=== PATIENT | female | born 1945 | race Hispanic/Latino ===

== ENCOUNTER 2017-04-10 10:32 | Inpatient (IN) | payer MEDICARE, MEDICAID ==
[2017-04-10 11:36] LABS: #Lymphocytes 0.6 thou/uL (1.20-3.40); #Monocytes 0.6 thou/uL (0.11-0.59); #Neutrophils 6.9 thou/uL (1.40-6.50); %Basophils 0.1 % (0.0-1.0); %Eosinophils 0.6 % (0.0-10.0); %Lymphocytes 7.8 % (21.0-51.0); %Neutrophils 84.5 % (42.0-75.0); Hemoglobin 10.6 g/dL (12.0-16.0); Mean Corpuscular HGB CONC 32.3 g/dL (32.0-36.0); Mean Corpuscular Hemoglobin 29.8 pg (27.0-31.0); Mean Corpuscular Volume 92.2 fl (81.0-99.0); Mean Platelet Volume 7.1 fL (7.4-10.4); Platelet Count 220 thou/uL (130-400); RBC Distribution Width 12.2 % (11.5-14.5); Red Blood Cell (RBC) Count 3.56 mill/uL (4.20-5.40); White Blood Cell (WBC) Count 8.1 thou/uL (4.8-10.8)
--- NOTE | 2017-04-10 11:39 | RAD ---
RADIOGRAPH OF CHEST: Date: 04/10/17 COMPARISON: 04/25/16. CLINICAL HISTORY: Chest pain. FINDINGS: There is persistence of multiple right rib deformities. There are patchy subpleural opacities bilater ally, similar appearing, in addition to enlarged cardiac silhouette and pulmonary vascular prominence . IMPRESSION: Grossly stable chest. Findings indicate CHF. Correlate clinically. POS: [facility]
[2017-04-10 11:58] LABS: ALT (SGPT) 7 U/L (8-55); AST (SGOT) 10 U/L (5-34); Albumin 3.9 g/dL (3.4-4.8); Alkaline Phosphatase 148 U/L (40-150); Anion Gap 11 mmol/L (10-20); BUN (Urea Nitrogen) 25 mg/dL (9.8-20.1); Bilirubin, Total 0.6 mg/dL (0.2-1.2); Calc. Creatinine Clearance 0 mL/min (70-130); Calcium 9.4 mg/dL (7.8-10.44); Carbon Dioxide 26 mmol/L (23-31); Chloride 105 mmol/L (98-107); Estimated GFR-MDRD 50; Globulin 3.1 g/dL (2.4-3.5); Glucose 183 mg/dL (80-115); Potassium 4.1 mmol/L (3.5-5.1); Sodium 138 mmol/L (136-145)
[2017-04-10 12:03] LABS: CKMB 0.7 ng/mL (0-6.6); Troponin I 0.018 ng/mL (< 0.028)
[2017-04-10] MEDS ORDERED: ISOVUE-370 76%-LOCM 1 ML ONE (12:22)
[2017-04-10] MEDS ORDERED: Oseltamivir 75 MG CAP PO SCH (13:00)
[2017-04-10 15:16] LABS: Troponin I 0.015 ng/mL (< 0.028)
[2017-04-10 16:15] VITALS: BMI 27.9
[2017-04-10] MEDS ORDERED: Ondansetron ODT 4 MG TAB PO PRN (18:02)
[2017-04-10] MEDS ORDERED: Senokot 8.6 MG TAB PO PRN (18:02)
[2017-04-10] MEDS ORDERED: Ondansetron HCl/PF 4 MG/2 ML Vial IVP PRN (18:02)
[2017-04-10] MEDS ORDERED: Calcium Carbonate 500 MG ChewTAB PO PRN (18:02)
[2017-04-10] MEDS ORDERED: Insulin Regular 300 UNITS/3 ML VIAL SC PRN (18:12)
[2017-04-10] MEDS ORDERED: Dextrose 5% in Water 1,000 ML IV PRN (18:12)
[2017-04-10] MEDS ORDERED: Dextrose 50% Abboject 50 ML SYRINGE SLOW IVP PRN (18:12)
[2017-04-10] MEDS ORDERED: Vancomycin HCl 1 GM in Premix Bag 1 BAG IVPB SCH (18:15)
[2017-04-10] MEDS ORDERED: Sodium Chloride 0.9% 1,000 ML IV SCH (18:15)
[2017-04-10] MEDS ORDERED: Prevnar 13-Val Conj/PF 0.5 ML SYRINGE IM ONE (18:15)
--- NOTE | 2017-04-10 18:19 | HP ---
PRIMARY CARE PHYSICIAN: Dr. Brooke. PRIMARY TOOL PUSHER: Dr. Summers at [facility]. CHIEF COMPLAINT: Fever with generalized weakness. HISTORY OF PRESENT ILLNESS: Patient is a 71-year-old female with diabetes mellitus type 2, hypertens ion, hyperlipidemia who presented to the emergency room with above complaints. Over the last 24 hours, patient has intermittent fever with chills. She feels generally weak with li ghtheaded and malaise. She also had some shortness of breath with headache. No focal neurologic def icit reported. No seizures, double vision or blurring of vision reported. She also had some chest t ightness while she was at home. No significant neck stiffness, dysuria, hematuria, urgency, cough, s hortness of breath, and wheezing reported. In the emergency room, her initial vital signs showed temperature 102.6, respirations 20, pulse rate of 107 with a blood pressure 154/75. O2 saturation was 93% on room air. Influenza testing was negat lily. Respiratory viral panel was negative. She received Tamiflu in the emergency room. PAST MEDICAL HISTORY: 1. Diabetes mellitus type 2. 2. Hypertension. 3. Anxiety and depression. 4. Lumbar spinal stenosis. 5. History of urinary tract infection. 6. History of deep venous thrombosis on anticoagulation. 7. Hypothyroidism. 8. Hyperlipidemia. 9. Diabetic neuropathy. 10. Chronic diastolic heart failure. PAST SURGICAL HISTORY: 1. Pericardial window in 11/2015. 2. PCI with stent placement at [facility]. 3. Tonsillectomy. 4. Ablation for atrial fibrillation. ALLERGIES: Patient is allergic to CODEINE, and TYLENOL. CURRENT HOME MEDICATIONS: Patient does not remember any of her home medications. Family is to get a n accurate list of medications. FAMILY HISTORY: Negative for premature coronary artery disease. SOCIAL HISTORY: She is a former smoker. She currently lives at home since 02/10/2017. She has [employer]. She ambulates with the help of a walker. REVIEW OF SYSTEMS: The following complete review of systems was negative, unless otherwise mentioned in the HPI or below: Constitutional: Weight loss or gain, ability to conduct usual activities. Sk in: Rash, itching. Eyes: Double vision, pain. ENT/Mouth: Nose bleeding, neck stiffness, pain, te nderness. Cardiovascular: Palpitations, dyspnea on exertion, orthopnea. Respiratory: Shortness of breath, wheezing, cough, hemoptysis, fever or night sweats. Gastrointestinal: Poor appetite, abdom inal pain, heartburn, nausea, vomiting, constipation, or diarrhea. Genitourinary: Urgency, frequenc y, dysuria, nocturia. Musculoskeletal: Pain, swelling. Neurologic/Psychiatric: Anxiety, depressio n. Allergy/Immunologic: Skin rash, bleeding tendency. PHYSICAL EXAMINATION: VITAL SIGNS: As discussed above. GENERAL: A 71-year-old female, ill-appearing. She denies significant pain. She has generalized ach es and pains all over. HEENT: Atraumatic, normocephalic. Sclerae are anicteric. Moist mucous membranes. No oral lesion. NECK: Supple, no JVD appreciated. No carotid bruit. LUNGS: Essentially clear to auscultation bilaterally. There were minimal scattered rales at bases w ith rhonchi. No wheezing. Lungs were symmetrical. HEART: S1, S2 present. Regular rate and rhythm, 2/6 systolic murmur over the mitral area. ABDOMEN: Soft, nontender, bowel sounds present, no rebound, guarding, no costovertebral angle tender ness. EXTREMITIES: No edema or calf tenderness. NEUROLOGIC: Grossly nonfocal, moves all four extremities. PSYCHIATRY: Alert, awake, oriented x3. SKIN: Warm and dry. LYMPH NODES: No palpable lymph nodes in the neck. PERIPHERAL VASCULAR: Radial pulses palpable bilaterally. MUSCULOSKELETAL: No joint swelling or tenderness. LABORATORY FINDINGS: Troponin so far negative. BNP 182, BUN 25, creatinine 1.09. Lactic acid 1.1. CBC showed WBC 8.1 with hemoglobin of 10.6, hematocrit 32.8, platelet 220. Influenza testing negati ve. Chest x-ray by my review showed mild pulmonary vascular congestion. IMPRESSION: 1. Systemic inflammatory response syndrome of unclear etiology. Influenza ruled out. 2. Chronic diastolic heart failure, appears to be compensated. 3. Diabetes mellitus type 2. 4. History of deep venous thrombosis on anticoagulation. 5. History of supraventricular tachycardia status post ablation. 6. Coronary artery disease, status post stent placement in the past. 7. Hypertension. 8. Hyperlipidemia. 9. Hypothyroidism. 10. Diabetic neuropathy. 11. History of pericardial effusion with tamponade requiring pericardial window. 12. Chest discomfort. PLAN: Patient will be monitored on the telemetry unit. We will get stat blood cultures, urinalysis and urine cultures. Serial cardiac enzymes will be done for chest discomfort. We will resume home m edications once confirmed. Empiric antibiotics will be initiated. Repeat labs in a.m. Insulin slid ing scale. Plan of care was discussed with the patient. She stated understanding.
[2017-04-10] MEDS ORDERED: cefTRIAXone\\ROCEPHIN 1 GM in Sodium Chloride 0.9% 100 ML IVPB SCH (18:45)
[2017-04-10 18:48] LABS: Troponin I 0.012 ng/mL (< 0.028)
[2017-04-10] MEDS ORDERED: Vancomycin HCl 500 MG in Sodium Chloride 0.9% 100 ML IVPB SCH (20:00)
[2017-04-10] MEDS ORDERED: MEROPENEM 1 GM/50 ML 1 GM in Premix Bag 1 BAG IVPB SCH (21:00)
--- NOTE | 2017-04-10 21:53 | CT ---
CT ANGIO OF CHEST PERFORMED WITH INTRAVENOUS CONTRAST ENHANCEMENT WITH 3D RECONSTRUCTIONS: History: Chest pain and shortness of breath. FINDINGS: The lungs show some chronic appearing change in the lung bases. Old rib fractures are noted bilateral ly. There is no focal infiltrative process. There is no significant mediastinal or hilar adenopathy. The is slight esophageal wall thickening distally which could be on the basis of reflux. The thoracic aorta is normal in caliber. There is fair pulmonary artery opacification without evidence for pulmonary embolus. Visualized liver parenchyma shows no focal findings. IMPRESSION: 1. No CT evidence for pulmonary embolus. POS: [facility]
[2017-04-10] MEDS: Famotidine 20 MG TAB PO SCH (22:37)
[2017-04-10] MEDS: Docusate 100 MG CAP PO SCH (22:37)
[2017-04-10] MEDS: cefTRIAXone\\ROCEPHIN 1 GM, Syringe 0.4 ML in Sterile Water 9.6 ML SLOW IVP SCH (22:42)
[2017-04-10] MEDS: Ibuprofen 200 MG TAB PO PRN (22:47)
--- NOTE | 2017-04-11 00:05 | CON ---
DATE OF CONSULTATION: 04/10/2017 REASON FOR CONSULTATION: Fever, chest pain. HISTORY OF PRESENT ILLNESS: A 71-year-old who has a history of type 2 diabetes and hypertension, lumbar spinal stenosis, and prior DVT, on currently Eliquis, who for the past 3 weeks has noticed what she describes as dizziness when she gets up in the morning, when she goes to bed at night. Over the past day or so , she has developed general malaise, myalgias and fever with chills. She has noticed increased urinary frequency, but no dysuria. A little bit of tenderness in the lower abdominal area, some dyspnea and chest pain which describes as pleuritic chest pain and a submammary region on the left side, had some severe headaches, but those have improved quite a bit lately. No visual symptoms, sore throat, odynophagia, dysphagia, no toothache. No neck pain or some shoulder pain mostly in the muscles. Pain in the abdomen is localized over the suprapubic area mostly the area below the umbilicus. She was brought to the emergency room and initial vital signs with temperature 102.6, respiratory rate 20, pulse 107, blood pressure 154/75, O2 sat 92%. She had a respiratory virus PCR panel which was negative. She was given Tamiflu anyways. Currently, she appears in no distress, a little bit better, still appears unwell. REVIEW OF SYSTEMS: A 10-point review of system as above. PHYSICAL EXAMINATION: Type 2 diabetes, hypertension, lumbar spinal stenosis, prior urinary tract infection, hypothyroidism, neuropathy. PAST SURGICAL HISTORY: Pericardial window in 02/2016, cytology of pericardial fluid with no inflammation and no malignancy. Pathology of pericardial tissue with granulation tissue, but no inflammatory infiltrates, no malignancy or granulomas. She also had ablation for atrial fibrillation and DVT on Eliquis, prior stent placement at [facility]. FAMILY HISTORY: Noncontributory. CURRENT MEDICATIONS: Tums, dextrose, Colace, Pepcid, glucagon, Motrin, insulin , meropenem, Zofran, vancomycin. SOCIAL HISTORY: Former smoker, lives in [place]. PHYSICAL EXAMINATION: VITAL SIGNS: T-max 99, blood pressure 99/53, pulse 88, respirations 18, O2 sat 94%. GENERAL: Appears in no distress, appears chronically ill. SKIN: With no areas of skin breakdown. Has a left-sided antecubital fossa IV access. No Florez catheter. No lymphadenopathy. HEENT: Ocular movements are conjugate. Oral cavity normal. NECK: Supple. LUNGS: With inspiratory crackles in the left base. HEART: S1, S2, regular rate. No S3 or S4. ABDOMEN: Soft, not distended. Question of bladder distention. EXTREMITIES: No joint inflammatory activity. Trace edema in lower extremities. Pulses are 1+ in dorsalis pedis. NEUROLOGIC: Plantar responses are flexor. She is awake, oriented, follows commands, pleasant. LABORATORY DATA: White cell count 8.1, hemoglobin 10.6, 84% neutrophils. Chemistry is not remarkable except for BUN 25, glucose 183. BNP was 182, albumin 3.9. Urinalysis last one is from a year ago, was not repeated. We do not have blood cultures submitted at this time and there is a chest x-ray with deformities, subpleural opacities, pulmonary vascular prominence. ASSESSMENT: Coronary artery disease, type 2 diabetes, and deep venous thrombosis on Lucy, who now presents with new onset of fever over the past 24 hours before admission associated with general malaise and pleuritic pain in the chest area. DISCUSSION: Differential diagnosis includes a respiratory tract infection, that might be still evolving not viral, but bacterial, or urinary tract inflammatory process. She may be or have been bacteremic. We will switch her to Rocephin, discontinue vancomycin and meropenem. Some blood cultures if not done yet, as well as urinalysis and urine culture and repeat chest x-ray in a.m. or repeat chest CT. [facility]
[2017-04-11 03:06] LABS: Bilirubin Negative (Negative); Blood, Urine Trace (Negative); Clarity CLOUDY (Clear); Glucose, Urine (Dipstick) Negative (Negative); Leukocyte Large (Negative); Nitrite Positive (Negative); Protein, Urine (Dipstick) 30 mg/dL (Neg-Trace); Specific Gravity, Urine 1.042 (1.002-1.036)
[2017-04-11 03:08] LABS: Bacteria/HPF 1+ HPF (None Seen); Hyaline Casts/LPF 0-3 HYALINE CAST LPF (0-3 Hyaline); Squamous Epithelial 0-3 HPF (0-3)
[2017-04-11 03:10] LABS: Yeast-AUWi Flag 27.7 (0-25.0)
[2017-04-11 03:18] LABS: Yeast-All Forms None Seen HPF (None Seen)
[2017-04-11 05:56] LABS: Lactic Acid 0.8 mmol/L (0.5-2.2)
[2017-04-11] MEDS: Ibuprofen 200 MG TAB PO PRN ×3 (05:56→21:06)
[2017-04-11 05:58] LABS: Band 7 % (5-11); Eosinophils 1 % (0-10); Hemoglobin 9.5 g/dL (12.0-16.0); Lymphocytes 18 % (21-51); MDiff Complete? YES; Mean Corpuscular HGB CONC 32.6 g/dL (32.0-36.0); Mean Corpuscular Hemoglobin 30.3 pg (27.0-31.0); Mean Corpuscular Volume 92.9 fl (81.0-99.0); Mean Platelet Volume 7.5 fL (7.4-10.4); Monocytes 4 % (0-10); Neutrophil 70 % (42-75); PLT Morphology Comment Appears Adequate; Platelet Count 207 thou/uL (130-400); RBC Distribution Width 12.3 % (11.5-14.5); Red Blood Cell (RBC) Count 3.13 mill/uL (4.20-5.40); White Blood Cell (WBC) Count 8.4 thou/uL (4.8-10.8)
[2017-04-11 06:07] LABS: ALT (SGPT) 7 U/L (8-55); AST (SGOT) 12 U/L (5-34); Albumin 3.4 g/dL (3.4-4.8); Alkaline Phosphatase 123 U/L (40-150); Anion Gap 9 mmol/L (10-20); BUN (Urea Nitrogen) 25 mg/dL (9.8-20.1); Bilirubin, Total 0.5 mg/dL (0.2-1.2); Calc. Creatinine Clearance 58 mL/min (70-130); Calcium 8.7 mg/dL (7.8-10.44); Carbon Dioxide 28 mmol/L (23-31); Chloride 106 mmol/L (98-107); Estimated GFR-MDRD 51; Globulin 2.9 g/dL (2.4-3.5); Glucose 141 mg/dL (80-115); Magnesium 1.2 mg/dL (1.6-2.6); Potassium 3.7 mmol/L (3.5-5.1); Protein, Total 6.3 g/dL (6.0-8.3); Sodium 139 mmol/L (136-145)
[2017-04-11] MEDS ORDERED: Acetaminophen 325 MG TAB PO PRN (08:32)
[2017-04-11] MEDS: Docusate 100 MG CAP PO SCH ×2 (09:27→21:04)
[2017-04-11] MEDS: Famotidine 20 MG TAB PO SCH ×2 (09:27→21:03)
--- NOTE | 2017-04-11 09:29 | ULT ---
RENAL ULTRASOUND: Date: 04-11-17 Comparison: None. History: Urinary tract infection. Technique: Multiplanar grayscale sonographic imaging of the kidneys and urinary bladder obtained. FINDINGS: Right kidney measures 9.5 x 4.0 x 4.5 cm and the left kidney measures 10.5 x 5.0 x 4.5 cm. There is n o renal mass or hydronephrosis seen on either side. Urinary bladder volume is 178 cc. IMPRESSION: Unremarkable renal ultrasound. POS: [facility]
[2017-04-11] MEDS ORDERED: Magnesium Sulfate 4 GM in Sodium Chloride 0.9% 250 ML 250 ML IVPB SCH (09:30)
--- NOTE | 2017-04-11 16:04 | PDOC.PN ---
- Subjective Encounter Start Date: 04/11/17 Encounter Start Time: 12:00 Patient seen and examined. Feels better. Mentation improving. No overnight events - Objective MAR Reviewed: Yes Vital Signs & Weight: Vital Signs (12 hours) Temp Pulse Pulse Pulse Resp BP BP 04/11/17 11:06 98.0 F 77 16 04/11/17 09:27 85 79 120/61 118/56 L 04/11/17 08:00 98.1 F 82 20 04/11/17 07:59 98.1 F 82 20 BP Pulse Ox 04/11/17 11:06 135/65 96 04/11/17 09:27 04/11/17 08:00 04/11/17 07:59 144/70 H 97 I&O: 04/10/17 04/11/17 04/12/17 06:59 06:59 06:59 Intake Total 595 480 Output Total 250 Balance 345 480 Result Diagrams: 04/11/17 05:23 04/11/17 05:23 Additional Labs: Accuchecks 04/11/17 04/10/17 11:12 21:56 POC Glucose 251 H 141 H Radiology Reviewed by me: No (Renal USG negative) EKG Reviewed by me: Yes (Tele SR) Phys Exam - Physical Examination Constitutional: NAD Respiratory: no wheezing, no rales, no rhonchi, clear to auscultation bilateral Cardiovascular: RRR, no rub no heaves/pulsations Gastrointestinal: soft, non-tender, no distention, positive bowel sounds Musculoskeletal: no edema Neurological: non-focal, normal sensation, moves all 4 limbs Psychiatric: A&O x 3 Dx/Plan - Plan DVT proph w/SCDs IMPRESSION: 1. Sepsis due to UTI 2. Chronic diastolic heart failure - compensated. 3. Diabetes mellitus type 2. 4. History of deep venous thrombosis on anticoagulation. 5. History of supraventricular tachycardia status post ablation. 6. Coronary artery disease, status post stent placement in the past. 7. Hypertension. 8. Hyperlipidemia. 9. Hypothyroidism. 10. Diabetic neuropathy. 11. History of pericardial effusion with tamponade requiring pericardial window. 12. Chest discomfort / Hypomagnessemia PLAN: * Replace Magnessium * Resume home meds * Transfer to Medical * Await urine culture * ID following * Cont to monitor * AM labs * Post void 110 ml Review of Systems - Review of Systems Respiratory: negative: Cough, Dry, Shortness of Breath, Hemoptysis, SOB with Excertion, Pleuritic Pain, Sputum, Wheezing Cardiovascular: negative: chest pain, palpitations, orthopnea, paroxysmal nocturnal dyspnea, edema, light headedness, other - Medications/Allergies Allergies/Adverse Reactions: Allergies Allergy/AdvReac Type Severity Reaction Status Date / Time codeine Allergy Verified 04/10/17 16:32 Medications: Current Medications Acetaminophen (Tylenol) 325 mg PO Q6H PRN PRN Reason: Headache/Fever or Pain Calcium Carbonate (Tums) 1,000 mg PO Q4H PRN PRN Reason: Heartburn or Indigestion Dextrose/Water (Dextrose 50%) 25 gm SLOW IVP PRN PRN PRN Reason: Hypoglycemia Docusate Sodium (Colace) 100 mg PO BID [facility] Last Admin: 04/11/17 09:27 Dose: 100 mg Famotidine (Pepcid) 20 mg PO BID [facility] Last Admin: 04/11/17 09:27 Dose: 20 mg Glucagon (Glucagon) 1 mg IM PRN PRN PRN Reason: Hypoglycemia Sodium Chloride (Normal Saline 0.9%) 1,000 mls @ 50 mls/hr IV .Q20H [facility] Last Admin: 04/10/17 22:36 Dose: 1,000 mls Dextrose/Water (D5w) 1,000 mls @ 0 mls/hr IV .Q0M PRN; As Directed PRN Reason: Hypoglycemia Ceftriaxone Sodium 1 gm/ (Syringe 0.4 ml/ Sterile Water) 10 mls @ 120 mls/hr SLOW IVP 2000 [facility] Last Admin: 04/10/17 22:42 Dose: 10 mls Ibuprofen (Motrin) 400 mg PO Q4H PRN PRN Reason: Fever > 101/pain Last Admin: 04/11/17 11:38 Dose: 400 mg Insulin Human Regular (Humulin R) 0 units SC .MILD SLIDING SCALE PRN PRN Reason: Mild Correctional Scale Insulin Human Regular (Humulin R) 0 units SC .BEDTIME SLIDING SC PRN PRN Reason: Bedtime Correctional Scale Ondansetron HCl (Zofran Odt) 4 mg PO Q6H PRN PRN Reason: Nausea/Vomiting Ondansetron HCl (Zofran) 4 mg IVP Q6H PRN PRN Reason: Nausea/Vomiting Senna (Senokot) 2 tab PO HSPRN PRN PRN Reason: Constipation
--- NOTE | 2017-04-11 16:30 | PDOC.EVN ---
Event Note - Event Note Event Note: RN called - Patient developed 6 beats of Vtach
[2017-04-11] MEDS: cefTRIAXone\\ROCEPHIN 1 GM, Syringe 0.4 ML in Sterile Water 9.6 ML SLOW IVP SCH (21:01)
[2017-04-11] MEDS: Pregabalin 75 MG CAP PO SCH (21:03)
[2017-04-11] MEDS: Flecainide 50 MG TAB PO SCH (21:03)
[2017-04-11] MEDS ORDERED: Melatonin 3 MG TAB PO PRN (23:15)
[2017-04-12] MEDS: Levothyroxine Sodium 125 MCG TAB PO SCH (05:50)
[2017-04-12 06:01] LABS: Anion Gap 11 mmol/L (10-20); BUN (Urea Nitrogen) 17 mg/dL (9.8-20.1); Calc. Creatinine Clearance 62 mL/min (70-130); Calcium 8.9 mg/dL (7.8-10.44); Carbon Dioxide 26 mmol/L (23-31); Chloride 108 mmol/L (98-107); Estimated GFR-MDRD 56; Glucose 149 mg/dL (80-115); Magnesium 2.2 mg/dL (1.6-2.6); Potassium 3.8 mmol/L (3.5-5.1); Sodium 141 mmol/L (136-145)
[2017-04-12] MEDS ORDERED: Furosemide 40 MG TAB PO SCH (09:00)
[2017-04-12] MEDS: Pregabalin 75 MG CAP PO SCH ×2 (09:09→20:23)
[2017-04-12] MEDS: Apixaban 5 MG TAB PO SCH (09:10)
[2017-04-12] MEDS: Potassium Chloride 10 MEQ TAB PO SCH (09:10)
[2017-04-12] MEDS: Ibuprofen 200 MG TAB PO PRN ×2 (09:10→20:24)
[2017-04-12] MEDS: Famotidine 20 MG TAB PO SCH ×2 (09:10→20:24)
[2017-04-12] MEDS: Docusate 100 MG CAP PO SCH ×2 (09:10→20:23)
[2017-04-12] MEDS: Flecainide 50 MG TAB PO SCH ×2 (09:11→20:23)
[2017-04-12] MEDS ORDERED: traMADol HCl 50 MG TAB PO PRN (10:04)
[2017-04-12] MEDS: Insulin Regular 300 UNITS/3 ML VIAL SC PRN (11:54)
--- NOTE | 2017-04-12 13:32 | PDOC.PN ---
- Subjective Encounter Start Date: 04/12/17 Encounter Start Time: 12:00 Patient seen and examined. No new complaints. No overnight events - Objective MAR Reviewed: Yes Vital Signs & Weight: Vital Signs (12 hours) Temp Pulse Pulse Pulse Resp BP BP 04/12/17 11:35 98.6 F 74 16 04/12/17 09:37 81 89 137/64 138/62 04/12/17 09:10 98.7 F 74 16 04/12/17 08:15 98.7 F 74 16 04/12/17 05:54 98.1 F 76 16 BP Pulse Ox 04/12/17 11:35 118/56 L 94 L 04/12/17 09:37 04/12/17 09:10 95 04/12/17 08:15 138/67 95 04/12/17 05:54 141/65 H 92 L Weight Weight 160 lb 3.2 oz I&O: 04/11/17 04/12/17 04/13/17 06:59 06:59 06:59 Intake Total 595 1080 Output Total 250 400 Balance 345 680 Result Diagrams: 04/11/17 05:23 04/12/17 05:14 Additional Labs: Accuchecks 04/12/17 04/11/17 04/11/17 11:39 22:19 17:21 POC Glucose 315 H 223 H 189 H Phys Exam - Physical Examination Constitutional: NAD Respiratory: no wheezing, no rhonchi Cardiovascular: RRR, no rub Gastrointestinal: soft, non-tender, no distention Musculoskeletal: no edema Neurological: moves all 4 limbs Psychiatric: A&O x 3 Dx/Plan - Plan IMPRESSION: 1. Sepsis due to UTI 2. Chronic diastolic heart failure - compensated. 3. Diabetes mellitus type 2. 4. History of deep venous thrombosis on anticoagulation. 5. History of supraventricular tachycardia status post ablation. on Flecainide per Cardiology 6. Coronary artery disease, status post stent placement in the past. 7. Hypertension. 8. Hyperlipidemia. 9. Hypothyroidism. 10. Diabetic neuropathy. 11. History of pericardial effusion with tamponade requiring pericardial window. 12. Chest discomfort / Hypomagnessemia - replaced PLAN: * Await urine culture * Cont IV Ceftriaxone * Cont to monitor * DC in AM based on culture report Laboratory Tests 04/11/17 04/12/17 05:23 05:14 Magnesium 1.2 L 2.2 Review of Systems - Review of Systems Respiratory: negative: Cough, Dry, Shortness of Breath, Hemoptysis, SOB with Excertion, Pleuritic Pain, Sputum, Wheezing Cardiovascular: negative: chest pain, palpitations, orthopnea, paroxysmal nocturnal dyspnea, edema, light headedness Gastrointestinal: negative: Nausea, Vomiting, Abdominal Pain, Diarrhea, Constipation, Melena, Hematochezia Musculoskeletal: Shoulder Pain (left - reproducible - worst on movement) - Medications/Allergies Allergies/Adverse Reactions: Allergies Allergy/AdvReac Type Severity Reaction Status Date / Time codeine Allergy Verified 04/10/17 16:32 Medications: Current Medications Acetaminophen (Tylenol) 325 mg PO Q6H PRN PRN Reason: Headache/Fever or Pain Apixaban (Eliquis) 2.5 mg PO DAILY [facility] Last Admin: 04/12/17 09:10 Dose: 2.5 mg Atorvastatin Calcium (Lipitor) 20 mg PO [facility] Calcium Carbonate (Tums) 1,000 mg PO Q4H PRN PRN Reason: Heartburn or Indigestion Dextrose/Water (Dextrose 50%) 25 gm SLOW IVP PRN PRN PRN Reason: Hypoglycemia Docusate Sodium (Colace) 100 mg PO BID [facility] Last Admin: 04/12/17 09:10 Dose: 100 mg Famotidine (Pepcid) 20 mg PO BID [facility] Last Admin: 04/12/17 09:10 Dose: 20 mg Flecainide Acetate (Tambocor) 50 mg PO BID [facility] Last Admin: 04/12/17 09:11 Dose: 50 mg Glucagon (Glucagon) 1 mg IM PRN PRN PRN Reason: Hypoglycemia Dextrose/Water (D5w) 1,000 mls @ 0 mls/hr IV .Q0M PRN; As Directed PRN Reason: Hypoglycemia Ceftriaxone Sodium 1 gm/ (Syringe 0.4 ml/ Sterile Water) 10 mls @ 120 mls/hr SLOW IVP 1999 [facility] Last Admin: 04/11/17 21:01 Dose: 10 mls Ibuprofen (Motrin) 400 mg PO Q4H PRN PRN Reason: Fever > 101/pain Last Admin: 04/12/17 09:10 Dose: 400 mg Insulin Human Regular (Humulin R) 0 units SC .MILD SLIDING SCALE PRN PRN Reason: Mild Correctional Scale Last Admin: 04/12/17 11:54 Dose: 5 unit Insulin Human Regular (Humulin R) 0 units SC .BEDTIME SLIDING SC PRN PRN Reason: Bedtime Correctional Scale Levothyroxine Sodium (Synthroid) 125 mcg PO 0600 [facility] Last Admin: 04/12/17 05:50 Dose: 125 mcg Melatonin (Melatonin) 3 mg PO HS PRN PRN Reason: Insomnia Last Admin: 04/12/17 00:05 Dose: 3 mg Potassium Chloride (Klor-Con 10) 10 meq PO QAM-WM [facility] Last Admin: 04/12/17 09:10 Dose: 10 meq Pregabalin (Lyrica) 75 mg PO BID [facility] Last Admin: 04/12/17 09:09 Dose: 75 mg Senna (Senokot) 2 tab PO HSPRN PRN PRN Reason: Constipation Sodium Chloride (Flush - Normal Saline) 10 ml IVF Q12HR RADHA Sodium Chloride (Flush - Normal Saline) 10 ml IVF PRN PRN PRN Reason: Saline Flush Tramadol HCl (Ultram) 50 mg PO Q6H PRN PRN Reason: Pain
[2017-04-12] MEDS: cefTRIAXone\\ROCEPHIN 1 GM, Syringe 0.4 ML in Sterile Water 9.6 ML SLOW IVP SCH (20:25)
[2017-04-12] MEDS ORDERED: Atorvastatin Calcium 20 MG TAB PO SCH (21:00)
[2017-04-13] MEDS: Levothyroxine Sodium 125 MCG TAB PO SCH (04:14)
[2017-04-13] MEDS: Famotidine 20 MG TAB PO SCH (08:57)
[2017-04-13] MEDS: Apixaban 5 MG TAB PO SCH (08:57)
[2017-04-13] MEDS: Docusate 100 MG CAP PO SCH (08:57)
[2017-04-13] MEDS: Flecainide 50 MG TAB PO SCH (08:57)
[2017-04-13] MEDS: Pregabalin 75 MG CAP PO SCH (08:58)
[2017-04-13] MEDS ORDERED: Sulfameth/Trimethoprim DS 800-160mg TAB PO SCH (09:00)
[2017-04-13] MEDS: Potassium Chloride 10 MEQ TAB PO SCH (09:06)
[2017-04-13 12:23] VITALS: BP 115/62; TEMP 98.4
[2017-04-13] MEDS: Insulin Regular 300 UNITS/3 ML VIAL SC PRN (14:09)
--- NOTE | 2017-04-14 09:17 | DIS ---
DATE OF DISCHARGE: 04/13/2017 DISCHARGE DISPOSITION: Home. FOLLOWUP: Follow up with primary care physician, Dr. Brooke at [facility] in 1 week. ALLERGIES: The patient is allergic to CODEINE. The patient was seen and examined on the day of discharge. Denies any new complaints. No chest pain , shortness of breath, palpitations. DISCHARGE MEDICATIONS: Bactrim double strength 1 tablet b.i.d. #14. Other home medications were resumed including Eliquis 2.5 mg daily, Lipitor 20 mg daily, vitamin D2 o f 50,000 units every 7 days, flecainide 50 mg b.i.d., Lasix 40 mg daily, Humalog sliding scale, levot hyroxine 125 mcg daily, metformin 1000 mg twice a day, potassium chloride 10 mEq daily, Lyrica 75 mg b.i.d. SIGNIFICANT LABORATORIES: Urine culture showing E. coli sensitive to Bactrim. Blood cultures were n egative. Influenza testing negative. PCR respiratory viral panel was negative. CT angiogram of the chest was negative for pulmonary embolism. Renal ultrasound was negative for obstructive pathology. BRIEF HOSPITAL COURSE: The patient is a 71-year-old female with hypertension, diabetes mellitus type 2, and urinary tract infections in the past, presented to the hospital with fever with generalized w eakness. Please refer to the history and physical dated 10/04/2017 for further details. The patient was admitted to the hospital with the diagnosis of fever with chest discomfort. Serial t roponins were negative. Influenza testing and respiratory viral panel were negative. Blood cultures were negative. Urinalysis was consistent with UTI. Urine culture showed E. coli sensitive to Bactr im. She was placed on IV antibiotics that has been changed to Bactrim. She has tolerated Bactrim we ll this morning. She appears stable for discharge. She will probably need an outpatient urological workup due to recurrent UTIs. Postvoid residual was 110 mL. FINAL DIAGNOSES: 1. Sepsis secondary to Escherichia coli urinary tract infection. 2. Chronic diastolic heart failure. 3. Diabetes mellitus type 2. 4. History of deep venous thrombosis on anticoagulation, (low dose Eliquis 2.5 mg daily per PCP). 5. History of supraventricular tachycardia, status post ablation on flecainide. 6. Coronary artery disease, status post stent placement. 7. Hypertension. 8. Hyperlipidemia. 9. Hypothyroidism. 10. Diabetic neuropathy. 11. History of pericardial effusion with tamponade requiring pericardial window. 12. Chest discomfort. 13. Hypomagnesemia, corrected. Plan of care was discussed with the patient in detail. She stated understanding.
--- NOTE | 2017-04-15 14:24 | EKG ---
Test Reason : CP Blood Pressure : / mmHG Vent. Rate : 106 BPM Atrial Rate : 106 BPM P-R Int : 144 ms QRS Dur : 112 ms QT Int : 340 ms P-R-T Axes : 013 -04 203 degrees QTc Int : 451 ms Sinus tachycardia Inferior infarct , age undetermined T wave abnormality, consider lateral ischemia Abnormal ECG Confirmed by LIS LEAL, EDY ([id number]), mapping editor MINOO CALI ([id number]) on 04/15/2017 2:24:05 PM Referred By: DR HAYS Confirmed By:EDY HAYS MD
== END 2017-04-13 14:44 | disposition home or self-care (01) | DRG 872 ==
LOC: ERS 10:32 → 2SW 13:19 → OBSVTOIN 18:07
PROVIDERS: ADMIT Internal Medicine; ATTEND Internal Medicine
DX: A41.51 Sepsis due to Escherichia coli [E. coli] (principal); N39.0 Urinary tract infection, site not specified; I50.32 Chronic diastolic (congestive) heart failure; E11.42 Type 2 diabetes mellitus with diabetic polyneuropathy; I11.0 Hypertensive heart disease with heart failure; E78.5 Hyperlipidemia, unspecified; E03.9 Hypothyroidism, unspecified; E83.42 Hypomagnesemia; I25.10 Atherosclerotic heart disease of native coronary artery without angina pectoris; Z86.718 Personal history of other venous thrombosis and embolism; Z95.5 Presence of coronary angioplasty implant and graft; Z87.891 Personal history of nicotine dependence; Z88.6 Allergy status to analgesic agent; Z88.5 Allergy status to narcotic agent; Z79.01 Long term (current) use of anticoagulants; Z79.4 Long term (current) use of insulin; Z79.899 Other long term (current) drug therapy
CPT/HCPCS: 36415; 36416; 71045; 71275; 76770; 80048; 80053; 81001; 82553; 83605; 83735; 83880; 84484; 85007; 85025; 85027; 87040; 87077; 87086; 87186; 87633; 87798; 90471; 90670; 93005; A4216; G0009; G8978-GP-CL; G8979-GP-CJ; G8987-GO-CK; G8988-GO-CI; J0696; J1815; J3370; J3475; J7050

== ENCOUNTER 2017-08-06 08:34 | Emergency (ER) | payer MEDICARE, MEDICAID ==
[2017-08-06 09:42] LABS: #Eosinphils 0.1 thou/uL (0.0-0.7); #Lymphocytes 1.8 thou/uL (1.20-3.40); #Monocytes 0.6 thou/uL (0.11-0.59); #Neutrophils 5.7 thou/uL (1.40-6.50); %Basophils 0.2 % (0.0-1.0); %Eosinophils 0.9 % (0.0-10.0); %Lymphocytes 21.8 % (21.0-51.0); %Monocytes 6.9 % (0.0-10.0); %Neutrophils 70.2 % (42.0-75.0); Hemoglobin 12.4 g/dL (12.0-16.0); Mean Corpuscular HGB CONC 32.3 g/dL (32.0-36.0); Mean Corpuscular Volume 89.9 fl (81.0-99.0); Mean Platelet Volume 7.2 fL (7.4-10.4); Platelet Count 257 thou/uL (130-400); RBC Distribution Width 14.1 % (11.5-14.5); Red Blood Cell (RBC) Count 4.26 mill/uL (4.20-5.40); White Blood Cell (WBC) Count 8.1 thou/uL (4.8-10.8)
[2017-08-06 10:10] LABS: ALT (SGPT) 8 U/L (8-55); AST (SGOT) 13 U/L (5-34); Albumin 4.3 g/dL (3.4-4.8); Alkaline Phosphatase 208 U/L (40-150); Anion Gap 14 mmol/L (10-20); BUN (Urea Nitrogen) 19 mg/dL (9.8-20.1); Bilirubin, Total 0.7 mg/dL (0.2-1.2); CK (CPK) 53 U/L (29-168); Calc. Creatinine Clearance 0 mL/min (70-130); Calcium 9.6 mg/dL (7.8-10.44); Carbon Dioxide 22 mmol/L (23-31); Chloride 107 mmol/L (98-107); Estimated GFR-MDRD 69; Globulin 3.3 g/dL (2.4-3.5); Glucose 125 mg/dL (83-110); Potassium 4.2 mmol/L (3.5-5.1); Protein, Total 7.6 g/dL (6.0-8.3); Sodium 139 mmol/L (136-145)
[2017-08-06 10:14] LABS: Troponin I Less than 0.010 ng/mL (< 0.028)
[2017-08-06 10:16] LABS: Bilirubin Negative (Negative); Blood, Urine Trace (Negative); Clarity CLEAR (Clear); Glucose, Urine (Dipstick) Negative (Negative); Leukocyte Negative (Negative); Nitrite Negative (Negative); Protein, Urine (Dipstick) 100 mg/dL (Neg-Trace); Specific Gravity, Urine 1.008 (1.002-1.036); Urobilinogen 0.2 mg/dL (0.2-1.0); pH, Urine 7.5 (5.0-9.0)
[2017-08-06 10:19] LABS: Bacteria/HPF None Seen HPF (None Seen); Hyaline Casts/LPF 0-3 HYALINE CAST LPF (0-3 Hyaline); Pathc Cast-AUWi Flag 0.14 (0-2.49); RBC/HPF 0-3 HPF (0-3); Squamous Epithelial None Seen HPF (0-3); WBC/HPF None Seen HPF (0-3)
[2017-08-06] MEDS ORDERED: Ondansetron ODT 4 MG TAB ONE ×2 (10:30→10:33)
--- NOTE | 2017-08-06 10:52 | RAD ---
PORTABLE UPRIGHT FRONTAL CHEST RADIOGRAPH: DATE: 08/06/17. COMPARISON: 04/10/17. HISTORY: Left-sided back pain, side pain, urinary frequency, and increased weakness. FINDINGS: There are increased linear interstitial densities noted bilaterally, not significantly changed. Ther e is no pneumothorax or pleural fluid and no focal consolidation or alveolar edema. Heart and medias tinal contours are grossly unremarkable. IMPRESSION: Interstitial prominence with no focal consolidation or alveolar edema. POS: [facility]
--- NOTE | 2017-08-09 14:27 | EKG ---
Test Reason : TORSO PAIN Blood Pressure : / mmHG Vent. Rate : 072 BPM Atrial Rate : 072 BPM P-R Int : 134 ms QRS Dur : 098 ms QT Int : 390 ms P-R-T Axes : 028 000 -27 degrees QTc Int : 427 ms Normal sinus rhythm Possible Lateral infarct , age undetermined No STEMI Abnormal ECG Confirmed by ROMÁN LEAL, VENKAT ([id number]), news editor SULMA ACUÑA ([id number]) on 08/09/2017 2:27:26 PM Referred By: Confirmed By:VENKAT FRANCE MD
== END 2017-08-06 12:10 | disposition home or self-care (01) ==
LOC: ERS 08:34
DX: S39.011A Strain of muscle, fascia and tendon of abdomen, initial encounter (principal); I48.91 Unspecified atrial fibrillation; I25.10 Atherosclerotic heart disease of native coronary artery without angina pectoris; E11.9 Type 2 diabetes mellitus without complications; I10 Essential (primary) hypertension; Z86.718 Personal history of other venous thrombosis and embolism; F32.9 Major depressive disorder, single episode, unspecified; Z87.891 Personal history of nicotine dependence; Z79.899 Other long term (current) drug therapy; Z79.84 Long term (current) use of oral hypoglycemic drugs; X58.XXXA Exposure to other specified factors, initial encounter
CPT/HCPCS: 36415; 71045; 80053; 81003; 81015; 82550; 82553; 83880; 84484; 85025; 87086; 93005; A4353; Q0162

== ENCOUNTER 2017-10-25 08:24 | Outpatient (CLI) | payer MEDICARE, MEDICAID ==
[2017-10-25] MEDS ORDERED: Gadobenate Dimeglumine 529 MG/1 ML (20ML VIAL) ONE (13:38)
--- NOTE | 2017-10-25 13:50 | NM ---
BONE SCAN: TECHNIQUE: The patient was given 33 mCi of Technetium labeled MDP IV. Whole body bone scan obtained. INDICATION: Back pain. Hip pain. Correlation is made to chest CT of 04/10/17 and to recent chest x-rays. FINDINGS: Bone scan shows numerous foci of activity seen throughout the rib cage bilaterally. Correlation with prior CT and chest x-rays showed areas of numerous rib fractures which correspond to these areas of activity. The spine appears unremarkable. Lumbar spine shows no abnormal activity. Hips and pelvis appear unr emarkable with no abnormal activity. Degenerative activity is seen in the right knee. IMPRESSION: Numerous abnormal foci of activity in the rib cage is consistent with old rib fractures which are con firmed on prior chest CT. Lumbar spine and hips appear unremarkable on bone scan. POS: [facility]
== END 2017-10-25 08:25 | disposition home or self-care (01) ==
LOC: NM 08:24
PROVIDERS: ATTEND Neurological Surgery
DX: M47.22 Other spondylosis with radiculopathy, cervical region (principal); M51.16 Intervertebral disc disorders with radiculopathy, lumbar region; M51.17 Intervertebral disc disorders with radiculopathy, lumbosacral region; M89.9 Disorder of bone, unspecified; M48.02 Spinal stenosis, cervical region; M99.81 Other biomechanical lesions of cervical region; M99.83 Other biomechanical lesions of lumbar region; R94.8 Abnormal results of function studies of other organs and systems; Z98.890 Other specified postprocedural states
CPT/HCPCS: 72141; 72158; 78306; 82565; A9503; A9579

== ENCOUNTER 2017-12-03 06:45 | Emergency (ER) | payer MEDICARE, MEDICAID ==
[2017-12-03 07:27] LABS: #Eosinphils 0.2 thou/uL (0.0-0.7); #Lymphocytes 1.6 thou/uL (1.20-3.40); #Monocytes 0.6 thou/uL (0.11-0.59); #Neutrophils 5.7 thou/uL (1.40-6.50); %Basophils 0.2 % (0.0-1.0); %Lymphocytes 19.3 % (21.0-51.0); %Monocytes 6.9 % (0.0-10.0); %Neutrophils 70.7 % (42.0-75.0); Hemoglobin 10.9 g/dL (12.0-16.0); Mean Corpuscular HGB CONC 33.4 g/dL (32.0-36.0); Mean Corpuscular Hemoglobin 31.2 pg (27.0-31.0); Mean Corpuscular Volume 93.5 fL (78.0-98.0); Mean Platelet Volume 7.1 fL (7.4-10.4); Platelet Count 226 thou/uL (130-400); RBC Distribution Width 13.9 % (11.5-14.5); Red Blood Cell (RBC) Count 3.48 mill/uL (4.20-5.40); White Blood Cell (WBC) Count 8.1 thou/uL (4.8-10.8)
--- NOTE | 2017-12-03 07:46 | RAD ---
PORTABLE AP CHEST XRAY: DATE: 12/03/17. HISTORY: Chest pain. COMPARISON: 08/06/17. FINDINGS: Cardiac silhouette is magnified by projection but does appear enlarged. The pulmonary vasculature is also mildly increased. There are remote bilateral rib fractures bilaterally with deformity in multi ple right-sided ribs present. There is mild elevation of the right hemidiaphragm. There is mild inc reased density in the right mid lung zone, some of which could be related to overlying soft tissue de nsity, but there is mild increasing pulmonary vasculature. No other interval change. IMPRESSION: 1. Cardiomegaly with mild pulmonary vascular congestion. Correlation for mild congestive heart fail ure is recommended. 2. Increased density right mid lung zone probably related to soft tissue density and secondary to ri b deformities. 3. Remote bilateral rib fractures. POS: SYED
[2017-12-03 07:50] LABS: ALT (SGPT) 10 U/L (8-55); AST (SGOT) 14 U/L (5-34); Albumin 3.8 g/dL (3.4-4.8); Alkaline Phosphatase 178 U/L (40-150); Anion Gap 9 mmol/L (10-20); BUN (Urea Nitrogen) 16 mg/dL (9.8-20.1); Bilirubin, Total 0.5 mg/dL (0.2-1.2); Calc. Creatinine Clearance 0 mL/min (70-130); Calcium 8.8 mg/dL (7.8-10.44); Carbon Dioxide 26 mmol/L (23-31); Chloride 110 mmol/L (98-107); Estimated GFR-MDRD 80; Globulin 2.6 g/dL (2.4-3.5); Glucose 79 mg/dL (83-110); Potassium 4.3 mmol/L (3.5-5.1); Protein, Total 6.4 g/dL (6.0-8.3); Sodium 141 mmol/L (136-145)
[2017-12-03 07:54] LABS: CKMB 0.7 ng/mL (0-6.6); Troponin I Less than 0.010 ng/mL (< 0.028)
[2017-12-03 07:57] LABS: INR-International Normal Ratio 1.1; PTT 31.1 SEC (22.9-36.1); Prothrombin Time 13.9 SEC (12.0-14.7)
== END 2017-12-03 14:33 | disposition home or self-care (01) ==
LOC: ERS 06:45
DX: R07.89 Other chest pain (principal); I48.91 Unspecified atrial fibrillation; I25.10 Atherosclerotic heart disease of native coronary artery without angina pectoris; E11.9 Type 2 diabetes mellitus without complications; I10 Essential (primary) hypertension; Z86.718 Personal history of other venous thrombosis and embolism; F32.9 Major depressive disorder, single episode, unspecified; Z87.891 Personal history of nicotine dependence; Z79.899 Other long term (current) drug therapy; Z79.84 Long term (current) use of oral hypoglycemic drugs
CPT/HCPCS: 36415; 71045; 80053; 82553; 83880; 84484; 85025; 85610; 85730; 93005

== ENCOUNTER 2017-12-16 17:15 | Emergency (ER) | payer MEDICARE, MEDICAID ==
[2017-12-16 17:47] LABS: #Eosinphils 0.2 thou/uL (0.0-0.7); #Lymphocytes 1.9 thou/uL (1.20-3.40); #Monocytes 0.5 thou/uL (0.11-0.59); #Neutrophils 5.5 thou/uL (1.40-6.50); %Basophils 0.1 % (0.0-1.0); %Eosinophils 2.7 % (0.0-10.0); %Lymphocytes 23.7 % (21.0-51.0); %Monocytes 6.1 % (0.0-10.0); %Neutrophils 67.5 % (42.0-75.0); Hemoglobin 10.6 g/dL (12.0-16.0); Mean Corpuscular HGB CONC 32.5 g/dL (32.0-36.0); Mean Corpuscular Hemoglobin 29.9 pg (27.0-31.0); Mean Platelet Volume 6.7 fL (7.4-10.4); Platelet Count 376 thou/uL (130-400); RBC Distribution Width 13.3 % (11.5-14.5); Red Blood Cell (RBC) Count 3.54 mill/uL (4.20-5.40); White Blood Cell (WBC) Count 8.2 thou/uL (4.8-10.8)
[2017-12-16 18:09] LABS: ALT (SGPT) 10 U/L (8-55); AST (SGOT) 11 U/L (5-34); Alkaline Phosphatase 150 U/L (40-150); Anion Gap 14 mmol/L (10-20); BUN (Urea Nitrogen) 12 mg/dL (9.8-20.1); Bilirubin, Total 0.4 mg/dL (0.2-1.2); Calc. Creatinine Clearance 0 mL/min (70-130); Calcium 8.8 mg/dL (7.8-10.44); Carbon Dioxide 24 mmol/L (23-31); Chloride 104 mmol/L (98-107); Estimated GFR-MDRD 73; Globulin 3.2 g/dL (2.4-3.5); Glucose 92 mg/dL (83-110); Protein, Total 7.2 g/dL (6.0-8.3); Sodium 138 mmol/L (136-145)
[2017-12-16 19:44] LABS: CKMB 0.6 ng/mL (0-6.6); Troponin I Less than 0.010 ng/mL (< 0.028)
[2017-12-16] MEDS ORDERED: Acetaminophen 500 MG TAB ONE (19:54)
== END 2017-12-16 22:10 | disposition home or self-care (01) ==
LOC: ERS 17:15
DX: D64.9 Anemia, unspecified (principal); I48.91 Unspecified atrial fibrillation; I25.10 Atherosclerotic heart disease of native coronary artery without angina pectoris; I10 Essential (primary) hypertension; E11.40 Type 2 diabetes mellitus with diabetic neuropathy, unspecified; F32.9 Major depressive disorder, single episode, unspecified; Z79.84 Long term (current) use of oral hypoglycemic drugs; Z79.899 Other long term (current) drug therapy
CPT/HCPCS: 36415; 80053; 82274; 82553; 84484; 85025; 93005

== ENCOUNTER 2018-01-31 20:33 | Inpatient (IN) | payer MEDICARE, MEDICAID ==
[2018-01-31 20:56] LABS: Lactate 3.05 mmol/L (0.50-2.20)
[2018-01-31 20:58] LABS: #Eosinphils 0.4 thou/uL (0.0-0.7); #Lymphocytes 2.6 thou/uL (1.20-3.40); #Monocytes 0.8 thou/uL (0.11-0.59); #Neutrophils 7.1 thou/uL (1.40-6.50); %Basophils 0.2 % (0.0-1.0); %Eosinophils 3.5 % (0.0-10.0); %Lymphocytes 23.7 % (21.0-51.0); %Neutrophils 65.5 % (42.0-75.0); Hemoglobin 11.7 g/dL (12.0-16.0); Mean Corpuscular Hemoglobin 30.7 pg (27.0-31.0); Mean Corpuscular Volume 93.1 fL (78.0-98.0); Mean Platelet Volume 7.4 fL (7.4-10.4); Platelet Count 252 thou/uL (130-400); RBC Distribution Width 13.4 % (11.5-14.5); White Blood Cell (WBC) Count 10.8 thou/uL (4.8-10.8)
[2018-01-31 21:18] LABS: ALT (SGPT) 26 U/L (8-55); AST (SGOT) 30 U/L (5-34); Albumin 4.1 g/dL (3.4-4.8); Alkaline Phosphatase 178 U/L (40-150); Anion Gap 14 mmol/L (10-20); BUN (Urea Nitrogen) 25 mg/dL (9.8-20.1); Bilirubin, Total 0.4 mg/dL (0.2-1.2); Calc. Creatinine Clearance 0 mL/min (70-130); Calcium 8.6 mg/dL (7.8-10.44); Carbon Dioxide 25 mmol/L (23-31); Chloride 102 mmol/L (98-107); Estimated GFR-MDRD 32; Globulin 3.1 g/dL (2.4-3.5); Glucose 133 mg/dL (83-110); Potassium 3.8 mmol/L (3.5-5.1); Protein, Total 7.2 g/dL (6.0-8.3); Sodium 137 mmol/L (136-145)
--- NOTE | 2018-01-31 21:18 | RAD ---
PORTABLE CHEST: 01/31/18 HISTORY: Dyspnea. COMPARISON: 12/03/17. FINDINGS/IMPRESSION: Mild cardiomegaly. Mild vascular engorgement. Right chest wall deformity from old trauma. No evidence of acute interval change. POS: ODALIS
[2018-01-31 21:30] LABS: Bilirubin Negative (Negative); Blood, Urine Negative (Negative); Clarity CLOUDY (Clear); Glucose, Urine (Dipstick) Negative (Negative); Leukocyte Moderate (Negative); Nitrite Negative (Negative); Protein, Urine (Dipstick) Negative (Neg-Trace); Specific Gravity, Urine 1.016 (1.002-1.036); pH, Urine 5.5 (5.0-9.0)
[2018-01-31 21:31] LABS: Bacteria/HPF 4+ HPF (None Seen); Hyaline Casts/LPF 0-3 HYALINE CAST LPF (0-3 Hyaline); Pathc Cast-AUWi Flag 0.43 (0-2.49); RBC/HPF None Seen HPF (0-3)
[2018-01-31] MEDS ORDERED: cefTRIAXone\\ROCEPHIN 2 GM VIAL ONE (21:51)
[2018-01-31] MEDS ORDERED: Bisacodyl 5 MG TAB PO PRN (23:17)
[2018-01-31] MEDS ORDERED: Senokot S 8.6-50 MG TAB PO PRN (23:17)
[2018-01-31] MEDS ORDERED: Sodium Chloride 0.9% 1,000 ML IV SCH (23:30)
[2018-01-31] MEDS ORDERED: HumaLOG 300 UNITS/3 ML VIAL SC PRN (23:32)
[2018-01-31] MEDS ORDERED: Dextrose 50% Abboject 50 ML SYRINGE SLOW IVP PRN (23:32)
[2018-01-31] MEDS ORDERED: Dextrose 5% in Water 1,000 ML IV PRN (23:32)
[2018-02-01 00:08] LABS: Lactic Acid 2.7 mmol/L (0.5-2.2)
--- NOTE | 2018-02-01 00:22 | HP ---
CHIEF COMPLAINT: Shortness of breath. HISTORY OF PRESENT ILLNESS: Patient is a 72-year-old female who resides in a [place] [facility], who prese nts to the hospital with complaints of shortness of breath. Patient states that she has been coughin g for the past day; however, her family that is at the bedside stated that she has been coughing for the past week and a half. Patient's family stated that today she appeared to be very lethargic, so [facility] [place] [facility] decided to bring her to the hospital for further evaluation. Patient denies any chil ls; however, she states that she has been having a cough with sputum production. Patient states due to the cough, she has been complaining of some chest pain. Patient also was known to be hypoxic at [facility] [place] [facility] per family. Patient normally does not use any oxygen at home. The influenza test is still pending. Patient initially was called to me for possible urinary tract infection; however, sh gonzalez currently does not have any signs of UTI. PAST MEDICAL HISTORY: History of diabetes, type 2; hypertension; anxiety and depression; lumbar spin al stenosis; history of hypothyroidism; history of hyperlipidemia; and diabetic neuropathy. PAST SURGICAL HISTORY: She has had a pericardial window in 2016, she had a PCI with stent placement in [facility], tonsillectomy, ablation for atrial fibrillation. ALLERGIES: She is allergic to CODEINE AND TYLENOL. MEDICATIONS: Patient currently does not remember her home meds or her [place] [facility] meds and I cannot find the records in the ER in terms of her medications. FAMILY HISTORY: No history of heart disease or cancer. SOCIAL HISTORY: She is a former smoker. She currently lives in a [place] [facility] [place]. She does not ambula te very much. I did ask her about code status. Patient states that she currently wants to be a FULL CODE. REVIEW OF SYSTEMS: All negative except for the ones mentioned above in the HPI. PHYSICAL EXAMINATION: VITAL SIGNS: As of the following temperature of 98.1, she is 95% on room air, pulse is 97, blood pre ssure is 122/66. GENERAL: She is awake, alert, oriented x3, does not appear in any distress. CARDIOVASCULAR: S1, S2 present. No murmurs, rubs, or gallops. LUNGS: She has got significant rhonchi and wheezing all over her lungs. ABDOMEN: Soft, nontender. Bowel sounds are present x2. EXTREMITIES: No edema. Pedal pulses are present x2. SKIN: Intact. No cuts, lesions, or bruises noted. NEUROLOGIC: No focal deficits noted. LABORATORY DATA: As of the following: WBCs of 10.8, hemoglobin of 11.7, hematocrit of 35.4, platele ts of 252. Chemistry: Sodium of 137, potassium of 3.8, BUN of 25, creatinine of 1.61, glucose of 13 3. Her lactic acid was 3.0. Her alkaline phosphatase is mildly elevated. Her BNP was mildly elevat ed at 112.8. Her urine did indicate that she has moderate leukocytes and 11-20 wbcs, and 4-6 squamou s epithelial cells. She did have a chest x-ray that was done in the ER; however, per my interpretati on, she does note that she has got some right wall deformity from old trauma, but no evidence of acut e changes. She does have some mild vascular congestion. ASSESSMENT AND PLAN: Patient is a very pleasant 72-year-old female who presents to the hospital with complaints of coughing for about a week. 1. Possible sepsis. This could be most likely a pneumonia versus urinary tract infection; however, patient has been coughing and she seemed to be hypoxic per the family member at the [place] [facility]. Bert roth does also have an abnormal lung exam. We will start patient on some DuoNebs. We will give her Lev aquin and vancomycin since she is a [place] [facility] resident. I will also get a speech therapist to cherri roth sure she is not aspirating. I will put her on some mild steroids maybe 20 mg IV daily. This could may be due to history of smoking, she could have maybe a little bit of chronic obstructive pulmonary disease exacerbation. The influenza swab is still pending. If it is negative, I would also recomme nd checking a respiratory viral panel on this lady. 2. Mild elevated lactic acid. I will continue to monitor. We will hydrate the patient and most lik talib secondary to underlying infection. We will also check a sputum culture on this lady. 3. History of diabetes. We will continue her home medications. 4. Mild acute kidney injury. We will continue to monitor labs in the morning. If her creatinine do es not improve, may consider getting Nephrology to come and see the patient, we will also bladder sca nned this patient to make sure she is not retaining. 5. Deep venous thrombosis prophylaxis. We will put patient on sequential compression devices. If s he is not on anything for her atrial fibrillation, we will start the patient on some sequential compr ession devices.
[2018-02-01] MEDS ORDERED: Ondansetron ODT 4 MG TAB SL PRN (02:02)
[2018-02-01] MEDS ORDERED: Ondansetron PF 4 MG/2 ML Vial IVP PRN (02:02)
[2018-02-01 05:25] LABS: #Eosinphils 0.2 thou/uL (0.0-0.7); #Lymphocytes 0.7 thou/uL (1.20-3.40); #Monocytes 0.4 thou/uL (0.11-0.59); #Neutrophils 6.8 thou/uL (1.40-6.50); %Basophils 0.2 % (0.0-1.0); %Eosinophils 2.5 % (0.0-10.0); %Lymphocytes 8.5 % (21.0-51.0); %Monocytes 4.7 % (0.0-10.0); %Neutrophils 84.1 % (42.0-75.0); Hemoglobin 9.6 g/dL (12.0-16.0); Mean Corpuscular HGB CONC 31.9 g/dL (32.0-36.0); Mean Corpuscular Hemoglobin 29.8 pg (27.0-31.0); Mean Corpuscular Volume 93.4 fL (78.0-98.0); Mean Platelet Volume 7.7 fL (7.4-10.4); Platelet Count 207 thou/uL (130-400); RBC Distribution Width 13.5 % (11.5-14.5); Red Blood Cell (RBC) Count 3.21 mill/uL (4.20-5.40); White Blood Cell (WBC) Count 8.1 thou/uL (4.8-10.8)
[2018-02-01 05:43] LABS: Anion Gap 13 mmol/L (10-20); BUN (Urea Nitrogen) 22 mg/dL (9.8-20.1); Calc. Creatinine Clearance 45 mL/min (70-130); Calcium 7.5 mg/dL (7.8-10.44); Carbon Dioxide 21 mmol/L (23-31); Chloride 107 mmol/L (98-107); Estimated GFR-MDRD 45; Glucose 103 mg/dL (83-110); Potassium 3.5 mmol/L (3.5-5.1); Sodium 137 mmol/L (136-145)
[2018-02-01] MEDS: Levothyroxine Sodium 125 MCG TAB PO SCH (06:07)
[2018-02-01] MEDS: Acetaminophen 325 MG TAB PO PRN ×2 (06:07→08:15)
[2018-02-01] MEDS ORDERED: Polyethylene Glycol 3350 17 GM Packet PO PRN (07:24)
[2018-02-01] MEDS ORDERED: Milk Of Magnesia 30 ML UDCUP PO PRN (07:24)
[2018-02-01] MEDS ORDERED: Loperamide HCl 2 MG CAP PO PRN (07:48)
[2018-02-01] MEDS ORDERED: metFORMIN 500 MG TAB PO SCH (08:00)
[2018-02-01] MEDS: Atorvastatin Calcium 20 MG TAB PO SCH (08:13)
[2018-02-01] MEDS: metFORMIN 500 MG TAB PO SCH ×2 (08:13→17:35)
[2018-02-01] MEDS: FLUoxetine HCl 20 MG CAP PO SCH (08:14)
[2018-02-01] MEDS: Furosemide 40 MG TAB PO SCH (08:14)
[2018-02-01] MEDS: Senokot 8.6 MG TAB PO SCH (08:14)
[2018-02-01] MEDS: Flecainide 50 MG TAB PO SCH ×2 (08:15→21:17)
[2018-02-01] MEDS: traMADol HCl 50 MG TAB PO SCH ×3 (08:15→21:19)
[2018-02-01] MEDS: Multivitamin W/ Minerals 1 TAB PO SCH (08:15)
[2018-02-01] MEDS: Saccharomyces boulardii 250 MG CAP PO SCH (08:15)
[2018-02-01] MEDS: Pregabalin 75 MG CAP PO SCH ×2 (08:16→21:18)
[2018-02-01] MEDS: Apixaban 2.5 MG TAB PO SCH (08:24)
[2018-02-01] MEDS ORDERED: Heparin 5,000 UNITS/ML VIAL SC SCH (09:00)
--- NOTE | 2018-02-01 09:45 | PDOC.PN ---
- Subjective Encounter Start Date: 02/01/18 Encounter Start Time: 08:30 Patient seen and examined. No new complaints. No overnight events - Objective Resuscitation Status: Resuscitation Status FULL:Full Resuscitation MAR Reviewed: Yes Vital Signs & Weight: Vital Signs (12 hours) Temp Pulse Resp BP Pulse Ox 02/01/18 08:15 98.3 F 93 18 134/61 98 02/01/18 06:32 80 16 98 02/01/18 04:00 98.2 F 86 12 121/63 98 02/01/18 02:35 88 24 H 99 02/01/18 02:02 99 F 92 24 H 158/78 H 97 Weight Weight 143 lb 9.6 oz Result Diagrams: 02/01/18 05:03 02/01/18 05:03 Additional Labs: Accuchecks 02/01/18 05:35 POC Glucose 104 Radiology Reviewed by me: Yes EKG Reviewed by me: Yes (nsr) Phys Exam - Physical Examination Constitutional: NAD HEENT: PERRLA, moist MMs, sclera anicteric Neck: no JVD, supple Respiratory: no wheezing, no rales, no rhonchi Cardiovascular: RRR, no significant murmur, no rub Gastrointestinal: soft, non-tender, no distention, positive bowel sounds Musculoskeletal: no edema, pulses present Neurological: non-focal, normal sensation Lymphatic: no nodes Psychiatric: normal affect Skin: no rash, normal turgor Dx/Plan (1) Acute kidney failure Status: Acute (2) Lactic acidosis Code(s): E87.2 - ACIDOSIS Status: Acute (3) Sepsis Code(s): A41.9 - SEPSIS, UNSPECIFIED ORGANISM Status: Acute (4) UTI (urinary tract infection) Status: Acute (5) Anemia, normocytic normochromic Code(s): D64.9 - ANEMIA, UNSPECIFIED Status: Chronic (6) Anxiety and depression Code(s): F41.9 - ANXIETY DISORDER, UNSPECIFIED; F32.9 - MAJOR DEPRESSIVE DISORDER, SINGLE EPISODE, UNSPECIFIED Status: Chronic (7) CAD (coronary artery disease) Code(s): I25.10 - ATHSCL HEART DISEASE OF [place] CORONARY ARTERY W/O ANG PCTRS Status: Chronic (8) Chronic low back pain Code(s): M54.5 - LOW BACK PAIN; G89.29 - OTHER CHRONIC PAIN Status: Chronic (9) Chronic stage c diastolic heart failure Code(s): I50.32 - CHRONIC DIASTOLIC (CONGESTIVE) HEART FAILURE Status: Chronic (10) DJD (degenerative joint disease), cervical Code(s): M47.812 - SPONDYLOSIS W/O MYELOPATHY OR RADICULOPATHY, CERVICAL REGION Status: Chronic (11) Diabetes type 2, controlled Code(s): E11.9 - TYPE 2 DIABETES MELLITUS WITHOUT COMPLICATIONS Status: Chronic (12) Dyslipidemia Code(s): E78.5 - HYPERLIPIDEMIA, UNSPECIFIED Status: Chronic (13) GERD (gastroesophageal reflux disease) Code(s): K21.9 - GASTRO-ESOPHAGEAL REFLUX DISEASE WITHOUT ESOPHAGITIS Status: Chronic (14) H/O supraventricular tachycardia Code(s): Z86.79 - PERSONAL HISTORY OF OTHER DISEASES OF THE CIRCULATORY SYSTEM Status: Chronic (15) Hypertension Code(s): I10 - ESSENTIAL (PRIMARY) HYPERTENSION Status: Chronic (16) Hypothyroidism Code(s): E03.9 - HYPOTHYROIDISM, UNSPECIFIED Status: Chronic (17) Physical deconditioning Code(s): R53.81 - OTHER MALAISE Status: Chronic - Plan cont current plan of care, continue antibiotics * medication reviewed as below * symptomatic treatment * DC IVF * continue IV antibiotics * follow culture * home medication reconciled. Review of Systems - Review of Systems Eyes: negative: Pain, Vision Change, Conjunctivae Inflammation, Eyelid Inflammation, Redness, Other ENT: negative: Ear Pain, Ear Discharge, Nose Pain, Nose Discharge, Nose Congestion, Mouth Pain, Mouth Swelling, Throat Pain, Throat Swelling, Other Respiratory: negative: Cough, Dry, Shortness of Breath, Hemoptysis, SOB with Excertion, Pleuritic Pain, Sputum, Wheezing Cardiovascular: negative: chest pain, palpitations, orthopnea, paroxysmal nocturnal dyspnea, edema, light headedness, other Gastrointestinal: negative: Nausea, Vomiting, Abdominal Pain, Diarrhea, Constipation, Melena, Hematochezia, Other Genitourinary: negative: Dysuria, Frequency, Incontinence, Hematuria, Retention , Other Musculoskeletal: negative: Neck Pain, Shoulder Pain, Arm Pain, Back Pain, Hand Pain, Leg Pain, Foot Pain, Other Skin: negative: Rash, Lesions, Villa, Bruising, Other - Medications/Allergies Allergies/Adverse Reactions: Allergies Allergy/AdvReac Type Severity Reaction Status Date / Time codeine Allergy Verified 11/22/18 04:03 Medications: Current Medications Acetaminophen (Tylenol) 650 mg PO Q4H PRN PRN Reason: Headache/Fever/Mild Pain (1-3) Last Admin: 02/01/18 08:15 Dose: 650 mg Albuterol/Ipratropium (Duoneb) 3 ml NEB [id number] [facility] Last Admin: 02/01/18 06:32 Dose: 3 ml Apixaban (Eliquis) 2.5 mg PO DAILY [facility] Last Admin: 02/01/18 08:24 Dose: 2.5 mg Atorvastatin Calcium (Lipitor) 20 mg PO DAILY [facility] Last Admin: 02/01/18 08:13 Dose: 20 mg Bisacodyl (Dulcolax) 10 mg PO DAILYPRN PRN PRN Reason: Constipation Cholecalciferol (Vitamin D3) 5,000 units PO DAILY [facility] Last Admin: 02/01/18 08:14 Dose: 5,000 units Dextrose/Water (Dextrose 50%) 25 gm SLOW IVP PRN PRN PRN Reason: Hypoglycemia Flecainide Acetate (Tambocor) 50 mg PO BID [facility] Last Admin: 02/01/18 08:15 Dose: 50 mg Fluoxetine HCl (Prozac) 80 mg PO DAILY [facility] Last Admin: 02/01/18 08:14 Dose: 80 mg Furosemide (Lasix) 40 mg PO DAILY [facility] Last Admin: 02/01/18 08:14 Dose: 40 mg Glucagon (Glucagon) 1 mg IM PRN PRN PRN Reason: Hypoglycemia Levofloxacin 500 mg/ Device 100 mls @ 100 mls/hr IVPB Q24HR [facility] Last Admin: 02/01/18 03:00 Dose: 100 mls Vancomycin HCl 1 gm/ Device 200 mls @ 200 mls/hr IVPB 2100 [facility] Dextrose/Water (D5w) 1,000 mls @ 0 mls/hr IV .Q0M PRN PRN Reason: Hypoglycemia Insulin Human Lispro (Humalog) 0 units SC .MILD SLIDING SCALE PRN PRN Reason: Mild Correctional Scale Iron/Minerals/Multivitamins (Theragran M) 1 tab PO DAILY [facility] Last Admin: 02/01/18 08:15 Dose: 1 tab Lactulose (Lactulose) 20 gm PO TID PRN PRN Reason: CONSTIPATION Levothyroxine Sodium (Synthroid) 125 mcg PO 0600 [facility] Last Admin: 02/01/18 06:07 Dose: 125 mcg Loperamide HCl (Imodium) 2 mg PO DAILY PRN PRN Reason: Diarrhea/Loose Stools Magnesium Hydroxide (Milk Of Magnesium) 5 ml PO DAILY PRN PRN Reason: Constipation Metformin HCl (Glucophage) 500 mg PO BID-[facility] Last Admin: 02/01/18 08:13 Dose: 500 mg Methylprednisolone Sodium Succinate (Solu-Medrol) 20 mg IVP DAILY [facility] Last Admin: 02/01/18 08:17 Dose: 20 mg Miscellaneous Medication (Pharmacy To Dose) 1 each IVPB PRN PRN PRN Reason: Pharmacy to dose Ondansetron HCl (Zofran) 4 mg IVP Q6H PRN PRN Reason: Nausea/Vomiting Stop: 02/01/18 12:10 Ondansetron HCl (Zofran Odt) 4 mg SL Q6H PRN PRN Reason: Nausea/Vomiting Stop: 02/01/18 12:10 Pantoprazole Sodium (Protonix) 40 mg PO DAILY [facility] Last Admin: 02/01/18 08:15 Dose: 40 mg Polyethylene Glycol (Miralax) 17 gm PO DAILY PRN PRN Reason: Constipation Pregabalin (Lyrica) 75 mg PO BID [facility] Last Admin: 02/01/18 08:16 Dose: 75 mg Saccharomyces Boulardii (Florastor) 250 mg PO DAILY [facility] Last Admin: 02/01/18 08:15 Dose: 250 mg Senna (Senokot) 1 tab PO DAILY [facility] Last Admin: 02/01/18 08:14 Dose: 1 tab Senna/Docusate Sodium (Senokot S) 2 tab PO BIDPRN PRN PRN Reason: Constipation Tizanidine HCl (Zanaflex) 2 mg PO Q6H PRN PRN Reason: MUSCLE WEAKNESS Tramadol HCl (Ultram) 50 mg PO TID [facility] Last Admin: 02/01/18 08:15 Dose: 50 mg
[2018-02-01] MEDS: Guaifenesin DM 100-10/5 ML UDCUP PO PRN ×2 (13:51→23:11)
[2018-02-01] MEDS: Sodium Chloride 0.9% 10 ML ONE (21:25)
[2018-02-01] MEDS ORDERED: Sodium Chloride 0.9% 10 ML ONE (22:55)
[2018-02-01] MEDS: Vancomycin HCl 1 GM in Premix Bag 1 BAG IVPB SCH (22:59)
[2018-02-02] MEDS ORDERED: Sodium Chloride 0.9% 10 ML ONE (00:28)
[2018-02-02] MEDS: tiZANidine HCl 4 MG TAB PO PRN ×2 (01:29→23:09)
[2018-02-02 05:30] LABS: #Eosinphils 0.1 thou/uL (0.0-0.7); #Lymphocytes 1.1 thou/uL (1.20-3.40); #Monocytes 0.5 thou/uL (0.11-0.59); %Basophils 0.1 % (0.0-1.0); %Eosinophils 1.3 % (0.0-10.0); %Lymphocytes 16.3 % (21.0-51.0); %Neutrophils 74.3 % (42.0-75.0); Hemoglobin 8.8 g/dL (12.0-16.0); Mean Corpuscular HGB CONC 32.1 g/dL (32.0-36.0); Mean Corpuscular Hemoglobin 29.8 pg (27.0-31.0); Mean Corpuscular Volume 92.8 fL (78.0-98.0); Mean Platelet Volume 7.6 fL (7.4-10.4); Platelet Count 205 thou/uL (130-400); RBC Distribution Width 13.2 % (11.5-14.5); Red Blood Cell (RBC) Count 2.94 mill/uL (4.20-5.40); White Blood Cell (WBC) Count 6.7 thou/uL (4.8-10.8)
[2018-02-02 05:47] LABS: Lactic Acid 1.2 mmol/L (0.5-2.2)
[2018-02-02 05:50] LABS: Anion Gap 11 mmol/L (10-20); BUN (Urea Nitrogen) 19 mg/dL (9.8-20.1); Calc. Creatinine Clearance 60 mL/min (70-130); Calcium 7.6 mg/dL (7.8-10.44); Carbon Dioxide 23 mmol/L (23-31); Chloride 104 mmol/L (98-107); Estimated GFR-MDRD 63; Glucose 106 mg/dL (83-110); Potassium 3.4 mmol/L (3.5-5.1); Sodium 135 mmol/L (136-145)
[2018-02-02] MEDS: Levothyroxine Sodium 125 MCG TAB PO SCH (06:33)
[2018-02-02] MEDS ORDERED: Potassium Chloride 20 MEQ TAB PO SCH (07:30)
[2018-02-02] MEDS: Apixaban 2.5 MG TAB PO SCH (08:39)
[2018-02-02] MEDS: Saccharomyces boulardii 250 MG CAP PO SCH (08:40)
[2018-02-02] MEDS: metFORMIN 500 MG TAB PO SCH ×2 (08:40→17:19)
[2018-02-02] MEDS: Pregabalin 75 MG CAP PO SCH ×2 (08:40→20:51)
[2018-02-02] MEDS: traMADol HCl 50 MG TAB PO SCH ×3 (08:42→20:50)
[2018-02-02] MEDS: FLUoxetine HCl 20 MG CAP PO SCH (08:44)
[2018-02-02] MEDS: Atorvastatin Calcium 20 MG TAB PO SCH (08:44)
[2018-02-02] MEDS: Flecainide 50 MG TAB PO SCH ×2 (08:45→20:50)
[2018-02-02] MEDS: Furosemide 40 MG TAB PO SCH (08:45)
[2018-02-02] MEDS: Multivitamin W/ Minerals 1 TAB PO SCH (08:45)
[2018-02-02] MEDS: Senokot 8.6 MG TAB PO SCH (08:45)
[2018-02-02] MEDS: Sodium Chloride 0.9% 10 ML ONE (08:46)
--- NOTE | 2018-02-02 08:56 | PDOC.PN ---
- Subjective Encounter Start Date: 02/02/18 Encounter Start Time: 07:30 she still has significant cough so unable to sleep well, she is feeling weak, per pt she is wheelchair bound Patient seen and examined. No overnight events - Objective Resuscitation Status: Resuscitation Status FULL:Full Resuscitation MAR Reviewed: Yes Vital Signs & Weight: Vital Signs (12 hours) Temp Pulse Resp BP Pulse Ox 02/02/18 08:00 97.6 F 93 20 147/70 H 96 02/02/18 06:20 80 16 94 L 02/02/18 04:00 98.2 F 73 20 100/57 L 94 L 02/01/18 23:45 98.5 F 88 18 127/58 L 96 02/01/18 22:07 81 16 02/01/18 21:17 98 02/01/18 21:13 98.3 F 82 18 126/61 98 Weight Weight 143 lb 14.4 oz I&O: 02/01/18 02/02/18 02/03/18 06:59 06:59 06:59 Intake Total 2375 Output Total 700 Balance 1675 Result Diagrams: 02/02/18 04:50 02/02/18 04:50 Additional Labs: Accuchecks 02/01/18 02/01/18 02/01/18 20:36 16:55 10:50 POC Glucose 73 139 H 204 H EKG Reviewed by me: Yes (nsr) Phys Exam - Physical Examination Constitutional: NAD HEENT: PERRLA, moist MMs, sclera anicteric Neck: no JVD, supple Respiratory: no wheezing, no rales, no rhonchi coarse sound+ Cardiovascular: RRR, no significant murmur, no rub Gastrointestinal: soft, non-tender, no distention, positive bowel sounds Musculoskeletal: no edema, pulses present Neurological: non-focal, normal sensation Lymphatic: no nodes Psychiatric: normal affect, A&O x 3 Skin: no rash, normal turgor Dx/Plan (1) Acute kidney failure Status: Resolved (2) Lactic acidosis Code(s): E87.2 - ACIDOSIS Status: Resolved (3) Sepsis Code(s): A41.9 - SEPSIS, UNSPECIFIED ORGANISM Status: Acute Comment: due to UTI and acute bronchitis (4) Acute bronchitis Code(s): J20.9 - ACUTE BRONCHITIS, UNSPECIFIED Status: Acute (5) UTI (urinary tract infection) Status: Acute (6) Anemia, normocytic normochromic Code(s): D64.9 - ANEMIA, UNSPECIFIED Status: Chronic (7) Anxiety and depression Code(s): F41.9 - ANXIETY DISORDER, UNSPECIFIED; F32.9 - MAJOR DEPRESSIVE DISORDER, SINGLE EPISODE, UNSPECIFIED Status: Chronic (8) CAD (coronary artery disease) Code(s): I25.10 - ATHSCL HEART DISEASE OF [place] CORONARY ARTERY W/O ANG PCTRS Status: Chronic (9) Chronic low back pain Code(s): M54.5 - LOW BACK PAIN; G89.29 - OTHER CHRONIC PAIN Status: Chronic (10) Chronic stage c diastolic heart failure Code(s): I50.32 - CHRONIC DIASTOLIC (CONGESTIVE) HEART FAILURE Status: Chronic (11) DJD (degenerative joint disease), cervical Code(s): M47.812 - SPONDYLOSIS W/O MYELOPATHY OR RADICULOPATHY, CERVICAL REGION Status: Chronic (12) Diabetes type 2, controlled Code(s): E11.9 - TYPE 2 DIABETES MELLITUS WITHOUT COMPLICATIONS Status: Chronic (13) Dyslipidemia Code(s): E78.5 - HYPERLIPIDEMIA, UNSPECIFIED Status: Chronic (14) GERD (gastroesophageal reflux disease) Code(s): K21.9 - GASTRO-ESOPHAGEAL REFLUX DISEASE WITHOUT ESOPHAGITIS Status: Chronic (15) H/O supraventricular tachycardia Code(s): Z86.79 - PERSONAL HISTORY OF OTHER DISEASES OF THE CIRCULATORY SYSTEM Status: Chronic (16) Hypertension Code(s): I10 - ESSENTIAL (PRIMARY) HYPERTENSION Status: Chronic (17) Hypothyroidism Code(s): E03.9 - HYPOTHYROIDISM, UNSPECIFIED Status: Chronic (18) Physical deconditioning Code(s): R53.81 - OTHER MALAISE Status: Chronic (19) Hypokalemia Code(s): E87.6 - HYPOKALEMIA Status: Acute - Plan cont current plan of care, continue antibiotics, respiratory therapy * medication reviewed as below * symptomatic treatment * continue levaquin, vancomycin and today will add rocephin * continue respiratory therapy * so far culture negative * I have updated plan and current condition to her * continue to monitor * DC tele * transfer to medical. * replace potassium Review of Systems - Review of Systems Constitutional: weakness. negative: fever, chills, sweats, malaise, other Respiratory: Cough, Shortness of Breath. negative: Dry, Hemoptysis, SOB with Excertion, Pleuritic Pain, Sputum, Wheezing Cardiovascular: negative: chest pain, palpitations, orthopnea, paroxysmal nocturnal dyspnea, edema, light headedness, other Gastrointestinal: negative: Nausea, Vomiting, Abdominal Pain, Diarrhea, Constipation, Melena, Hematochezia, Other Genitourinary: negative: Dysuria, Frequency, Incontinence, Hematuria, Retention , Other Musculoskeletal: negative: Neck Pain, Shoulder Pain, Arm Pain, Back Pain, Hand Pain, Leg Pain, Foot Pain, Other Skin: negative: Rash, Lesions, Villa, Bruising, Other - Medications/Allergies Allergies/Adverse Reactions: Allergies Allergy/AdvReac Type Severity Reaction Status Date / Time codeine Allergy Verified 02/01/18 04:03 Medications: Current Medications Acetaminophen (Tylenol) 650 mg PO Q4H PRN PRN Reason: Headache/Fever/Mild Pain (1-3) Last Admin: 02/01/18 08:15 Dose: 650 mg Albuterol/Ipratropium (Duoneb) 3 ml NEB [id number] Last Admin: 02/02/18 06:20 Dose: 3 ml Apixaban (Eliquis) 2.5 mg PO DAILY [facility] Last Admin: 02/02/18 08:39 Dose: 2.5 mg Atorvastatin Calcium (Lipitor) 20 mg PO DAILY [facility] Last Admin: 02/02/18 08:44 Dose: 20 mg Bisacodyl (Dulcolax) 10 mg PO DAILYPRN PRN PRN Reason: Constipation Cholecalciferol (Vitamin D3) 5,000 units PO DAILY [facility] Last Admin: 02/02/18 08:39 Dose: 5,000 units Dextrose/Water (Dextrose 50%) 25 gm SLOW IVP PRN PRN PRN Reason: Hypoglycemia Flecainide Acetate (Tambocor) 50 mg PO BID [facility] Last Admin: 02/02/18 08:45 Dose: 50 mg Fluoxetine HCl (Prozac) 80 mg PO DAILY [facility] Last Admin: 02/02/18 08:44 Dose: 80 mg Furosemide (Lasix) 40 mg PO DAILY [facility] Last Admin: 02/02/18 08:45 Dose: 40 mg Glucagon (Glucagon) 1 mg IM PRN PRN PRN Reason: Hypoglycemia Guaifenesin/Dextromethorphan (Robitussin Dm) 15 ml PO Q4H PRN PRN Reason: Cough Last Admin: 02/01/18 23:11 Dose: 15 ml Levofloxacin 500 mg/ Device 100 mls @ 100 mls/hr IVPB Q24HR [facility] Last Admin: 02/02/18 00:40 Dose: 100 mls Vancomycin HCl 1 gm/ Device 200 mls @ 200 mls/hr IVPB 2100 [facility] Last Admin: 02/01/18 22:59 Dose: 200 mls Dextrose/Water (D5w) 1,000 mls @ 0 mls/hr IV .Q0M PRN PRN Reason: Hypoglycemia Insulin Human Lispro (Humalog) 0 units SC .MILD SLIDING SCALE PRN PRN Reason: Mild Correctional Scale Iron/Minerals/Multivitamins (Theragran M) 1 tab PO DAILY [facility] Last Admin: 02/02/18 08:45 Dose: 1 tab Lactulose (Lactulose) 20 gm PO TID PRN PRN Reason: CONSTIPATION Levothyroxine Sodium (Synthroid) 125 mcg PO 0600 [facility] Last Admin: 02/02/18 06:33 Dose: 125 mcg Loperamide HCl (Imodium) 2 mg PO DAILY PRN PRN Reason: Diarrhea/Loose Stools Magnesium Hydroxide (Milk Of Magnesium) 5 ml PO DAILY PRN PRN Reason: Constipation Metformin HCl (Glucophage) 500 mg PO BID-[facility] Last Admin: 02/02/18 08:40 Dose: 500 mg Methylprednisolone Sodium Succinate (Solu-Medrol) 20 mg IVP DAILY [facility] Last Admin: 02/02/18 08:46 Dose: 20 mg Miscellaneous Medication (Pharmacy To Dose) 1 each IVPB PRN PRN PRN Reason: Pharmacy to dose Pantoprazole Sodium (Protonix) 40 mg PO DAILY [facility] Last Admin: 02/02/18 08:44 Dose: 40 mg Polyethylene Glycol (Miralax) 17 gm PO DAILY PRN PRN Reason: Constipation Potassium Chloride (K-Dur) 40 meq PO NOW [facility] Stop: 02/02/18 09:30 Last Admin: 02/02/18 08:39 Dose: 40 meq Pregabalin (Lyrica) 75 mg PO BID [facility] Last Admin: 02/02/18 08:40 Dose: 75 mg Saccharomyces Boulardii (Florastor) 250 mg PO DAILY [facility] Last Admin: 02/02/18 08:40 Dose: 250 mg Senna (Senokot) 1 tab PO DAILY [facility] Last Admin: 02/02/18 08:45 Dose: 1 tab Senna/Docusate Sodium (Senokot S) 2 tab PO BIDPRN PRN PRN Reason: Constipation Tizanidine HCl (Zanaflex) 2 mg PO Q6H PRN PRN Reason: MUSCLE WEAKNESS Last Admin: 02/02/18 01:29 Dose: 2 mg Tramadol HCl (Ultram) 50 mg PO TID [facility] Last Admin: 02/02/18 08:42 Dose: 50 mg
[2018-02-02] MEDS: cefTRIAXone\\ROCEPHIN 1 GM in Sodium Chloride 0.9% 100 ML IVPB SCH (10:37)
[2018-02-02 11:26] VITALS: BMI 24.7
[2018-02-02 22:24] LABS: Vancomycin, Trough 10.1 ug/mL
[2018-02-02] MEDS: Vancomycin HCl 1 GM in Premix Bag 1 BAG IVPB SCH (22:59)
[2018-02-02] MEDS ORDERED: Vancomycin HCl 1.25 GM in Sodium Chloride 0.9% 250 ML 250 ML IVPB SCH (23:00)
[2018-02-02] MEDS: Acetaminophen 325 MG TAB PO PRN (23:09)
[2018-02-02] MEDS: Guaifenesin DM 100-10/5 ML UDCUP PO PRN (23:10)
[2018-02-03] MEDS: Levothyroxine Sodium 125 MCG TAB PO SCH (05:02)
[2018-02-03] MEDS: metFORMIN 500 MG TAB PO SCH ×2 (09:37→17:36)
[2018-02-03] MEDS: Apixaban 2.5 MG TAB PO SCH (09:38)
[2018-02-03] MEDS: cefTRIAXone\\ROCEPHIN 1 GM in Sodium Chloride 0.9% 100 ML IVPB SCH (09:38)
[2018-02-03] MEDS: Atorvastatin Calcium 20 MG TAB PO SCH (09:38)
[2018-02-03] MEDS: FLUoxetine HCl 20 MG CAP PO SCH (09:39)
[2018-02-03] MEDS: Flecainide 50 MG TAB PO SCH ×2 (09:39→20:15)
[2018-02-03] MEDS: Furosemide 40 MG TAB PO SCH (09:40)
[2018-02-03] MEDS: Multivitamin W/ Minerals 1 TAB PO SCH (09:41)
[2018-02-03] MEDS: Pregabalin 75 MG CAP PO SCH ×2 (09:41→20:16)
[2018-02-03] MEDS: traMADol HCl 50 MG TAB PO SCH ×3 (09:43→20:15)
[2018-02-03] MEDS: Senokot 8.6 MG TAB PO SCH (09:43)
[2018-02-03] MEDS: Saccharomyces boulardii 250 MG CAP PO SCH (09:43)
--- NOTE | 2018-02-03 10:51 | PDOC.PN ---
- Subjective Encounter Start Date: 02/03/18 Encounter Start Time: 09:30 Patient seen and examined. No new complaints. No overnight events - Objective Resuscitation Status: Resuscitation Status FULL:Full Resuscitation MAR Reviewed: Yes Vital Signs & Weight: Vital Signs (12 hours) Temp Pulse Resp BP Pulse Ox 02/03/18 10:13 92 18 95 02/03/18 08:00 98.5 F 92 18 150/82 H 92 L 02/03/18 07:18 80 16 96 02/03/18 04:46 98.3 F 79 16 123/71 97 02/03/18 01:45 89 18 94 L 02/03/18 00:00 98.3 F 87 16 113/70 94 L Weight Admit Weight 143 lb 9.6 oz Weight 143 lb 14.4 oz I&O: 02/02/18 02/03/18 02/04/18 06:59 06:59 06:59 Intake Total 2375 600 Output Total 700 350 Balance 1675 250 Result Diagrams: 02/02/18 04:50 02/02/18 04:50 Additional Labs: Accuchecks 02/03/18 02/02/18 02/02/18 04:49 19:11 16:13 POC Glucose 106 112 H 170 H 02/02/18 11:31 POC Glucose 140 H Phys Exam - Physical Examination Constitutional: NAD HEENT: PERRLA, moist MMs, sclera anicteric Neck: no JVD, supple Respiratory: no wheezing, no rales, no rhonchi coarse sound Cardiovascular: RRR, no significant murmur, no rub Gastrointestinal: soft, non-tender, no distention, positive bowel sounds Musculoskeletal: no edema, pulses present Neurological: non-focal, normal sensation Lymphatic: no nodes Psychiatric: normal affect, A&O x 3 Skin: no rash, normal turgor Dx/Plan (1) Acute kidney failure Status: Resolved (2) Lactic acidosis Code(s): E87.2 - ACIDOSIS Status: Resolved (3) Sepsis Code(s): A41.9 - SEPSIS, UNSPECIFIED ORGANISM Status: Acute Comment: due to UTI and acute bronchitis (4) Acute bronchitis Code(s): J20.9 - ACUTE BRONCHITIS, UNSPECIFIED Status: Acute (5) UTI (urinary tract infection) Status: Acute Comment: due to klebsiella and ecoli (6) Anemia, normocytic normochromic Code(s): D64.9 - ANEMIA, UNSPECIFIED Status: Chronic (7) Anxiety and depression Code(s): F41.9 - ANXIETY DISORDER, UNSPECIFIED; F32.9 - MAJOR DEPRESSIVE DISORDER, SINGLE EPISODE, UNSPECIFIED Status: Chronic (8) CAD (coronary artery disease) Code(s): I25.10 - ATHSCL HEART DISEASE OF [place] CORONARY ARTERY W/O ANG PCTRS Status: Chronic (9) Chronic low back pain Code(s): M54.5 - LOW BACK PAIN; G89.29 - OTHER CHRONIC PAIN Status: Chronic (10) Chronic stage c diastolic heart failure Code(s): I50.32 - CHRONIC DIASTOLIC (CONGESTIVE) HEART FAILURE Status: Chronic (11) DJD (degenerative joint disease), cervical Code(s): M47.812 - SPONDYLOSIS W/O MYELOPATHY OR RADICULOPATHY, CERVICAL REGION Status: Chronic (12) Diabetes type 2, controlled Code(s): E11.9 - TYPE 2 DIABETES MELLITUS WITHOUT COMPLICATIONS Status: Chronic (13) Dyslipidemia Code(s): E78.5 - HYPERLIPIDEMIA, UNSPECIFIED Status: Chronic (14) GERD (gastroesophageal reflux disease) Code(s): K21.9 - GASTRO-ESOPHAGEAL REFLUX DISEASE WITHOUT ESOPHAGITIS Status: Chronic (15) H/O supraventricular tachycardia Code(s): Z86.79 - PERSONAL HISTORY OF OTHER DISEASES OF THE CIRCULATORY SYSTEM Status: Chronic (16) Hypertension Code(s): I10 - ESSENTIAL (PRIMARY) HYPERTENSION Status: Chronic (17) Hypothyroidism Code(s): E03.9 - HYPOTHYROIDISM, UNSPECIFIED Status: Chronic (18) Physical deconditioning Code(s): R53.81 - OTHER MALAISE Status: Chronic (19) Hypokalemia Code(s): E87.6 - HYPOKALEMIA Status: Acute - Plan cont current plan of care, continue antibiotics * medication reviewed as below * symptomatic treatment * DC Vancomycin * continue rocephin and levaquin * expecting discharge tomorrow. Review of Systems - Review of Systems ENT: negative: Ear Pain, Ear Discharge, Nose Pain, Nose Discharge, Nose Congestion, Mouth Pain, Mouth Swelling, Throat Pain, Throat Swelling, Other Respiratory: Cough. negative: Dry, Shortness of Breath, Hemoptysis, SOB with Excertion, Pleuritic Pain, Sputum, Wheezing Cardiovascular: negative: chest pain, palpitations, orthopnea, paroxysmal nocturnal dyspnea, edema, light headedness, other Gastrointestinal: negative: Nausea, Vomiting, Abdominal Pain, Diarrhea, Constipation, Melena, Hematochezia, Other Genitourinary: negative: Dysuria, Frequency, Incontinence, Hematuria, Retention , Other Musculoskeletal: negative: Neck Pain, Shoulder Pain, Arm Pain, Back Pain, Hand Pain, Leg Pain, Foot Pain, Other Skin: negative: Rash, Lesions, Villa, Bruising, Other - Medications/Allergies Allergies/Adverse Reactions: Allergies Allergy/AdvReac Type Severity Reaction Status Date / Time codeine Allergy Verified 02/01/18 04:03 Medications: Current Medications Acetaminophen (Tylenol) 650 mg PO Q4H PRN PRN Reason: Headache/Fever/Mild Pain (1-3) Last Admin: 02/02/18 23:09 Dose: 650 mg Albuterol/Ipratropium (Duoneb) 3 ml NEB [id number] [facility] Last Admin: 02/03/18 10:13 Dose: 3 ml Apixaban (Eliquis) 2.5 mg PO DAILY [facility] Last Admin: 02/03/18 09:38 Dose: 2.5 mg Atorvastatin Calcium (Lipitor) 20 mg PO DAILY [facility] Last Admin: 02/03/18 09:38 Dose: 20 mg Bisacodyl (Dulcolax) 10 mg PO DAILYPRN PRN PRN Reason: Constipation Cholecalciferol (Vitamin D3) 5,000 units PO DAILY [facility] Last Admin: 02/03/18 09:38 Dose: 5,000 units Dextrose/Water (Dextrose 50%) 25 gm SLOW IVP PRN PRN PRN Reason: Hypoglycemia Flecainide Acetate (Tambocor) 50 mg PO BID [facility] Last Admin: 02/03/18 09:39 Dose: 50 mg Fluoxetine HCl (Prozac) 80 mg PO DAILY [facility] Last Admin: 02/03/18 09:39 Dose: 80 mg Furosemide (Lasix) 40 mg PO DAILY [facility] Last Admin: 02/03/18 09:40 Dose: 40 mg Glucagon (Glucagon) 1 mg IM PRN PRN PRN Reason: Hypoglycemia Guaifenesin/Dextromethorphan (Robitussin Dm) 15 ml PO Q4H PRN PRN Reason: Cough Last Admin: 02/02/18 23:10 Dose: 15 ml Levofloxacin 500 mg/ Device 100 mls @ 100 mls/hr IVPB Q24HR [facility] Last Admin: 02/03/18 00:57 Dose: 100 mls Dextrose/Water (D5w) 1,000 mls @ 0 mls/hr IV .Q0M PRN PRN Reason: Hypoglycemia Ceftriaxone Sodium 1 gm/ (Sodium Chloride) 100 mls @ 200 mls/hr IVPB Q24HR [facility] Last Admin: 02/03/18 09:38 Dose: 100 mls Vancomycin HCl 1.25 gm/ Sodium (Chloride) 250 mls @ 166.667 mls/hr IVPB 2300 [facility] Last Admin: 02/02/18 23:05 Dose: 250 mls Insulin Human Lispro (Humalog) 0 units SC .MILD SLIDING SCALE PRN PRN Reason: Mild Correctional Scale Iron/Minerals/Multivitamins (Theragran M) 1 tab PO DAILY [facility] Last Admin: 02/03/18 09:41 Dose: 1 tab Lactulose (Lactulose) 20 gm PO TID PRN PRN Reason: CONSTIPATION Levothyroxine Sodium (Synthroid) 125 mcg PO 0600 [facility] Last Admin: 02/03/18 05:02 Dose: 125 mcg Loperamide HCl (Imodium) 2 mg PO DAILY PRN PRN Reason: Diarrhea/Loose Stools Magnesium Hydroxide (Milk Of Magnesium) 5 ml PO DAILY PRN PRN Reason: Constipation Metformin HCl (Glucophage) 500 mg PO BID[facility] Last Admin: 02/03/18 09:37 Dose: 500 mg Methylprednisolone Sodium Succinate (Solu-Medrol) 20 mg IVP DAILY [facility] Last Admin: 02/03/18 09:40 Dose: 20 mg Miscellaneous Medication (Pharmacy To Dose) 1 each IVPB PRN PRN PRN Reason: Pharmacy to dose Pantoprazole Sodium (Protonix) 40 mg PO DAILY [facility] Last Admin: 02/03/18 09:41 Dose: 40 mg Polyethylene Glycol (Miralax) 17 gm PO DAILY PRN PRN Reason: Constipation Pregabalin (Lyrica) 75 mg PO BID [facility] Last Admin: 02/03/18 09:41 Dose: 75 mg Saccharomyces Boulardii (Florastor) 250 mg PO DAILY [facility] Last Admin: 02/03/18 09:43 Dose: 250 mg Senna (Senokot) 1 tab PO DAILY [facility] Last Admin: 02/03/18 09:43 Dose: 1 tab Senna/Docusate Sodium (Senokot S) 2 tab PO BIDPRN PRN PRN Reason: Constipation Tizanidine HCl (Zanaflex) 2 mg PO Q6H PRN PRN Reason: MUSCLE WEAKNESS Last Admin: 02/02/18 23:09 Dose: 2 mg Tramadol HCl (Ultram) 50 mg PO TID [facility] Last Admin: 02/03/18 09:43 Dose: 50 mg
[2018-02-03] MEDS ORDERED: Promethazine 25 MG TAB PO SCH (14:30)
[2018-02-03] MEDS: Guaifenesin DM 100-10/5 ML UDCUP PO PRN (14:56)
[2018-02-04] MEDS: Levothyroxine Sodium 125 MCG TAB PO SCH (05:54)
[2018-02-04] MEDS: Acetaminophen 325 MG TAB PO PRN (05:57)
[2018-02-04] MEDS: Apixaban 2.5 MG TAB PO SCH (09:20)
[2018-02-04] MEDS: metFORMIN 500 MG TAB PO SCH (09:20)
[2018-02-04] MEDS: FLUoxetine HCl 20 MG CAP PO SCH (09:21)
[2018-02-04] MEDS: cefTRIAXone\\ROCEPHIN 1 GM in Sodium Chloride 0.9% 100 ML IVPB SCH (09:21)
[2018-02-04] MEDS: Flecainide 50 MG TAB PO SCH (09:21)
[2018-02-04] MEDS: Atorvastatin Calcium 20 MG TAB PO SCH (09:21)
[2018-02-04] MEDS: Pregabalin 75 MG CAP PO SCH (09:22)
[2018-02-04] MEDS: Multivitamin W/ Minerals 1 TAB PO SCH (09:22)
[2018-02-04] MEDS: Furosemide 40 MG TAB PO SCH (09:22)
[2018-02-04] MEDS: traMADol HCl 50 MG TAB PO SCH (09:23)
[2018-02-04] MEDS: Saccharomyces boulardii 250 MG CAP PO SCH (09:23)
[2018-02-04] MEDS: Senokot 8.6 MG TAB PO SCH (09:23)
--- NOTE | 2018-02-04 10:54 | PDOC.PN ---
- Subjective Encounter Start Date: 02/04/18 Encounter Start Time: 10:00 Patient seen and examined. No new complaints. No overnight events - Objective Resuscitation Status: Resuscitation Status FULL:Full Resuscitation MAR Reviewed: Yes Vital Signs & Weight: Vital Signs (12 hours) Temp Pulse Resp BP Pulse Ox 02/04/18 09:32 97 16 94 L 02/04/18 07:55 99.0 F 97 20 154/80 H 95 02/04/18 07:41 94 L 02/04/18 06:15 84 14 95 02/04/18 04:35 98.5 F 84 16 144/75 H 94 L 02/04/18 02:41 89 12 94 L 02/04/18 00:08 98.6 F 84 16 121/73 94 L Weight Admit Weight 143 lb 9.6 oz Weight 153 lb 3.2 oz I&O: 02/03/18 02/04/18 02/05/18 06:59 06:59 06:59 Intake Total 600 1790 Output Total 350 1900 Balance 250 -110 Result Diagrams: 02/02/18 04:50 02/02/18 04:50 Additional Labs: Accuchecks 02/04/18 02/03/18 02/03/18 04:32 19:59 15:56 POC Glucose 84 84 190 H 02/03/18 11:18 POC Glucose 135 H Phys Exam - Physical Examination Constitutional: NAD HEENT: PERRLA, moist MMs, sclera anicteric Neck: no JVD, supple Respiratory: no wheezing, no rales, no rhonchi Cardiovascular: RRR, no significant murmur, no rub Gastrointestinal: soft, non-tender, no distention, positive bowel sounds Musculoskeletal: no edema, pulses present Neurological: non-focal, normal sensation Lymphatic: no nodes Psychiatric: normal affect, A&O x 3 Skin: no rash, normal turgor Dx/Plan (1) Acute kidney failure Status: Resolved (2) Lactic acidosis Code(s): E87.2 - ACIDOSIS Status: Resolved (3) Sepsis Code(s): A41.9 - SEPSIS, UNSPECIFIED ORGANISM Status: Acute Comment: due to UTI and acute bronchitis (4) Acute bronchitis Code(s): J20.9 - ACUTE BRONCHITIS, UNSPECIFIED Status: Acute (5) UTI (urinary tract infection) Status: Acute Comment: due to klebsiella and ecoli (6) Anemia, normocytic normochromic Code(s): D64.9 - ANEMIA, UNSPECIFIED Status: Chronic (7) Anxiety and depression Code(s): F41.9 - ANXIETY DISORDER, UNSPECIFIED; F32.9 - MAJOR DEPRESSIVE DISORDER, SINGLE EPISODE, UNSPECIFIED Status: Chronic (8) CAD (coronary artery disease) Code(s): I25.10 - ATHSCL HEART DISEASE OF [place] CORONARY ARTERY W/O ANG PCTRS Status: Chronic (9) Chronic low back pain Code(s): M54.5 - LOW BACK PAIN; G89.29 - OTHER CHRONIC PAIN Status: Chronic (10) Chronic stage c diastolic heart failure Code(s): I50.32 - CHRONIC DIASTOLIC (CONGESTIVE) HEART FAILURE Status: Chronic (11) DJD (degenerative joint disease), cervical Code(s): M47.812 - SPONDYLOSIS W/O MYELOPATHY OR RADICULOPATHY, CERVICAL REGION Status: Chronic (12) Diabetes type 2, controlled Code(s): E11.9 - TYPE 2 DIABETES MELLITUS WITHOUT COMPLICATIONS Status: Chronic (13) Dyslipidemia Code(s): E78.5 - HYPERLIPIDEMIA, UNSPECIFIED Status: Chronic (14) GERD (gastroesophageal reflux disease) Code(s): K21.9 - GASTRO-ESOPHAGEAL REFLUX DISEASE WITHOUT ESOPHAGITIS Status: Chronic (15) H/O supraventricular tachycardia Code(s): Z86.79 - PERSONAL HISTORY OF OTHER DISEASES OF THE CIRCULATORY SYSTEM Status: Chronic (16) Hypertension Code(s): I10 - ESSENTIAL (PRIMARY) HYPERTENSION Status: Chronic (17) Hypothyroidism Code(s): E03.9 - HYPOTHYROIDISM, UNSPECIFIED Status: Chronic (18) Physical deconditioning Code(s): R53.81 - OTHER MALAISE Status: Chronic (19) Hypokalemia Code(s): E87.6 - HYPOKALEMIA Status: Acute - Plan cont current plan of care, continue antibiotics * medication reviewed as below * symptomatic treatment * change to po levaquin * discharge to [facility]. Review of Systems - Review of Systems ENT: negative: Ear Pain, Ear Discharge, Nose Pain, Nose Discharge, Nose Congestion, Mouth Pain, Mouth Swelling, Throat Pain, Throat Swelling, Other Respiratory: negative: Cough, Dry, Shortness of Breath, Hemoptysis, SOB with Excertion, Pleuritic Pain, Sputum, Wheezing Cardiovascular: negative: chest pain, palpitations, orthopnea, paroxysmal nocturnal dyspnea, edema, light headedness, other Gastrointestinal: negative: Nausea, Vomiting, Abdominal Pain, Diarrhea, Constipation, Melena, Hematochezia, Other Genitourinary: negative: Dysuria, Frequency, Incontinence, Hematuria, Retention , Other Musculoskeletal: negative: Neck Pain, Shoulder Pain, Arm Pain, Back Pain, Hand Pain, Leg Pain, Foot Pain, Other Skin: negative: Rash, Lesions, Villa, Bruising, Other - Medications/Allergies Allergies/Adverse Reactions: Allergies Allergy/AdvReac Type Severity Reaction Status Date / Time codeine Allergy Verified 02/01/18 04:03 Medications: Current Medications Acetaminophen (Tylenol) 650 mg PO Q4H PRN PRN Reason: Headache/Fever/Mild Pain (1-3) Last Admin: 02/04/18 05:57 Dose: 650 mg Albuterol/Ipratropium (Duoneb) 3 ml NEB [id number] [facility] Last Admin: 02/04/18 09:32 Dose: 3 ml Apixaban (Eliquis) 2.5 mg PO DAILY [facility] Last Admin: 02/04/18 09:20 Dose: 2.5 mg Atorvastatin Calcium (Lipitor) 20 mg PO DAILY [facility] Last Admin: 02/04/18 09:21 Dose: 20 mg Bisacodyl (Dulcolax) 10 mg PO DAILYPRN PRN PRN Reason: Constipation Cholecalciferol (Vitamin D3) 5,000 units PO DAILY [facility] Last Admin: 02/04/18 09:21 Dose: 5,000 units Dextrose/Water (Dextrose 50%) 25 gm SLOW IVP PRN PRN PRN Reason: Hypoglycemia Flecainide Acetate (Tambocor) 50 mg PO BID [facility] Last Admin: 02/04/18 09:21 Dose: 50 mg Fluoxetine HCl (Prozac) 80 mg PO DAILY [facility] Last Admin: 02/04/18 09:21 Dose: 80 mg Furosemide (Lasix) 40 mg PO DAILY [facility] Last Admin: 02/04/18 09:22 Dose: 40 mg Glucagon (Glucagon) 1 mg IM PRN PRN PRN Reason: Hypoglycemia Guaifenesin/Dextromethorphan (Robitussin Dm) 15 ml PO Q4H PRN PRN Reason: Cough Last Admin: 02/03/18 14:56 Dose: 15 ml Levofloxacin 500 mg/ Device 100 mls @ 100 mls/hr IVPB Q24HR [facility] Last Admin: 02/03/18 23:37 Dose: 100 mls Dextrose/Water (D5w) 1,000 mls @ 0 mls/hr IV .Q0M PRN PRN Reason: Hypoglycemia Ceftriaxone Sodium 1 gm/ (Sodium Chloride) 100 mls @ 200 mls/hr IVPB Q24HR [facility] Last Admin: 02/04/18 09:21 Dose: 100 mls Insulin Human Lispro (Humalog) 0 units SC .MILD SLIDING SCALE PRN PRN Reason: Mild Correctional Scale Iron/Minerals/Multivitamins (Theragran M) 1 tab PO DAILY [facility] Last Admin: 02/04/18 09:22 Dose: 1 tab Lactulose (Lactulose) 20 gm PO TID PRN PRN Reason: CONSTIPATION Levothyroxine Sodium (Synthroid) 125 mcg PO 0600 [facility] Last Admin: 02/04/18 05:54 Dose: 125 mcg Loperamide HCl (Imodium) 2 mg PO DAILY PRN PRN Reason: Diarrhea/Loose Stools Magnesium Hydroxide (Milk Of Magnesium) 5 ml PO DAILY PRN PRN Reason: Constipation Metformin HCl (Glucophage) 500 mg PO BID[facility] Last Admin: 02/04/18 09:20 Dose: 500 mg Methylprednisolone Sodium Succinate (Solu-Medrol) 20 mg IVP DAILY [facility] Last Admin: 02/04/18 09:25 Dose: 20 mg Pantoprazole Sodium (Protonix) 40 mg PO DAILY [facility] Last Admin: 02/04/18 09:22 Dose: 40 mg Polyethylene Glycol (Miralax) 17 gm PO DAILY PRN PRN Reason: Constipation Pregabalin (Lyrica) 75 mg PO BID [facility] Last Admin: 02/04/18 09:22 Dose: 75 mg Saccharomyces Boulardii (Florastor) 250 mg PO DAILY [facility] Last Admin: 02/04/18 09:23 Dose: 250 mg Senna (Senokot) 1 tab PO DAILY [facility] Last Admin: 02/04/18 09:23 Dose: 1 tab Senna/Docusate Sodium (Senokot S) 2 tab PO BIDPRN PRN PRN Reason: Constipation Tizanidine HCl (Zanaflex) 2 mg PO Q6H PRN PRN Reason: MUSCLE WEAKNESS Last Admin: 02/02/18 23:09 Dose: 2 mg Tramadol HCl (Ultram) 50 mg PO TID [facility] Last Admin: 02/04/18 09:23 Dose: 50 mg
--- NOTE | 2018-02-04 13:49 | DIS ---
DATE OF ADMISSION: 02/01/2018 DATE OF DISCHARGE: 02/04/2018 PRIMARY CARE PHYSICIAN: Bert La M.D. DISCHARGE DISPOSITION: [facility]. PRIMARY DISCHARGE DIAGNOSES: Sepsis, urinary tract infection, acute bronchitis, hypokalemia; lactic acidosis, resolved; acute kidney failure, improved. SECONDARY DISCHARGE DIAGNOSES: Physical deconditioning, hypothyroidism, hypertension, history of sup raventricular tachycardia, gastroesophageal reflux disease, dyslipidemia, degenerative joint disease of cervical spine, diabetes type 2, chronic diastolic heart failure, chronic low back pain, coronary artery disease, anxiety and depression, normocytic normochromic anemia. PRIMARY PROCEDURE/OPERATION: None. RADIOLOGICAL INVESTIGATION: Chest x-ray showed no acute process. SIGNIFICANT LABORATORY DATA: WBC 6.7, hemoglobin 8.8, platelets 205. Sodium 135, potassium 3.4, BUN 19, creatinine 0.89, calcium 7.6. Lactic acid 1.2. LFT normal. BNP 112.8. Urinalysis suggestive of UTI. Urine culture grew E. coli and Klebsiella. Blood culture negative, influenza negative. DISCHARGE MEDICATIONS: Levaquin 750 mg p.o. daily for 5 more days, Mucinex 600 mg twice daily for 5 days, Fosamax 70 mg every week, Eliquis 2.5 mg daily, Lipitor 20 mg p.o. daily, vitamin D3 of 5000 un its p.o. daily, Tambocor 50 mg p.o. b.i.d., Prozac 80 mg p.o. daily, Lasix 40 mg p.o. daily, DuoNeb q .6 hourly, Synthroid 125 mcg p.o. daily, Mobic 15 mg p.o. daily p.r.n., metformin 500 mg p.o. b.i.d., Protonix 40 mg p.o. daily, MiraLax 17 grams p.o. daily p.r.n., Lyrica 75 mg p.o. b.i.d., Senokot 8.6 mg p.o. daily, Zanaflex 2 mg q.6 hourly p.r.n., tramadol 50 mg p.o. t.i.d. p.r.n. CONTRAINDICATIONS: None. CODE STATUS: FULL CODE. INPATIENT CONSULTANTS: None. ALLERGIES: CODEINE. DISCHARGE PLAN: Post hospital, patient will follow up with Dr. Bert La in 1 week. HOSPITAL COURSE: A 72-year-old female with above-mentioned medical problem who was admitted by Dr. Renan lopez. Please see her H&P for further details. Patient was having increasing amount of cough. Jihan ent was feeling shortness of breath and she was having fever at [facility] and that is why she was sent to emergency room for evaluation. In the emergency room, patient's chest x-ray was normal. She was having wheezing and based on clinical presentation, her clinical presentation was consistent wit h acute bronchitis. Patient was treated with broad spectrum antibiotic therapy with Rocephin and Lev aquin. Upon discharge, we changed to Levaquin therapy. While in hospital, patient was receiving IV antibiotic therapy. We also broadened her spectrum while in hospital, but her culture remained negat lily. She was also experiencing UTI and her urine culture grew Klebsiella and E. coli. Based on cult ure result, we changed to Levaquin therapy. Initially, patient was admitted in the telemetry floor, but subsequently, she was transferred to [facility] floor. Patient is doing very well. She is up to her baseline level. Patient is medically stabl e for discharge. Patient is seen and examined at bedside today. Please see my progress note from today for further de tail. Paper work for discharge done. Discharge medication reconciliation done. Total time spent on discharge day 31 minutes.
[2018-02-04 15:04] VITALS: BP 138/54; TEMP 98.9
[2018-02-06] MEDS ORDERED: Sodium Chloride 0.9% 1,000 ML IV SCH (13:15)
[2018-02-06] MEDS ORDERED: Acetaminophen 325 MG TAB PO PRN (13:16)
--- NOTE | 2018-02-06 16:15 | CT ---
CT ABDOMEN NONCONTRAST CT PELVIS NONCONTRAST: (urolithiasis protocol) DATE: 02-06-18 TIME: 1:42 p.m. HISTORY: 72-year-old female with generalized abdominal pain, sepsis, UTI. COMPARISON: 08-27-15 TECHNIQUE: IV injection of iodinated contrast media: none Oral contrast media: none FINDINGS: Other than for urolithiasis, the lack of IV and oral contrast limits the evaluation. Diffuse, severe, osteopenia. Multiple old right rib fracture deformities again demonstrated. Plate-li ke densities in the bilateral lower lobes are consistent with pulmonary scars and/or subsegmental ate lectasis. This was the case previously, although distribution is slightly different. Currently there are no pleural effusions. No ascites or pneumoperitoneum. Distended urinary bladder with normal, thin jiang. Large amount of stool distending the rectum, similar to previous CT. No evidence of colonic d iverticulitis. No evidence of renal, ureteral, or bladder calculus. No hydronephrosis. No small bowel dilation. Atrophic pancreas. Within the limitations of a noncontrast scan, no major pathology identi fied involving the bilateral kidneys, abdominal aorta, liver, adrenals, or spleen. Old healed fractur es of inferior rami of the pelvis bilaterally and of left superior ramus. IMPRESSION: 1. No urolithiasis or obstructive uropathy. 2. Severe osteopenia. 3. Multiple old fractures involving right ribs and bilateral inferior pelvic rami and left superior r amus. 4. Constipation. BRYN R POS: [facility]
== END 2018-02-04 14:10 | DRG 872 ==
LOC: ERS 20:33 → 2NO 02-01 → T4-B 02-02 12:40
PROVIDERS: ADMIT Internal Medicine; ATTEND Internal Medicine
DX: A41.9 Sepsis, unspecified organism (principal); N39.0 Urinary tract infection, site not specified; N17.9 Acute kidney failure, unspecified; E87.2 Acidosis; I50.32 Chronic diastolic (congestive) heart failure; J20.9 Acute bronchitis, unspecified; E11.9 Type 2 diabetes mellitus without complications; I11.0 Hypertensive heart disease with heart failure; F41.9 Anxiety disorder, unspecified; F32.9 Major depressive disorder, single episode, unspecified; M48.061 Spinal stenosis, lumbar region without neurogenic claudication; E03.9 Hypothyroidism, unspecified; E78.5 Hyperlipidemia, unspecified; E11.40 Type 2 diabetes mellitus with diabetic neuropathy, unspecified; Z88.5 Allergy status to narcotic agent; Z88.8 Allergy status to other drugs, medicaments and biological substances; Z79.899 Other long term (current) drug therapy; Z87.891 Personal history of nicotine dependence; E87.6 Hypokalemia; K21.9 Gastro-esophageal reflux disease without esophagitis; I25.10 Atherosclerotic heart disease of native coronary artery without angina pectoris; G89.29 Other chronic pain; M54.9 Dorsalgia, unspecified; D64.9 Anemia, unspecified; B96.1 Klebsiella pneumoniae [K. pneumoniae] as the cause of diseases classified elsewhere; B96.20 Unspecified Escherichia coli [E. coli] as the cause of diseases classified elsewhere; M47.812 Spondylosis without myelopathy or radiculopathy, cervical region; R53.81 Other malaise
CPT/HCPCS: 36415; 36416; 51701; 71045; 80048; 80053; 80202; 81003; 81015; 83605; 83880; 85025; 87040; 87070; 87077; 87086; 87186; 87205; 87804; 93005; 94640; 96361; 96365; 96368; G8978-GP-CM; G8979-GP-CK; J0696; J1956; J2920; J3370; J7050; J7620

== ENCOUNTER 2018-02-06 09:35 | Inpatient (IN) | payer MEDICARE, MEDICAID ==
[2018-02-06 10:41] LABS: #Monocytes 0.6 thou/uL (0.11-0.59); #Neutrophils 11.2 thou/uL (1.40-6.50); %Basophils 0.1 % (0.0-1.0); %Eosinophils 0.2 % (0.0-10.0); %Lymphocytes 14.1 % (21.0-51.0); %Monocytes 4.2 % (0.0-10.0); %Neutrophils 81.4 % (42.0-75.0); Hemoglobin 11.4 g/dL (12.0-16.0); Mean Corpuscular HGB CONC 33.1 g/dL (32.0-36.0); Mean Corpuscular Hemoglobin 30.4 pg (27.0-31.0); Mean Corpuscular Volume 91.9 fL (78.0-98.0); Mean Platelet Volume 7.5 fL (7.4-10.4); Platelet Count 310 thou/uL (130-400); RBC Distribution Width 13.3 % (11.5-14.5); Red Blood Cell (RBC) Count 3.74 mill/uL (4.20-5.40); White Blood Cell (WBC) Count 13.8 thou/uL (4.8-10.8)
[2018-02-06 10:59] LABS: ALT (SGPT) 21 U/L (8-55); AST (SGOT) 20 U/L (5-34); Albumin 3.8 g/dL (3.4-4.8); Alkaline Phosphatase 156 U/L (40-150); Anion Gap 20 mmol/L (10-20); BUN (Urea Nitrogen) 31 mg/dL (9.8-20.1); Bilirubin, Total 0.5 mg/dL (0.2-1.2); Calc. Creatinine Clearance 0 mL/min (70-130); Carbon Dioxide 21 mmol/L (23-31); Chloride 101 mmol/L (98-107); Estimated GFR-MDRD 25; Globulin 2.8 g/dL (2.4-3.5); Glucose 75 mg/dL (83-110); Potassium 3.7 mmol/L (3.5-5.1); Protein, Total 6.6 g/dL (6.0-8.3); Sodium 138 mmol/L (136-145)
[2018-02-06 11:04] LABS: CKMB 0.8 ng/mL (0-6.6)
[2018-02-06 11:16] LABS: Troponin I 0.011 ng/mL (< 0.028)
[2018-02-06] MEDS ORDERED: cefTRIAXone\\ROCEPHIN 2 GM VIAL ONE (11:19)
[2018-02-06 11:34] LABS: Bilirubin Negative (Negative); Blood, Urine Negative (Negative); Clarity CLEAR (Clear); Glucose, Urine (Dipstick) Negative (Negative); Leukocyte Negative (Negative); Nitrite Negative (Negative); Protein, Urine (Dipstick) Negative (Neg-Trace); Specific Gravity, Urine 1.014 (1.002-1.036); Urobilinogen 0.2 mg/dL (0.2-1.0)
--- NOTE | 2018-02-06 12:03 | RAD ---
PORTABLE CHEST 1 VIEW: Date: 02/06/18 Time: 1138 hours HISTORY: Weakness. FINDINGS/IMPRESSION: Comparison made with exam of 01/31/18. The heart is enlarged. There is mild pulmonary vascular congestion. No lobar consolidation, pneumotho races, or large effusions are seen. There is mild elevation of right hemidiaphragm. POS: OFF
[2018-02-06] MEDS ORDERED: Acetaminophen 325 MG TAB PO PRN ×2 (13:19→17:27)
[2018-02-06] MEDS ORDERED: Dextrose 50% Abboject 50 ML SYRINGE SLOW IVP PRN (13:28)
[2018-02-06] MEDS ORDERED: Dextrose 5% in Water 1,000 ML IV PRN (13:28)
[2018-02-06 14:02] LABS: Troponin I Less than 0.010 ng/mL (< 0.028)
[2018-02-06] MEDS ORDERED: VANCOMYCIN IVPB PRN (14:47)
--- NOTE | 2018-02-06 15:04 | CT ---
CT BRAIN WITHOUT CONTRAST: Date: 02/06/18 HISTORY: Altered mental status, generalized weakness, confusion. FINDINGS: Comparison made with exam of 12/23/13. Changes of chronic small vessel ischemic disease are again noted in the periventricular white matter. The ventricular size is appropriate and the basilar cisterns are patent. There is a small focal area of low density in the medial aspect of the right temporal lobe. No hemorr jakub, midline shift, or abnormal extra-axial fluid collections are seen. The bony calvarium is intact . The visualized paranasal sinuses and mastoid air cells are well aerated. IMPRESSION: Findings suggestive of an age-indeterminate infarction in the medial aspect of the right temporal lob e. Evaluation with MRI would be helpful. POS: OFF
[2018-02-06 16:48] VITALS: BMI 23.3
[2018-02-06 17:05] LABS: Troponin I Less than 0.010 ng/mL (< 0.028)
[2018-02-06] MEDS: Sodium Chloride 0.9% 1,000 ML IV SCH (17:27)
[2018-02-06] MEDS: traMADol HCl 50 MG TAB PO PRN (17:56)
[2018-02-06] MEDS: Piperacillin/Tazobactam 3.375 GM in Sodium Chloride 0.9% 100 ML IVPB SCH (17:58)
[2018-02-06] MEDS ORDERED: Vancomycin HCl 1 GM in Premix Bag 1 BAG IVPB SCH (21:00)
[2018-02-07] MEDS: Piperacillin/Tazobactam 3.375 GM in Sodium Chloride 0.9% 100 ML IVPB SCH ×4 (00:27→16:57)
[2018-02-07] MEDS: traMADol HCl 50 MG TAB PO PRN ×2 (00:28→15:20)
[2018-02-07 05:54] LABS: #Eosinphils 0.2 thou/uL (0.0-0.7); #Lymphocytes 1.8 thou/uL (1.20-3.40); #Monocytes 0.8 thou/uL (0.11-0.59); #Neutrophils 8.4 thou/uL (1.40-6.50); %Lymphocytes 15.7 % (21.0-51.0); %Monocytes 7.2 % (0.0-10.0); Hemoglobin 9.5 g/dL (12.0-16.0); Mean Corpuscular HGB CONC 33.3 g/dL (32.0-36.0); Mean Corpuscular Hemoglobin 30.6 pg (27.0-31.0); Mean Corpuscular Volume 91.8 fL (78.0-98.0); Mean Platelet Volume 7.3 fL (7.4-10.4); Platelet Count 268 thou/uL (130-400); RBC Distribution Width 13.4 % (11.5-14.5); Red Blood Cell (RBC) Count 3.09 mill/uL (4.20-5.40); White Blood Cell (WBC) Count 11.2 thou/uL (4.8-10.8)
[2018-02-07] MEDS: Sodium Chloride 0.9% 1,000 ML IV SCH ×2 (05:55→09:44)
[2018-02-07] MEDS: Levothyroxine Sodium 125 MCG TAB PO SCH (05:58)
[2018-02-07 06:06] LABS: Anion Gap 15 mmol/L (10-20); BUN (Urea Nitrogen) 26 mg/dL (9.8-20.1); Calc. Creatinine Clearance 36 mL/min (70-130); Calcium 7.1 mg/dL (7.8-10.44); Carbon Dioxide 23 mmol/L (23-31); Chloride 106 mmol/L (98-107); Estimated GFR-MDRD 37; Glucose 80 mg/dL (83-110); Potassium 3.2 mmol/L (3.5-5.1); Sodium 141 mmol/L (136-145)
--- NOTE | 2018-02-07 08:35 | HP ---
CHIEF COMPLAINT: Fevers, altered mental status. HISTORY OF PRESENT ILLNESS: The patient is a 72-year-old female who was just recently discharged fro m the hospital on Monday for bronchitis and UTI, who presented to the hospital with complaints of gen eralized weakness, body aches and also the nursing staff thought the patient was a little bit altered . The patient's family is at the bedside stated that normally she is oriented x3; however, has been forgetting where she is and what year we are in. The patient's family also stated that she did have some nausea and vomiting x1 yesterday. No fevers were noted. PAST MEDICAL HISTORY: History of diabetes type 2, hypertension, anxiety, depression, lumbar stenosis , history of hypothyroidism, history of hyperlipidemia and diabetic neuropathy. PAST SURGICAL HISTORY: She has had a history of pericardial window in 2016, she had a PCI with sten t placement at [facility], tonsillectomy and ablation of atrial fibrillation. ALLERGIES: CODEINE and TYLENOL. MEDICATIONS: This is per the list last discharge medication is as of the following: She is on cloni dine 0.1 q.6 hours p.r.n., Flecainide 50 mg b.i.d., Prozac 80 mg daily. She was on Levaquin 750 mg daily, metformin 500 mg b.i.d., pantoprazole 40 mg daily, tizanidine 2 mg q.6 hours p.r.n., Pregabal in 75 mg b.i.d. REVIEW OF SYSTEMS: Unable to obtain. PHYSICAL EXAMINATION: VITAL SIGNS: Temperature of 98.8, heart rate of 100, blood pressure of 130/60. GENERAL: She is awake, alert, oriented to self and place. CARDIOVASCULAR: S1, S2 present. No murmurs, rubs or gallops. LUNGS: Clear to auscultation, no rhonchi or wheezes noted. ABDOMEN: Soft, nontender. Bowel sounds are present x2. No pain upon palpation to her lower abdomen area. EXTREMITIES: No edema. Pedal pulses are present x2. HEENT: The patient clinically appears very dehydrated, very dry mucous membranes. LABORATORY DATA: As of the following: She has a white count of 13.8, hemoglobin of 11.4, hematocrit of 34.3, platelets of 310. Chemistry: Sodium of 130, potassium of 3.7, BUN of 31, creatinine 1.95, glucose of 75, alkaline phosphatase of 156. Troponins x2 were negative. She had a chest x-ray which indicated some mild pulmonary congestion. Her urine appeared to be prett y normal, just trace leukocytes. Chest x-ray, as I mentioned, a CT head and CT abdomen and pelvis ar e pending. ASSESSMENT AND PLAN: The patient is a very pleasant 72-year-old female who presents to the hospital with altered mental status. 1. Acute metabolic encephalopathy. This could be secondary to either an infectious process versus m ay be medication related. The patient has been on multiple medications including Levaquin on Prozac and also given the fact that she has a mildly elevated creatinine could be causing her encephalopathy . We will await CT brain results and also CT abdomen and pelvis to rule out any obstructive cause fo r her elevated creatinine. 2. Acute kidney injury. We will continue hydration and continue to monitor. 3. History of atrial fibrillation. The patient is currently on flecainide. She is sinus and also s he takes Eliquis at home. We will continue the dose currently. 4. Deep venous thrombosis prophylaxis. The patient is already on Eliquis.
[2018-02-07] MEDS: Senokot 8.6 MG TAB PO SCH (09:39)
[2018-02-07 12:26] LABS: Vancomycin, Trough 11.1 ug/mL
[2018-02-07] MEDS ORDERED: Vancomycin HCl 1 GM in Premix Bag 1 BAG IVPB SCH (14:00)
--- NOTE | 2018-02-07 15:24 | PDOC.PN ---
- Subjective Encounter Start Date: 02/07/18 Encounter Start Time: 10:30 Subjective: pt up in bed feels much better - Objective Vital Signs & Weight: Vital Signs (12 hours) Temp Pulse Pulse Pulse Resp BP BP 02/07/18 11:39 98 F 83 16 02/07/18 10:38 88 87 128/62 129/54 L 02/07/18 08:05 02/07/18 08:04 98.9 F 82 18 02/07/18 04:00 98.5 F 97 18 BP Pulse Ox 02/07/18 11:39 120/56 L 95 02/07/18 10:38 02/07/18 08:05 95 02/07/18 08:04 136/63 95 02/07/18 04:00 136/69 92 L Weight Admit Weight 136 lb Weight 136 lb 1.6 oz I&O: 02/06/18 02/07/18 02/08/18 06:59 06:59 06:59 Intake Total 1360 Output Total 50 Balance 1310 Result Diagrams: 02/07/18 04:59 02/07/18 04:59 Additional Labs: Accuchecks 02/07/18 02/07/18 02/06/18 10:54 06:04 20:13 POC Glucose 114 H 83 74 02/06/18 17:07 POC Glucose 63 L Phys Exam - Physical Examination Neck: no nodes, no JVD, supple, full ROM Respiratory: no wheezing, no rales, no rhonchi, wheezing present, clear to auscultation bilateral Cardiovascular: RRR, no significant murmur, no rub, gallop, irregular Gastrointestinal: soft, non-tender, no distention, positive bowel sounds Dx/Plan (1) Acute metabolic encephalopathy Code(s): G93.41 - METABOLIC ENCEPHALOPATHY Status: Acute (2) SUSAN (acute kidney injury) Code(s): N17.9 - ACUTE KIDNEY FAILURE, UNSPECIFIED Status: Acute (3) Diabetes type 2, controlled Code(s): E11.9 - TYPE 2 DIABETES MELLITUS WITHOUT COMPLICATIONS Status: Chronic (4) Hypertension Code(s): I10 - ESSENTIAL (PRIMARY) HYPERTENSION Status: Chronic - Plan will discontinue vanco, i do not think she has any infectious process going -: on. will continue gentle hydration, her jerky movements are improving -: ct head indicated right temporal infarct will get MRI * . Review of Systems - Review of Systems Respiratory: negative: Cough, Dry, Shortness of Breath, Hemoptysis, SOB with Excertion, Pleuritic Pain, Sputum, Wheezing Cardiovascular: negative: chest pain, palpitations, orthopnea, paroxysmal nocturnal dyspnea, edema, light headedness, other Gastrointestinal: negative: Nausea, Vomiting, Abdominal Pain, Diarrhea, Constipation, Melena, Hematochezia, Other Genitourinary: negative: Dysuria, Frequency, Incontinence, Hematuria, Retention , Other - Medications/Allergies Allergies/Adverse Reactions: Allergies Allergy/AdvReac Type Severity Reaction Status Date / Time acetaminophen [From Tylenol] Allergy Verified 02/06/18 17:01 codeine Allergy Verified 02/01/18 04:03 guaifenesin Allergy Verified 02/06/18 17:01 Medications: Current Medications Acetaminophen (Tylenol) 650 mg PO Q4H PRN PRN Reason: Headache/Fever/Mild Pain (1-3) Cholecalciferol (Vitamin D3) 5,000 units PO DAILY [facility] Last Admin: 02/07/18 09:41 Dose: 5,000 units Dextrose/Water (Dextrose 50%) 25 gm SLOW IVP PRN PRN PRN Reason: Hypoglycemia Glucagon (Glucagon) 1 mg IM PRN PRN PRN Reason: Hypoglycemia Sodium Chloride (Normal Saline 0.9%) 1,000 mls @ 50 mls/hr IV .Q20H [facility] Last Admin: 02/07/18 09:44 Dose: Not Given Dextrose/Water (D5w) 1,000 mls @ 0 mls/hr IV .Q0M PRN PRN Reason: Hypoglycemia Piperacillin Sod/Tazobactam (Sod 3.375 gm/ Sodium Chloride) 100 mls @ 200 mls/ hr IVPB Q6HR [facility] Last Admin: 02/07/18 11:36 Dose: 100 mls Insulin Human Lispro (Humalog) 0 units SC .MILD SLIDING SCALE PRN PRN Reason: Mild Correctional Scale Levothyroxine Sodium (Synthroid) 125 mcg PO 0600 [facility] Last Admin: 02/07/18 05:58 Dose: 125 mcg Miscellaneous Medication (Pharmacy To Dose) 1 each IVPB PRN PRN PRN Reason: Pharmacy to dose Senna (Senokot) 1 tab PO DAILY [facility] Last Admin: 02/07/18 09:39 Dose: Not Given Tramadol HCl (Ultram) 50 mg PO TIDPRN PRN PRN Reason: Pain Last Admin: 02/07/18 15:20 Dose: 50 mg
[2018-02-07] MEDS ORDERED: Potassium Chloride 20 MEQ TAB PO SCH (15:30)
--- NOTE | 2018-02-07 16:54 | MRI ---
MRI OF BRAIN PERFORMED WITHOUT CONTRAST ENHANCEMENT: 02/07/18 HISTORY: Area of decreased attenuation seen in the medial aspect of the right temporal lobe on recent CT. Eval uation for possible infarct. COMPARISON: CT examination done yesterday. Motion artifact degrades detail. There is generalized ventricular and sulcal prominence. Increased T 2 and FLAIR signal change within the white matter is consistent with some chronic ischemic white catracho er change. On the diffusion weighted sequence there is no evidence of any areas of restricted diffusion. Specifi zara, no abnormality in the medial aspect of the right temporal lobe to suggest any type of acute in farct. There is mucosal change within the mastoid air cells on the right incidentally noted. The pituitary i s unremarkable. IMPRESSION: Atrophy with chronic white matter change. POS: [facility]
[2018-02-07 17:37] LABS: Anion Gap 13 mmol/L (10-20); BUN (Urea Nitrogen) 19 mg/dL (9.8-20.1); Calc. Creatinine Clearance 43 mL/min (70-130); Calcium 7.3 mg/dL (7.8-10.44); Carbon Dioxide 22 mmol/L (23-31); Chloride 107 mmol/L (98-107); Estimated GFR-MDRD 46; Glucose 121 mg/dL (83-110); Potassium 3.1 mmol/L (3.5-5.1); Sodium 139 mmol/L (136-145)
[2018-02-07] MEDS ORDERED: Nystatin Powder 15 GM BOT TOP PRN (19:09)
[2018-02-07] MEDS: Flecainide 50 MG TAB PO SCH (20:23)
[2018-02-07] MEDS: Pregabalin 75 MG CAP PO SCH (20:23)
[2018-02-07] MEDS: guaiFENesin ER 600 MG TAB PO SCH (20:25)
[2018-02-08] MEDS: Piperacillin/Tazobactam 3.375 GM in Sodium Chloride 0.9% 100 ML IVPB SCH ×2 (00:19→05:16)
[2018-02-08] MEDS: Levothyroxine Sodium 125 MCG TAB PO SCH (05:16)
[2018-02-08] MEDS: Sodium Chloride 0.9% 1,000 ML IV SCH (05:17)
[2018-02-08] MEDS: Pregabalin 75 MG CAP PO SCH ×2 (08:21→20:45)
[2018-02-08] MEDS: Senokot 8.6 MG TAB PO SCH (08:21)
[2018-02-08] MEDS: FLUoxetine HCl 20 MG CAP PO SCH (08:21)
[2018-02-08] MEDS: guaiFENesin ER 600 MG TAB PO SCH ×2 (08:21→20:46)
[2018-02-08] MEDS: Flecainide 50 MG TAB PO SCH ×2 (08:22→20:46)
[2018-02-08] MEDS ORDERED: Apixaban 2.5 MG TAB PO SCH (09:00)
[2018-02-08 09:46] LABS: Anion Gap 11 mmol/L (10-20); BUN (Urea Nitrogen) 12 mg/dL (9.8-20.1); Calc. Creatinine Clearance 60 mL/min (70-130); Calcium 6.9 mg/dL (7.8-10.44); Carbon Dioxide 24 mmol/L (23-31); Chloride 106 mmol/L (98-107); Estimated GFR-MDRD 67; Glucose 195 mg/dL (83-110); Sodium 138 mmol/L (136-145)
[2018-02-08 10:01] LABS: Potassium 2.8 mmol/L (3.5-5.1)
[2018-02-08] MEDS: Vancomycin HCl 25 MG/ML Oral PO SCH ×4 (10:14→20:46)
[2018-02-08] MEDS ORDERED: Potassium Chloride 20 MEQ TAB PO SCH (10:45)
[2018-02-08] MEDS: HumaLOG 300 UNITS/3 ML VIAL SC PRN (11:57)
[2018-02-08] MEDS: NS 0.9% w/ 20 MEQ KCL 1,000 ML/1,000 ML BAG IV SCH (11:58)
[2018-02-08] MEDS: traMADol HCl 50 MG TAB PO PRN (13:26)
--- NOTE | 2018-02-08 14:16 | PDOC.PN ---
- Subjective Encounter Start Date: 02/08/18 Encounter Start Time: 11:55 Subjective: pt up in bed feels much better today - Objective Vital Signs & Weight: Vital Signs (12 hours) Temp Pulse Resp BP BP Pulse Ox 02/08/18 08:00 99 02/08/18 07:45 98.1 F 80 18 141/78 H 99 02/08/18 07:28 84 18 97 02/08/18 04:00 98.3 F 84 20 146/74 H 97 Weight Admit Weight 136 lb Weight 136 lb I&O: 02/07/18 02/08/18 02/09/18 06:59 06:59 06:59 Intake Total 1360 1040 Output Total 50 Balance 1310 1040 Result Diagrams: 02/07/18 04:59 02/08/18 09:09 Additional Labs: Accuchecks 02/08/18 02/08/18 02/07/18 11:30 04:05 19:18 POC Glucose 173 H 148 H 97 Phys Exam - Physical Examination Neck: no nodes, no JVD, supple, full ROM Respiratory: no wheezing, no rales, no rhonchi, wheezing present, clear to auscultation bilateral Cardiovascular: RRR, no significant murmur, no rub, gallop, irregular Gastrointestinal: soft, non-tender, no distention, positive bowel sounds Dx/Plan (1) Acute metabolic encephalopathy Code(s): G93.41 - METABOLIC ENCEPHALOPATHY Status: Acute (2) SUSAN (acute kidney injury) Code(s): N17.9 - ACUTE KIDNEY FAILURE, UNSPECIFIED Status: Acute (3) Diabetes type 2, controlled Code(s): E11.9 - TYPE 2 DIABETES MELLITUS WITHOUT COMPLICATIONS Status: Chronic (4) Hypertension Code(s): I10 - ESSENTIAL (PRIMARY) HYPERTENSION Status: Chronic (5) C. difficile diarrhea Code(s): A04.72 - ENTEROCOLITIS D/T CLOSTRIDIUM DIFFICILE, NOT SPCF RECUR Status: Acute - Plan pt had diarrhea on admission, stool indicated cdiff but negative for -: toxin. will start pt on vanco oral. pt feels a lot better -: will discontinue all other abx no sign of infection * . Review of Systems - Review of Systems Respiratory: negative: Cough, Dry, Shortness of Breath, Hemoptysis, SOB with Excertion, Pleuritic Pain, Sputum, Wheezing Cardiovascular: negative: chest pain, palpitations, orthopnea, paroxysmal nocturnal dyspnea, edema, light headedness, other Gastrointestinal: negative: Nausea, Vomiting, Abdominal Pain, Diarrhea, Constipation, Melena, Hematochezia, Other - Medications/Allergies Allergies/Adverse Reactions: Allergies Allergy/AdvReac Type Severity Reaction Status Date / Time codeine Allergy Verified 02/01/18 04:03 Medications: Current Medications Acetaminophen (Tylenol) 650 mg PO Q4H PRN PRN Reason: Headache/Fever/Mild Pain (1-3) Albuterol/Ipratropium (Duoneb) 3 ml NEB [id number] [facility] Last Admin: 02/08/18 13:22 Dose: Not Given Apixaban (Eliquis) 2.5 mg PO BID [facility] Cholecalciferol (Vitamin D3) 5,000 units PO DAILY [facility] Last Admin: 02/08/18 08:23 Dose: 5,000 units Dextrose/Water (Dextrose 50%) 25 gm SLOW IVP PRN PRN PRN Reason: Hypoglycemia Flecainide Acetate (Tambocor) 50 mg PO BID [facility] Last Admin: 02/08/18 08:22 Dose: 50 mg Fluoxetine HCl (Prozac) 60 mg PO DAILY [facility] Last Admin: 02/08/18 08:21 Dose: 60 mg Glucagon (Glucagon) 1 mg IM PRN PRN PRN Reason: Hypoglycemia Guaifenesin (Mucinex) 600 mg PO Q12HR [facility] Last Admin: 02/08/18 08:21 Dose: 600 mg Dextrose/Water (D5w) 1,000 mls @ 0 mls/hr IV .Q0M PRN PRN Reason: Hypoglycemia Potassium Chloride/Sodium Chloride (Ns 0.9% W/ 20 Meq Kcl) 1,000 ml in 1,000 mls @ 50 mls/hr IV .Q20H [facility] Last Admin: 02/08/18 11:58 Dose: 1,000 mls Insulin Human Lispro (Humalog) 0 units SC .MILD SLIDING SCALE PRN PRN Reason: Mild Correctional Scale Last Admin: 02/08/18 11:57 Dose: 2 unit Levothyroxine Sodium (Synthroid) 125 mcg PO 0600 [facility] Last Admin: 02/08/18 05:16 Dose: 125 mcg Nystatin (Mycostatin Powder) 0 gm TOP TID PRN PRN Reason: Rash/Topical Irritation Last Admin: 02/07/18 20:27 Dose: 1 applic Pregabalin (Lyrica) 75 mg PO BID [facility] Last Admin: 02/08/18 08:21 Dose: 75 mg Senna (Senokot) 1 tab PO DAILY [facility] Last Admin: 02/08/18 08:21 Dose: 1 tab Sodium Chloride (Flush - Normal Saline) 10 ml IVF PRN PRN PRN Reason: Saline Flush Tramadol HCl (Ultram) 50 mg PO TIDPRN PRN PRN Reason: Pain Last Admin: 02/08/18 13:26 Dose: 50 mg Vancomycin HCl (First Vancomycin) 125 mg PO QID [facility] Last Admin: 02/08/18 13:26 Dose: 125 mg
[2018-02-08] MEDS: Apixaban 2.5 MG TAB PO SCH (20:46)
[2018-02-09 05:20] LABS: Anion Gap 8 mmol/L (10-20); BUN (Urea Nitrogen) 10 mg/dL (9.8-20.1); Calc. Creatinine Clearance 67 mL/min (70-130); Calcium 6.7 mg/dL (7.8-10.44); Carbon Dioxide 24 mmol/L (23-31); Chloride 110 mmol/L (98-107); Estimated GFR-MDRD 76; Glucose 137 mg/dL (83-110); Potassium 3.5 mmol/L (3.5-5.1); Sodium 138 mmol/L (136-145)
[2018-02-09] MEDS: Levothyroxine Sodium 125 MCG TAB PO SCH (05:46)
[2018-02-09] MEDS: NS 0.9% w/ 20 MEQ KCL 1,000 ML/1,000 ML BAG IV SCH (05:46)
[2018-02-09] MEDS: guaiFENesin ER 600 MG TAB PO SCH (08:23)
[2018-02-09] MEDS: Flecainide 50 MG TAB PO SCH (08:23)
[2018-02-09] MEDS: FLUoxetine HCl 20 MG CAP PO SCH (08:23)
[2018-02-09] MEDS: Pregabalin 75 MG CAP PO SCH (08:24)
[2018-02-09] MEDS: Senokot 8.6 MG TAB PO SCH (08:24)
[2018-02-09] MEDS: Apixaban 2.5 MG TAB PO SCH (08:24)
[2018-02-09] MEDS: Vancomycin HCl 25 MG/ML Oral PO SCH ×3 (09:16→16:19)
[2018-02-09] MEDS: HumaLOG 300 UNITS/3 ML VIAL SC PRN (12:53)
[2018-02-09 16:18] VITALS: BP 139/81; TEMP 98.4
--- NOTE | 2018-02-10 06:00 | DIS ---
DATE OF ADMISSION: 02/06/2018 DATE OF DISCHARGE: 02/09/2018 DISCHARGE DIAGNOSES: 1. Acute metabolic encephalopathy. 2. Acute kidney injury. 3. Diabetes. 4. Clostridium difficile diarrhea. 5. Hypertension. 6. Dehydration. HOSPITAL COURSE: The patient is a 72-year-old female, who recently was discharged from the hospital, who came back for worsening mentation and also significant dehydration. The patient stated that she has been having diarrhea at the facility and has not been able to eat or drink very much. Per family, her mentation has worsened dramatically. The patient initially was put on broad-spectrum antibiotics; however, no infection was really noted. Her urine was completely normal. Chest x-ray, no acute abnormalities. The patient did have some diarrhea on and off, so I did check a C. diff. The toxin was negative; however, the C. diff antigen was positive. At this time, given her symptoms of significant diarrhea that had been going on at the [facility] and here, she was put on oral vancomycin. The patient stated that she has been eating and drinking well. She has had no more diarrhea. She is feeling well and is ready to go back to the hospital. She did have a CT head, which indicated some possible concerning for stroke. At this time, a brain MRI was ordered, which just indicated atrophic and chronic white matter changes and no abnormalities were noted in the right temporal lobe to suggest any type of acute infarct, which was noted on the CT brain. Again, the patient will be discharge back to her nursing facility. She will follow up with her primary care doctor. MEDICATIONS: Her home medications are as of the following; 1. Prozac 50 mg daily. 2. DuoNeb 3 mL q.6 hours p.r.n. 3. Vancomycin oral 125 q.i.d. 4. Fosamax 70 mg q.7 days. 5. She is going to be on Senokot 8.6 mg daily. 6. Also on clonidine 0.1 q.6 hours p.r.n. 7. Also on metformin 500 mg b.i.d. 8. Lasix 20 mg daily. 9. Lyrica 75 mg b.i.d. 10. Flecainide 50 mg b.i.d. 11. Levothyroxine 125 mcg daily. 12. Eliquis daily. This is per her home records. PHYSICAL EXAMINATION: VITAL SIGNS: Temperature of 98.4, pulse 92, respirations 20, O2 saturation 96% on room air, and blood pressure 138/81. GENERAL: She is awake, alert, and oriented x3. She does not appear to be in any distress. CV: S1 and S2 present. No murmurs, rubs, or gallops. ABDOMEN: Soft and nontender. Bowel sounds are present x2. EXTREMITIES: No edema. Again, she will be discharged back to her nursing care facility and she will follow up with her primary care doctor. Job ID: [id number]
--- NOTE | 2018-02-10 14:59 | EKG ---
Test Reason : Blood Pressure : / mmHG Vent. Rate : 088 BPM Atrial Rate : 088 BPM P-R Int : 154 ms QRS Dur : 136 ms QT Int : 410 ms P-R-T Axes : 025 019 204 degrees QTc Int : 496 ms Normal sinus rhythm Non-specific intra-ventricular conduction block T wave abnormality, consider inferior ischemia Abnormal ECG Confirmed by RA GALVIN ([id number]), editor index SULMA ACUÑA ([id number]) on 02/10/2018 2:58:42 PM Referred By: Confirmed By:RA GALVIN
== END 2018-02-09 17:35 | DRG 371 ==
LOC: ERS 09:35 → ERHOLD 12:16 → 2NO 16:22 → T4-A 02-07 16:39
PROVIDERS: ADMIT Internal Medicine; ATTEND Internal Medicine
DX: A04.72 Enterocolitis due to Clostridium difficile, not specified as recurrent (principal); G93.41 Metabolic encephalopathy; N17.9 Acute kidney failure, unspecified; I10 Essential (primary) hypertension; F41.9 Anxiety disorder, unspecified; F32.9 Major depressive disorder, single episode, unspecified; E78.5 Hyperlipidemia, unspecified; E03.9 Hypothyroidism, unspecified; M48.061 Spinal stenosis, lumbar region without neurogenic claudication; E11.40 Type 2 diabetes mellitus with diabetic neuropathy, unspecified; I48.91 Unspecified atrial fibrillation; E86.0 Dehydration; Z95.5 Presence of coronary angioplasty implant and graft
CPT/HCPCS: 36415; 36416; 51701; 70450; 70551; 71045; 74176; 80048; 80053; 80202; 81003; 82140; 82553; 83605; 83630; 83880; 84484; 85025; 87040; 87324; 87449; 87493; 93005; 93306; 94640; 96361; 96365; 96367; A4353; G8978-GP-CM; G8979-GP-CK; G8979-GP-CL; G8987-GO-CM; G8988-GO-CK; J0696; J2543; J3370; J3480; J7050; J7620

== ENCOUNTER 2018-04-06 02:18 | Inpatient (IN) | payer MEDICARE, MEDICAID ==
[2018-04-06 03:03] LABS: #Eosinphils 0.3 thou/uL (0.0-0.7); #Lymphocytes 2.2 thou/uL (1.20-3.40); #Monocytes 0.5 thou/uL (0.11-0.59); #Neutrophils 4.3 thou/uL (1.40-6.50); %Basophils 0.5 % (0.0-1.0); %Eosinophils 4.3 % (0.0-10.0); %Lymphocytes 29.6 % (21.0-51.0); %Monocytes 7.2 % (0.0-10.0); %Neutrophils 58.5 % (42.0-75.0); Hemoglobin 10.3 g/dL (12.0-16.0); Mean Corpuscular HGB CONC 32.7 g/dL (32.0-36.0); Mean Corpuscular Hemoglobin 29.8 pg (27.0-31.0); Mean Corpuscular Volume 91.1 fL (78.0-98.0); Mean Platelet Volume 7.6 fL (7.4-10.4); Platelet Count 250 thou/uL (130-400); RBC Distribution Width 13.2 % (11.5-14.5); Red Blood Cell (RBC) Count 3.44 mill/uL (4.20-5.40); White Blood Cell (WBC) Count 7.4 thou/uL (4.8-10.8)
[2018-04-06] MEDS ORDERED: Morphine 4 MG/ML VIAL ONE (03:09)
[2018-04-06 03:18] LABS: INR-International Normal Ratio 1.1; Prothrombin Time 14.5 SEC (12.0-14.7)
[2018-04-06 03:19] LABS: PTT 30.8 SEC (22.9-36.1)
[2018-04-06 03:31] LABS: ALT (SGPT) 10 U/L (8-55); AST (SGOT) 13 U/L (5-34); Albumin 3.7 g/dL (3.4-4.8); Alkaline Phosphatase 154 U/L (40-150); Anion Gap 13 mmol/L (10-20); BUN (Urea Nitrogen) 19 mg/dL (9.8-20.1); Bilirubin, Total 0.3 mg/dL (0.2-1.2); CK (CPK) 40 U/L (29-168); Calc. Creatinine Clearance 0 mL/min (70-130); Calcium 8.7 mg/dL (7.8-10.44); Carbon Dioxide 23 mmol/L (23-31); Chloride 105 mmol/L (98-107); Estimated GFR-MDRD 71; Globulin 2.7 g/dL (2.4-3.5); Glucose 88 mg/dL (83-110); Lipase 34 U/L (8-78); Potassium 3.5 mmol/L (3.5-5.1); Protein, Total 6.4 g/dL (6.0-8.3); Sodium 137 mmol/L (136-145)
[2018-04-06 04:34] LABS: Bilirubin Negative (Negative); Blood, Urine Negative (Negative); Clarity CLEAR (Clear); Glucose, Urine (Dipstick) Negative (Negative); Leukocyte Small (Negative); Nitrite Negative (Negative); Protein, Urine (Dipstick) Negative (Neg-Trace); Specific Gravity, Urine 1.012 (1.002-1.036); Urobilinogen 0.2 mg/dL (0.2-1.0); pH, Urine 6.5 (5.0-9.0)
[2018-04-06 04:40] LABS: Bacteria/HPF None Seen HPF (None Seen); Hyaline Casts/LPF 0-3 HYALINE CAST LPF (0-3 Hyaline); Pathc Cast-AUWi Flag 0.29 (0-2.49); RBC/HPF 0-3 HPF (0-3); Squamous Epithelial 0-3 HPF (0-3)
[2018-04-06 04:53] LABS: Renal Epithelial None Seen HPF (0-3); Transitional Epithelial NONE SEEN HPF (0-3)
--- NOTE | 2018-04-06 07:26 | HP ---
CONSULTING PHYSICIAN: Orthopedics, Dr. Sheth. CHIEF COMPLAINT: She states that her left hip is sore. HISTORY OF PRESENT ILLNESS: The patient is a 72-year-old woman, who resides in a senior living facility, who reportedly has had several falls over the last few days and history of multiple falls prior to her admission to her facility. The patient is unsure of when she may have fallen to cause this left hip injury, where she was brought to the emergency department tonight, underwent evaluation and examination and was noted to have a nondisplaced left femoral head fracture, at which time, we were asked to admit the patient and obtain orthopedic consultation. ALLERGIES: CODEINE. CURRENT MEDICATIONS: 1. Levothyroxine. 2. Flecainide. 3. Lyrica. 4. Eliquis. 5. Alendronate. 6. Fluoxetine. 7. Lasix. 8. Multivitamins. 9. Pantoprazole. 10. Vitamin D3. 11. Metformin. 12. Bisacodyl. 13. Clonidine. 14. Diphenhydramine. 15. Imodium A-D. 16. MiraLAX. 17. Tizanidine. 18. Zofran. 19. Delsym. 20. Guaifenesin. 21. Ibuprofen. 22. Milk of magnesia. 23. Tramadol. 24. Ipratropium and albuterol. 25. Senna. PAST MEDICAL HISTORY: Atrial fibrillation, coronary artery disease, diabetes, neuropathy, spinal stenosis, DVT, CHF, hypertension, and anxiety. PAST SURGICAL HISTORY: Appendectomy, hysterectomy, cholecystectomy, spinal decompression, tonsillectomy, and cardiac ablation. SOCIAL HISTORY: It is reported that the patient has been nonambulatory and wheelchair bound for 1 year. She is a former tobacco user, quit smoking more than 10 years ago. Denies drug or alcohol use. REVIEW OF SYSTEMS: A 10-point review of systems is negative as otherwise stated. PHYSICAL EXAMINATION: VITAL SIGNS: Blood pressure 143/74, heart rate 68, respirations 14, oxygen saturation 95% on room air, and temperature is 98.2. GENERAL: The patient is resting comfortably in the emergency room bed. She is awake, alert, and oriented x2. Erick Coma Scale is 15. HEENT: Head is normocephalic and atraumatic. Eyes; extraocular motion intact. PERRLA bilaterally. Ears are atraumatic without discharge. Nose is atraumatic without discharge. Oropharynx is clear. NECK: Nontender. Trachea is midline. No JVD. CHEST: Clear to auscultation with good inspiratory and expiratory effort. HEART: Regular rate and rhythm. ABDOMEN: Soft, flat, and nontender with active bowel sounds. PELVIS: Stable with tenderness to the right hip consistent with her fracture. EXTREMITIES: Neurovascularly intact x4. BACK: By report is atraumatic and nontender. LABORATORY FINDINGS: White blood cell count is 7.4, hemoglobin 10.3, hematocrit 31.3, and platelets 250. Sodium 137, potassium 3.5, chloride 105, CO2 of 23, BUN 19, creatinine 0.80, and glucose 88. PTT 31, PT 14, and INR 1.1. BNP 245. Troponin less than 0.010. RADIOGRAPHIC FINDINGS: AP chest, no acute findings. Views of the left hip show a possible nondisplaced femoral neck fracture. CT of the left hip shows a nondisplaced femoral neck fracture. ASSESSMENT: 1. Status post multiple falls. 2. Nondisplaced left femoral neck fracture. 3. History of coronary artery disease. 4. History of atrial fibrillation, on Eliquis. 5. History of diabetes. 6. History of deep vein thrombosis. 7. History of wheelchair-bound. 8. Spinal stenosis. PLAN: Plan will be to admit the patient to the surgical floor and await evaluation by Orthopedic Surgery. The patient will remain n.p.o. at this time. The evaluation, examination, laboratory, and radiographic findings will be discussed with Dr. Llanes immediately after this dictation. Job ID: [id number]
--- NOTE | 2018-04-06 08:10 | CON ---
DATE OF CONSULTATION: 04/06/2018 REQUESTING PHYSICIAN: Trauma Services. CONSULTING PHYSICIAN: Sixto Sheth MD REASON FOR CONSULTATION: Left hip fracture. HISTORY OF PRESENT ILLNESS: This is a 72-year-old female, who resides in a group home facility. She reportedly had several falls over the last few days, and a history of multiple falls prior to her admission to her facility. She is unsure which fall might have caused this left hip injury, where she was brought to the emergency department last night, underwent evaluation and examination, was noted to have a nondisplaced left femoral neck fracture. The patient has been admitted to the Trauma Services. Currently, at bedside, she reports left hip pain. No numbness or tingling. She states she has not walked in quite some time. She believes this is close to a year. She gets around with a wheelchair. Her reason for ambulatory assistance is basically due to deconditioning. She states she has been admitted several times before. The last she can remember she was admitted for a UTI and went to group home facility. They attempted physical therapy and rehab with her to be able to have her walk again, but she has been unable to do so. ALLERGIES: CODEINE. PAST MEDICAL HISTORY: Atrial fibrillation, coronary artery disease, diabetes, neuropathy, spinal stenosis, DVT, CHF, hypertension, and anxiety. PAST SURGICAL HISTORY: Appendectomy, hysterectomy, cholecystectomy, spinal decompression, tonsillectomy, and cardiac ablation with stent placement. SOCIAL HISTORY: It is reported that the patient has been nonambulatory and wheelchair-bound for approximately one year. She is a former tobacco user, quit smoking more than 10 years ago. Denies drug use. States she occasionally drinks a "light beer." She currently lives at [facility]. FAMILY HISTORY: Reviewed, noncontributory. REVIEW OF SYSTEMS: A 10-point review of systems conducted and otherwise negative except for stated above. PHYSICAL EXAMINATION: VITAL SIGNS: Blood pressure 143/74, heart rate 68, respirations 14, and oxygen saturation 95% on room air, and temperature 98.2. GENERAL: The patient is awake and alert. She is resting comfortably in the emergency room bed, awaiting room upstairs. She is a pleasant and cooperative with exam today. HEENT: Head is normocephalic, atraumatic. NECK: Supple. Trachea midline. RESPIRATORY: Breathing is nonlabored. EXTREMITIES: The left lower extremity is examined. Leg lengths are equal. There is no internal or external rotation noted. She is able to move her foot and ankle. She is able to move all toes. Sensation intact distally. Capillary refill 3 seconds. Foot is warm to touch. There are no skin lesions noted to the left lower extremity, specifically in the area of the thigh or the hip region. No ecchymosis. Remainder of her extremities evaluated, and no other injuries are noted. RADIOGRAPHIC FINDINGS: Including views of the hip, pelvis, and CT of the left hip demonstrate a nondisplaced base of the neck fracture. LABORATORY DATA: Shows a hemoglobin of 10.3, hematocrit of 31.3, platelet count of 250, and white blood cell count of 7.4. Coagulation shows INR of 1.1. ASSESSMENT AND PLAN: Left femoral neck fracture, nondisplaced in a patient who has not been ambulatory in over year. Plan at this time, I will further discuss the case with Dr. Royal, Dr. Sheth, to determine the best surgical versus conservative treatment for this patient given the fact that she has been nonambulatory and over a year. She is pretty much wheelchair-bound. However, patient voices a great deal of hip pain at this time. We would like to proceed with surgical fixation of her fracture site in order to relieve pain and stabilize her fracture for future transfers. We will plan for surgery later this morning. Plan of care discussed with the patient at this time. We will further be in contact with the patient regarding surgical intervention. She will remain n.p.o. until that time. She has been admitted to the Trauma Services. Job ID: [id number] [facility]
[2018-04-06] MEDS ORDERED: CEFAZOLIN 2 GM/50 ML BAG IVPB SCH (09:00)
--- NOTE | 2018-04-06 09:13 | RAD ---
AP VIEW OF THE PELVIS: INDICATION: History of fall with pelvic pain. FINDINGS: There is diffuse osteopenia. There is a basicervical left femoral neck fracture. No additional frac ture is grossly evident. There is scattered degenerative change. IMPRESSION: Basicervical left femoral neck fracture. POS: [facility]
--- NOTE | 2018-04-06 09:14 | CT ---
PRELIMINARY REPORT/[facility]/EMERGENTY AFTER-HOURS PROCEDURE CT Pelvis Without Contrast, Skeletal EXAM DATE/TIME: 04/06/2018 3:19 AM CLINICAL HISTORY: 72 years old, female; Injury or trauma; Fall; Initial encounter; Abrasion; Left; Hip; Patient HX: Er 13; Sent from jail for possible fracture l femoral head. Patient was falling, caught by staff , did not hit ground, no loc. TECHNIQUE: Axial computed tomography images of the pelvis without intravenous contrast. Exam focused on the skel etal structures. Coronal and sagittal reformatted images were created and reviewed. COMPARISON: No relevant prior studies available. FINDINGS: Bones/joints: There is acute LEFT femoral neck fracture without displacement. There is an old fractur e of the inferior LEFT pubic ramus with overlying callus suggestive of healing. There is nonspecific sclerotic appearance of the bones. Soft tissues: Unremarkable. IMPRESSION: There is acute LEFT femoral neck fracture without displacement. Thank you for allowing us to participate in the care of your patient. Dictated and Authenticated by: Iker Cole MD 04/06/2018 3:45 AM Central Time ([place] & [place]) FINAL REPORT NONCONTRAST CT OF THE PELVIS: INDICATION: History of fall with left leg pain. FINDINGS: There is a minimally displaced left basicervical femoral neck fracture. There is diffuse osteopenia. There is scattered degenerative change. There is postsurgical change involving the lower lumbar sp ine. There is moderate degenerative change involving the SI joints. There are healing inferior pubi c rami fractures bilaterally. IMPRESSION: 1. Basicervical left femoral neck fracture. 2. Diffuse osteopenia. 3. Suggested healing inferior pubic rami fractures bilaterally. 4. Scattered degenerative change. 5. Moderate amount of retained stool within the colon. I agree with the preliminary report provided. POS: [facility]
--- NOTE | 2018-04-06 09:34 | RAD ---
RADIOGRAPH CHEST 1 VIEW: Date: 04-06-18 Time: 2:51 a.m. HISTORY: 72-year-old female status post acute chest trauma from fall. COMPARISON: 02-06-18 FINDINGS: The patient is now very rotated to the left. Cardiomegaly. Pulmonary vascular engorgement. Old right rib fracture deformities with nonspecific overlying faint densities which could be pleural or pulmona ry, favor chronic pleural. Otherwise, no gross consolidation or rickey pulmonary edema. No pneumothora x. No major interval change. IMPRESSION: 1. Limited study because of positioning. 2. Multiple old right rib fracture deformities. 3. Cardiomegaly and pulmonary venous congestion. BRYN POS: [facility]
--- NOTE | 2018-04-06 09:34 | RAD ---
LEFT HIP TWO VIEWS: History: Fall with injury. FINDINGS: There is an intertrochanteric fracture of the left femur without significant displacement. IMPRESSION: Fracture proximal left femur. Code T POS: [facility]
[2018-04-06] MEDS ORDERED: Fentanyl 100 MCG/2 ML VIAL ONE ×4 (11:03→14:07)
[2018-04-06] MEDS ORDERED: Lidocaine 2% Jelly 5 ML TUBE ONE (11:03)
[2018-04-06] MEDS ORDERED: Rocuronium Bromide 10 MG/ML (10ML VIAL) ONE (12:23)
[2018-04-06] MEDS ORDERED: Ondansetron PF 4 MG/2 ML Vial ONE (12:23)
[2018-04-06] MEDS ORDERED: Glycopyrrolate 0.2 MG/ML 5 ML SYRINGE ONE (12:23)
[2018-04-06] MEDS ORDERED: PROPOFOL 200 MG/20 ML VIAL ONE (12:23)
[2018-04-06] MEDS ORDERED: Lidocaine 1% PF 5 ML VIAL ONE (12:23)
[2018-04-06] MEDS ORDERED: ePHEDrine/0.9% NaCl/PF SYRINGE 50 mg/10 ml ONE (12:23)
[2018-04-06] MEDS ORDERED: Dexamethasone 20 MG/5 ML VIAL ONE (12:23)
[2018-04-06] MEDS ORDERED: PHENYLEPHRINE-NS 100 MCG/ML 10 ML SYRINGE ONE (12:23)
[2018-04-06] MEDS ORDERED: Ondansetron HCl/PF 4 MG/2 ML Vial IVP PRN (13:09)
[2018-04-06] MEDS ORDERED: Promethazine HCl 25 MG/ML VIAL SLOW IVP PRN (13:09)
[2018-04-06] MEDS ORDERED: Promethazine HCl 25 MG/ML VIAL IM PRN (13:09)
--- NOTE | 2018-04-06 14:22 | RAD ---
LEFT HIP 2 VIEWS: Date: 04/06/18 HISTORY: Intraoperative films. FINDINGS: These are intraoperative films showing a Walton compression screw and side plate stabilizing an int ertrochanteric fracture in satisfactory position. IMPRESSION: Fixation of intertrochanteric fracture. POS: [facility]
--- NOTE | 2018-04-06 14:49 | PRG ---
DATE OF SERVICE: 04/06/2018 SUBJECTIVE: I saw Ms. Lackey this morning at 10 a.m. The patient is a 72-year-old woman, who apparently fell. Brought to the emergency department and found with left femoral neck fracture. She is wheelchair bound at baseline. This morning, she is complaining of severe hip pain. She did receive some pain medicine prior to my visit, yet still complaining of significant amount of pain. OBJECTIVE: VITAL SIGNS: Include blood pressure 158/79, pulse 72, respiratory rate is 18, temperature 98.4 degrees Fahrenheit, and oxygen saturation 97% on room air. HEART: Reveals regular rate and rhythm. LUNGS: Clear to auscultation bilaterally. Breathing, regular and nonlabored. ABDOMEN: Soft, nontender, nondistended. EXTREMITIES: 2+ radial and pedal pulses bilaterally. She has no ankle edema present. I did not attempt any range of motion about the left hip, which is restricted due to painful deformity. Range of motion about bilateral upper and right lower extremity is unremarkable. LABORATORY FINDINGS: Includes a CBC with 7400 white blood cells, hemoglobin and hematocrit 10.3 and 31.3 respectively. Platelet count 250,000. Metabolic profile; sodium 137, potassium 3.5, chloride is 105, bicarb 23, BUN 19, creatinine 0.80, and glucose is 103. AST and ALT normal at 13 and 10 respectively. Lipase is normal at 34. IMPRESSION: 1. Left femoral neck fracture. 2. Chronic debility. PLAN: 1. Optimize pain management. 2. Awaiting orthopedic surgical recommendation with regard to nonoperative management of the hip fracture. Given the patient's immobility versus palliative repair of the fracture. The patient will be admitted to the orthopedic surgical floor once bed becomes available. Job ID: [id number]
[2018-04-06] MEDS ORDERED: Dextrose 50% Abboject 50 ML SYRINGE SLOW IVP PRN (16:01)
[2018-04-06] MEDS ORDERED: Ondansetron ODT 4 MG TAB PO PRN (16:01)
[2018-04-06] MEDS ORDERED: CEFAZOLIN/Water 2 GM/20 ML SYRINGE SLOW IVP SCH (16:01)
[2018-04-06] MEDS ORDERED: Acetaminophen 1,000 MG in Premix Bag 1 BAG IVPB SCH (16:01)
[2018-04-06] MEDS ORDERED: Ondansetron PF 4 MG/2 ML Vial IVP PRN (16:01)
[2018-04-06] MEDS ORDERED: hydrALAZINE 20 MG/ML VIAL SLOW IVP PRN (16:01)
[2018-04-06] MEDS ORDERED: Morphine 2 MG/ML SYRINGE SLOW IVP PRN (16:01)
[2018-04-06] MEDS ORDERED: Dextrose 5% in Water 1,000 ML IV PRN (16:01)
[2018-04-06] MEDS ORDERED: Famotidine 20 MG TAB PO SCH (16:15)
[2018-04-06 16:19] VITALS: BMI 27.9
[2018-04-06] MEDS: Sodium Chloride 0.9% 1,000 ML IV SCH (17:18)
[2018-04-06] MEDS: D5 1/2 NS w/20 mEq KCL 1,000 ML IV SCH ×2 (17:28→17:29)
[2018-04-06] MEDS: Acetaminophen 500 MG TAB PO SCH ×2 (17:56→23:43)
[2018-04-06] MEDS: Ibuprofen 600 MG TAB PO SCH (17:56)
[2018-04-06] MEDS: CEFAZOLIN 2 GM/50 ML-DEXTROSE 2 GM in Premix Bag 1 BAG IVPB SCH (21:11)
[2018-04-06] MEDS: Famotidine 20 MG TAB PO SCH (21:11)
[2018-04-06] MEDS ORDERED: Clopidogrel Bisulfate 75 MG TAB ONE (23:31)
[2018-04-07] MEDS: Insulin Regular 300 UNITS/3 ML VIAL SC PRN (00:14)
[2018-04-07] MEDS: Ibuprofen 600 MG TAB PO SCH ×3 (00:15→17:24)
[2018-04-07] MEDS: Acetaminophen 500 MG TAB PO SCH ×4 (05:54→23:03)
[2018-04-07] MEDS: CEFAZOLIN 2 GM/50 ML-DEXTROSE 2 GM in Premix Bag 1 BAG IVPB SCH ×2 (05:54→14:58)
[2018-04-07] MEDS: Sodium Chloride 0.9% 1,000 ML IV SCH ×3 (08:33→22:29)
[2018-04-07] MEDS: traMADol HCl 50 MG TAB PO PRN (08:39)
[2018-04-07] MEDS: Famotidine 20 MG TAB PO SCH ×2 (08:39→20:46)
[2018-04-07 10:22] LABS: #Eosinphils 0.1 thou/uL (0.0-0.7); #Lymphocytes 1.2 thou/uL (1.20-3.40); #Monocytes 0.7 thou/uL (0.11-0.59); #Neutrophils 4.8 thou/uL (1.40-6.50); %Basophils 0.2 % (0.0-1.0); %Lymphocytes 17.7 % (21.0-51.0); %Monocytes 10.4 % (0.0-10.0); %Neutrophils 70.8 % (42.0-75.0); Hemoglobin 8.7 g/dL (12.0-16.0); Mean Corpuscular Hemoglobin 30.4 pg (27.0-31.0); Mean Corpuscular Volume 95.2 fL (78.0-98.0); Platelet Count 160 thou/uL (130-400); RBC Distribution Width 13.4 % (11.5-14.5); Red Blood Cell (RBC) Count 2.87 mill/uL (4.20-5.40); White Blood Cell (WBC) Count 6.7 thou/uL (4.8-10.8)
[2018-04-07 10:45] LABS: Anion Gap 14 mmol/L (10-20); BUN (Urea Nitrogen) 15 mg/dL (9.8-20.1); Calc. Creatinine Clearance 74 mL/min (70-130); Calcium 8.2 mg/dL (7.8-10.44); Carbon Dioxide 21 mmol/L (23-31); Chloride 105 mmol/L (98-107); Estimated GFR-MDRD 70; Glucose 83 mg/dL (83-110); Potassium 3.8 mmol/L (3.5-5.1); Sodium 136 mmol/L (136-145)
--- NOTE | 2018-04-07 15:56 | PRG ---
DATE OF SERVICE: 04/07/2018 SUBJECTIVE: This is a 72-year-old woman, who apparently fell at the [facility] where she lives. The patient is nonambulatory, nonweightbearing, and uses a wheelchair at the snf. The patient was brought into the emergency room and found to have a left femoral neck fracture. The patient is postop day #1. The patient had no overnight events. The patient reports she has not had a bowel movement today or yesterday, but she is passing gas. Also, reports that is normal for her. The patient does have mild drainage to her left hip dressing. OBJECTIVE: VITAL SIGNS: Temperature 98.3, pulse 83, respirations 18, SpO2 of 95% on room air, blood pressure 133/68. GENERAL: The patient is awake and alert, in no distress at this time. Pain is well controlled. HEART: Regular rate and rhythm. RESPIRATORY: Regular. Breathing nonlabored, no distress. ABDOMEN: Soft, nontender, nondistended. EXTREMITIES: Moves all extremities. +2 radial and pedal pulses bilateral. No pedal edema noted. NEUROLOGIC: No focal deficits. GCS 15. LABORATORY DATA: WBC 6700, RBC 2.87, hemoglobin 8.7, hematocrit 27.3, platelets 160. Sodium 136, potassium 3.8, chloride 105, BUN 15, creatinine 0.81, estimated GFR 70, glucose 83, calcium 8.2. DIAGNOSTICS: There are no diagnostics to review today. IMPRESSION: 1. Left femoral neck fracture postoperative day #2, status post fall. 2. Chronic debility. PLAN: Continue pain management. We will have Physical Therapy work with the patient today. We will discontinue the patient's Florez. We will encourage the patient to get up and sit in the chair. We will place the patient on a bowel regimen. We will see if the patient is ready to be discharged per Ortho back to [facility] tomorrow. The plan has been discussed with Dr. Hernandez and agrees with the plan. Job ID: [id number]
[2018-04-08] MEDS: Ibuprofen 600 MG TAB PO SCH ×3 (00:05→17:56)
[2018-04-08] MEDS ORDERED: Calcium Carbonate 500 MG ChewTAB PO PRN (03:51)
[2018-04-08] MEDS: Acetaminophen 500 MG TAB PO SCH ×4 (04:20→23:19)
[2018-04-08] MEDS: traMADol HCl 50 MG TAB PO PRN ×2 (06:16→13:36)
[2018-04-08 07:50] LABS: Anion Gap 16 mmol/L (10-20); BUN (Urea Nitrogen) 10 mg/dL (9.8-20.1); Calc. Creatinine Clearance 81 mL/min (70-130); Calcium 9.1 mg/dL (7.8-10.44); Carbon Dioxide 21 mmol/L (23-31); Chloride 103 mmol/L (98-107); Estimated GFR-MDRD 77; Glucose 158 mg/dL (83-110); Magnesium 1.1 mg/dL (1.6-2.6); Potassium 3.3 mmol/L (3.5-5.1); Sodium 137 mmol/L (136-145)
[2018-04-08 07:55] LABS: #Eosinphils 0.2 thou/uL (0.0-0.7); #Lymphocytes 1.3 thou/uL (1.20-3.40); #Monocytes 0.5 thou/uL (0.11-0.59); #Neutrophils 7.7 thou/uL (1.40-6.50); %Basophils 0.2 % (0.0-1.0); %Eosinophils 2.5 % (0.0-10.0); %Lymphocytes 13.4 % (21.0-51.0); %Monocytes 5.5 % (0.0-10.0); %Neutrophils 78.4 % (42.0-75.0); Hemoglobin 10.5 g/dL (12.0-16.0); Mean Corpuscular HGB CONC 31.3 g/dL (32.0-36.0); Mean Corpuscular Hemoglobin 28.8 pg (27.0-31.0); Mean Platelet Volume 7.8 fL (7.4-10.4); Platelet Count 242 thou/uL (130-400); RBC Distribution Width 13.2 % (11.5-14.5); Red Blood Cell (RBC) Count 3.65 mill/uL (4.20-5.40); White Blood Cell (WBC) Count 9.8 thou/uL (4.8-10.8)
[2018-04-08 08:10] LABS: Phosphorus Less than 1.0 mg/dL (2.3-4.7)
--- NOTE | 2018-04-08 08:39 | RAD ---
RADIOGRAPH CHEST 1 VIEW: Date: 04/08/2018. Time: 7:11 a.m. HISTORY: A 72-year-old female with chest pain and dyspnea. COMPARISON: 04/06/2018. FINDINGS: Multiple old right rib fracture deformities. Hazy areas of increased density throughout the right radames ng. At least some of this probably represents pleural or chest wall chronic changes associated with the old rib fractures. This makes it difficult to evaluate for acute infiltrates in the right lung. Visualized portions of the left lung are grossly clear. Cardiomegaly without pulmonary edema. No p neumothorax. No definite interval change detected. IMPRESSION: 1. Multiple old right rib fracture deformities. 2. Difficult to evaluate the right lung. 3. Left lung is clear. BRYN [] POS: [facility]
[2018-04-08] MEDS: Famotidine 20 MG TAB PO SCH ×2 (09:09→21:44)
[2018-04-08] MEDS: Polyethylene Glycol 3350 17 GM Packet PO SCH (09:10)
[2018-04-08] MEDS: Sodium Chloride 0.9% 1,000 ML IV SCH ×2 (09:19→21:45)
[2018-04-08] MEDS ORDERED: Potassium Phosphate 30 MMOL in Sodium Chloride 0.9% 500 ML IVPB SCH ×2 (09:30→23:00)
--- NOTE | 2018-04-08 12:55 | ULT ---
ULTRASOUND WITH DOPPLER DUPLEX VENOUS LOWER EXTREMITY BILATERAL: HISTORY: A 72-year-old female with left lower extremity pain. TECHNIQUE: Color flow Doppler, spectral waveform analysis of pulsed Doppler, and allen-scale imaging with etta jennifer and augmentation, were used to evaluate the bilateral common femoral, femoral, popliteal, executive team leader ior tibial, and superficial femoral, veins; and the proximal portions of the profunda femoral and gre ater saphenous, veins. FINDINGS: There is normal compressibility, demonstration of blood flow by color Doppler and pulsed Doppler, and response to augmentation, in all interrogated veins. IMPRESSION: Negative. No deep vein thrombosis in the bilateral lower extremities. jn[] POS: [facility]
[2018-04-08] MEDS ORDERED: diphenhydrAMINE 25 MG CAP PO PRN (16:56)
[2018-04-08] MEDS ORDERED: Milk Of Magnesia 30 ML UDCUP PO PRN (16:56)
[2018-04-08] MEDS ORDERED: guaiFENesin ER 600 MG TAB PO PRN (16:56)
[2018-04-08] MEDS ORDERED: Alendronate Sodium 70 mg Tablet PO SCH (17:00)
[2018-04-08 18:14] LABS: Anion Gap 13 mmol/L (10-20); BUN (Urea Nitrogen) 11 mg/dL (9.8-20.1); Calc. Creatinine Clearance 83 mL/min (70-130); Calcium 8.7 mg/dL (7.8-10.44); Carbon Dioxide 24 mmol/L (23-31); Chloride 105 mmol/L (98-107); Estimated GFR-MDRD 79; Glucose 113 mg/dL (83-110); Phosphorus 2.8 mg/dL (2.3-4.7); Potassium 3.8 mmol/L (3.5-5.1); Sodium 138 mmol/L (136-145)
[2018-04-08] MEDS: Flecainide 50 MG TAB PO SCH (21:43)
[2018-04-08] MEDS: Pregabalin 75 MG CAP PO SCH (21:43)
[2018-04-08] MEDS: Enoxaparin Sodium 30 MG/0.3 ML SYRINGE SC SCH (21:44)
[2018-04-08] MEDS ORDERED: Magnesium 2 GM/50 ML 2 GM in Premix Bag 1 BAG IVPB SCH (23:00)
--- NOTE | 2018-04-08 23:25 | PRG ---
DATE OF SERVICE: 04/08/2018 SUBJECTIVE: This is a 72-year-old female, who [facility]. She is non ambulatory, nonweightbearing, and [facility]. The patient was brought into the emergency room and found to have a left femoral neck fracture. The patient is postop day #2. Early this morning , the nurses were concerned that the patient was altered and was not herself. She also complained of being short of breath. The patient's SpO2 remained stable. When examined, the patient was alert and oriented, complained that she had an upset stomach later in the night in which the Tums helped her. The patient states that she did have a little bit of shortness of breath earlier. Denies any cough and denies any hemoptysis. The patient did have a decreased appetite this morning. Continues to pass gas and have bowel movements with good output. Voiding per diaper after her Florez was discontinued yesterday. OBJECTIVE: VITAL SIGNS: Temperature 99.1, pulse 94, respirations 16, SpO2 100 % on 2 L, and blood pressure 179/94. GENERAL: The patient is awake, alert, in no distress. HEENT: Normocephalic, atraumatic. Pupils equal and reactive. Trachea is midline. There is no JVD. CARDIOVASCULAR: The patient with regular rate and rhythm. No murmurs, gallops , or rubs noted. PULMONARY: Respirations equal, unlabored, no distress, clear breath sounds bilateral. No rales, rhonchi, or wheezes noted. ABDOMEN: Soft, nontender, nondistended. EXTREMITIES: Moves all extremities. +2 pedal and radial pulses bilateral. No pedal edema. The patient with left calf pain, but states that she has had this before. NEUROLOGIC: The patient with GCS of 15. No focal deficits. LABORATORY DATA: WBC 9.8, RBC 3.65, hemoglobin 10.5, hematocrit 33.3, platelets 242. D-dimer 1.61. Sodium 137, potassium 3.3, chloride 103, carbon dioxide 21, anion gap 16, BUN 10, creatinine 0.74, estimated GFR 77, glucose 158, calcium 9.1, phosphorus less than 1.0, magnesium 1.1. These were 4 a.m. labs. Repeat labs on 04/08 at 1959, sodium 138, potassium 3.8, chloride 105, CO2 of 24 , anion gap 13, BUN 11, creatinine 0.73, estimated GFR 79, blood glucose 113, calcium 8.7, phosphorus 2.8, and magnesium 2.3. DIAGNOSTICS: 1. Chest x-ray, multiple old rib fractures, deformities. Difficult to evaluate right lung. Left lung is clear. 2. Venogram, ultrasound with Doppler duplex venous lower extremities bilateral, negative. No deep vein thrombosis in the bilateral lower extremities. IMPRESSION: 1. Left femoral neck fracture, postop day #3, status post fall. 2. Chronic debility. 3. Atelectasis. 4. Electrolyte imbalance. PLAN: Rule out DVT as the patient had left calf pain. Continue pain regimen. Continue physical therapy. Continue to encourage the patient to get up and sit in a chair. Continue the patient's bowel regimen. Pending placement back to [facility]. Replace the patient's electrolytes and repeat labs after completion. We will continue to monitor patient's electrolytes. The patient's home medications restarted. The patient also started on DVT prophylaxis. The plan was discussed with Dr. Hernandez, who agrees with the plan. Job ID: [id number] [facility]
[2018-04-09] MEDS: Ibuprofen 600 MG TAB PO SCH ×2 (00:31→08:30)
[2018-04-09] MEDS: Acetaminophen 500 MG TAB PO SCH ×2 (05:15→11:37)
[2018-04-09] MEDS: Sodium Chloride 0.9% 1,000 ML IV SCH (05:22)
[2018-04-09] MEDS ORDERED: Levothyroxine Sodium 125 MCG TAB PO SCH (06:00)
[2018-04-09] MEDS: Polyethylene Glycol 3350 17 GM Packet PO SCH (08:28)
[2018-04-09] MEDS: Enoxaparin Sodium 30 MG/0.3 ML SYRINGE SC SCH (08:29)
[2018-04-09] MEDS: Pregabalin 75 MG CAP PO SCH (08:29)
[2018-04-09] MEDS: Flecainide 50 MG TAB PO SCH (08:29)
[2018-04-09] MEDS: Famotidine 20 MG TAB PO SCH (08:30)
[2018-04-09] MEDS ORDERED: Furosemide 20 MG TAB PO SCH (09:00)
[2018-04-09] MEDS ORDERED: Senokot 8.6 MG TAB PO SCH (09:00)
[2018-04-09] MEDS ORDERED: FLUoxetine HCl 20 MG CAP PO SCH (09:00)
[2018-04-09 10:44] LABS: ALT (SGPT) Less than 7 U/L (8-55); AST (SGOT) 16 U/L (5-34); Albumin 3.3 g/dL (3.4-4.8); Alkaline Phosphatase 155 U/L (40-150); Anion Gap 14 mmol/L (10-20); BUN (Urea Nitrogen) 16 mg/dL (9.8-20.1); Bilirubin, Total 0.5 mg/dL (0.2-1.2); Calc. Creatinine Clearance 71 mL/min (70-130); Carbon Dioxide 22 mmol/L (23-31); Chloride 104 mmol/L (98-107); Estimated GFR-MDRD 66; Globulin 2.7 g/dL (2.4-3.5); Glucose 185 mg/dL (83-110); Magnesium 2.6 mg/dL (1.6-2.6); Phosphorus 2.9 mg/dL (2.3-4.7); Potassium 4.2 mmol/L (3.5-5.1); Sodium 136 mmol/L (136-145)
[2018-04-09] MEDS: Insulin Regular 300 UNITS/3 ML VIAL SC PRN (11:37)
[2018-04-09 12:05] VITALS: BP 147/79; TEMP 98.2
--- NOTE | 2018-04-10 06:37 | DIS ---
DATE OF ADMISSION: 04/06/2018 DATE OF DISCHARGE: 04/09/2018 ADMISSION DIAGNOSIS: Status post mechanical fall from standing and left femoral neck fracture. DISCHARGE DIAGNOSIS: Status post mechanical fall from standing and left femoral neck fracture. CONSULTING PHYSICIAN: Dr. Sixto Sheth. PROCEDURE: Status post fixation of left femoral neck. HOSPITAL COURSE: Patient presented to the emergency department status post multiple falls recently at her half-way facility. She is wheelchair bound and on Eliquis. She was found to have a left femoral neck fracture. She was seen by the Orthopedic Surgery team and it was decided to fix her left femoral neck fracture for pain control. During her hospital stay, she did complain of calf pain. A DVT study was completed and was negative. Postoperatively, she continued to tolerate her diet and pain was well controlled. Her home medications were restarted without any issues. She continued to receive physical and occupational therapy and was later discharged to a half-way facility. She was discharged with instructions for weightbearing as tolerated and to follow up with Dr. Sheth. DISCHARGE DISPOSITION: residential facility. DISCHARGE CONDITION: Satisfactory. PHYSICAL EXAMINATION: VITAL SIGNS: Temperature 98.2, pulse 74, respirations 16, oxygen saturation 96% on room air, and blood pressure 147/79. GENERAL: Patient is awake and alert with no signs of distress. NEUROLOGIC: Alert and oriented to situation. Pupils equal, round, and reactive to light. CARDIOVASCULAR: Regular rate and rhythm. No murmurs, gallops, or rubs. PULMONARY: Equal chest rise and fall. Breath sounds clear bilaterally. No signs of acute respiratory distress. GI: Abdomen is soft, nontender, and nondistended. Positive bowel sounds. EXTREMITIES: Moves all extremities without issues. 2+ pulses in all extremities. No swelling noted. DISCHARGE INSTRUCTIONS: Patient was discharged to a half-way facility with activity as tolerated and weightbearing as tolerated to left lower extremity. She was on a diabetic diet. She is to see Occupational and Physical Therapy and use her incentive spirometer. DISCHARGE MEDICATIONS: Include; 1. Tylenol. 2. Tums. 3. Benadryl. 4. Lasix. 5. Mucinex. 6. Motrin. 7. MiraLAX. 8. Ultram. 9. Lyrica. 10. Tambocor. 11. Levothyroxine. 12. Eliquis. 13. Tizanidine. 14. Multivitamin with minerals. 15. Fosamax. 16. Sennosides. 17. Vitamin D. 18. Lactulose. 19. Magnesium hydroxide. 20. Clonidine. 21. Delsym. 22. DuoNebs. 23. Metformin. 24. Nizoral 2% cream. 25. Artificial tears. 26. Dulcolax. 27. Prozac. 28. Nystatin. FOLLOWUP: Patient is to follow up with trauma clinic as needed and will see Dr. Sixto Sheth in 7 to 10 days. This is merely a summary of the patient's hospitalization. For full details, please see her medical record in its entirety. Job ID: [id number]
--- NOTE | 2018-04-10 14:22 | OP ---
DATE OF PROCEDURE: 04/06/2018 PREOPERATIVE DIAGNOSIS: Left basal neck proximal femur fracture. POSTOPERATIVE DIAGNOSIS: Left basal neck proximal femur fracture. PROCEDURE PERFORMED: Dynamic hip screw, left femur. ANESTHESIA: General. FRONT OFFICE AGENT: None. IMPLANTS: Synthes DHS 135-degree three hole plate with 80 mm hip screw. ESTIMATED BLOOD LOSS: 100 mL. DRAINS: None. SPECIMEN: None. COMPLICATIONS: None. OUTCOME: Satisfactory. INDICATIONS: The patient is a 72-year-old lady status post ground level fall sustaining a fracture at the base of the femoral neck starting under the intertrochanteric region. After discussion with the patient including risks and benefits, we decided to proceed with stabilization with a DHS device. Informed consent has been obtained. I believe all questions answered. DESCRIPTION OF PROCEDURE: The patient was brought to the operating room and a time-out performed followed by induction of general anesthesia. Next, the patient was positioned on the fracture table with the injured extremity brought into longitudinal traction and slight internal rotation. The well leg was scissored in extension to allow for AP lateral imaging of the left hip. Next, a sterile prep and drape was performed of the left lateral thigh. A small incision was made vertically beginning just distal to the greater trochanter and extending distally for approximately 3.5 inches. After skin was sharply incised, dissection was carried down bluntly to the underlying fascia jose angel. This was incised in line with skin incision, revealing the underlying fascia of the vastus lateralis. This was then incised in line with skin incision and then the muscle belly swept off the posterior leaflet of fascia and then reflected anteriorly, gaining access to the lateral cortex of the femur. Next, the fracture was found still to have some posterior sag of the shaft. This was corrected manually and then a threaded guidewire was passed from the lateral cortex of the femur up the femoral neck into the femoral head approach in the center-center position. Once appropriately positioned, measurement was taken off this guidewire for the correct length hip screw. Next, the step reamer was passed over the guidewire to further prepare the track for the hip screw. The 135-degree sideplate with an 80 mm hip screw was then introduced into the wound with hip screw driven fully up into the head. The plate was then positioned along the lateral cortex of the femur and then three 4.5 mm screws were used to secure the plate. Once completed, there was found to be acceptable positioning of the fracture. The wound was then thoroughly irrigated with normal saline and then closed in layers with some 0 Vicryl for fascial closure, 2-0 Vicryl and then libby for the skin. Xeroform gauze and tape dressing were applied to the thigh and the patient was transferred to recovery room in stable condition. There were no complications. She tolerated the procedure well. Job ID: [id number]
== END 2018-04-09 14:10 | DRG 481 ==
LOC: ERS 02:18 → ERHOLD 04:18 → SURG A 13:16 → SURG B 14:47
PROVIDERS: ADMIT Surgery; ATTEND Surgery
PROC: 0QS734Z Reposition Left Upper Femur with Internal Fixation Device, Percutaneous Approach (ICD-10-PCS; principal; 2018-04-06)
DX: S72.042A Displaced fracture of base of neck of left femur, initial encounter for closed fracture (principal); J98.11 Atelectasis; I48.91 Unspecified atrial fibrillation; I25.10 Atherosclerotic heart disease of native coronary artery without angina pectoris; E11.40 Type 2 diabetes mellitus with diabetic neuropathy, unspecified; I10 Essential (primary) hypertension; F41.9 Anxiety disorder, unspecified; R53.81 Other malaise; E87.8 Other disorders of electrolyte and fluid balance, not elsewhere classified; M48.00 Spinal stenosis, site unspecified; Z86.718 Personal history of other venous thrombosis and embolism; Z87.891 Personal history of nicotine dependence; Z88.5 Allergy status to narcotic agent; Z91.81 History of falling; Z90.49 Acquired absence of other specified parts of digestive tract; Z90.710 Acquired absence of both cervix and uterus; Z90.89 Acquired absence of other organs; Z99.3 Dependence on wheelchair; W06.XXXA Fall from bed, initial encounter
CPT/HCPCS: 36415; 36416; 51702; 71045; 72170; 72192; 76000; 80048; 80053; 81003; 81015; 82550; 83690; 83735; 83880; 84100; 84484; 85025; 85379; 85610; 85730; 93005; 93970; 96361; 96374; C1713; G0390; J0131; J0360; J1100; J1650; J1815; J2001; J2270; J2405; J2704; J3010; J3475; J7050

== ENCOUNTER 2018-07-04 22:00 | Emergency (ER) | payer MEDICARE, OTHER ==
[2018-07-04 22:44] LABS: #Basophils 0.1 thou/uL (0.0-0.2); #Eosinphils 0.1 thou/uL (0.0-0.7); #Lymphocytes 2.1 thou/uL (1.20-3.40); #Monocytes 0.4 thou/uL (0.11-0.59); #Neutrophils 3.6 thou/uL (1.40-6.50); %Basophils 0.9 % (0.0-1.0); %Eosinophils 2.4 % (0.0-10.0); %Lymphocytes 32.6 % (21.0-51.0); %Monocytes 7.1 % (0.0-10.0); %Neutrophils 57.1 % (42.0-75.0); Hemoglobin 10.4 g/dL (12.0-16.0); Mean Corpuscular Hemoglobin 28.8 pg (27.0-31.0); Mean Corpuscular Volume 89.9 fL (78.0-98.0); Mean Platelet Volume 7.1 fL (7.4-10.4); Platelet Count 293 thou/uL (130-400); RBC Distribution Width 14.4 % (11.5-14.5); Red Blood Cell (RBC) Count 3.61 mill/uL (4.20-5.40); White Blood Cell (WBC) Count 6.3 thou/uL (4.8-10.8)
[2018-07-04] MEDS ORDERED: Acetaminophen 500 MG TAB ONE (22:49)
--- NOTE | 2018-07-04 22:55 | RAD ---
Portable frontal chest radiograph: 07/04/2018 COMPARISON: 04/08/2018 HISTORY: Pain, nausea FINDINGS: Stable prominence of the cardiac silhouette and pulmonary vasculature. Coronary arterial st ent material and/or calcification noted on the left. No pneumothorax, pleural fluid, focal consolidation, or alveolar edema. Mild linear density in the left costophrenic angle suggests scarrin g and/or volume loss. The patient is rotated to the left. IMPRESSION: Chronic findings as above. No lobar consolidation or alveolar edema. If symptoms persist, follow-up PA and lateral imaging of the chest advised.
[2018-07-04 23:08] LABS: ALT (SGPT) 8 U/L (8-55); AST (SGOT) 15 U/L (5-34); Albumin 3.8 g/dL (3.4-4.8); Alkaline Phosphatase 135 U/L (40-150); Anion Gap 12 mmol/L (10-20); BUN (Urea Nitrogen) 21 mg/dL (9.8-20.1); Bilirubin, Total 0.3 mg/dL (0.2-1.2); Calc. Creatinine Clearance 0 mL/min (70-130); Calcium 8.9 mg/dL (7.8-10.44); Carbon Dioxide 23 mmol/L (23-31); Chloride 108 mmol/L (98-107); Estimated GFR-MDRD 71; Globulin 2.9 g/dL (2.4-3.5); Glucose 85 mg/dL (83-110); Lipase 23 U/L (8-78); Potassium 4.3 mmol/L (3.5-5.1); Protein, Total 6.7 g/dL (6.0-8.3); Sodium 139 mmol/L (136-145)
[2018-07-04 23:57] LABS: Bilirubin Negative (Negative); Blood, Urine Moderate (Negative); Clarity CLOUDY (Clear); Glucose, Urine (Dipstick) Negative (Negative); Leukocyte Large (Negative); Nitrite Positive (Negative); Protein, Urine (Dipstick) Trace mg/dL (Neg-Trace); Specific Gravity, Urine 1.011 (1.002-1.036); Urobilinogen 0.2 mg/dL (0.2-1.0)
[2018-07-05] LABS: Bacteria/HPF 4+ HPF (None Seen); Hyaline Casts/LPF 4-6 HYALINE CAST LPF (0-3 Hyaline); Pathc Cast-AUWi Flag 1.36 (0-2.49); Squamous Epithelial None Seen HPF (0-3)
[2018-07-05] MEDS ORDERED: cefTRIAXone\\ROCEPHIN 1 GM VIAL ONE (00:08)
== END 2018-07-05 00:56 ==
LOC: ERS 22:00
DX: N39.0 Urinary tract infection, site not specified (principal); E11.40 Type 2 diabetes mellitus with diabetic neuropathy, unspecified; I11.0 Hypertensive heart disease with heart failure; I50.9 Heart failure, unspecified; I48.91 Unspecified atrial fibrillation; I25.10 Atherosclerotic heart disease of native coronary artery without angina pectoris; I10 Essential (primary) hypertension; F41.9 Anxiety disorder, unspecified; Z87.891 Personal history of nicotine dependence; Z79.84 Long term (current) use of oral hypoglycemic drugs; Z79.899 Other long term (current) drug therapy
CPT/HCPCS: 36415; 71045; 80053; 81003; 81015; 83690; 83880; 84484; 85025; 87077; 87086; 87186; 93005; 96361; 96365; A4353; J0696

== ENCOUNTER 2018-08-16 15:41 | Inpatient (IN) | payer MEDICARE, MEDICAID ==
[2018-08-16 16:02] LABS: #Eosinphils 0.2 thou/uL (0.0-0.7); #Lymphocytes 2.3 thou/uL (1.20-3.40); #Monocytes 0.6 thou/uL (0.11-0.59); #Neutrophils 4.3 thou/uL (1.40-6.50); %Basophils 0.2 % (0.0-1.0); %Eosinophils 2.5 % (0.0-10.0); %Lymphocytes 31.5 % (21.0-51.0); %Monocytes 7.8 % (0.0-10.0); %Neutrophils 58.1 % (42.0-75.0); Hemoglobin 10.1 g/dL (12.0-16.0); Mean Corpuscular HGB CONC 33.2 g/dL (32.0-36.0); Mean Corpuscular Hemoglobin 31.4 pg (27.0-31.0); Mean Corpuscular Volume 94.4 fL (78.0-98.0); Mean Platelet Volume 7.3 fL (7.4-10.4); Platelet Count 202 thou/uL (130-400); RBC Distribution Width 16.5 % (11.5-14.5); Red Blood Cell (RBC) Count 3.23 mill/uL (4.20-5.40); White Blood Cell (WBC) Count 7.4 thou/uL (4.8-10.8)
[2018-08-16 16:23] LABS: ALT (SGPT) 9 U/L (8-55); AST (SGOT) 11 U/L (5-34); Albumin 3.5 g/dL (3.4-4.8); Alkaline Phosphatase 139 U/L (40-150); Anion Gap 14 mmol/L (10-20); BUN (Urea Nitrogen) 42 mg/dL (9.8-20.1); Bilirubin, Total 0.3 mg/dL (0.2-1.2); Calc. Creatinine Clearance 0 mL/min (70-130); Calcium 8.7 mg/dL (7.8-10.44); Carbon Dioxide 22 mmol/L (23-31); Chloride 107 mmol/L (98-107); Estimated GFR-MDRD 26; Globulin 2.7 g/dL (2.4-3.5); Glucose 142 mg/dL (83-110); Potassium 4.6 mmol/L (3.5-5.1); Protein, Total 6.2 g/dL (6.0-8.3); Sodium 138 mmol/L (136-145)
--- NOTE | 2018-08-16 16:44 | RAD ---
Chest one view HISTORY: Cough. Lethargy. COMPARISON: 07/04/2018. FINDINGS: Cardiac silhouette is magnified by projection. Shallow inspiration accentuates pulmonary ma rkings. Mediastinum is allowing for slight rightward rotation patient. No lobar consolidation or evidence of pneumothorax. Old rib fractures again demonstrated. business developer leads overlie the [address]. IMPRESSION: Chronic-type findings are stable. No active cardiopulmonary abnormalities are demonstrate d
--- NOTE | 2018-08-16 19:17 | CT ---
CT Head without IV contrast COMPARISON: 02/06/2018 HISTORY: Slurred speech, lethargy, right-sided headache. TECHNIQUE: Axial CT imaging at 5 mm intervals from vertex through skull base without contrast FINDINGS: There is no evidence of an acute infarction, hemorrhage, mass effect, or midline shift. There is decr eased attenuation seen in the periventricular white matter which is nonspecific but likely attributable to chronic small vessel ischemic changes. There is mild cerebral volume loss. The ventri cular system is normal in size, shape, and position for the degree of sulcal atrophy. Visualized paranasal sinuses are clear. Osseous structures appear intact. There has been no interval change from prior study. IMPRESSION: 1. No acute intracranial abnormality demonstrated. 2. Chronic small vessel ischemic changes and cerebral volume loss not significantly progressed from p rior study.
[2018-08-16 19:26] LABS: Bilirubin Negative (Negative); Blood, Urine Small (Negative); Clarity CLOUDY (Clear); Glucose, Urine (Dipstick) Negative (Negative); Leukocyte Large (Negative); Nitrite Positive (Negative); Protein, Urine (Dipstick) Negative (Neg-Trace); Urobilinogen 0.2 mg/dL (0.2-1.0); pH, Urine 5.5 (5.0-9.0)
[2018-08-16 19:29] LABS: Bacteria/HPF 4+ HPF (None Seen); Hyaline Casts/LPF 0-3 HYALINE CAST LPF (0-3 Hyaline); RBC/HPF 0-3 HPF (0-3); Squamous Epithelial None Seen HPF (0-3); Yeast-AUWi Flag 15.9 (0-25.0)
[2018-08-16] MEDS ORDERED: Ondansetron PF 4 MG/2 ML Vial IVP PRN (20:36)
[2018-08-16] MEDS ORDERED: Ondansetron ODT 4 MG TAB SL PRN (20:36)
[2018-08-16] MEDS ORDERED: Acetaminophen 325 MG TAB PO PRN (20:36)
[2018-08-16] MEDS ORDERED: Senokot S 8.6-50 MG TAB PO PRN (20:40)
[2018-08-16] MEDS ORDERED: Lactated Ringer's 1,000 ML IV SCH (20:45)
[2018-08-16] MEDS: Famotidine 20 MG TAB PO SCH (21:52)
[2018-08-16] MEDS: cefTRIAXone\\ROCEPHIN 1 GM in Sodium Chloride 0.9% 100 ML IVPB SCH (21:52)
[2018-08-16] MEDS: Sodium Chloride 0.9% 1,000 ML IV SCH (21:53)
[2018-08-16 22:18] VITALS: BMI 25.7
[2018-08-16] MEDS ORDERED: Dextrose 50% Abboject 50 ML SYRINGE SLOW IVP PRN (22:47)
[2018-08-16] MEDS ORDERED: HumaLOG 300 UNITS/3 ML VIAL SC PRN (22:47)
[2018-08-16] MEDS ORDERED: Dextrose 5% in Water 1,000 ML IV PRN (22:47)
--- NOTE | 2018-08-17 04:32 | HP ---
PRIMARY CARE PHYSICIAN: Dr. Bert La. CHIEF COMPLAINT: AMS, lethargy, initial hypotension, slurred speech. HISTORY OF PRESENT ILLNESS: Ms. Lackey is a 73-year-old female who presented to the emergency room today via EMS from [facility] after she was found to have systolic blood pressure in the 90s, which was concerning to the nursing staff. Evidently, she was seen by the nurse practitioner at [facility] on Monday and ordered labs at that time, but we are uncertain. Family and the patient were unsure what the specific concerns were at that time. The patient reports having 1 episode of nausea and diarrhea today. She denies confusion, but she does fall asleep while talking, which is atypical for her. Does have a history of recurrent UTIs, had nitrite positive UTI in June of this year. She also reports having osteoporosis and has very fragile bones. Family reports that she suffers fractures very easily, was here in March of this year to repair a left femoral neck fracture after a fall. The patient reports that she had some slurred speech. Family reports that she has not been acting herself. Does have some residual lower limb weakness from some stenosis and has not fully recovered from the fall in March and subsequent surgery. Reports that she was having physical therapy at [facility], but reports that has stopped. Primarily gets around by wheelchair and is nonambulatory, which is chronic. CT of the brain in the emergency room shows no acute intracranial abnormality, chronic small-vessel ischemic changes, and some cerebral volume loss, which is not significantly progressed from the prior study. Urine did show positive for blood, nitrites, leukocyte esterase, white blood cell count greater than 50, TNTC, and 4+ bacteria. She also has signs of some acute kidney injury with creatinine at 1.92. The last time it was checked on 07/04/2018, it was 0.8; on 06/22/2018, it was 1.41. White blood cell count is 7.4, hemoglobin appear stable at 10.1, hematocrit is 30.5, and platelet count is 202. The patient was able to answer questions, remote memory is somewhat difficult, family having to her correct some recent events. She is alert and oriented x3. She on exam did have some right-sided weakness. She is unable to tell me if that was new. Bilateral lower extremities were weak, 2/5 bilaterally. No pain or tenderness on exam. Pedal pulses were equal bilaterally. The patient subsequently admitted to the stroke unit for further management. REVIEW OF SYSTEMS: CONSTITUTIONAL: Reports some lethargy, generalized weakness, increased fatigue. EYES: Reports vision changes. ENT: Denies sore throat or ear pain. CARDIOVASCULAR: Denies any chest pain or palpitations. RESPIRATORY: Does report cough. Denies any shortness of breath. GI: Does report some diarrhea and vomiting today. Also reports some dysuria. She does report a right-sided headache and increased lethargy. All other systems are reviewed and are negative unless mentioned in the HPI. PAST MEDICAL HISTORY: Pertinent for cardiac history with atrial fibrillation. She is on Eliquis. She has coronary artery disease. She has 4 stents, history of diabetes, hypertension, neuropathy, spinal stenosis, anemia, has had a history of a deep vein thrombosis, congestive heart failure, frequent UTIs, and osteoporosis. PAST SURGICAL HISTORY: Appendectomy, hysterectomy, cholecystectomy, back surgery, has had a left femoral neck fixation, tonsillectomy, had an ablation. PSYCHIATRIC HISTORY: Anxiety. SOCIAL HISTORY: Lives in a long-term care facility. Denies any alcohol use or drug use. She is a former tobacco smoker, smokes cigarettes, but quit more than 10 years ago. ALLERGIES: CODEINE. CURRENT MEDICATIONS: Per the ER system which will have to be verified. 1. Alendronate 70 mg p.o. once daily. 2. Eliquis 2.5 mg p.o. once a day. 3. Flecainide 50 mg p.o. once a day. 4. Prozac 60 mg 1 tablet once a day. 5. Levothyroxine 125 mcg once a day. 6. Lyrica 75 mg once a day. 7. Metformin 500 mg two times a day. 8. MiraLAX 17 g daily as needed. 9. . 10. Singulair 10 mg once a day. 11. Protonix 40 mg once a day. PHYSICAL EXAMINATION: VITAL SIGNS: Blood pressure 141/79, pulse is 81, respirations 18, temperature is 98.0, pulse ox is 98% on room air. CONSTITUTIONAL: The patient appears in no distress. She is alert and oriented to person, place, and time. HEENT: Head is atraumatic and normocephalic. Eyes; eyelids are normal to inspection. Pupils are equal, round, and reactive to light. ENT; mouth exam is normal. Mucous membranes are moist. NECK: Trachea is midline. There is no tenderness. RESPIRATORY/CHEST: She has mild bibasilar crackles. No signs of respiratory distress. CARDIOVASCULAR: Heart rate, regular rate and rhythm. ABDOMEN: No tenderness. Bowel sounds are heard. BACK: Normal inspection. No tenderness. EXTREMITIES: Upper extremities; normal inspection. Strength 5/5. Radial pulses are equal. Lower extremities; normal inspection. Strength 2/5 bilaterally. There is no drift. SKIN: Warm, dry, normal in color. NEUROLOGIC: The patient is oriented to person, place, and time. Somewhat confused with recent events and also remote history. PLAN AND ASSESSMENT: 1. Slurred speech, increased lethargy, right-sided weakness, which is minor and also has a right-sided headache. CT of the brain was negative for acute process. We will order an MRI in the morning, carotid Dopplers. The patient had an echocardiogram in January 2018 which showed ejection fraction of 60% to 65%, impaired relaxation compatible with some diastolic dysfunction. Some of the lethargy and altered mental status may be related to the urinary tract infection, which she also has where there is nitrite positive and 4+ bacteria. We will ask Stroke Team to evaluate. 2. Urinary tract infection. Rocephin has been started. We will send for culture. 3. Acute renal injury. The patient was given 1-1/2 L of normal saline in the emergency room. We have ordered gentle hydration. We will recheck in the morning. We will hold any nephrotoxic drugs. 4. Diabetes. We will hold the metformin for now. Check Accu-Cheks a.c. and at bedtime. Add a sliding scale for coverage. 5. Hypertension. We will restart home medications. We will trend. 6. History of atrial fibrillation. We will continue Eliquis. 7. Hypothyroidism. We will restart home medications. Check thyroid levels. 8. Hospital course will be dependent on clinical findings. Job ID: [id number]
[2018-08-17 05:44] LABS: #Eosinphils 0.3 thou/uL (0.0-0.7); #Lymphocytes 1.6 thou/uL (1.20-3.40); #Monocytes 0.6 thou/uL (0.11-0.59); %Basophils 0.3 % (0.0-1.0); %Eosinophils 3.8 % (0.0-10.0); %Neutrophils 61.9 % (42.0-75.0); Hemoglobin 10.9 g/dL (12.0-16.0); Mean Corpuscular HGB CONC 33.8 g/dL (32.0-36.0); Mean Corpuscular Hemoglobin 31.7 pg (27.0-31.0); Mean Corpuscular Volume 93.7 fL (78.0-98.0); Mean Platelet Volume 7.6 fL (7.4-10.4); Platelet Count 200 thou/uL (130-400); RBC Distribution Width 16.3 % (11.5-14.5); Red Blood Cell (RBC) Count 3.45 mill/uL (4.20-5.40); White Blood Cell (WBC) Count 6.5 thou/uL (4.8-10.8)
[2018-08-17 06:04] LABS: ALT (SGPT) 11 U/L (8-55); AST (SGOT) 18 U/L (5-34); Albumin 3.7 g/dL (3.4-4.8); Alkaline Phosphatase 140 U/L (40-150); Anion Gap 13 mmol/L (10-20); BUN (Urea Nitrogen) 30 mg/dL (9.8-20.1); Bilirubin, Total 0.3 mg/dL (0.2-1.2); Calc. Creatinine Clearance 50 mL/min (70-130); Calcium 8.9 mg/dL (7.8-10.44); Carbon Dioxide 20 mmol/L (23-31); Cardiac Risk 3.6 (Less than 4.5); Chloride 112 mmol/L (98-107); Cholesterol 186 mg/dl (< 200 Desired); Estimated GFR-MDRD 49; Glucose 95 mg/dL (83-110); HDL Cholesterol 52 mg/dL (>60 Neg Risk); LDL Cholesterol, Calculated 115 mg/dL; Potassium 4.3 mmol/L (3.5-5.1); Protein, Total 6.7 g/dL (6.0-8.3); Sodium 141 mmol/L (136-145); Triglycerides 96 mg/dL (Less than 150)
[2018-08-17 06:21] LABS: Free T4 (Free Thyroxine) 1.21 ng/dL (0.70-1.48)
[2018-08-17] MEDS ORDERED: Aspirin 325 MG TAB PO SCH (08:00)
[2018-08-17] MEDS ORDERED: cloNIDine 0.1 MG TAB PO PRN (09:38)
[2018-08-17] MEDS ORDERED: Amlodipine 5 MG TAB PO SCH ×2 (09:45→18:15)
--- NOTE | 2018-08-17 09:55 | ULT ---
US Carotid Doppler STANDARD History: [Transient ischemic attack. Slurred speech.] Comparison: Carotid Doppler ultrasound 2006 Findings: Real-time grayscale, color, and spectral analysis of the extracranial carotid and vertebral arteries was performed. Moderate plaque involving the proximal right internal carotid artery. Antegrade flow right vertebral artery. No hemodynamically significant stenosis within the internal carotid artery. Moderate calcific plaque left carotid bulb. Antegrade flow left vertebral artery. No hemodynamically significant stenosis left internal carotid artery. Impression: No hemodynamically significant stenosis.
[2018-08-17] MEDS: Acetaminophen 325 MG TAB PO PRN (10:46)
--- NOTE | 2018-08-17 11:31 | MRI ---
MRI Brain WO Con: 08/17/2018 8:49 PM CLINICAL HISTORY: Slurred speech. COMPARISON: 02/07/2018 FINDINGS: Extra axial spaces: Normal in size and morphology for the patient's age. Acute infarction: None. Ventricular system: Mild prominence due to parenchymal volume loss. Basal cisterns: Normal. Cerebral parenchyma: Numerous peripherally oriented susceptibility foci are present localizing to cor tical and subcortical brain parenchyma bilaterally. Moderate microvascular ischemic disease is present. Midline shift: None. Cerebellum: Normal. Brainstem: Normal. Paranasal sinuses:Clear IMPRESSION:Interval development of multifocal susceptibility foci throughout the bilateral cerebral h emispheres, subcortical and cortical in distribution. This favors entity such as hypertensive encephalopathy, vasculitis, versus other vasculopathies. Recommend clinical correlation as well as co ntinued imaging follow-up.
[2018-08-17] MEDS: Sodium Chloride 0.9% 1,000 ML IV SCH (15:20)
[2018-08-17] MEDS: metFORMIN 500 MG TAB PO SCH (17:44)
--- NOTE | 2018-08-17 20:32 | PRG ---
DATE OF SERVICE: 08/17/2018 SUBJECTIVE: Ms. Lackey is a very pleasant 73-year-old female with past medical history significant for paroxysmal atrial fibrillation, hypertension, nonambulatory state secondary to generalized debility and weakness, currently a jail resident at [facility], who presented to the hospital with complaints of intermittent slurred speech prior to the day of her arrival. The patient has reported no further slurred speech since her admission. She denies any nausea or vomiting. Her appetite is good. She denies any chest pain or shortness of breath. She has remained in sinus rhythm per telemetry monitoring. No abdominal pain. No complaints at this time. OBJECTIVE: VITAL SIGNS: Blood pressure 165/72, pulse is 87, O2 saturation is 95% on room air, respirations are 18. The patient is afebrile at 97.9. GENERAL: The patient is an elderly female, resting comfortably in bed, in no acute distress. HEENT: Head is atraumatic, normocephalic. Mucous membranes are moist. Extraocular movements intact. NECK: Supple. No lymphadenopathy. Trachea is midline. CV: S1 and S2. Regular rate and rhythm. No appreciable murmurs, rubs, or gallops. LUNGS: Regular respiratory rate and pattern, overall clear to auscultation bilaterally. ABDOMEN: Positive bowel sounds. Soft, nontender. EXTREMITIES: No edema. Extremities are warm and well perfused. NEUROLOGIC: The patient's speech is intact. She is alert and oriented x3. The patient appears nonfocal at this time. LABORATORY DATA: Hemoglobin 10.9, hematocrit 32.3, white blood cell count 6.5, platelets are 200. Sodium 141, potassium 4.3, chloride 112, anion gap 13, BUN 30, creatinine 1.09. AST, ALT, alkaline phosphatase all within normal limits. LDL 115, total cholesterol 186, HDL 52, free T4 normal at 1.21. TSH is 2.01. Urine culture is positive for gram-negative rods with characterization and sensitivities pending. ASSESSMENT: 1. Dysarthria concerning for transient ischemic attack versus cerebrovascular accident. 2. MRI positive for interval development of multifocal susceptibility foci throughout the bilateral hemispheres consistent with hypertensive encephalopathy, vasculitis versus other vasculopathies. 3. Hypertension, poorly controlled. 4. Urinary tract infection, culture positive for gram-negative rods. 5. Chronic debility and deconditioning, nonambulatory. 6. Paroxysmal atrial fibrillation, currently in sinus rhythm, CHADS-VASc equals 4. 7. Osteoporosis with fractures in the past. 8. [id number] renal insufficiency, resolved. PLAN: We will increase the patient's Eliquis dosing to 2.5 mg b.i.d. as opposed to daily dosing. I have added antihypertensive therapy for improved blood pressure control as I can find no daily hypertensive medicines on the patient's med rec from her jail. We will consult Neurology for further recommendations based on findings of MRI. Her echo is still pending. We will continue empiric antibiotic coverage with Rocephin until culture and sensitivities return. Further recommendations based on hospital course. Job ID: [id number]
[2018-08-17] MEDS ORDERED: Flecainide 50 MG TAB PO SCH (21:00)
[2018-08-17] MEDS ORDERED: Non-Formulary Item 1 EACH (Ferrous Sulfate [Ferrous Sulfate] 325 MG) PO SCH (21:00)
[2018-08-17] MEDS: cefTRIAXone\\ROCEPHIN 1 GM in Sodium Chloride 0.9% 100 ML IVPB SCH (22:29)
[2018-08-17] MEDS: Apixaban 2.5 MG TAB PO SCH (22:29)
[2018-08-17] MEDS: Atorvastatin Calcium 10 MG TAB PO SCH (22:29)
[2018-08-17] MEDS: Ferrous Sulfate 325 MG TAB PO SCH (22:31)
[2018-08-17] MEDS: Flecainide 50 MG TAB PO SCH (22:32)
[2018-08-17] MEDS: Famotidine 20 MG TAB PO SCH (22:33)
[2018-08-17] MEDS: cloNIDine 0.1 MG TAB PO PRN (22:49)
[2018-08-18] MEDS: Sodium Chloride 0.9% 1,000 ML IV SCH (07:12)
[2018-08-18] MEDS: Levothyroxine Sodium 125 MCG TAB PO SCH (08:58)
[2018-08-18] MEDS: metFORMIN 500 MG TAB PO SCH ×2 (08:58→18:17)
[2018-08-18] MEDS: Amlodipine 5 MG TAB PO SCH (08:59)
[2018-08-18] MEDS ORDERED: Apixaban 2.5 MG TAB PO SCH (09:00)
[2018-08-18] MEDS: FLUoxetine HCl 20 MG CAP PO SCH (09:00)
[2018-08-18] MEDS ORDERED: Non-Formulary Item 1 EACH (Cholecalciferol (Vitamin D3) [Vitamin D3] 5,000 UNIT) PO SCH (09:00)
[2018-08-18] MEDS ORDERED: Amlodipine 5 MG TAB PO SCH (09:00)
[2018-08-18] MEDS: Flecainide 50 MG TAB PO SCH ×2 (09:01→20:49)
[2018-08-18] MEDS: Aspirin 81 mg Enteric Coated Tablet PO SCH (09:01)
[2018-08-18] MEDS: Ferrous Sulfate 325 MG TAB PO SCH ×2 (09:01→20:49)
[2018-08-18] MEDS: Apixaban 2.5 MG TAB PO SCH (09:01)
[2018-08-18] MEDS: Acetaminophen 325 MG TAB PO PRN (09:02)
[2018-08-18 11:47] LABS: Complement-C4 27.8 mg/dL (15-57)
[2018-08-18 12:33] LABS: Syphilis Antibody Index 5.87 S/CO (<1.00 Non-Reactive)
[2018-08-18] MEDS: HumaLOG 300 UNITS/3 ML VIAL SC PRN (12:46)
[2018-08-18 14:48] LABS: Syphilis Antibody INDETERMINATE (Nonreactive)
--- NOTE | 2018-08-18 15:59 | CT ---
CTA Angio Head W WO Con CT angiogram neck with contrast CT brain without contrast History: [Vasculitis] Comparison: MR brain prior day Findings: CT brain performed without contrast. Subsequently CT angiogram of the head and neck was per formed after the intravenous administration of contrast. 3-D rendering provided. On the noncontrast portion of the examination there is no acute hemorrhage or infarction. Punctate fo ci of increased density along the left falx as well as the bifrontal white matter and allen matter. Advanced chronic microvascular ischemic changes. Transverse aorta is unremarkable. Mild exaggerated cervical lordosis. Lung apices appear clear. Thyroid is unremarkable. Origin of the right vertebral artery is patent. No stenosis. Portion of the left vertebral artery is patent. No stenosis. Left vertebral artery is dominant. Right common carotid artery origin is patent. Is ectasia of the common carotid artery. Left common carotid artery is patent. Mild ectasia. No stenosis. [place] is patent. No stenosis, thrombosis, nor aneurysm formation. No luminal irregularity. Impression: 1. No acute intracranial abnormality. 2. Punctate foci of increased density on the noncontrast examination likely sequelae small microhemor rhages, chronic, as seen on the prior MRI examination. 3. No evidence for vasculitis. 4. Extensive vascular tortuosity congestion chronic hypertension. 5. Per NASCET criteria no hemodynamically significant stenosis. 6. No [place] stenosis, thrombosis, nor aneurysm formation. No luminal irregularity.
--- NOTE | 2018-08-18 19:56 | PRG ---
DATE OF SERVICE: 08/18/2018 SUBJECTIVE: Ms. Lackey is a very pleasant 73-year-old female with past medical history significant for paroxysmal atrial fibrillation, hypertension, nonambulatory state secondary to generalized debility and weakness, currently a long-term resident at [facility], who presented to the hospital with complaints of intermittent slurred speech prior to the day of her arrival. The patient has had no further slurred speech since her admission. She had some confusion and brief hallucinations overnight, which have completely resolved. Her appetite remains good. She denies any chest pain, shortness of breath, or dysuria. She remains in sinus rhythm. She has been evaluated by Dr. Humphreys of Neurology, who has ordered a CTA of the head and neck. OBJECTIVE: VITAL SIGNS: Blood pressure 132/70, pulse 75, O2 saturation is 93% on room air, and respirations are 16. GENERAL: The patient is an elderly female, resting comfortably in bed, in no acute distress. HEENT: Head is atraumatic and normocephalic. Mucous membranes are moist. Extraocular movements intact. NECK: Supple. No lymphadenopathy. Trachea is midline. CV: S1 and S2. Regular rate and rhythm. No appreciable murmurs, rubs, or gallops. LUNGS: Regular respiratory rate and pattern, somewhat diminished breath sounds at the bases. ABDOMEN: Positive bowel sounds. Soft and nontender. EXTREMITIES: No edema. Extremities are warm and well perfused. NEUROLOGIC: The patient's speech is intact. She is alert and oriented x3. The patient appears nonfocal at this time. LABORATORY DATA: Pending at this time, although, microbiology culture revealed Enterobacter cloacae complex, which was resistant to Rocephin, but susceptible to ciprofloxacin and meropenem. ASSESSMENT: 1. Dysarthria concerning for transient ischemic attack versus cerebrovascular accident at admission, currently resolved. 2. MRI positive for interval development of multifocal susceptibility foci throughout the bilateral hemispheres consistent with hypertensive encephalopathy , vasculitis versus other vasculopathies. 3. Hypertension, now well controlled. 4. Urinary tract infection, culture positive for Enterobacter cloacae, susceptible to Cipro. 5. Chronic debility and deconditioning, nonambulatory. 6. Paroxysmal atrial fibrillation, currently in sinus rhythm, CHADS-VASc equals 4. 7. Osteoporosis with fractures in the past. 8. Chronic kidney disease, stable. PLAN: At this time, the patient's renal function has improved, and we will increase Eliquis to therapeutic dosing at 5 mg b.i.d. Given the findings of possible vasculitis on her MRI, we will obtain complement C3 and complement C4 along with syphilis IgG and IgM antibodies. The patient is being seen in consultation with Dr. Humphreys of Neurology, who has ordered a CTA of the head and neck, pending. Dr. Humphreys has also added an THAO as well as rheumatoid arthritis screen. Overall, the patient's clinical picture remains somewhat complicated, and the patient does meet inpatient criteria at this time. We will discontinue Rocephin in favor of ciprofloxacin for her UTI. The care of this patient has been discussed with Dr. Young, who agrees with inpatient status as outlined above. Further recommendations based on hospital course. We will repeat BMP and CBC in the morning. Job ID: [id number] MTDD
[2018-08-18] MEDS: Famotidine 20 MG TAB PO SCH (20:48)
[2018-08-18] MEDS: Atorvastatin Calcium 10 MG TAB PO SCH (20:49)
[2018-08-18] MEDS: Apixaban 5 MG TAB PO SCH (20:49)
--- NOTE | 2018-08-18 20:54 | CON ---
DATE OF TELEMEDICINE CONSULTATION: 08-18-18, DARLENE Nassar CHIEF COMPLAINT: Possible stroke. HISTORY OF PRESENT ILLNESS: The patient usually is in a wheelchair at her retirement. She had several family members in the room. The patient never had a stroke. She developed speech problems and daughter thought she was not talking well and she was brought in with the urinary infection and the patient herself is not sure about any weakness. PREVIOUS MEDICAL HISTORY: The patient has diabetes since age 33. She has spine problems and cardiac history with atrial fibrillation and is on Eliquis. She also has coronary artery disease with 4 stents. She has hypertension, neuropathy, spinal canal stenosis, any history of deep vein thrombosis, congestive heart failure, frequent urinary infections and osteoporosis. PAST SURGICAL HISTORY: The patient had appendectomy, hysterectomy, cholecystectomy, back surgery, left femoral neck fixation, tonsillectomy, and cardiac ablation. PSYCHIATRIC HISTORY: Positive for anxiety. SOCIAL HISTORY: The patient lives at a retirement and she is using a wheelchair and is receiving physical therapy. She does not use alcohol. She used to smoke , but quit about 10 years ago. ALLERGIES: SHE IS ALLERGIC TO CODEINE. CURRENT MEDICATIONS: Per chart. She is on Eliquis for atrial fibrillation. REVIEW OF SYSTEMS: PULMONARY: Negative for shortness of breath, cough. CARDIAC: Negative for chest pain or palpitations. GI: Negative for diarrhea, vomiting, or nausea. GENITOURINARY: Negative for dysuria, but has a UTI. PSYCHIATRIC: Positive for anxiety. NEUROLOGICAL: Positive for speech difficulty and generalized weakness. DERMATOLOGIC: Negative for rash. LABORATORY DATA: White count 6.5, hemoglobin 10.9, hematocrit 32.3, platelet count 200. Chemistry; sodium 141, potassium 4.3, chloride 112, bicarb 20, BUN 30, creatinine 1.09, glucose 95. Cholesterol and lipid profile within normal limits. Free T4 is 1.21, T3 is 1.42, TSH 2.01. Urinalysis; positive for nitrite and leukocyte esterase and her workup so far, MRI of the brain was completed and it does show interval development of multifocal susceptibility foci susceptibility foci throughout bilateral cerebral hemispheres, favors hypertensive encephalopathy, vasculitis, although vasculopathy and carotid Doppler was negative for hemodynamically significant stenosis. Echocardiogram is negative for any abnormalities. PHYSICAL EXAMINATION: VITAL SIGNS: Temperature 97.4, pulse 73, blood pressure 139/73, respiratory rate 16, O2 sats 97% on room air. GENERAL APPEARANCE: Well-built, well-nourished lady, who seems to be somewhat confused about her long medical history at the moment. CHEST: Clear vesicular breathing. CARDIOVASCULAR: S1, S2 heard. No murmurs. NECK: Carotids are clear. NEUROLOGIC: Higher intellectual functions, normal orientation to time, place, and person. Appropriate answers to many questions, but there is some element of confusion during the conversation. Cranial nerves, pupils 2 mm bilaterally. No facial asymmetry. Normal sensation of face. Normal hearing bilaterally. Tongue midline. No atrophy. Motor examination, bulk normal. Tone normal. Strength 5 /5 on the left side, 3/5 on the right side in iliopsoas, hamstrings, quadriceps, ankle dorsiflexion, plantar flexion, deltoid, biceps, triceps, wrist extension and flexion, finger extension and flexion bilaterally and gait not tested. Deep tendon reflexes are 2+ throughout. Sensory normal to touch bilaterally. Cerebellar normal bilaterally. IMPRESSION: The patient is a 73-year-old lady with multiple medical issues, comes in with urinary infection and speech problem whether this is associated with urinary tract infection or due to presence of multiple ischemic lesions in both cortical and subcortical areas, this is a question. At this time, she mild weakness in both sides of her body, more so on the right compared to the left. This could be due to any of the infarct. At this time, she is exhibiting a multivascular state, which could be similar to what we see in vasculitis. She has some of the labs pending for vasculitis. RECOMMENDATIONS: I will request THAO, double-stranded DNA, and rheumatoid factor as well and we will request a CT angiography, which sometimes can help us in understanding, if someone has vasculitis and she may need further workup later on. I suspect some of the confusion may be due to presence of urinary infection at this time. I will follow up again tomorrow. Job ID: [id number] [facility]
[2018-08-19] MEDS: Acetaminophen 325 MG TAB PO PRN (00:57)
[2018-08-19] MEDS: cloNIDine 0.1 MG TAB PO PRN (04:45)
[2018-08-19] MEDS: metFORMIN 500 MG TAB PO SCH ×2 (08:05→16:15)
[2018-08-19] MEDS: Apixaban 5 MG TAB PO SCH ×2 (09:05→21:12)
[2018-08-19] MEDS: Amlodipine 5 MG TAB PO SCH (09:06)
[2018-08-19] MEDS: Ferrous Sulfate 325 MG TAB PO SCH ×2 (09:06→21:12)
[2018-08-19] MEDS: Flecainide 50 MG TAB PO SCH ×2 (09:06→21:12)
[2018-08-19] MEDS: Aspirin 81 mg Enteric Coated Tablet PO SCH (09:06)
[2018-08-19] MEDS: Levothyroxine Sodium 125 MCG TAB PO SCH (09:06)
[2018-08-19] MEDS: FLUoxetine HCl 20 MG CAP PO SCH (09:06)
[2018-08-19] MEDS: HumaLOG 300 UNITS/3 ML VIAL SC PRN ×2 (11:15→16:24)
--- NOTE | 2018-08-19 12:27 | PRG ---
DATE OF TELEMEDICINE SERVICE: 08/19/2018 DARLENE Nassar CHIEF COMPLAINT: The patient with possible vasculitis. INTERIM HISTORY: She is stable and doing better, and she seems less confused today. The patient reports she has significant anxiety disorder and has had high blood pressures lately. CURRENT REPORT: CT angiogram showed no acute intracranial abnormality, punctate foci of increased density on the noncontrast examination, likely sequelae; small microhemorrhages, chronic as seen on prior MRI. No evidence of vasculitis and extensive vascular tortuosity, congestion with chronic hypertension, no hemodynamically significant stenosis. LABORATORY REPORTS: Complement C3 of 116, complement C4 of 27. Syphilis IgG/ IgM indeterminate. RPR 1:1. Treponema pallidum particle aggregates pending. No chemistries available today. PHYSICAL EXAMINATION: VITAL SIGNS: Blood pressure 145/70, temperature 97.6, pulse 70, and respiratory rate 16. GENERAL APPEARANCE: Well-built, well-nourished lady, who is comfortable in her bed, who is oriented to time, place, and person. NEUROLOGIC: Cranial nerves, no facial droop noted and normal extraocular movements. Pupils are 2 mm, reactive. Motor examination; 4/5 strength throughout in both upper and lower extremities. IMPRESSION: The patient is a 73-year-old lady with multiple risk factors for stroke including hypertension, diabetes, and cardiac issues. She is on Eliquis for atrial fibrillation. Currently, she has had improvement in her mental status and is treating the urinary infection, and the question about multiple ischemic lesions and whether they were vasculitis is the reason for doing a CT angiogram. CT angiogram shows microhemorrhages rather than evidence for vasculitis. At this time, I do think the patient is neurologically stable. RECOMMENDATIONS: Please have her follow up with her provider enrollment specialist and also give her an appointment with Dr. Rodriguez as outpatient for further monitoring. Job ID: [id number] [facility]
[2018-08-19] MEDS: Calcium Carbonate 500 MG ChewTAB PO PRN ×2 (16:27→22:45)
--- NOTE | 2018-08-19 16:56 | PDOC.PN ---
- Subjective Encounter Start Date: 08/19/18 Encounter Start Time: 16:40 Subjective: f/u for TIA and HTN encephalopathy. Overall feeling better and back -: to baseline. Tx for UTI with Cipro. - Objective MAR Reviewed: Yes Vital Signs & Weight: Vital Signs (12 hours) Temp Pulse Resp BP BP Pulse Ox 08/19/18 15:37 97.5 F L 72 18 141/71 H 98 08/19/18 11:46 97.5 F L 70 16 119/62 97 08/19/18 09:06 70 145/70 H 08/19/18 08:57 97 08/19/18 07:43 97.6 F 70 16 145/70 H 97 08/19/18 06:25 143/70 H Weight Weight 150 lb 1.6 oz I&O: 08/18/18 08/19/18 08/20/18 06:59 06:59 06:59 Intake Total 2646 951 320 Output Total 2475 700 700 Balance 171 251 -380 Result Diagrams: 08/17/18 05:03 08/17/18 05:03 Additional Labs: Accuchecks 08/19/18 08/19/18 08/19/18 16:39 10:39 05:24 POC Glucose 81 189 H 91 08/18/18 08/18/18 20:55 17:05 POC Glucose 169 H 78 Microbiology 08/16/18 18:55 Urine voided Urine Culture - Final Enterobacter cloacae complex Laboratory Tests 08/16/18 08/18/18 15:56 10:52 Creatinine 1.92 H Complement C3 116.00 Complement C4 27.80 Radiology Reviewed by me: Yes (CTA brain - chronic microhemorrhages due to HTN) EKG Reviewed by me: Yes (Tele - SR) Phys Exam - Physical Examination Constitutional: NAD HEENT: PERRLA, sclera anicteric, oral pharynx no lesions Neck: no nodes, no JVD, supple, full ROM Respiratory: no wheezing, no rales, no rhonchi, clear to auscultation bilateral S1, S2 Cardiovascular: RRR, no significant murmur, no rub, gallop Gastrointestinal: soft, non-tender, no distention, positive bowel sounds Musculoskeletal: no edema, pulses present Neurological: normal sensation, moves all 4 limbs Psychiatric: A&O x 3 Skin: normal turgor, cap refill <2 seconds Dx/Plan (1) TIA (transient ischemic attack) Code(s): G45.9 - TRANSIENT CEREBRAL ISCHEMIC ATTACK, UNSPECIFIED Status: Acute Comment: Suspected due to #2, continue supportive mgmt (2) Hypertensive encephalopathy Code(s): I67.4 - HYPERTENSIVE ENCEPHALOPATHY Status: Acute Comment: Improved , continue ASA, Lipitor, resume BP regimen (3) Acute on chronic renal failure Code(s): N17.9 - ACUTE KIDNEY FAILURE, UNSPECIFIED; N18.9 - CHRONIC KIDNEY DISEASE, UNSPECIFIED Status: Acute Comment: Improved, avoid nephrotoxic agents and limit contrast exposure (4) UTI (urinary tract infection) Status: Acute Comment: Secondary to enterobacter cloacae, continue Ciprofloxacin (5) Diabetes type 2, controlled Code(s): E11.9 - TYPE 2 DIABETES MELLITUS WITHOUT COMPLICATIONS Status: Chronic Comment: ISS, resume Metformin in am, serial accuchecks (6) Hypertension Code(s): I10 - ESSENTIAL (PRIMARY) HYPERTENSION Status: Chronic Qualifiers: Hypertension type: essential hypertension Qualified Code(s): I10 - Essential (primary) hypertension Comment: Resume home BP regimen and titrate to optimal response - Plan plan discussed w/ family, continue antibiotics, PT/OT, secondary social studies teacher, DVT proph w/SCDs Stable currently -: Continue ASA, Lipitor -: Continue Eliquis -: Continue Levothyroxine -: AM lab: BMP * Likely d/c to [facility] in 24h
[2018-08-19 17:03] LABS: Hemoglobin 10.7 g/dL (12.0-16.0); Platelet Count 216 thou/uL (130-400)
[2018-08-19] MEDS: Atorvastatin Calcium 10 MG TAB PO SCH (21:12)
[2018-08-19] MEDS: Famotidine 20 MG TAB PO SCH (21:13)
[2018-08-20 05:46] LABS: Anion Gap 10 mmol/L (10-20); BUN (Urea Nitrogen) 18 mg/dL (9.8-20.1); Calc. Creatinine Clearance 69 mL/min (70-130); Calcium 8.7 mg/dL (7.8-10.44); Carbon Dioxide 22 mmol/L (23-31); Chloride 108 mmol/L (98-107); Estimated GFR-MDRD 72; Glucose 89 mg/dL (83-110); Potassium 4.1 mmol/L (3.5-5.1); Sodium 136 mmol/L (136-145)
[2018-08-20] MEDS: Apixaban 5 MG TAB PO SCH (09:39)
[2018-08-20] MEDS: Aspirin 81 mg Enteric Coated Tablet PO SCH (09:39)
[2018-08-20] MEDS: Ferrous Sulfate 325 MG TAB PO SCH (09:40)
[2018-08-20] MEDS: FLUoxetine HCl 20 MG CAP PO SCH (09:40)
[2018-08-20] MEDS: Flecainide 50 MG TAB PO SCH (09:40)
[2018-08-20] MEDS: Amlodipine 5 MG TAB PO SCH (09:41)
[2018-08-20] MEDS: Levothyroxine Sodium 125 MCG TAB PO SCH (09:43)
[2018-08-20] MEDS: metFORMIN 500 MG TAB PO SCH ×2 (09:44→17:14)
[2018-08-20] MEDS: Acetaminophen 325 MG TAB PO PRN (10:00)
[2018-08-20] MEDS: Calcium Carbonate 500 MG ChewTAB PO PRN (12:20)
[2018-08-20] MEDS: HumaLOG 300 UNITS/3 ML VIAL SC PRN (12:20)
[2018-08-20 15:48] VITALS: BP 162/78; TEMP 98
--- NOTE | 2018-08-20 22:15 | DIS ---
DATE OF ADMISSION: 08/16/2018 DATE OF DISCHARGE: 08/20/2018 CHIEF COMPLAINT: Lethargy, slurred speech. HISTORY OF PRESENT ILLNESS: This patient is a 73-year-old female, who lives at [facility] was noted to have blood pressure in the 90s. Apparently, she had some associated slurred speech and was brought to the hospital for that evaluation. Her workup there was concerning for possible urinary tract infection. CT of the brain was negative and her labs indicated acute renal injury with a creatinine of 1.92, which was above the patient's previous value in late June, which was of 0.8. The patient had a CT scan of the head, no acute intracranial abnormalities were seen, only small-vessel ischemia and some cerebral volume loss, which had not progressed from the previous study. HOSPITAL COURSE: The patient was admitted to the hospital. She was given IV antibiotics for possible urinary tract infection. Ultimately, this grew an Enterobacter cloaca that was sensitive to quinolones. She was treated with ciprofloxacin. The patient also had MRI of the brain, which revealed an interval development of multifocal susceptibility foci throughout bilateral cerebral hemispheres, subcortical and cortical in distribution favoring hypertensive encephalopathy, vasculitis or other vasculopathies. She had carotid Dopplers, which were negative. She was then seen in consultation by Neurology who ordered some labs to assess for the possibility of vasculitis. A CT angiogram was performed, which appeared to show some fine microhemorrhages, more consistent with hypertensive encephalopathy. The patient had Norvasc added as an antihypertensive and the patient had not been on an antihypertensive regimen previously. The patient's symptoms have largely resolved. She felt well and felt stable to discharge. PHYSICAL EXAMINATION: VITAL SIGNS: On the day of discharge temperature was 98, pulse 68, respirations 18, O2 saturation 97% on room air, and blood pressure 162/78. GENERAL APPEARANCE: Age-appropriate female, in no distress. She is awake and alert. HEART: Regular rate and rhythm. LUNGS: Clear bilaterally. ABDOMEN: Benign. EXTREMITIES: No cyanosis, clubbing, or edema. DISPOSITION: The patient is discharged back to [facility] in stable condition. 1. She will be on Cipro 250 mg p.o. b.i.d. 2. She will be on amlodipine 5 mg daily. 3. Apixaban 5 mg b.i.d. 4. Aspirin 81 mg daily. 5. Atorvastatin 10 mg at bedtime. 6. She will continue Lyrica 75 b.i.d. 7. Levothyroxine 125 daily. 8. She will stop the low-dose Eliquis. 9. Continue tizanidine. 10. Multivitamin. 11. Vitamin D3. 12. Lactulose. 13. Magnesium. 14. Clonidine. 15. Dextromethorphan. 16. DuoNebs. 17. Metformin. 18. Ketoconazole. 19. Fluoxetine. 20. Calcium. 21. Polyethylene glycol. 22. Protonix. 23. Ferrous sulfate. 24. Montelukast. 25. Ibuprofen. 26. Flecainide. 27. Senna. ACTIVITY: As tolerated. DIET: She will be on a diabetic heart healthy diet. FOLLOWUP: She can follow up with Bert La through [facility]. Job ID: [id number]
[2018-08-21 14:13] LABS: Cytoplasmic (C-ANCA) <1:20 titer (Neg:<1:20); Myeloperoxidase AutoAbs <9.0 U/mL (0.0-9.0); Perinuclear (P-ANCA) <1:20 titer (Neg:<1:20); Proteinase-3 AutoAbs Less than 3.5 U/mL (0.0-3.5)
== END 2018-08-20 17:20 | disposition home or self-care (01) | DRG 683 ==
LOC: ERS 15:41 → OBSVTOIN 18:48 → 2SE 18:48
PROVIDERS: ADMIT Internal Medicine; ATTEND Internal Medicine
DX: N17.9 Acute kidney failure, unspecified (principal); I67.4 Hypertensive encephalopathy; N39.0 Urinary tract infection, site not specified; I13.0 Hypertensive heart and chronic kidney disease with heart failure and stage 1 through stage 4 chronic kidney disease, or unspecified chronic kidney disease; G45.9 Transient cerebral ischemic attack, unspecified; R44.3 Hallucinations, unspecified; I49.9 Cardiac arrhythmia, unspecified; E11.40 Type 2 diabetes mellitus with diabetic neuropathy, unspecified; I50.9 Heart failure, unspecified; F41.9 Anxiety disorder, unspecified; R47.81 Slurred speech; I48.0 Paroxysmal atrial fibrillation; M81.0 Age-related osteoporosis without current pathological fracture; D64.9 Anemia, unspecified; B96.89 Other specified bacterial agents as the cause of diseases classified elsewhere; I95.9 Hypotension, unspecified; M48.061 Spinal stenosis, lumbar region without neurogenic claudication; E11.22 Type 2 diabetes mellitus with diabetic chronic kidney disease; N18.9 Chronic kidney disease, unspecified; R47.1 Dysarthria and anarthria; R53.81 Other malaise; E03.9 Hypothyroidism, unspecified; Z79.01 Long term (current) use of anticoagulants; Z86.718 Personal history of other venous thrombosis and embolism; Z90.710 Acquired absence of both cervix and uterus; Z90.49 Acquired absence of other specified parts of digestive tract; Z99.3 Dependence on wheelchair; Z95.5 Presence of coronary angioplasty implant and graft; Z98.890 Other specified postprocedural states; Z87.440 Personal history of urinary (tract) infections; Z91.81 History of falling; Z87.81 Personal history of (healed) traumatic fracture; Z87.891 Personal history of nicotine dependence; Z88.5 Allergy status to narcotic agent
CPT/HCPCS: 36415; 36416; 70450; 70496; 70498; 70551; 71045; 80048; 80053; 80061; 81003; 81015; 83520; 83605; 83880; 84145; 84439; 84443; 84481; 84484; 85014; 85018; 85025; 85049; 85652; 86038; 86140; 86160; 86200; 86225; 86256; 86593; 86780; 87077; 87086; 87186; 93005; 93306; 93880; 94760; 96360; 96361; J0696; J0744; J3490

== ENCOUNTER 2019-01-22 14:09 | Outpatient (CLI) | payer MEDICARE, MEDICAID ==
--- NOTE | 2019-01-22 14:45 | RAD ---
EXAM: Chest 2 views: HISTORY: Dyspnea COMPARISON: 12/25/2002 FINDINGS: There is a normal-sized cardiomediastinal silhouette. There is no evidence of consolidation, mass, or pleural effusion. Degenerative changes are seen in the spine. There may be bilateral remote bilateral rib fractures. IMPRESSION: No evidence of acute cardiopulmonary disease
== END 2019-01-22 14:10 | disposition home or self-care (01) ==
LOC: RAD 14:09
PROVIDERS: ATTEND Internal Medicine Critical Care Medicine
DX: R06.00 Dyspnea, unspecified (principal)
CPT/HCPCS: 71046

== ENCOUNTER 2019-04-28 20:45 | Observation (INO) | payer MEDICARE, MEDICAID ==
[~2019-04-28 20:45] MED LIST: Iopamidol-370 76% 500 ML 1 ML ONE
[2019-04-28 21:26] LABS: #Eosinphils 0.2 thou/uL (0.0-0.7); #Monocytes 0.6 thou/uL (0.11-0.59); #Neutrophils 5.2 thou/uL (1.40-6.50); %Basophils 0.4 % (0.0-1.0); %Lymphocytes 24.6 % (21.0-51.0); %Monocytes 7.2 % (0.0-10.0); %Neutrophils 64.7 % (42.0-75.0); Hemoglobin 11.3 g/dL (12.0-16.0); Mean Corpuscular HGB CONC 33.5 g/dL (32.0-36.0); Mean Corpuscular Hemoglobin 33.4 pg (27.0-31.0); Mean Corpuscular Volume 99.7 fL (78.0-98.0); Platelet Count 246 thou/uL (130-400); RBC Distribution Width 12.3 % (11.5-14.5); Red Blood Cell (RBC) Count 3.39 mill/uL (4.20-5.40)
--- NOTE | 2019-04-28 21:48 | RAD ---
CHEST ONE VIEW: HISTORY:Chest pain Comparison: 07/04/2018, 01/22/2019 FINDINGS: Cardiac silhouette:Cardiomegaly. Aorta: Atherosclerosis Pulmonary vessels: Normal Costophrenic angles: Clear LUNGS: Evaluation limited due to leftward rotation. There appear to be chronic changes in the lung pa renchyma. Left lower lobe infiltrate cannot be excluded. Pneumothorax: None Osseous abnormalities: Irregularity of the right scapula is noted IMPRESSION: 1. Limited evaluation due to left rotation. Parenchymal changes left lung base are suspected. 2. Irregularity involving the right scapula. Dedicated scapular radiograph series is recommended. Transcribed Date/Time: 04/28/2019 10:22 PM
[2019-04-28 21:51] LABS: ALT (SGPT) 10 U/L (8-55); AST (SGOT) 13 U/L (5-34); Alkaline Phosphatase 164 U/L (40-110); Anion Gap 14 mmol/L (10-20); BUN (Urea Nitrogen) 20 mg/dL (9.8-20.1); Bilirubin, Total 0.4 mg/dL (0.2-1.2); Calc. Creatinine Clearance 0 mL/min (70-130); Calcium 8.5 mg/dL (7.8-10.44); Carbon Dioxide 23 mmol/L (23-31); Chloride 106 mmol/L (98-107); Estimated GFR-MDRD 62; Globulin 2.6 g/dL (2.4-3.5); Glucose 145 mg/dL (83-110); Potassium 4.1 mmol/L (3.5-5.1); Protein, Total 6.6 g/dL (6.0-8.3); Sodium 139 mmol/L (136-145)
--- NOTE | 2019-04-28 23:08 | CT ---
Exam: CT angiogram of the chest HISTORY: Dyspnea on exertion COMPARISON: 04/10/2017 TECHNIQUE: CT angiogram of the chest is performed in the axial plane. Three-dimensional reformatted i mages are submitted for interpretation FINDINGS: Mediastinum: No mass, lymphadenopathy or hematoma. HEART: Mild enlarged heart size. No significant pericardial fluid. There are coronary artery calcific ations. There appears to be a stent in the left anterior descending artery Aorta: No aneurysm or dissection Upper solid abdominal viscera: No abnormality enhancement. Trachea and central bronchi: Patent Pleural spaces: No effusion Lung parenchyma: Patchy groundglass and linear opacities may represent a combination of edema superim posed upon scar/atelectasis. There are no suspicious masses or consolidation. Pneumothorax: None Osseous structures: Kyphosis. Multilevel degenerative changes of the thoracic spine. Multiple old dannie ateral rib fractures. Pulmonary arteries: Adequate contrast opacification pulmonary arterial system to the level of segment al arteries. No filling defect to suggest pulmonary embolism IMPRESSION: 1. No evidence of pulmonary artery embolism to the level of the segmental arteries. 2. Multiple old bilateral rib fractures 3. Groundglass opacities likely representing edema superimposed upon areas of scar and atelectasis. C orrelate for congestive heart failure.
[2019-04-28] MEDS ORDERED: Furosemide 20 MG/2 ML VIAL ONE (23:43)
[2019-04-28] MEDS ORDERED: Aspirin 325 MG TAB ONE (23:54)
[2019-04-29 01:20] LABS: Troponin I Less than 0.010 ng/mL (< 0.028)
[2019-04-29 02:37] VITALS: BMI 27.1
[2019-04-29] MEDS ORDERED: Non-Formulary Item 1 EACH (Melatonin [Melatonin] 1 TAB) PO PRN (07:12)
[2019-04-29] MEDS ORDERED: Dextrose 5% in Water 1,000 ML IV PRN (07:15)
[2019-04-29] MEDS ORDERED: Dextrose 50% Abboject 50 ML SYRINGE SLOW IVP PRN (07:15)
[2019-04-29] MEDS ORDERED: HumaLOG 300 UNITS/3 ML VIAL SC PRN (07:15)
[2019-04-29] MEDS ORDERED: Melatonin 3 MG TAB PO PRN (07:34)
[2019-04-29] MEDS: Ibuprofen 600 MG TAB PO SCH ×2 (07:50→12:10)
[2019-04-29] MEDS ORDERED: Ibuprofen 600 MG TAB PO SCH (08:00)
--- NOTE | 2019-04-29 08:11 | HP ---
PRIMARY CARE PROVIDER: Scott Sidhu MD. CHIEF COMPLAINT: Referred to the Hospitalist Service by [facility] with chest pain. HISTORY OF PRESENT ILLNESS: The patient has had coming and going chest pain for 2 weeks. The only associated symptom she gives is that she has sweats at night. It is described as a hurting and she is unable to be more specific. She has had no nausea with it. No shortness of breath. No radiation. PAST MEDICAL HISTORY: Extensive. She has history of atrial fibrillation; coronary artery disease, post four stents; diabetes mellitus type 2, hypertension, peripheral neuropathy, congestive heart failure, frequent UTIs, osteoporosis; pericardial effusion, post pericardial window. PAST SURGICAL HISTORY: She has had an appendectomy, hysterectomy, cholecystectomy, back surgery, tonsillectomy, and ablation for atrial fibrillation. PSYCHIATRIC HISTORY: Pertinent for anxiety. CURRENT MEDICATIONS: 1. Tizanidine 2 mg p.o. q.6 hours p.r.n. 2. Metformin 500 mg twice a day. 3. Clonidine 0.1 mg p.o. q.6 hours p.r.n. 4. MiraLAX 17 g p.o. daily. 5. Protonix 40 mg a day. 6. Singulair 10 mg a day. 7. Levothyroxine 125 mcg a day. 8. Flecainide 50 mg p.o. b.i.d. 9. Prozac 60 mg a day. 10. Aspirin 81 mg a day. 12. Trazodone 25 mg p.o. at bedtime. 13. Melatonin 10 mg at bedtime p.r.n. 14. Gabapentin 400 mg twice a day. 15. Ferrous sulfate 325 mg a day. 16. Lipitor 10 mg a day. 17. Eliquis 2.5 mg p.o. b.i.d. 18. Note, there is a controversy there needs to be cleaned up, amlodipine 10 mg a day. ALLERGIES: CODEINE CAUSES RASH. SOCIAL HISTORY: , lives at [facility]. Full code status. Daughter, Nayeli Black, surrogate decision maker. No alcohol. No tobacco. FAMILY HISTORY: Pertinent for diabetes, hypertension, coronary artery disease. REVIEW OF SYSTEMS: HEAD: No headaches, dizziness, or fainting. EYES: No double vision, blurred vision, or flashing light. EARS, NOSE, AND THROAT: No ear pain or drainage. No nasal bleeding. No trouble swallowing. CARDIAC: See present illness. No orthopnea or paroxysmal nocturnal dyspnea. RESPIRATIONS: No cough, wheezing, or asthma. GASTROINTESTINAL: No nausea, vomiting, diarrhea, abdominal pain, or melena. GENITOURINARY: No hematuria or dysuria. MUSCULOSKELETAL: No acute pains in her muscles, joint swelling. NEUROLOGICAL: No strokes, seizures, or focal weakness. PSYCHIATRIC: She has anxiety, depression, on medication. SKIN: No bruising, bleeding, or rash. HEME/LYMPH: No tender or swollen lymph nodes in axilla, inguinal, or cervical area. PHYSICAL EXAMINATION: GENERAL: Alert, oriented, appropriate, in no distress at the present time. VITAL SIGNS: Blood pressure 141/67, pulse 75, respirations 14. HEAD, EYES, EARS, NOSE, AND THROAT: Revealed pupils are equal, round, and reactive. Extraocular movements are intact. Sclerae are white. Tympanic membranes are clear. Nose is clear. Oral mucous membranes reveal no lesions. NECK: Supple without jugular venous distention, adenopathy, or thyromegaly. CHEST: Clear to auscultation and percussion. HEART: Regular rate and rhythm. First and second second heart sounds are clear. No murmurs or gallops. ABDOMEN: Soft. Bowel sounds are normal. No hepatosplenomegaly. No mass. No rebound. EXTREMITIES: Reveal no cyanosis, clubbing, or edema. Pulses, carotid, radial, femoral and dorsalis pedis pulses, symmetric, palpable. SKIN: Warm and dry without bruises or rash. HEME/LYMPH: Reveals no tender or swollen lymph nodes in axilla, inguinal, or cervical area. NEUROLOGICAL: Reveals cranial nerves 2 through 12 are intact. Moves all extremities. Decreased sensation below the knee. DIAGNOSTIC DATA: EKG, regular sinus rhythm. No acute ST-T abnormality reviewed by me. Chest x-ray, rotated film, borderline cardiomegaly, some chronic changes in the lung parenchyma, reviewed by me. CT of the chest and thorax was done, without a screening D-dimer, shows no pulmonary emboli. Comprehensive metabolic profile shows a blood sugar of 145, alkaline phosphatase of 164, otherwise unremarkable. Cardiac enzymes normal x3. White cell count 8.0, hemoglobin 11.3, platelet count 246,000. ADMITTING DIAGNOSES: 1. Chest pain. 2. History of atrial fibrillation post ablation. 3. Chronic anticoagulation. 4. Coronary artery disease, post percutaneous coronary intervention. 5. Diabetes mellitus type 2. 6. Hypertension. PLAN: The patient is unable to walk treadmill, unrevealing. EKG, cardiac enzymes, a pharmacological stress test will be done. Job ID: [id number] MTDD
[2019-04-29] MEDS ORDERED: Regadenoson 0.4 MG/5 ML SYRINGE ONE (08:57)
[2019-04-29] MEDS ORDERED: Aspirin 81 mg Enteric Coated Tablet PO SCH (09:00)
[2019-04-29] MEDS ORDERED: Aspirin 325 mg Enteric Coated Tablet PO SCH (09:00)
[2019-04-29] MEDS ORDERED: Levothyroxine Sodium 125 MCG TAB PO SCH (09:00)
[2019-04-29] MEDS ORDERED: Flecainide 50 MG TAB PO SCH ×2 (09:00)
[2019-04-29] MEDS ORDERED: Non-Formulary Item 1 EACH (Ferrous Sulfate [Ferrous Sulfate] 325 MG) PO SCH (09:00)
[2019-04-29] MEDS ORDERED: Ferrous Sulfate 325 MG TAB PO SCH (09:00)
[2019-04-29] MEDS ORDERED: Atorvastatin Calcium 10 MG TAB PO SCH (09:00)
[2019-04-29] MEDS ORDERED: Amlodipine 10 MG TAB PO SCH (09:00)
[2019-04-29] MEDS ORDERED: Apixaban 2.5 MG TAB PO SCH ×2 (09:00)
[2019-04-29] MEDS ORDERED: FLUoxetine HCl 20 MG CAP PO SCH (09:00)
[2019-04-29] MEDS ORDERED: Gabapentin 400 MG CAP PO SCH ×2 (09:00)
[2019-04-29] MEDS: traMADol HCl 50 MG TAB PO SCH ×2 (12:04→13:40)
--- NOTE | 2019-04-29 13:05 | NM ---
MYOCARDIAL PERFUSION SCAN WITH SPECT IMAGING: HISTORY: Chest pain. TECHNIQUE/FINDINGS: Examination is performed using 28 mCi 99m-technetium sestamibi on the stress and 10 on the resting im ages. This shows a normal distribution of radiopharmaceutical. No signs of ischemia or scar. WALL MOTION: There is symmetric contractility to the ventricle. LEFT VENTRICULAR EJECTION FRACTION: The calculated left ventricular ejection fraction is 74%. IMPRESSION: Unremarkable myocardial perfusion scan. POS: SYED
--- NOTE | 2019-04-29 15:13 | DIS ---
DATE OF ADMISSION: 04/29/2019 DATE OF DISCHARGE: 04/29/2019 PRIMARY CARE PROVIDER: Dr. Sidhu. DISPOSITION: Discharged back to [facility]. FINAL DIAGNOSES: Noncardiac chest pain, coronary artery disease, paroxysmal atrial fibrillation, anticoagulation, diabetes mellitus type 2, hypertension. DISCHARGE MEDICATIONS: Same as her admitting medications. 1. Tizanidine 2 mg p.o. q.6 hours p.r.n. 2. Metformin 500 mg p.o. b.i.d. 3. Polyethylene glycol 17 g in water daily. 4. Protonix 40 mg a day. 5. Singulair 10 mg a day. 6. Levothyroxine 125 mcg a day. 7. DuoNeb 3 mL q.i.d. p.r.n. 8. Flecainide 50 mg p.o. b.i.d. 9. Prozac 60 mg a day. 10. Aspirin 81 mg a day. 11. Eliquis 5 mg twice a day. 12. Trazodone 25 mg a day. 13. Melatonin 10 mg p.o. at bedtime p.r.n. 14. Gabapentin 400 mg p.o. b.i.d. 15. Duloxetine 60 mg p.o. at bedtime. 16. Lipitor 10 mg a day. 17. Norvasc 10 mg a day. 18. Alendronate. ALLERGIES: CODEINE CAUSES HIVES. UNFORTUNATELY, THERE IS A CONFUSION IN THE ELIQUIS DOSE WHETHER IT IS 2.5 MG TWICE A DAY OR 5 MG A DAY. THIS WILL NEED TO BE SORTED OUT AT THE [facility]USTOD[facility]. CODE STATUS: Full resuscitation. DIET: Heart healthy. PENDING AT TIME OF DISCHARGE: Nothing. HOSPITAL COURSE: The patient admitted with chest pain. Initial EKG unremarkable. Laboratory studies, cardiac enzymes normal x3. Comp metabolic profile unremarkable except for blood sugar 145. CBC; white count 8.0, platelet count 246,000, hemoglobin 11.3. Nuclear medicine stress test negative for ischemia. The patient is comfortable at the time of discharge. Vital signs; blood pressure 149/72, pulse 87, respirations 90. The patient is asymptomatic, feels well, [facility] She needs to be followed up in [address] Sidhu. Job ID: [id number]
[2019-04-29 16:07] VITALS: BP 145/65; TEMP 98.8
[2019-04-29] MEDS ORDERED: DULoxetine 60 MG CAP PO SCH (21:00)
[2019-04-29] MEDS ORDERED: traZODone HCl 50 MG TAB PO SCH ×2 (21:00)
== END 2019-04-29 17:23 | disposition home or self-care (01) ==
LOC: ERS 20:45 → 2NO 04-29 00:11
PROVIDERS: ADMIT Internal Medicine; ATTEND Internal Medicine
DX: R07.89 Other chest pain (principal); I25.10 Atherosclerotic heart disease of native coronary artery without angina pectoris; I48.0 Paroxysmal atrial fibrillation; E11.42 Type 2 diabetes mellitus with diabetic polyneuropathy; I11.0 Hypertensive heart disease with heart failure; I50.9 Heart failure, unspecified; M81.0 Age-related osteoporosis without current pathological fracture; F41.9 Anxiety disorder, unspecified; Z87.891 Personal history of nicotine dependence; Z79.01 Long term (current) use of anticoagulants; Z79.82 Long term (current) use of aspirin; Z79.84 Long term (current) use of oral hypoglycemic drugs; Z79.899 Other long term (current) drug therapy; Z95.5 Presence of coronary angioplasty implant and graft; Z99.3 Dependence on wheelchair
CPT/HCPCS: 71045; 71275; 78452; 80053; 82962; 83880; 84484 ×3; 85025; 93005; 93017; 94760; 96374; 99285; A9500; 36415; 36416; G0378; J1940; J2785; Q9967

== ENCOUNTER 2019-05-14 13:33 | Outpatient (CLI) | payer MEDICARE, MEDICAID ==
[2019-05-14] MEDS ORDERED: Iopamidol 370 76% 100 ML VIAL ONE (14:01)
--- NOTE | 2019-05-14 14:08 | CT ---
CT OF THE CHEST WITH IV CONTRAST INDICATION: History of sarcoidosis and mediastinal lymphadenopathy COMPARISON: CTA of the chest dated April 28, 2019 FINDINGS: CHEST: Lungs: There are areas of scattered subsegmental volume loss. Pleural space: Small pleural calcification seen overlying the posterior left hemidiaphragm on image 35 of series 3. This may related to prior trauma or infection. No rickey pleural effusion or pneumothorax is evident. Mediastinum: There are prominent coronary artery and thoracic aortic calcifications. There is mild en largement of the pulmonary arterial tree likely related to underlying secondary pulmonary artery hypertension. No enlarged lymph nodes are evident. Upper abdomen:Adrenal glands are normal appearing. Gallbladder is surgically absent. Visualized aspec ts of the liver and spleen are unremarkable appearing. Osseous structures: Old bilateral rib fractures are again seen. There is diffuse osteopenia. There i s scattered degenerative and osteoarthritic changes. Soft tissues:Normal. IMPRESSION: 1. No mediastinal or hilar lymphadenopathy or chronic lung changes to suggest presence of underlying sarcoidosis. 2. Areas of scattered nonspecific subsegmental volume loss within both lungs. 3. Stable bilateral remote rib fractures and chest wall deformities.
== END 2019-05-14 13:34 | disposition home or self-care (01) ==
LOC: CT 13:33
PROVIDERS: ATTEND Internal Medicine Critical Care Medicine
DX: R59.0 Localized enlarged lymph nodes (principal); J98.4 Other disorders of lung; M95.4 Acquired deformity of chest and rib
CPT/HCPCS: 71260; Q9967

== ENCOUNTER 2020-01-27 16:19 | Inpatient (IN) | payer MEDICARE, MEDICAID ==
[~2020-01-27 16:19] MED LIST changes: +Iopamidol 370 76% 50 ML VIAL FS ONE; -Iopamidol-370 76% 500 ML 1 ML ONE
[2020-01-27 17:04] LABS: #Eosinphils 0.5 thou/uL (0.0-0.7); #Lymphocytes 1.8 thou/uL (1.20-3.40); #Neutrophils 9.5 thou/uL (1.40-6.50); %Basophils 0.2 % (0.0-1.0); %Eosinophils 4.2 % (0.0-10.0); %Lymphocytes 13.8 % (21.0-51.0); %Monocytes 7.8 % (0.0-10.0); Hemoglobin 11.2 g/dL (12.0-16.0); Mean Corpuscular HGB CONC 33.2 g/dL (32.0-36.0); Mean Corpuscular Volume 93.3 fL (78.0-98.0); Mean Platelet Volume 6.9 fL (7.4-10.4); Platelet Count 487 thou/uL (130-400); RBC Distribution Width 12.2 % (11.5-14.5); Red Blood Cell (RBC) Count 3.63 mill/uL (4.20-5.40); White Blood Cell (WBC) Count 12.8 thou/uL (4.8-10.8)
[2020-01-27 17:41] LABS: ALT (SGPT) 15 U/L (8-55); AST (SGOT) 35 U/L (5-34); Albumin 3.2 g/dL (3.4-4.8); Alkaline Phosphatase 127 U/L (40-110); Anion Gap 18 mmol/L (10-20); BUN (Urea Nitrogen) 38 mg/dL (9.8-20.1); Bilirubin, Total 0.6 mg/dL (0.2-1.2); CK (CPK) 62 U/L (29-168); Calc. Creatinine Clearance 0 mL/min (70-130); Calcium 8.5 mg/dL (7.8-10.44); Carbon Dioxide 20 mmol/L (23-31); Chloride 105 mmol/L (98-107); Estimated GFR-MDRD 36; Globulin 4.8 g/dL (2.4-3.5); Glucose 235 mg/dL (83-110); Lipase 12 U/L (8-78); Potassium 4.9 mmol/L (3.5-5.1); Sodium 138 mmol/L (136-145)
--- NOTE | 2020-01-27 17:44 | RAD ---
PORTABLE CHEST: History: Positive Covid Comparison: 04-28-19 FINDINGS: Cardiomegaly with vascular congestion. Film is suboptimal due to positioning. There is hazy infiltrat e in the left peripheral lung simpson which could represent Covid pneumonia. Right lung is poorly eval uated due to overlying soft tissue attenuation from the right arm. Degenerative spine change. IMPRESSION: Suboptimal exam due to poor positioning. There is cardiomegaly and vascular congestion. Hazy infiltra te in the left upper lung is noted. POS: AGW
--- NOTE | 2020-01-27 18:49 | CT ---
CT ABDOMEN WITH CONTRAST CT PELVIS WITH CONTRAST: DATE: 01/27/2020 HISTORY: 74-year-old female with right-sided abdominal pain COMPARISON: 02/06/2018 TECHNIQUE: IV injection of iodinated contrast media: administered. Oral contrast media:Not administered FINDINGS: New finding of extensive patchy multifocal groundglass infiltrates at the inferior portions of bilate ral lower lobes, right middle lobe, and lingula, very suspicious for COVID-19 pneumonia. Severe diffuse osteopenia. Multiple old rib fracture deformities again noted. No pneumoperitoneum, ascites, or small bowel dilation. Somewhat large volume of stool throughout the colon. Appendix not identified with certainty. Decompressed urinary bladder. No major pathology identified involving kidneys, abdominal aorta, pancreas, liver, or spleen. Questionable tiny left adrenal nodule, unchanged. No right adrenal nodule.. IMPRESSION: 1) infiltrates highly suggestive of COVID-19 pneumonia. 2) severe osteoporosis. 3) no acute findings 4) possible constipation
[2020-01-27] MEDS ORDERED: Acetaminophen 325 MG TAB PO PRN (19:31)
[2020-01-27] MEDS ORDERED: Dexamethasone 4 mg/ml Vial ONE (19:33)
[2020-01-27] MEDS ORDERED: D5 1/2 NS w/20 mEq KCL 0 ML ONE (19:33)
[2020-01-27] MEDS ORDERED: cefTRIAXone\\ROCEPHIN 1 GM VIAL ONE ×2 (19:33→19:35)
[2020-01-27] MEDS ORDERED: Dexamethasone 10 MG/ML VIAL ONE (19:35)
[2020-01-27] MEDS ORDERED: Dextrose 5% in Water 1,000 ML IV PRN (19:37)
[2020-01-27] MEDS ORDERED: Dextrose 50% Abboject 50 ML SYRINGE SLOW IVP PRN (19:37)
[2020-01-27] MEDS ORDERED: cefTRIAXone\\ROCEPHIN 1 GM in Sodium Chloride 0.9% 100 ML IVPB SCH (20:00)
--- NOTE | 2020-01-27 20:03 | PDOC.BPN ---
- Brief Progress Note [id number] HP
[2020-01-27] MEDS ORDERED: Sodium Chloride 0.9% 1,000 ML IV SCH (21:30)
[2020-01-27] MEDS ORDERED: Ondansetron PF 4 MG/2 ML Vial IVP PRN (21:30)
[2020-01-27] MEDS ORDERED: Ondansetron ODT 4 MG TAB SL PRN (21:30)
[2020-01-27 21:46] VITALS: BMI 25.9
--- NOTE | 2020-01-28 00:07 | HP ---
CHIEF COMPLAINT: Abdominal pain. HISTORY OF PRESENT ILLNESS: Ms. Lackey is a 74-year-old female with a past medical history of atrial fibrillation, on Eliquis; coronary artery disease; cardiac stents; diabetes; hypertension; neuropathy; spinal stenosis; deep venous thrombosis; congestive heart failure; among others, was brought to the emergency room from long term for evaluation of abdominal pain and shortness of breath. The patient was tested positive for a COVID-19 one week ago. On workup in the emergency room, the patient was hypoxic with oxygen saturation in the 80s, placed on 2 L/minute nasal cannula, and saturation currently in the 90s. The lab work: The patient had a BUN of 38, creatinine 1.4. WBC count is 12.8, hemoglobin 11.2, platelets 487. Glucose is 235. A CT of the chest and abdomen showed infiltrates, highly suggestive of COVID-19 pneumonia, possible constipation, but no acute abdominal finding. The patient is being admitted to hospital for further management. PAST MEDICAL HISTORY: As mentioned above in the History of Present Illness. PAST SURGICAL HISTORY: 1. Appendectomy. 2. Hysterectomy. 3. Cholecystectomy. 4. Back surgery. 5. Tonsillectomy. 6. Ablation. SOCIAL HISTORY: No history of alcohol use. She is a former tobacco user. Quit smoking more than 10 years ago. Lives in a long term. FAMILY HISTORY: Noncontributory. HOME MEDICATIONS: Please see home medication reconciliation form for updated medication. ALLERGIES: ALLERGIC TO CODEINE. REVIEW OF SYSTEMS: The patient is a poor historian, but review of 14 systems is negative except what is mentioned in History of Present Illness. PHYSICAL EXAMINATION: GENERAL: The patient is awake, in moderate distress. VITAL SIGNS: Blood pressure , pulse is 118, respiratory rate is 28, oxygen saturation is 96% on 4 L/minute nasal cannula. Temperature is 98.7. HEAD AND NECK: Normocephalic, atraumatic. NECK: Supple. No JVD. CHEST: Fair bilateral air entry with a few scattered crackles. HEART: Irregular. ABDOMEN: Soft, mildly tender. Bowel sounds present. NEURO: The patient is awake, moving extremities. PSYCH: Unable to assess. EXTREMITIES: No clubbing. No cyanosis. GENITOURINARY: No suprapubic tenderness. No flank tenderness. LABORATORY DATA: As mentioned above in History of Present Illness. IMAGING STUDIES: As mentioned above in History of Present Illness. ASSESSMENT: 1. Pneumonia secondary to COVID-19 virus infection. 2. COVID-19 virus infection. 3. Abdominal pain. Imaging studies unremarkable. 4. History of atrial fibrillation. 5. Anticoagulated, on Eliquis. 6. Diabetes mellitus type 2 with hyperglycemia. 7. Hypertension. 8. Neuropathy. 9. Spinal stenosis. 10. Coronary artery disease. PLAN: 1. Admit. 2. Oxygen to keep saturation more than 92%. 3. IV dexamethasone. 4. Empiric antibiotics for now, reassess in a.m. 5. Reconcile home medications. 6. DVT prophylaxis, continue home anticoagulation. 7. Expected length of stay, 2 midnights or more. Job ID: [id number]
[2020-01-28] MEDS: Lidocaine 5% Patch TD SCH (05:30)
[2020-01-28] MEDS: HumaLOG 300 UNITS/3 ML VIAL SC PRN ×3 (05:30→18:33)
[2020-01-28 06:32] LABS: #Lymphocytes 0.6 thou/uL (1.20-3.40); #Neutrophils 7.3 thou/uL (1.40-6.50); %Basophils 0.2 % (0.0-1.0); %Eosinophils 0.1 % (0.0-10.0); %Lymphocytes 7.9 % (21.0-51.0); %Monocytes 0.3 % (0.0-10.0); %Neutrophils 91.5 % (42.0-75.0); Hemoglobin 10.1 g/dL (12.0-16.0); Mean Corpuscular HGB CONC 30.9 g/dL (32.0-36.0); Mean Corpuscular Hemoglobin 28.9 pg (27.0-31.0); Mean Corpuscular Volume 93.6 fL (78.0-98.0); Mean Platelet Volume 6.9 fL (7.4-10.4); Platelet Count 491 thou/uL (130-400); RBC Distribution Width 12.4 % (11.5-14.5)
[2020-01-28 06:52] LABS: ALT (SGPT) 15 U/L (8-55); AST (SGOT) 19 U/L (5-34); Albumin 3.2 g/dL (3.4-4.8); Alkaline Phosphatase 117 U/L (40-110); Anion Gap 15 mmol/L (10-20); BUN (Urea Nitrogen) 31 mg/dL (9.8-20.1); Bilirubin, Total 0.5 mg/dL (0.2-1.2); Calc. Creatinine Clearance 58 mL/min (70-130); Calcium 8.4 mg/dL (7.8-10.44); Carbon Dioxide 20 mmol/L (23-31); Chloride 108 mmol/L (98-107); Estimated GFR-MDRD 58; Globulin 3.9 g/dL (2.4-3.5); Glucose 239 mg/dL (83-110); Potassium 4.3 mmol/L (3.5-5.1); Protein, Total 7.1 g/dL (6.0-8.3); Sodium 139 mmol/L (136-145)
[2020-01-28] MEDS ORDERED: Mag-Al Plus 1200 MG/1200 MG/120 MG/30 ML UDCUP PO PRN (06:54)
[2020-01-28] MEDS: Levothyroxine Sodium 125 MCG TAB PO SCH (08:53)
[2020-01-28] MEDS: Aspirin 81 mg Enteric Coated Tablet PO SCH (08:53)
[2020-01-28] MEDS: metFORMIN 500 MG TAB PO SCH ×2 (08:53→18:33)
[2020-01-28] MEDS: Polyethylene Glycol 3350 17 GM Packet PO SCH (08:53)
[2020-01-28] MEDS: Ascorbic Acid 500 mg Chewable Tablet PO SCH (08:53)
[2020-01-28] MEDS: Famotidine/PF 20 mg/2ml Vial SLOW IVP SCH (08:53)
[2020-01-28] MEDS: Ferrous Sulfate 325 MG TAB PO SCH (08:53)
[2020-01-28] MEDS: Multivit, Therapeutic 1 TAB PO SCH (08:54)
[2020-01-28] MEDS: Gabapentin 400 MG CAP PO SCH ×2 (08:54→20:41)
[2020-01-28] MEDS: Flecainide 50 MG TAB PO SCH ×2 (08:55→20:41)
[2020-01-28] MEDS: Apixaban 2.5 MG TAB PO SCH ×2 (08:55→20:40)
[2020-01-28] MEDS: Montelukast Sodium 10 mg Tablet PO SCH (08:55)
[2020-01-28] MEDS: Atorvastatin Calcium 10 MG TAB PO SCH (08:55)
[2020-01-28] MEDS: Amlodipine 10 MG TAB PO SCH (08:55)
[2020-01-28] MEDS: Cholecalciferol 1,000 UNITS (25 MCG) TAB PO SCH (08:56)
[2020-01-28] MEDS: Dexamethasone 6 MG in Sodium Chloride 0.9% 50 ML IVPB SCH (08:57)
[2020-01-28] MEDS ORDERED: Flecainide 50 MG TAB PO SCH (09:00)
[2020-01-28] MEDS ORDERED: MULTIVITAMIN WITH MINERALS PO SCH (09:00)
[2020-01-28] MEDS ORDERED: Non-Formulary Item 1 EACH (Ascorbic Acid [Vitamin C] 1,000 MG Tablet) PO SCH (09:00)
[2020-01-28] MEDS ORDERED: Non-Formulary Item 1 EACH (Cholecalciferol (Vitamin D3) [Vitamin D3] 5,000 UNIT Capsule) PO SCH (09:00)
[2020-01-28] MEDS ORDERED: Apixaban 2.5 MG TAB PO SCH (09:00)
[2020-01-28] MEDS ORDERED: Gabapentin 400 MG CAP PO SCH (09:00)
[2020-01-28] MEDS ORDERED: [UNRECOGNIZED DRUG - OTHER] PO SCH (09:00)
[2020-01-28] MEDS ORDERED: Non-Formulary Item 1 EACH (Ferrous Sulfate [Ferrous Sulfate] 325 MG Tablet) PO SCH (09:00)
[2020-01-28] MEDS ORDERED: Bisacodyl 10 MG SUPP PR SCH (10:30)
--- NOTE | 2020-01-28 13:19 | PDOC.HOSPP ---
- Subjective Encounter Date: 01/28/20 Encounter Time: 10:45 Subjective: no sob, is on nasal canula O2 gets very emotional easily she wants a cell phone to talk to her children was living at [facility] prior to arrival (bed bound x 2 yrs now per daughter) - Objective Vital Signs & Weight: Vital Signs (12 hours) Temp Pulse Resp BP Pulse Ox 01/28/20 11:26 97.5 F L 110 H 24 H 144/77 H 94 L 01/28/20 09:00 97.8 F 108 H 20 144/78 H 95 01/28/20 08:57 95 01/28/20 04:00 98 F 107 H 20 147/85 H 95 Weight Admit Weight 151 lb 4 oz Weight 151 lb 4 oz I&O: 01/27/20 01/28/20 01/29/20 06:59 06:59 06:59 Intake Total 1250 Output Total 625 Balance 625 Result Diagrams: 01/28/20 06:11 01/28/20 06:11 Additional Labs: Accuchecks 01/28/20 01/28/20 01/27/20 11:08 04:23 22:24 POC Glucose 262 H 221 H 160 H Hospitalist ROS - Medication Medications: Active Medications Generic Name Dose Route Start Last Admin Trade Name Freq PRN Reason Stop Dose Admin Amlodipine Besylate 10 mg 01/28/20 09:00 01/28/20 08:55 Amlodipine 10 Mg Tab PO 10 mg DAILY RADHA Administration Apixaban 2.5 mg 01/28/20 09:00 01/28/20 08:55 Apixaban 2.5 Mg Tab PO 2.5 mg BID RADHA Administration Ascorbic Acid 2,000 mg 01/28/20 09:00 01/28/20 08:53 Ascorbic Acid 500 Mg Chewable Tablet PO 2,000 mg DAILY RADHA Administration Aspirin 81 mg 01/28/20 09:00 01/28/20 08:53 Aspirin 81 Mg Enteric Coated Tablet PO 81 mg DAILY RADHA Administration Atorvastatin Calcium 10 mg 01/28/20 09:00 01/28/20 08:55 Atorvastatin Calcium 10 Mg Tab PO 10 mg DAILY RADHA Administration Bisacodyl 10 mg 01/28/20 10:30 01/28/20 11:03 Bisacodyl 10 Mg Supp SC 01/28/20 14:00 10 mg NOW RADHA Administration Cholecalciferol 5,000 units 01/28/20 09:00 01/28/20 08:56 Cholecalciferol 1,000 Units (25 Mcg) Tab PO 5,000 units DAILY RADHA Administration Famotidine 20 mg 01/28/20 09:00 01/28/20 08:53 Famotidine/Pf 20 Mg/2ml Vial SLOW IVP 20 mg DAILY RADHA Administration Ferrous Sulfate 325 mg 01/28/20 09:00 01/28/20 08:53 Ferrous Sulfate 325 Mg Tab PO 325 mg DAILY RADHA Administration Flecainide Acetate 50 mg 01/28/20 09:00 01/28/20 08:55 Flecainide 50 Mg Tab PO 50 mg BID RADHA Administration Gabapentin 400 mg 01/28/20 09:00 01/28/20 08:54 Gabapentin 400 Mg Cap PO 400 mg BID RADHA Administration Ceftriaxone Sodium 1 gm/ 100 mls @ 200 mls/hr 01/27/20 20:00 01/27/20 21:40 Sodium Chloride IVPB Not Given 1999 [facility] Dexamethasone 6 mg/ Sodium 50.6 mls @ 100 mls/hr 01/28/20 09:00 01/28/20 08:57 Chloride IVPB 50.6 mls DAILY RADHA Administration Insulin Human Lispro 0 units 01/27/20 19:37 01/28/20 12:37 Humalog 300 Units/3 Ml Vial SC 4 unit .MILD SLIDING SCALE PRN Administration Mild Correctional Scale Levothyroxine Sodium 125 mcg 01/28/20 09:00 01/28/20 08:53 Levothyroxine Sodium 125 Mcg Tab PO 125 mcg DAILY RADHA Administration Lidocaine 1 patch 01/28/20 06:00 01/28/20 05:30 Lidocaine 5% Patch TD 1 patch 0600 RADHA Administration Metformin HCl 500 mg 01/28/20 08:00 01/28/20 08:53 Metformin 500 Mg Tab PO 500 mg BID-WM RADHA Administration Montelukast Sodium 10 mg 01/28/20 09:00 01/28/20 08:55 Montelukast Sodium 10 Mg Tablet PO 10 mg DAILY RADHA Administration Multivitamins 1 tab 01/28/20 09:00 01/28/20 08:54 Multivit, Therapeutic 1 Tab PO 1 tab DAILY RADHA Administration Polyethylene Glycol 17 gm 01/28/20 09:00 01/28/20 08:53 Polyethylene Glycol 3350 17 Gm Packet PO 17 gm DAILY RADHA Administration Sodium Chloride 10 ml 01/28/20 09:00 01/28/20 08:57 Flush - Normal Saline 10 Ml Syringe IVF 10 ml Q12HR RADHA Administration - Exam General Appearance: awake alert Eye: PERRL, anicteric sclera ENT: no oropharyngeal lesions, moist mucosa Neck: supple, no JVD Heart: RRR, no murmur Respiratory: no wheezes, no rales, rhonchi Gastrointestinal: soft, non-tender, non-distended, normal bowel sounds Extremities: no cyanosis, no edema Neurological: cranial nerve grossly intact, no focal deficits Psychiatric: A&O x 3 Hosp A/P (1) Pneumonia due to COVID-19 virus Code(s): U07.1 - COVID-19; J12.89 - OTHER VIRAL PNEUMONIA Status: Acute (2) Acute respiratory failure with hypoxia Code(s): J96.01 - ACUTE RESPIRATORY FAILURE WITH HYPOXIA Status: Acute (3) Anxiety and depression Code(s): F41.9 - ANXIETY DISORDER, UNSPECIFIED; F32.9 - MAJOR DEPRESSIVE DISORDER, SINGLE EPISODE, UNSPECIFIED Status: Chronic (4) CAD (coronary artery disease) Code(s): I25.10 - ATHSCL HEART DISEASE OF [place] CORONARY ARTERY W/O ANG PCTRS Status: Chronic Qualifiers: Coronary Disease-Associated Artery/Lesion type: [place] artery [place] vs. transplanted heart: [place] heart Associated angina: without angina Qualified Code(s): I25.10 - Atherosclerotic heart disease of [place] coronary artery without angina pectoris (5) Chronic low back pain Code(s): M54.5 - LOW BACK PAIN; G89.29 - OTHER CHRONIC PAIN Status: Chronic (6) Diabetes type 2, controlled Code(s): E11.9 - TYPE 2 DIABETES MELLITUS WITHOUT COMPLICATIONS Status: Chronic Qualifiers: Diabetes mellitus fci insulin use: without fci use (7) Dyslipidemia Code(s): E78.5 - HYPERLIPIDEMIA, UNSPECIFIED Status: Chronic (8) GERD (gastroesophageal reflux disease) Code(s): K21.9 - GASTRO-ESOPHAGEAL REFLUX DISEASE WITHOUT ESOPHAGITIS Status: Chronic Qualifiers: Esophagitis presence: esophagitis presence not specified Qualified Code(s): K21.9 - Gastro-esophageal reflux disease without esophagitis (9) Hypertension Code(s): I10 - ESSENTIAL (PRIMARY) HYPERTENSION Status: Chronic Qualifiers: Hypertension type: essential hypertension Qualified Code(s): I10 - Essential (primary) hypertension (10) Hypothyroidism Code(s): E03.9 - HYPOTHYROIDISM, UNSPECIFIED Status: Chronic Qualifiers: Hypothyroidism type: unspecified Qualified Code(s): E03.9 - Hypothyroidism, unspecified - Plan is on nasal O2, dexamethsone, ceftriaxone continue home dose asp, eliquis, flecainide, norvasc, singulair, lipitor, gabapentin, metformin, synthroid and trazadone encourage po intake, mobilize to chair, to lie on lateral sides while on bed is day 7 or 8 into her illness, might be a candidate for remdesivir, await ID opinion prognosis guarded, has extensive infiltrates on CT, d/w daughter and gave full updates, she is aware of her prognosis daughter initially did not want her to get intubated but later changed her mind and is full code now
[2020-01-28] MEDS ORDERED: REMDESIVIR (EUA) 200 MG in Sodium Chloride 0.9% 250 ML 210 ML IV SCH (18:00)
[2020-01-28] MEDS: Lidocaine Patch Removal 1 EACH TOP SCH (18:34)
[2020-01-28] MEDS: DULoxetine 60 MG CAP PO SCH (20:40)
[2020-01-28] MEDS: Melatonin 3 MG TAB PO SCH (20:41)
[2020-01-28] MEDS: traZODone HCl 50 MG TAB PO SCH (20:42)
[2020-01-28] MEDS ORDERED: Non-Formulary Item 1 EACH (Melatonin [Melatonin] 10 MG Capsule) PO SCH (21:00)
[2020-01-28] MEDS ORDERED: traZODone HCl 50 MG TAB PO SCH (21:00)
--- NOTE | 2020-01-28 22:54 | CON ---
DATE OF CONSULTATION: 01/28/2020 REASON: COVID infection. HISTORY OF PRESENT ILLNESS: A 74-year-old whom I had seen in the past with a history of type 2 diabetes, hypertension, lumbar spinal stenosis with weakness in lower extremities, mobility impairment, prior deep vein thrombosis, who is a resident of [facility] and has had worsening dyspnea and abdominal cramps for the past eight days. She is status COVID positive, a day after she became symptomatic and was admitted yesterday with hypoxemia. She is currently on nasal cannula O2 supplementation, and she is awake and oriented. Follows commands. No headaches. No visual symptoms. She forgot her upper dentures and cannot chew properly. Other than that, she has no sore throat and able to swallow properly. No chest pain, but she does have dyspnea intermittently. Some cough but not much. Some abdominal cramps. No diarrhea. She is voiding without difficulty. She cannot ambulate and cannot bear weight in extremities. She has contractures of lower extremities, probably secondary to the paraparesis from the spinal stenosis. PAST MEDICAL HISTORY: Includes atrial fibrillation, prior DVT, type 2 diabetes, hypertension, spinal stenosis with paraparesis, DVT, CHF. PAST SURGICAL HISTORY: Appendectomy, hysterectomy, cholecystectomy, laminectomy, tonsillectomy, cardiac ablation. SOCIAL HISTORY: shelter resident. Former smoker. FAMILY HISTORY: Noncontributory. ALLERGIES: CODEINE. CURRENT MEDICATIONS: 1. Eliquis. 2. Vitamin C. 3. Ecotrin. 4. Lipitor. 5. Ceftriaxone. 6. Vitamin D. 7. Cymbalta. 8. Pepcid. 9. Tambocor. 10. Insulin. 11. Decadron. PHYSICAL EXAMINATION: VITAL SIGNS: T-max 98.1, blood pressure 120/60, heart rate 106. She is satting at 94, 3-1/2 L on nasal cannula, and BP 120/69. SKIN: She has area of skin breakdown in the presacral region stage II, round-shaped, is wider on the right side of the presacral region. There are some areas of superficial necrosis. The center is not stageable, and she has a peripheral IV access and is voiding in the diaper. No lymphadenopathy. HEENT: Ocular movements conjugate. Oral cavity, she has quite a few teeth in the lower mandible, and those are with the expected enamel desiccation and decay. She has no teeth remaining in the upper in the maxilla. Gag reflex is preserved. LUNGS: With symmetric air entry. No obvious crackles. HEART: S1 and S2. Regular rate. No S3 or S4. ABDOMEN: Soft, not distended or tender. No ascites. No bladder distention. EXTREMITIES: No joint inflammatory activity. She has contractures of lower extremities. She is able to move the upper extremities well. NEUROLOGIC: She is oriented, follows commands. Recollection is pretty decent. LABORATORY DATA: Sodium 139, creatinine 0.94, glucose is 262. Transaminases normal. Alkaline phosphatase 117, albumin 3.2, globulin 3.9. White cell count is 12.8, now 8.0, hemoglobin 10, platelets 491. Urine culture with a gram-negative vivienne. Two sets of blood culture, no growth. I do not have urinalysis submitted. Quantitation of the gram-negative vivienne is 75-100 and possible mixed culture noted, which would indicate contamination. Reports, we have abdomen and pelvis CT, which showed bilateral pulmonary infiltrates suggestive of SARS-CoV-2 pneumonia, osteoporosis, constipation. ASSESSMENT: Atrial fibrillation, on Eliquis, prior DVT, mobility impairment, secondary to spinal stenosis with paraparesis, contractures in lower extremities, residential state, COVID-19 with moderate to severe pneumonia, is on nasal cannula O2. The duration of illness is eight days, and we will go ahead and stop Rocephin and continue Decadron and add remdesivir. Continue Eliquis. Monitor daily inflammatory markers. Job ID: [id number] [facility]
[2020-01-29] MEDS: Lidocaine 5% Patch TD SCH (05:55)
[2020-01-29] MEDS: HumaLOG 300 UNITS/3 ML VIAL SC PRN ×3 (06:01→17:38)
[2020-01-29 06:19] LABS: Anion Gap 13 mmol/L (10-20); BUN (Urea Nitrogen) 20 mg/dL (9.8-20.1); Calc. Creatinine Clearance 73 mL/min (70-130); Calcium 8.4 mg/dL (7.8-10.44); Carbon Dioxide 24 mmol/L (23-31); Chloride 109 mmol/L (98-107); Estimated GFR-MDRD 77; Glucose 165 mg/dL (83-110); Potassium 3.9 mmol/L (3.5-5.1); Sodium 142 mmol/L (136-145)
[2020-01-29 06:20] LABS: ALT (SGPT) 13 U/L (8-55); AST (SGOT) 16 U/L (5-34); Alkaline Phosphatase 108 U/L (40-110); Bilirubin, Direct 0.3 mg/dL (0.1-0.3); Bilirubin, Total 0.4 mg/dL (0.2-1.2); Protein, Total 6.6 g/dL (6.0-8.3)
[2020-01-29] MEDS: Dexamethasone 6 MG in Sodium Chloride 0.9% 50 ML IVPB SCH (08:52)
[2020-01-29] MEDS: Famotidine/PF 20 mg/2ml Vial SLOW IVP SCH (08:53)
[2020-01-29] MEDS: Polyethylene Glycol 3350 17 GM Packet PO SCH (08:53)
[2020-01-29] MEDS: Cholecalciferol 1,000 UNITS (25 MCG) TAB PO SCH (08:53)
[2020-01-29] MEDS: Montelukast Sodium 10 mg Tablet PO SCH (08:53)
[2020-01-29] MEDS: Levothyroxine Sodium 125 MCG TAB PO SCH (08:54)
[2020-01-29] MEDS: Atorvastatin Calcium 10 MG TAB PO SCH (08:54)
[2020-01-29] MEDS: Gabapentin 400 MG CAP PO SCH ×2 (08:55→20:29)
[2020-01-29] MEDS: Aspirin 81 mg Enteric Coated Tablet PO SCH (08:55)
[2020-01-29] MEDS: Ferrous Sulfate 325 MG TAB PO SCH (08:55)
[2020-01-29] MEDS: Ascorbic Acid 500 mg Chewable Tablet PO SCH (08:55)
[2020-01-29] MEDS: metFORMIN 500 MG TAB PO SCH ×2 (08:56→17:38)
[2020-01-29] MEDS: Multivit, Therapeutic 1 TAB PO SCH (08:56)
[2020-01-29] MEDS: Apixaban 2.5 MG TAB PO SCH ×2 (08:56→20:29)
[2020-01-29] MEDS: Flecainide 50 MG TAB PO SCH ×2 (08:56→20:29)
[2020-01-29] MEDS: Amlodipine 10 MG TAB PO SCH (08:56)
[2020-01-29] MEDS: cefTRIAXone\\ROCEPHIN 1 GM in Sodium Chloride 0.9% 100 ML IVPB SCH (11:13)
--- NOTE | 2020-01-29 12:34 | PDOC.HOSPP ---
- Subjective Encounter Date: 01/29/20 Encounter Time: 10:30 Subjective: awake, responds to verbal stimuli, not oriented this morning (thinks she is in a car) no sob, wants someone to feed her has a new cell phone and has been talking to her children yesterday evening - Objective Vital Signs & Weight: Vital Signs (12 hours) Temp Pulse Resp BP Pulse Ox 01/29/20 10:41 98.2 F 137 H 24 H 127/81 98 01/29/20 09:30 98.2 F 140 H 24 H 132/84 99 01/29/20 09:00 99 01/29/20 06:00 133 H 130/80 96 Weight Admit Weight 151 lb 4 oz Weight 151 lb 4 oz I&O: 01/28/20 01/29/20 01/30/20 06:59 06:59 06:59 Intake Total 1250 1030 Output Total 625 2000 Balance 596 -980 Result Diagrams: 01/28/20 06:11 01/29/20 05:42 Additional Labs: Accuchecks 01/29/20 01/29/20 01/28/20 11:17 05:58 15:36 POC Glucose 186 H 164 H 217 H Hospitalist ROS - Medication Medications: Active Medications Generic Name Dose Route Start Last Admin Trade Name Freq PRN Reason Stop Dose Admin Amlodipine Besylate 10 mg 01/28/20 09:00 01/29/20 08:56 Amlodipine 10 Mg Tab PO 10 mg DAILY RADHA Administration Apixaban 2.5 mg 01/28/20 09:00 01/29/20 08:56 Apixaban 2.5 Mg Tab PO 2.5 mg BID RADHA Administration Ascorbic Acid 2,000 mg 01/28/20 09:00 01/29/20 08:55 Ascorbic Acid 500 Mg Chewable Tablet PO 2,000 mg DAILY RADHA Administration Aspirin 81 mg 01/28/20 09:00 01/29/20 08:55 Aspirin 81 Mg Enteric Coated Tablet PO 81 mg DAILY RADHA Administration Atorvastatin Calcium 10 mg 01/28/20 09:00 01/29/20 08:54 Atorvastatin Calcium 10 Mg Tab PO 10 mg DAILY RADHA Administration Cholecalciferol 5,000 units 01/28/20 09:00 01/29/20 08:53 Cholecalciferol 1,000 Units (25 Mcg) Tab PO 5,000 units DAILY RADHA Administration Duloxetine HCl 60 mg 01/28/20 21:00 01/28/20 20:40 Duloxetine 60 Mg Cap PO 60 mg HS RADHA Administration Famotidine 20 mg 01/28/20 09:00 01/29/20 08:53 Famotidine/Pf 20 Mg/2ml Vial SLOW IVP 20 mg DAILY RADHA Administration Ferrous Sulfate 325 mg 01/28/20 09:00 01/29/20 08:55 Ferrous Sulfate 325 Mg Tab PO 325 mg DAILY RADHA Administration Flecainide Acetate 50 mg 01/28/20 09:00 01/29/20 08:56 Flecainide 50 Mg Tab PO 50 mg BID RADHA Administration Gabapentin 400 mg 01/28/20 09:00 01/29/20 08:55 Gabapentin 400 Mg Cap PO 400 mg BID RADHA Administration Dexamethasone 6 mg/ Sodium 50.6 mls @ 100 mls/hr 01/28/20 09:00 01/29/20 08:52 Chloride IVPB 50.6 mls DAILY RADHA Administration Ceftriaxone Sodium 1 gm/ 100 mls @ 200 mls/hr 01/29/20 10:00 01/29/20 11:13 Sodium Chloride IVPB 100 mls Q24HR RADHA Administration Insulin Human Lispro 0 units 01/27/20 19:37 01/29/20 11:58 Humalog 300 Units/3 Ml Vial SC 2 unit .MILD SLIDING SCALE PRN Administration Mild Correctional Scale Levothyroxine Sodium 125 mcg 01/28/20 09:00 01/29/20 08:54 Levothyroxine Sodium 125 Mcg Tab PO 125 mcg DAILY RADHA Administration Lidocaine 1 patch 01/28/20 06:00 01/29/20 05:55 Lidocaine 5% Patch TD 1 patch 0600 RADHA Administration Melatonin 9 mg 01/28/20 21:00 01/28/20 20:41 Melatonin 3 Mg Tab PO 9 mg HS RADHA Administration Metformin HCl 500 mg 01/28/20 08:00 01/29/20 08:56 Metformin 500 Mg Tab PO 500 mg BID-WM RADHA Administration Miscellaneous Medication 1 each 01/28/20 18:00 01/28/20 18:34 Lidocaine Patch Removal 1 Each TOP 1 each 1800 RADHA Administration Montelukast Sodium 10 mg 01/28/20 09:00 01/29/20 08:53 Montelukast Sodium 10 Mg Tablet PO 10 mg DAILY RADHA Administration Multivitamins 1 tab 01/28/20 09:00 01/29/20 08:56 Multivit, Therapeutic 1 Tab PO 1 tab DAILY RADHA Administration Polyethylene Glycol 17 gm 01/28/20 09:00 01/29/20 08:53 Polyethylene Glycol 3350 17 Gm Packet PO 17 gm DAILY RADHA Administration Sodium Chloride 10 ml 01/28/20 09:00 01/29/20 08:56 Flush - Normal Saline 10 Ml Syringe IVF 10 ml Q12HR RADHA Administration Trazodone HCl 25 mg 01/28/20 21:00 01/28/20 20:42 Trazodone Hcl 50 Mg Tab PO 25 mg HS RADHA Administration - Exam General Appearance: awake alert Eye: PERRL, anicteric sclera ENT: no oropharyngeal lesions, moist mucosa Neck: supple, no JVD Heart: RRR, no murmur Respiratory: no wheezes, no rales Gastrointestinal: soft, non-tender, non-distended, normal bowel sounds Extremities: no cyanosis, no edema Neurological: cranial nerve grossly intact, no focal deficits Hosp A/P (1) Pneumonia due to COVID-19 virus Code(s): U07.1 - COVID-19; J12.89 - OTHER VIRAL PNEUMONIA Status: Acute (2) Acute respiratory failure with hypoxia Code(s): J96.01 - ACUTE RESPIRATORY FAILURE WITH HYPOXIA Status: Acute (3) Anxiety and depression Code(s): F41.9 - ANXIETY DISORDER, UNSPECIFIED; F32.9 - MAJOR DEPRESSIVE DISORDER, SINGLE EPISODE, UNSPECIFIED Status: Chronic (4) CAD (coronary artery disease) Code(s): I25.10 - ATHSCL HEART DISEASE OF [place] CORONARY ARTERY W/O ANG PCTRS Status: Chronic Qualifiers: Coronary Disease-Associated Artery/Lesion type: [place] artery [place] vs. transplanted heart: [place] heart Associated angina: without angina Qualified Code(s): I25.10 - Atherosclerotic heart disease of [place] coronary artery without angina pectoris (5) Chronic low back pain Code(s): M54.5 - LOW BACK PAIN; G89.29 - OTHER CHRONIC PAIN Status: Chronic (6) Diabetes type 2, controlled Code(s): E11.9 - TYPE 2 DIABETES MELLITUS WITHOUT COMPLICATIONS Status: Chronic Qualifiers: Diabetes mellitus fci insulin use: without fci use (7) Dyslipidemia Code(s): E78.5 - HYPERLIPIDEMIA, UNSPECIFIED Status: Chronic (8) GERD (gastroesophageal reflux disease) Code(s): K21.9 - GASTRO-ESOPHAGEAL REFLUX DISEASE WITHOUT ESOPHAGITIS Status: Chronic Qualifiers: Esophagitis presence: esophagitis presence not specified Qualified Code(s): K21.9 - Gastro-esophageal reflux disease without esophagitis (9) Hypertension Code(s): I10 - ESSENTIAL (PRIMARY) HYPERTENSION Status: Chronic Qualifiers: Hypertension type: essential hypertension Qualified Code(s): I10 - Essential (primary) hypertension (10) Hypothyroidism Code(s): E03.9 - HYPOTHYROIDISM, UNSPECIFIED Status: Chronic Qualifiers: Hypothyroidism type: unspecified Qualified Code(s): E03.9 - Hypothyroidism, unspecified - Plan is on nasal O2, dexamethsone, remdesivir, ceftriaxone for uti (likely contaminant and is growing mixed organisms but family is worried her confusion is related to uti?) continue home dose asp, eliquis, flecainide, norvasc, singulair, lipitor, gabapentin, metformin, synthroid and trazadone encourage po intake, mobilize to chair, to lie on lateral sides while on bed is day 7 or 8 into her illness on admission. prognosis guarded, has extensive infiltrates on CT, d/w daughter and gave full updates, she is aware of her prognosis (01/27, 01/28) daughter initially did not want her to get intubated but later changed her mind after talking to her siblings and is full code now Palliative care consultation for code status, goals of care (has not ambulated for almost 2 yrs at [facility], was cognitively ok per family, has multiple med issues)
[2020-01-29] MEDS: Lidocaine Patch Removal 1 EACH TOP SCH (17:39)
[2020-01-29] MEDS: REMDESIVIR (EUA) 100 MG in Sodium Chloride 0.9% 250 ML 230 ML IV SCH (18:00)
[2020-01-29] MEDS: DULoxetine 60 MG CAP PO SCH (20:29)
[2020-01-29] MEDS: Melatonin 3 MG TAB PO SCH (20:30)
[2020-01-29] MEDS: traZODone HCl 50 MG TAB PO SCH (20:31)
[2020-01-30] MEDS: HumaLOG 300 UNITS/3 ML VIAL SC PRN (05:44)
[2020-01-30] MEDS: Lidocaine 5% Patch TD SCH (05:45)
[2020-01-30 07:00] LABS: Anion Gap 15 mmol/L (10-20); BUN (Urea Nitrogen) 19 mg/dL (9.8-20.1); Calc. Creatinine Clearance 75 mL/min (70-130); Calcium 8.9 mg/dL (7.8-10.44); Carbon Dioxide 23 mmol/L (23-31); Chloride 107 mmol/L (98-107); Estimated GFR-MDRD 79; Glucose 154 mg/dL (83-110); Potassium 3.9 mmol/L (3.5-5.1); Sodium 141 mmol/L (136-145)
[2020-01-30 07:02] LABS: ALT (SGPT) 12 U/L (8-55); AST (SGOT) 16 U/L (5-34); Albumin 3.4 g/dL (3.4-4.8); Alkaline Phosphatase 119 U/L (40-110); Bilirubin, Direct 0.4 mg/dL (0.1-0.3); Bilirubin, Total 0.6 mg/dL (0.2-1.2); CRP (Inflammatory) 1.95 mg/dL (= or < 0.5); Protein, Total 7.3 g/dL (6.0-8.3)
[2020-01-30] MEDS: metFORMIN 500 MG TAB PO SCH ×2 (08:57→17:17)
[2020-01-30] MEDS: Ascorbic Acid 500 mg Chewable Tablet PO SCH (08:58)
[2020-01-30] MEDS: Cholecalciferol 1,000 UNITS (25 MCG) TAB PO SCH (08:59)
[2020-01-30] MEDS: Ferrous Sulfate 325 MG TAB PO SCH (09:01)
[2020-01-30] MEDS: Atorvastatin Calcium 10 MG TAB PO SCH (09:01)
[2020-01-30] MEDS: Aspirin 81 mg Enteric Coated Tablet PO SCH (09:01)
[2020-01-30] MEDS: Apixaban 2.5 MG TAB PO SCH ×2 (09:01→20:13)
[2020-01-30] MEDS: Amlodipine 10 MG TAB PO SCH (09:02)
[2020-01-30] MEDS: Flecainide 50 MG TAB PO SCH ×2 (09:02→20:09)
[2020-01-30] MEDS: Multivit, Therapeutic 1 TAB PO SCH (09:03)
[2020-01-30] MEDS: Gabapentin 400 MG CAP PO SCH ×2 (09:03→20:09)
[2020-01-30] MEDS: Levothyroxine Sodium 125 MCG TAB PO SCH (09:03)
[2020-01-30] MEDS: Montelukast Sodium 10 mg Tablet PO SCH (09:04)
[2020-01-30] MEDS: Dexamethasone 6 MG in Sodium Chloride 0.9% 50 ML IVPB SCH (09:04)
[2020-01-30] MEDS: Famotidine/PF 20 mg/2ml Vial SLOW IVP SCH (09:04)
[2020-01-30] MEDS: Polyethylene Glycol 3350 17 GM Packet PO SCH (09:05)
[2020-01-30] MEDS: cefTRIAXone\\ROCEPHIN 1 GM in Sodium Chloride 0.9% 100 ML IVPB SCH (12:38)
--- NOTE | 2020-01-30 12:59 | PDOC.HOSPP ---
- Subjective Encounter Date: 01/30/20 Encounter Time: 08:30 Subjective: more alert and awake this morning says she is hungry and waiting for her breakfast tray she spoke to her children yesterday - Objective Vital Signs & Weight: Vital Signs (12 hours) Temp Pulse Resp BP Pulse Ox 01/30/20 09:02 100 01/30/20 08:00 98.2 F 101 H 17 148/76 H 97 01/30/20 04:15 98.3 F 100 20 148/84 H 99 Weight Admit Weight 151 lb 4 oz Weight 151 lb 4 oz I&O: 01/29/20 01/30/20 01/31/20 06:59 06:59 06:59 Intake Total 1030 1130 Output Total 2000 750 Balance -970 380 Result Diagrams: 01/28/20 06:11 01/30/20 06:15 Additional Labs: Accuchecks 01/30/20 01/30/20 01/29/20 12:47 04:15 20:43 POC Glucose 204 H 157 H 220 H 01/29/20 01/28/20 15:39 20:50 POC Glucose 219 H 183 H Hospitalist ROS - Medication Medications: Active Medications Generic Name Dose Route Start Last Admin Trade Name Freq PRN Reason Stop Dose Admin Amlodipine Besylate 10 mg 01/28/20 09:00 01/30/20 09:02 Amlodipine 10 Mg Tab PO 10 mg DAILY RADHA Administration Apixaban 2.5 mg 01/28/20 09:00 01/30/20 09:01 Apixaban 2.5 Mg Tab PO 2.5 mg BID RADHA Administration Ascorbic Acid 2,000 mg 01/28/20 09:00 01/30/20 08:58 Ascorbic Acid 500 Mg Chewable Tablet PO 2,000 mg DAILY RADHA Administration Aspirin 81 mg 01/28/20 09:00 01/30/20 09:01 Aspirin 81 Mg Enteric Coated Tablet PO 81 mg DAILY RADHA Administration Atorvastatin Calcium 10 mg 01/28/20 09:00 01/30/20 09:01 Atorvastatin Calcium 10 Mg Tab PO 10 mg DAILY RADHA Administration Cholecalciferol 5,000 units 01/28/20 09:00 01/30/20 08:59 Cholecalciferol 1,000 Units (25 Mcg) Tab PO 5,000 units DAILY RADHA Administration Duloxetine HCl 60 mg 01/28/20 21:00 01/29/20 20:29 Duloxetine 60 Mg Cap PO 60 mg HS RADHA Administration Famotidine 20 mg 01/28/20 09:00 01/30/20 09:04 Famotidine/Pf 20 Mg/2ml Vial SLOW IVP 20 mg DAILY RADHA Administration Ferrous Sulfate 325 mg 01/28/20 09:00 01/30/20 09:01 Ferrous Sulfate 325 Mg Tab PO 325 mg DAILY RADHA Administration Flecainide Acetate 50 mg 01/28/20 09:00 01/30/20 09:02 Flecainide 50 Mg Tab PO 50 mg BID RADHA Administration Gabapentin 400 mg 01/28/20 09:00 01/30/20 09:03 Gabapentin 400 Mg Cap PO 400 mg BID RADHA Administration Dexamethasone 6 mg/ Sodium 50.6 mls @ 100 mls/hr 01/28/20 09:00 01/30/20 09:04 Chloride IVPB 50.6 mls DAILY RADHA Administration Remdesivir 100 mg/ Sodium 250 mls @ 250 mls/hr 01/29/20 18:00 01/29/20 18:00 Chloride IV 02/01/20 18:59 250 mls 1800 RADHA Administration Ceftriaxone Sodium 1 gm/ 100 mls @ 200 mls/hr 01/29/20 10:00 01/30/20 12:38 Sodium Chloride IVPB 100 mls Q24HR RADHA Administration Insulin Human Lispro 0 units 01/27/20 19:37 01/30/20 05:44 Humalog 300 Units/3 Ml Vial SC 2 unit .MILD SLIDING SCALE PRN Administration Mild Correctional Scale Levothyroxine Sodium 125 mcg 01/28/20 09:00 01/30/20 09:03 Levothyroxine Sodium 125 Mcg Tab PO 125 mcg DAILY RADHA Administration Lidocaine 1 patch 01/28/20 06:00 01/30/20 05:45 Lidocaine 5% Patch TD 1 patch 0600 RADHA Administration Melatonin 9 mg 01/28/20 21:00 01/29/20 20:30 Melatonin 3 Mg Tab PO 9 mg HS RADHA Administration Metformin HCl 500 mg 01/28/20 08:00 01/30/20 08:57 Metformin 500 Mg Tab PO 500 mg BID-WM RADHA Administration Miscellaneous Medication 1 each 01/28/20 18:00 01/29/20 17:39 Lidocaine Patch Removal 1 Each TOP 1 each 1800 RADHA Administration Montelukast Sodium 10 mg 01/28/20 09:00 01/30/20 09:04 Montelukast Sodium 10 Mg Tablet PO 10 mg DAILY RADHA Administration Multivitamins 1 tab 01/28/20 09:00 01/30/20 09:03 Multivit, Therapeutic 1 Tab PO 1 tab DAILY RADHA Administration Polyethylene Glycol 17 gm 01/28/20 09:00 01/30/20 09:05 Polyethylene Glycol 3350 17 Gm Packet PO 17 gm DAILY RADHA Administration Sodium Chloride 10 ml 01/28/20 09:00 01/30/20 09:17 Flush - Normal Saline 10 Ml Syringe IVF 10 ml Q12HR RADHA Administration Trazodone HCl 25 mg 01/28/20 21:00 01/29/20 20:31 Trazodone Hcl 50 Mg Tab PO 25 mg HS RADHA Administration - Exam General Appearance: awake alert Eye: PERRL, anicteric sclera ENT: no oropharyngeal lesions, moist mucosa Neck: supple, no JVD Heart: no murmur, irregular Respiratory: no wheezes, no rales, rhonchi Gastrointestinal: soft, non-tender, non-distended, normal bowel sounds Extremities: no cyanosis, no edema Neurological: cranial nerve grossly intact, no focal deficits Hosp A/P (1) Pneumonia due to COVID-19 virus Code(s): U07.1 - COVID-19; J12.89 - OTHER VIRAL PNEUMONIA Status: Acute (2) Acute respiratory failure with hypoxia Code(s): J96.01 - ACUTE RESPIRATORY FAILURE WITH HYPOXIA Status: Acute (3) Anxiety and depression Code(s): F41.9 - ANXIETY DISORDER, UNSPECIFIED; F32.9 - MAJOR DEPRESSIVE DISORD ER, SINGLE EPISODE, UNSPECIFIED Status: Chronic (4) CAD (coronary artery disease) Code(s): I25.10 - ATHSCL HEART DISEASE OF [place] CORONARY ARTERY W/O ANG PCTRS Status: Chronic Qualifiers: Coronary Disease-Associated Artery/Lesion type: [place] artery [place] vs. transplanted heart: [place] heart Associated angina: without angina Qualified Code(s): I25.10 - Atherosclerotic heart disease of [place] coronary artery without angina pectoris (5) Chronic low back pain Code(s): M54.5 - LOW BACK PAIN; G89.29 - OTHER CHRONIC PAIN Status: Chronic (6) Diabetes type 2, controlled Code(s): E11.9 - TYPE 2 DIABETES MELLITUS WITHOUT COMPLICATIONS Status: Chronic Qualifiers: Diabetes mellitus chcf insulin use: without oil heaterman use (7) Dyslipidemia Code(s): E78.5 - HYPERLIPIDEMIA, UNSPECIFIED Status: Chronic (8) GERD (gastroesophageal reflux disease) Code(s): K21.9 - GASTRO-ESOPHAGEAL REFLUX DISEASE WITHOUT ESOPHAGITIS Status: Chronic Qualifiers: Esophagitis presence: esophagitis presence not specified Qualified Code(s): K21.9 - Gastro-esophageal reflux disease without esophagitis (9) Hypertension Code(s): I10 - ESSENTIAL (PRIMARY) HYPERTENSION Status: Chronic Qualifiers: Hypertension type: essential hypertension Qualified Code(s): I10 - Essential (primary) hypertension (10) Hypothyroidism Code(s): E03.9 - HYPOTHYROIDISM, UNSPECIFIED Status: Chronic Qualifiers: Hypothyroidism type: unspecified Qualified Code(s): E03.9 - Hypothyroidism, unspecified (11) Afib Code(s): I48.91 - UNSPECIFIED ATRIAL FIBRILLATION Status: Chronic Qualifiers: Atrial fibrillation type: paroxysmal Qualified Code(s): I48.0 - Paroxysmal atrial fibrillation - Plan is on nasal O2, dexamethsone, remdesivir, ceftriaxone for uti (likely contaminant and is growing mixed organisms but family is worried her confusion is related to uti?) continue home dose asp, eliquis, flecainide, singulair, lipitor, gabapentin, metformin, synthroid and trazadone add oral cardizem 30mg qid to see if her afib gets rate controlled, likely has underlying afib with rvr, ekg encourage po intake, mobilize to chair, to lie on lateral sides while on bed was on day 7 or 8 into her illness on admission. prognosis guarded, has extensive infiltrates on CT, d/w daughter and gave full updates, she is aware of her prognosis (01/27, 01/28, 01/29) daughter initially did not want her to get intubated but later changed her mind after talking to her siblings and is full code now Palliative care consultation for code status, goals of care (has not ambulated for almost 2 yrs at snf, was cognitively ok per family, has multiple med issues)
[2020-01-30] MEDS ORDERED: ALPRAZolam 0.5 MG TAB PO PRN (13:00)
[2020-01-30] MEDS ORDERED: Sodium Chloride 0.9% 1,000 ML IV SCH (13:00)
[2020-01-30] MEDS ORDERED: Sodium Chloride 0.9% 250 ML IV SCH (15:15)
[2020-01-30] MEDS ORDERED: Diltiazem 125 MG in Sodium Chloride 0.9% 100 ML IVPB SCH (19:49)
[2020-01-30] MEDS: DULoxetine 60 MG CAP PO SCH (20:08)
[2020-01-30] MEDS: Lidocaine Patch Removal 1 EACH TOP SCH (20:08)
[2020-01-30] MEDS: REMDESIVIR (EUA) 100 MG in Sodium Chloride 0.9% 250 ML 230 ML IV SCH (20:08)
[2020-01-30] MEDS: Melatonin 3 MG TAB PO SCH (20:09)
[2020-01-30] MEDS: traZODone HCl 50 MG TAB PO SCH (20:09)
[2020-01-30] MEDS ORDERED: HumaLOG 300 UNITS/3 ML VIAL SC PRN (23:11)
[2020-01-31 05:25] LABS: ALT (SGPT) 10 U/L (8-55); AST (SGOT) 12 U/L (5-34); Albumin 2.9 g/dL (3.4-4.8); Alkaline Phosphatase 103 U/L (40-110); Anion Gap 13 mmol/L (10-20); BUN (Urea Nitrogen) 16 mg/dL (9.8-20.1); Bilirubin, Direct 0.3 mg/dL (0.1-0.3); Bilirubin, Total 0.4 mg/dL (0.2-1.2); CRP (Inflammatory) 1.14 mg/dL (= or < 0.5); Calc. Creatinine Clearance 79 mL/min (70-130); Calcium 8.1 mg/dL (7.8-10.44); Carbon Dioxide 21 mmol/L (23-31); Chloride 108 mmol/L (98-107); Estimated GFR-MDRD 83; Glucose 179 mg/dL (83-110); Potassium 3.9 mmol/L (3.5-5.1); Protein, Total 6.2 g/dL (6.0-8.3); Sodium 138 mmol/L (136-145)
[2020-01-31] MEDS: HumaLOG 300 UNITS/3 ML VIAL SC PRN ×3 (05:38→17:33)
[2020-01-31] MEDS: Lidocaine 5% Patch TD SCH (05:38)
[2020-01-31] MEDS: Aspirin 81 mg Enteric Coated Tablet PO SCH (09:03)
[2020-01-31] MEDS: Montelukast Sodium 10 mg Tablet PO SCH (09:03)
[2020-01-31] MEDS: Cholecalciferol 1,000 UNITS (25 MCG) TAB PO SCH (09:03)
[2020-01-31] MEDS: Ascorbic Acid 500 mg Chewable Tablet PO SCH (09:04)
[2020-01-31] MEDS: Ferrous Sulfate 325 MG TAB PO SCH (09:05)
[2020-01-31] MEDS: Multivit, Therapeutic 1 TAB PO SCH (09:05)
[2020-01-31] MEDS: Gabapentin 400 MG CAP PO SCH ×2 (09:05→22:41)
[2020-01-31] MEDS: Atorvastatin Calcium 10 MG TAB PO SCH (09:05)
[2020-01-31] MEDS: metFORMIN 500 MG TAB PO SCH ×2 (09:05→17:34)
[2020-01-31] MEDS: Apixaban 2.5 MG TAB PO SCH ×2 (09:05→22:46)
[2020-01-31] MEDS: Flecainide 50 MG TAB PO SCH ×2 (09:05→22:43)
[2020-01-31] MEDS: Polyethylene Glycol 3350 17 GM Packet PO SCH (09:05)
[2020-01-31] MEDS: Levothyroxine Sodium 125 MCG TAB PO SCH (09:06)
[2020-01-31] MEDS: cefTRIAXone\\ROCEPHIN 1 GM in Sodium Chloride 0.9% 100 ML IVPB SCH (09:06)
[2020-01-31] MEDS: Dexamethasone 6 MG in Sodium Chloride 0.9% 50 ML IVPB SCH (09:06)
[2020-01-31] MEDS: Ibuprofen 200 MG TAB PO PRN (12:35)
--- NOTE | 2020-01-31 13:19 | PDOC.HOSPP ---
- Subjective Encounter Date: 01/31/20 Encounter Time: 11:45 Subjective: no sob or palp feels better responds well to verbal stimuli - Objective Vital Signs & Weight: Vital Signs (12 hours) Temp Pulse Resp BP Pulse Ox 01/31/20 08:41 99.3 F 98 18 137/70 96 01/31/20 08:15 96 01/31/20 03:11 98.5 F 94 18 113/63 97 Weight Admit Weight 151 lb 4 oz Weight 151 lb 4 oz I&O: 01/30/20 01/31/20 02/01/20 06:59 06:59 06:59 Intake Total 1130 480 Output Total 750 250 Balance 380 230 Result Diagrams: 01/28/20 06:11 01/31/20 04:42 Additional Labs: Accuchecks 01/31/20 01/30/20 01/30/20 10:17 20:38 17:19 POC Glucose 158 H 241 H 259 H Hospitalist ROS - Medication Medications: Active Medications Generic Name Dose Route Start Last Admin Trade Name Freq PRN Reason Stop Dose Admin Alprazolam 0.5 mg 01/30/20 13:00 01/30/20 15:57 Alprazolam 0.5 Mg Tab PO 0.5 mg QIDPRN PRN Administration Anxiety Apixaban 2.5 mg 01/28/20 09:00 01/31/20 09:05 Apixaban 2.5 Mg Tab PO 2.5 mg BID RADHA Administration Ascorbic Acid 2,000 mg 01/28/20 09:00 01/31/20 09:04 Ascorbic Acid 500 Mg Chewable Tablet PO 2,000 mg DAILY RADHA Administration Aspirin 81 mg 01/28/20 09:00 01/31/20 09:03 Aspirin 81 Mg Enteric Coated Tablet PO 81 mg DAILY RADHA Administration Atorvastatin Calcium 10 mg 01/28/20 09:00 01/31/20 09:05 Atorvastatin Calcium 10 Mg Tab PO 10 mg DAILY RADHA Administration Cholecalciferol 5,000 units 01/28/20 09:00 01/31/20 09:03 Cholecalciferol 1,000 Units (25 Mcg) Tab PO 5,000 units DAILY RADHA Administration Duloxetine HCl 60 mg 01/28/20 21:00 01/30/20 20:08 Duloxetine 60 Mg Cap PO 60 mg HS RADHA Administration Ferrous Sulfate 325 mg 01/28/20 09:00 01/31/20 09:05 Ferrous Sulfate 325 Mg Tab PO 325 mg DAILY RADHA Administration Flecainide Acetate 50 mg 01/28/20 09:00 01/31/20 09:05 Flecainide 50 Mg Tab PO 50 mg BID RADHA Administration Gabapentin 400 mg 01/28/20 09:00 01/31/20 09:05 Gabapentin 400 Mg Cap PO 400 mg BID RADHA Administration Dexamethasone 6 mg/ Sodium 50.6 mls @ 100 mls/hr 01/28/20 09:00 01/31/20 09:06 Chloride IVPB 50.6 mls DAILY RADHA Administration Remdesivir 100 mg/ Sodium 250 mls @ 250 mls/hr 01/29/20 18:00 01/30/20 20:08 Chloride IV 02/01/20 18:59 250 mls 1800 RADHA Administration Ibuprofen 400 mg 01/31/20 12:10 01/31/20 12:35 Ibuprofen 200 Mg Tab PO 400 mg Q8H PRN Administration Pain Insulin Human Lispro 0 units 01/27/20 19:37 01/31/20 12:33 Humalog 300 Units/3 Ml Vial SC 2 unit .MILD SLIDING SCALE PRN Administration Mild Correctional Scale Levothyroxine Sodium 125 mcg 01/28/20 09:00 01/31/20 09:06 Levothyroxine Sodium 125 Mcg Tab PO 125 mcg DAILY RADHA Administration Lidocaine 1 patch 01/28/20 06:00 01/31/20 05:38 Lidocaine 5% Patch TD 1 patch 0600 RADHA Administration Melatonin 9 mg 01/28/20 21:00 01/30/20 20:09 Melatonin 3 Mg Tab PO 9 mg HS RADHA Administration Metformin HCl 500 mg 01/28/20 08:00 01/31/20 09:05 Metformin 500 Mg Tab PO 500 mg BID-WM RADHA Administration Miscellaneous Medication 1 each 01/28/20 18:00 01/30/20 20:08 Lidocaine Patch Removal 1 Each TOP 1 each 1800 RADHA Administration Montelukast Sodium 10 mg 01/28/20 09:00 01/31/20 09:03 Montelukast Sodium 10 Mg Tablet PO 10 mg DAILY RADHA Administration Multivitamins 1 tab 01/28/20 09:00 01/31/20 09:05 Multivit, Therapeutic 1 Tab PO 1 tab DAILY RADHA Administration Pantoprazole Sodium 40 mg 01/31/20 09:00 01/31/20 09:03 Pantoprazole 40 Mg Tab PO 40 mg DAILY RADHA Administration Polyethylene Glycol 17 gm 01/28/20 09:00 01/31/20 09:05 Polyethylene Glycol 3350 17 Gm Packet PO 17 gm DAILY RADHA Administration Sodium Chloride 10 ml 01/28/20 09:00 01/31/20 09:06 Flush - Normal Saline 10 Ml Syringe IVF 10 ml Q12HR RADHA Administration Trazodone HCl 25 mg 01/28/20 21:00 01/30/20 20:09 Trazodone Hcl 50 Mg Tab PO 25 mg HS RADHA Administration - Exam General Appearance: awake alert Eye: PERRL, anicteric sclera ENT: no oropharyngeal lesions, dry oral mucosa Neck: supple, no JVD Heart: RRR, no murmur Respiratory: no wheezes, no rales, rhonchi Gastrointestinal: soft, non-tender, non-distended, normal bowel sounds Extremities: no cyanosis, no edema Neurological: cranial nerve grossly intact, no focal deficits Hosp A/P (1) Pneumonia due to COVID-19 virus Code(s): U07.1 - COVID-19; J12.89 - OTHER VIRAL PNEUMONIA Status: Acute (2) Acute respiratory failure with hypoxia Code(s): J96.01 - ACUTE RESPIRATORY FAILURE WITH HYPOXIA Status: Acute (3) Anxiety and depression Code(s): F41.9 - ANXIETY DISORDER, UNSPECIFIED; F32.9 - MAJOR DEPRESSIVE DISORDER, SINGLE EPISODE, UNSPECIFIED Status: Chronic (4) CAD (coronary artery disease) Code(s): I25.10 - ATHSCL HEART DISEASE OF [place] CORONARY ARTERY W/O ANG PCTRS Status: Chronic Qualifiers: Coronary Disease-Associated Artery/Lesion type: [place] artery [place] vs. transplanted heart: [place] heart Associated angina: without angina Qualified Code(s): I25.10 - Atherosclerotic heart disease of [place] coronary artery without angina pectoris (5) Chronic low back pain Code(s): M54.5 - LOW BACK PAIN; G89.29 - OTHER CHRONIC PAIN Status: Chronic (6) Diabetes type 2, controlled Code(s): E11.9 - TYPE 2 DIABETES MELLITUS WITHOUT COMPLICATIONS Status: Chronic Qualifiers: Diabetes mellitus longterm insulin use: without longterm use (7) Dyslipidemia Code(s): E78.5 - HYPERLIPIDEMIA, UNSPECIFIED Status: Chronic (8) GERD (gastroesophageal reflux disease) Code(s): K21.9 - GASTRO-ESOPHAGEAL REFLUX DISEASE WITHOUT ESOPHAGITIS Status: Chronic Qualifiers: Esophagitis presence: esophagitis presence not specified Qualified Code(s): K21.9 - Gastro-esophageal reflux disease without esophagitis (9) Hypertension Code(s): I10 - ESSENTIAL (PRIMARY) HYPERTENSION Status: Chronic Qualifiers: Hypertension type: essential hypertension Qualified Code(s): I10 - Essential (primary) hypertension (10) Hypothyroidism Code(s): E03.9 - HYPOTHYROIDISM, UNSPECIFIED Status: Chronic Qualifiers: Hypothyroidism type: unspecified Qualified Code(s): E03.9 - Hypothyroidism, unspecified (11) Afib Code(s): I48.91 - UNSPECIFIED ATRIAL FIBRILLATION Status: Chronic Qualifiers: Atrial fibrillation type: paroxysmal Qualified Code(s): I48.0 - Paroxysmal atrial fibrillation - Plan Had an episode of paroxysmal afib yesterday, on cardizem drip converted to sinus rhythm, will dc drip and start oral cardizem cd, watch for bradycardia, is also flecainide. is on nasal O2, dexamethsone, remdesivir, vantin for uti continue home dose asp, eliquis, flecainide, singulair, lipitor, gabapentin, metformin, synthroid and trazadone encourage po intake, mobilize to chair, to lie on lateral sides while on bed was on day 7 or 8 into her illness on admission from [facility]. prognosis guarded, has extensive infiltrates on CT, d/w daughter and gave full updates, she is aware of her prognosis (01/27, 01/28, 01/29, 01/30) daughter initially did not want her to get intubated but later changed her mind after talking to her siblings and is full code now Palliative care consultation for code status, goals of care (has not ambulated for almost 2 yrs at snf, was cognitively ok per family, has multiple med issues) has off and on confusion likely due to hypoxia and covid.
--- NOTE | 2020-01-31 14:37 | RAD ---
Exam: Chest one view HISTORY:Follow-up COVID pneumonia Comparison: 01/27/2020 FINDINGS: Cardiac silhouette: Normal Aorta: Slightly elongated Pulmonary vessels: Normal Costophrenic angles: Clear LUNGS: Multifocal interstitial and alveolar opacities, unchanged. Pneumothorax: None Osseous abnormalities: Old right and left rib fractures are suspected. IMPRESSION: Persistent multi lobar pneumonia, unchanged.
[2020-01-31] MEDS: REMDESIVIR (EUA) 100 MG in Sodium Chloride 0.9% 250 ML 230 ML IV SCH (17:34)
[2020-01-31] MEDS: Lidocaine Patch Removal 1 EACH TOP SCH (18:39)
--- NOTE | 2020-01-31 19:24 | CON ---
DATE OF CONSULTATION: 01/31/2020 REASON FOR CONSULTATION: Atrial arrhythmias. HISTORY OF PRESENT ILLNESS: Ms. Lackey is a 74-year-old woman with COVID pneumonia and some atrial arrhythmias. The patient was hospitalized for COVID pneumonia. She has been seen by Dr. Deshpande. She is a resident of [facility]. She has been hypoxemic. PAST HISTORY: Includin. Atrial fibrillation. 2. Deep venous thrombosis. SURGICAL HISTORY: 1. Appendectomy. 2. Hysterectomy. SOCIAL HISTORY: residential resident. ALLERGIES: TO CODEINE. MEDICATIONS: 1. Eliquis. 2. Ecotrin. 3. Lipitor. 4. Ceftriaxone. PHYSICAL EXAMINATION: Due to COVID infection in order to limit contact with the patient, direct physical examination was not done. Reading in the chart, telling her: LUNGS: Clear. CARDIAC: Normal S1 and normal S2. No edema. DIAGNOSTIC STUDIES: EKG did reveal some atrial arrhythmias, so it looks like could be atrial flutter. The patient had responded to intravenous Cardizem. ASSESSMENT: Atrial arrhythmias. She is on Eliquis, suspect this is a longstanding problem. PLAN: Agree with diltiazem. She initially was intravenous, now on oral. No other recommendations. Job ID: [id number]
[2020-01-31] MEDS: Melatonin 3 MG TAB PO SCH (22:42)
[2020-01-31] MEDS: traZODone HCl 50 MG TAB PO SCH (22:43)
[2020-01-31] MEDS: DULoxetine 60 MG CAP PO SCH (22:45)
[2020-02-01] MEDS: Ibuprofen 200 MG TAB PO PRN (02:46)
[2020-02-01 06:02] LABS: Anion Gap 13 mmol/L (10-20); BUN (Urea Nitrogen) 15 mg/dL (9.8-20.1); Calc. Creatinine Clearance 70 mL/min (70-130); Calcium 8.4 mg/dL (7.8-10.44); Carbon Dioxide 22 mmol/L (23-31); Chloride 107 mmol/L (98-107); Estimated GFR-MDRD 72; Glucose 168 mg/dL (83-110); Potassium 4.1 mmol/L (3.5-5.1); Sodium 138 mmol/L (136-145)
[2020-02-01 06:04] LABS: ALT (SGPT) 15 U/L (8-55); AST (SGOT) 20 U/L (5-34); Albumin 3.2 g/dL (3.4-4.8); Alkaline Phosphatase 115 U/L (40-110); Bilirubin, Direct 0.3 mg/dL (0.1-0.3); Bilirubin, Total 0.4 mg/dL (0.2-1.2); CRP (Inflammatory) 0.76 mg/dL (= or < 0.5); Protein, Total 6.6 g/dL (6.0-8.3)
[2020-02-01] MEDS ORDERED: Sodium Chloride 0.65% Nasal 44 ML BOT EA NARE PRN (08:05)
[2020-02-01] MEDS ORDERED: Benzonatate 100 MG CAP PO PRN (08:05)
[2020-02-01] MEDS ORDERED: Cepastat Lozenges 1 LOZ PO PRN (08:05)
[2020-02-01] MEDS ORDERED: Bisacodyl 5 MG TAB PO PRN (08:05)
[2020-02-01] MEDS ORDERED: hydrALAZINE 20 MG/ML VIAL SLOW IVP PRN (08:05)
[2020-02-01] MEDS ORDERED: Loperamide HCl 2 MG CAP PO PRN (08:05)
[2020-02-01] MEDS ORDERED: Calcium Carbonate 500 MG ChewTAB PO PRN (08:05)
[2020-02-01] MEDS ORDERED: Senokot S 8.6-50 MG TAB PO PRN (08:05)
[2020-02-01] MEDS ORDERED: Loratadine 10 MG TAB PO PRN (08:05)
[2020-02-01] MEDS ORDERED: Zolpidem Tartrate 5 MG TAB PO PRN (08:05)
[2020-02-01] MEDS ORDERED: Diabetic Tussin 200 MG/10 ML UDCUP PO PRN (08:05)
[2020-02-01] MEDS ORDERED: Metoclopramide HCl 10 MG/2 ML VIAL IVP PRN (08:05)
[2020-02-01] MEDS: Levothyroxine Sodium 125 MCG TAB PO SCH (09:24)
[2020-02-01] MEDS: Ascorbic Acid 500 mg Chewable Tablet PO SCH (09:24)
[2020-02-01] MEDS: Gabapentin 400 MG CAP PO SCH ×2 (09:24→23:25)
[2020-02-01] MEDS: Aspirin 81 mg Enteric Coated Tablet PO SCH (09:24)
[2020-02-01] MEDS: metFORMIN 500 MG TAB PO SCH ×2 (09:25→18:47)
[2020-02-01] MEDS: Multivit, Therapeutic 1 TAB PO SCH (09:25)
[2020-02-01] MEDS: Cholecalciferol 1,000 UNITS (25 MCG) TAB PO SCH (09:25)
[2020-02-01] MEDS: Ferrous Sulfate 325 MG TAB PO SCH (09:25)
[2020-02-01] MEDS: Montelukast Sodium 10 mg Tablet PO SCH (09:26)
[2020-02-01] MEDS: Atorvastatin Calcium 10 MG TAB PO SCH (09:26)
[2020-02-01] MEDS: Flecainide 50 MG TAB PO SCH ×2 (09:26→23:26)
[2020-02-01] MEDS: Polyethylene Glycol 3350 17 GM Packet PO SCH (09:27)
[2020-02-01] MEDS: Dexamethasone 6 MG in Sodium Chloride 0.9% 50 ML IVPB SCH (09:27)
[2020-02-01] MEDS: Apixaban 2.5 MG TAB PO SCH ×2 (09:28→23:28)
[2020-02-01] MEDS: Lidocaine 5% Patch TD SCH (09:39)
--- NOTE | 2020-02-01 11:20 | PDOC.HOSPP ---
- Subjective Encounter Date: 02/01/20 Encounter Time: 07:45 Subjective: Patient seen and examined bedside today, patient is really doing better, patient is only on 1 to 2 L of nasal cannula oxygen, patient is plan for remdesivir therapy later on today - Objective Vital Signs & Weight: Vital Signs (12 hours) Temp Pulse Resp BP Pulse Ox 02/01/20 04:00 98.6 F 101 H 22 H 160/84 H 96 Weight Admit Weight 151 lb 4 oz Weight 151 lb 4 oz I&O: 01/31/20 02/01/20 02/02/20 06:59 06:59 06:59 Intake Total 480 900 Output Total 250 1700 Balance 230 -800 Result Diagrams: 01/28/20 06:11 02/01/20 05:14 Additional Labs: Accuchecks 02/01/20 02/01/20 01/31/20 11:00 05:50 21:00 POC Glucose 167 H 177 H 205 H 01/31/20 16:49 POC Glucose 220 H Radiology Reviewed by me: Yes EKG Reviewed by me: Yes Hospitalist ROS - Review of Systems Constitutional: reports: weakness. denies: fever, chills, sweats, malaise, other Respiratory: reports: SOB with excertion. denies: cough, dry, shortness of breath, hemoptysis, pleuritic pain, sputum, wheezing, other Cardiovascular: denies: chest pain, palpitations, orthopnea, paroxysmal noc. dyspnea, edema, light headedness, other Gastrointestinal: denies: nausea, vomiting, abdominal pain, diarrhea, constipation, melena, hematochezia, other Genitourinary: denies: dysuria, frequency, incontinence, hematuria, retention, other Musculoskeletal: denies: neck pain, shoulder pain, arm pain, back pain, hand pain, leg pain, foot pain, other - Medication Medications: Active Medications Generic Name Dose Route Start Last Admin Trade Name Freq PRN Reason Stop Dose Admin Alprazolam 0.5 mg 01/30/20 13:00 01/30/20 15:57 Alprazolam 0.5 Mg Tab PO 0.5 mg QIDPRN PRN Administration Anxiety Apixaban 2.5 mg 01/28/20 09:00 02/01/20 09:28 Apixaban 2.5 Mg Tab PO 2.5 mg BID RADHA Administration Ascorbic Acid 2,000 mg 01/28/20 09:00 02/01/20 09:24 Ascorbic Acid 500 Mg Chewable Tablet PO 2,000 mg DAILY RADHA Administration Aspirin 81 mg 01/28/20 09:00 02/01/20 09:24 Aspirin 81 Mg Enteric Coated Tablet PO 81 mg DAILY RADHA Administration Atorvastatin Calcium 10 mg 01/28/20 09:00 02/01/20 09:26 Atorvastatin Calcium 10 Mg Tab PO 10 mg DAILY RADHA Administration Cefpodoxime Proxetil 200 mg 01/31/20 21:00 02/01/20 09:27 Cefpodoxime Proxetil 200 Mg Tab PO 200 mg Q12HR RADHA Administration Cholecalciferol 5,000 units 01/28/20 09:00 02/01/20 09:25 Cholecalciferol 1,000 Units (25 Mcg) Tab PO 5,000 units DAILY RADHA Administration Diltiazem HCl 240 mg 02/01/20 09:00 02/01/20 09:24 Diltiazem Hcl Cd 240 Mg Capsule PO 240 mg DAILY RADHA Administration Duloxetine HCl 60 mg 01/28/20 21:00 01/31/20 22:45 Duloxetine 60 Mg Cap PO 60 mg HS RADHA Administration Ferrous Sulfate 325 mg 01/28/20 09:00 02/01/20 09:25 Ferrous Sulfate 325 Mg Tab PO 325 mg DAILY RADHA Administration Flecainide Acetate 50 mg 01/28/20 09:00 02/01/20 09:26 Flecainide 50 Mg Tab PO 50 mg BID RADHA Administration Gabapentin 400 mg 01/28/20 09:00 02/01/20 09:24 Gabapentin 400 Mg Cap PO 400 mg BID RADHA Administration Dexamethasone 6 mg/ Sodium 50.6 mls @ 100 mls/hr 01/28/20 09:00 02/01/20 09:27 Chloride IVPB 50.6 mls DAILY RADHA Administration Remdesivir 100 mg/ Sodium 250 mls @ 250 mls/hr 01/29/20 18:00 01/31/20 17:34 Chloride IV 02/01/20 18:59 250 mls 1800 RADHA Administration Ibuprofen 400 mg 01/31/20 12:10 02/01/20 02:46 Ibuprofen 200 Mg Tab PO 400 mg Q8H PRN Administration Pain Insulin Human Lispro 0 units 01/27/20 19:37 01/31/20 17:33 Humalog 300 Units/3 Ml Vial SC 3 unit .MILD SLIDING SCALE PRN Administration Mild Correctional Scale Levothyroxine Sodium 125 mcg 01/28/20 09:00 02/01/20 09:24 Levothyroxine Sodium 125 Mcg Tab PO 125 mcg DAILY RADHA Administration Lidocaine 1 patch 01/28/20 06:00 02/01/20 09:39 Lidocaine 5% Patch TD 1 patch 0600 RADHA Administration Melatonin 9 mg 01/28/20 21:00 01/31/20 22:42 Melatonin 3 Mg Tab PO 9 mg HS RADHA Administration Metformin HCl 500 mg 01/28/20 08:00 02/01/20 09:25 Metformin 500 Mg Tab PO 500 mg BID-WM RADHA Administration Miscellaneous Medication 1 each 01/28/20 18:00 01/31/20 18:39 Lidocaine Patch Removal 1 Each TOP 1 each 1800 RADHA Administration Montelukast Sodium 10 mg 01/28/20 09:00 02/01/20 09:26 Montelukast Sodium 10 Mg Tablet PO 10 mg DAILY RADHA Administration Multivitamins 1 tab 01/28/20 09:00 02/01/20 09:25 Multivit, Therapeutic 1 Tab PO 1 tab DAILY RADHA Administration Pantoprazole Sodium 40 mg 01/31/20 09:00 02/01/20 09:26 Pantoprazole 40 Mg Tab PO 40 mg DAILY RADHA Administration Polyethylene Glycol 17 gm 01/28/20 09:00 02/01/20 09:27 Polyethylene Glycol 3350 17 Gm Packet PO 17 gm DAILY RADHA Administration Sodium Chloride 10 ml 01/28/20 09:00 02/01/20 09:27 Flush - Normal Saline 10 Ml Syringe IVF 10 ml Q12HR RADHA Administration Trazodone HCl 25 mg 01/28/20 21:00 01/31/20 22:43 Trazodone Hcl 50 Mg Tab PO 25 mg HS RADHA Administration - Exam General Appearance: NAD, awake alert Eye: PERRL, anicteric sclera ENT: normocephalic atraumatic, no oropharyngeal lesions Neck: supple, symmetric, no JVD, no thyromegaly Heart: RRR, no murmur, no gallops, no rubs Respiratory: no wheezes, no rales, no ronchi Respiratory - other findings: Air entry reduced at base Gastrointestinal: soft, non-tender, non-distended, normal bowel sounds Extremities: no clubbing, no edema Skin: normal turgor, no lesions Neurological: no focal deficits Musculoskeletal: normal tone, normal strength Psychiatric: normal affect, normal behavior Hosp A/P (1) Acute respiratory failure with hypoxia Code(s): J96.01 - ACUTE RESPIRATORY FAILURE WITH HYPOXIA Status: Acute (2) Pneumonia due to COVID-19 virus Code(s): U07.1 - COVID-19; J12.89 - OTHER VIRAL PNEUMONIA Status: Acute (3) Afib Code(s): I48.91 - UNSPECIFIED ATRIAL FIBRILLATION Status: Chronic Qualifiers: Atrial fibrillation type: paroxysmal Qualified Code(s): I48.0 - Paroxysmal atrial fibrillation (4) SUSAN (acute kidney injury) Code(s): N17.9 - ACUTE KIDNEY FAILURE, UNSPECIFIED Status: Resolved (5) UTI (urinary tract infection) Status: Acute Qualifiers: Urinary tract infection type: acute cystitis Hematuria presence: without hematuria Qualified Code(s): N30.00 - Acute cystitis without hematuria (6) Anemia, normocytic normochromic Code(s): D64.9 - ANEMIA, UNSPECIFIED Status: Chronic (7) Anxiety and depression Code(s): F41.9 - ANXIETY DISORDER, UNSPECIFIED; F32.9 - MAJOR DEPRESSIVE DISORDER, SINGLE EPISODE, UNSPECIFIED Status: Chronic (8) CAD (coronary artery disease) Code(s): I25.10 - ATHSCL HEART DISEASE OF [place] CORONARY ARTERY W/O ANG PCTRS Status: Chronic Qualifiers: Coronary Disease-Associated Artery/Lesion type: [place] artery [place] vs. transplanted heart: [place] heart Associated angina: without angina Qualified Code(s): I25.10 - Atherosclerotic heart disease of [place] coronary artery without angina pectoris (9) Chronic low back pain Code(s): M54.5 - LOW BACK PAIN; G89.29 - OTHER CHRONIC PAIN Status: Chronic (10) Chronic stage c diastolic heart failure Code(s): I50.32 - CHRONIC DIASTOLIC (CONGESTIVE) HEART FAILURE Status: Chronic (11) DJD (degenerative joint disease), cervical Code(s): M47.812 - SPONDYLOSIS W/O MYELOPATHY OR RADICULOPATHY, CERVICAL REGION Status: Chronic (12) Diabetes type 2, controlled Code(s): E11.9 - TYPE 2 DIABETES MELLITUS WITHOUT COMPLICATIONS Status: Chronic Qualifiers: Diabetes mellitus alf insulin use: without alf use (13) Dyslipidemia Code(s): E78.5 - HYPERLIPIDEMIA, UNSPECIFIED Status: Chronic (14) GERD (gastroesophageal reflux disease) Code(s): K21.9 - GASTRO-ESOPHAGEAL REFLUX DISEASE WITHOUT ESOPHAGITIS Status: Chronic Qualifiers: Esophagitis presence: esophagitis presence not specified Qualified Code(s): K21.9 - Gastro-esophageal reflux disease without esophagitis (15) Hypertension Code(s): I10 - ESSENTIAL (PRIMARY) HYPERTENSION Status: Chronic Qualifiers: Hypertension type: essential hypertension Qualified Code(s): I10 - Essential (primary) hypertension (16) Hypothyroidism Code(s): E03.9 - HYPOTHYROIDISM, UNSPECIFIED Status: Chronic Qualifiers: Hypothyroidism type: unspecified Qualified Code(s): E03.9 - Hypothyroidism, unspecified - Plan old records reviewed/req, plan discussed w/ family, continue antibiotics I have reviewed her medication, patient is relatively doing much better, Patient is plan for remdesivir therapy Cardiology recommendation appreciated Patient's rhythm is now NSR, continue Cardizem CD and Eliquis Continue Vantin for UTI I have spoken to family member and updated about plan of care Expecting discharge in next 24 hours. Continue current medication and patient is overall medically stable, she is up to her baseline level.
[2020-02-01] MEDS: HumaLOG 300 UNITS/3 ML VIAL SC PRN ×2 (12:28→18:47)
--- NOTE | 2020-02-01 17:53 | EKG ---
Test Reason : SOB Blood Pressure : / mmHG Vent. Rate : 121 BPM Atrial Rate : 121 BPM P-R Int : 176 ms QRS Dur : 118 ms QT Int : 316 ms P-R-T Axes : 000 037 -73 degrees QTc Int : 448 ms Sinus tachycardia Non-specific intra-ventricular conduction delay T wave abnormality, consider inferior ischemia Abnormal ECG Confirmed by YOBANI LEAL, MARY (12), fashion editor MINOO CALI ([id number]) on 02/01/2020 5:52:47 PM Referred By: NOAH Confirmed By:MARY HILTON MD
[2020-02-01] MEDS: Lidocaine Patch Removal 1 EACH TOP SCH (19:11)
[2020-02-01] MEDS ORDERED: REMDESIVIR (EUA) 100 MG in Sodium Chloride 0.9% 250 ML 230 ML IV SCH (22:00)
[2020-02-01] MEDS: traZODone HCl 50 MG TAB PO SCH (23:25)
[2020-02-01] MEDS: Melatonin 3 MG TAB PO SCH (23:26)
[2020-02-01] MEDS: DULoxetine 60 MG CAP PO SCH (23:26)
[2020-02-02 05:23] LABS: Anion Gap 14 mmol/L (10-20); BUN (Urea Nitrogen) 20 mg/dL (9.8-20.1); Calc. Creatinine Clearance 68 mL/min (70-130); Calcium 8.2 mg/dL (7.8-10.44); Carbon Dioxide 21 mmol/L (23-31); Chloride 107 mmol/L (98-107); Estimated GFR-MDRD 70; Glucose 218 mg/dL (83-110); Potassium 4.3 mmol/L (3.5-5.1); Sodium 138 mmol/L (136-145)
[2020-02-02 05:50] LABS: ALT (SGPT) 15 U/L (8-55); AST (SGOT) 17 U/L (5-34); Albumin 3.2 g/dL (3.4-4.8); Alkaline Phosphatase 122 U/L (40-110); Bilirubin, Direct 0.3 mg/dL (0.1-0.3); Bilirubin, Total 0.4 mg/dL (0.2-1.2); CRP (Inflammatory) 0.56 mg/dL (= or < 0.5); Protein, Total 6.8 g/dL (6.0-8.3)
[2020-02-02] MEDS: REMDESIVIR (EUA) 100 MG in Sodium Chloride 0.9% 250 ML 230 ML IV SCH (06:34)
[2020-02-02] MEDS: Lidocaine 5% Patch TD SCH (06:35)
[2020-02-02] MEDS: HumaLOG 300 UNITS/3 ML VIAL SC PRN ×2 (06:36→17:27)
[2020-02-02] MEDS ORDERED: Dexamethasone 4 mg/ml Vial SLOW IVP SCH (09:00)
[2020-02-02] MEDS: Gabapentin 400 MG CAP PO SCH (10:00)
[2020-02-02] MEDS: Atorvastatin Calcium 10 MG TAB PO SCH (10:01)
[2020-02-02] MEDS: Ascorbic Acid 500 mg Chewable Tablet PO SCH (10:01)
[2020-02-02] MEDS: metFORMIN 500 MG TAB PO SCH ×2 (10:01→16:30)
[2020-02-02] MEDS: Aspirin 81 mg Enteric Coated Tablet PO SCH (10:01)
[2020-02-02] MEDS: Ferrous Sulfate 325 MG TAB PO SCH (10:02)
[2020-02-02] MEDS: Flecainide 50 MG TAB PO SCH (10:02)
[2020-02-02] MEDS: Cholecalciferol 1,000 UNITS (25 MCG) TAB PO SCH (10:02)
[2020-02-02] MEDS: Levothyroxine Sodium 125 MCG TAB PO SCH (10:03)
[2020-02-02] MEDS: Multivit, Therapeutic 1 TAB PO SCH (10:03)
[2020-02-02] MEDS: Polyethylene Glycol 3350 17 GM Packet PO SCH (10:03)
[2020-02-02] MEDS: Montelukast Sodium 10 mg Tablet PO SCH (10:03)
[2020-02-02] MEDS: Apixaban 2.5 MG TAB PO SCH (10:09)
--- NOTE | 2020-02-02 10:55 | PDOC.DS.DS ---
Provider - Provider Date of Admission: 01/27/20 19:27 Date of Discharge: 02/02/20 Admitting Provider: Samantha Segovia MD Consultations: Cardiology, Infectious Disease Primary Care Physician: Scott Sidhu MD Course - Hospital Course Hospital Course: 74-year-old female who has past medical history of atrial fibrillation on Eliquis therapy, coronary artery disease, diabetes, hypertension, neuropathy, chronic low back pain, history of DVT, chronic diastolic heart failure, who was brought to emergency room from [facility] for evaluation of abdominal pain and shortness of breath. Patient was tested positive for COVID-19. When she arrived to emergency room she was hypoxic with saturation 80%. Patient was kept on oxygen and after that her saturation improved to 90%. On admission her creatinine was elevated to 1.4, her WBC count was elevated to 12.8, her chest x- ray suspected for COVID-19 pneumonia. Abdomen and pelvis CT scan was done on admission which showed infiltrates suggestive of Covid pneumonia, severe osteoporosis, constipation. After admission patient was evaluated by Dr. Deshpande, patient was given remdesivir therapy and steroid, patient has finished remdesivir therapy, patient will get steroid therapy for 5 more days, patient was continued with her home medication, patient was complicated with A. fib with RVR so cardiology was consulted, patient was started on Cardizem CD along with the flecainide and that she will continue chronic anticoagulation therapy. Patient converted back to sinus rhythm. At this point patient is requiring 2 to 3 L of nasal cannula oxygen, patient is overall medically stable for discharge to [facility] for ongoing care. She will continue all her previous medication as per discharge medication. On admission her urine analysis was suggestive of UTI, patient was treated with Rocephin while in hospital, subsequently patient was changed to Vantin, on discharge be changed to Macrobid based on culture and sensitivity result for additional 5 days. Resuscitation Status: 01/31/20 16:52 Resuscitation Status Routine Resuscitation Status: DNAR: NO Resuscitation Discussed with: d/w daughter and POA ( is ) - Labs Lab Results: 01/28/20 06:11 02/02/20 04:16 Abnormal Lab Results - Last 48 hrs 02/01/20 05:14: Alkaline Phosphatase 115 H, C-Reactive Protein 0.76 H, Albumin 3.2 L 02/01/20 05:14: Ferritin 877.07 H 02/01/20 05:14: D-Dimer 0.66 H 02/01/20 05:14: Carbon Dioxide 22 L 02/02/20 04:16: Carbon Dioxide 21 L 02/02/20 04:58: Alkaline Phosphatase 122 H, C-Reactive Protein 0.56 H, Albumin 3.2 L 02/02/20 04:58: Ferritin 807.04 H 02/02/20 04:58: D-Dimer 0.56 H Microbiology - Entire Visit 01/27/20 17:17 Venous blood - Left Arm Blood Culture - Final NO GROWTH IN 5 DAYS 01/27/20 16:41 Venous blood - Right Hand Blood Culture - Final NO GROWTH IN 5 DAYS 01/27/20 18:07 Urine Straight Catheter Urine Culture - Final Escherichia coli Non-Hemolytic Streptococcus - Diagnostic Interpretation CT scan - abdomen Additional comments: Suggestive of Covid pneumonia Constipation Chest x-ray Additional comments: Suggestive of Covid pneumonia - Physical Exam Vitals: Vital Signs (12 hours) Temp Pulse Resp BP Pulse Ox 02/02/20 10:00 98.8 F 101 H 20 131/83 99 02/02/20 05:10 98.9 F 87 22 H 151/75 H 100 02/01/20 22:54 98.6 F 91 24 H 137/68 99 Weight Admit Weight 151 lb 4 oz Weight 151 lb 4 oz Physical Exam: The patient was seen and examined on the day of discharge. General patient is currently alert awake no acute distress Head normocephalic atraumatic Neck supple no JVD no meningeal signs of irritation Lungs grossly clear to auscultation without any obvious rhonchi or rales, air entry reduced at base Cardiac S1-S2 appears regular, no murmur elicited no gallop no rub Abdomen soft, bowel sound present, nontender nondistended no organomegaly no mass Extremity no edema Neurologic nonfocal examination. Problem - Problem (1) Acute respiratory failure with hypoxia Code(s): J96.01 - ACUTE RESPIRATORY FAILURE WITH HYPOXIA Status: Acute (2) Pneumonia due to COVID-19 virus Code(s): U07.1 - COVID-19; J12.89 - OTHER VIRAL PNEUMONIA Status: Acute (3) Afib Code(s): I48.91 - UNSPECIFIED ATRIAL FIBRILLATION Status: Chronic Qualifiers: Atrial fibrillation type: paroxysmal Qualified Code(s): I48.0 - Paroxysmal atrial fibrillation (4) SUSAN (acute kidney injury) Code(s): N17.9 - ACUTE KIDNEY FAILURE, UNSPECIFIED Status: Resolved (5) UTI (urinary tract infection) Status: Acute Qualifiers: Urinary tract infection type: acute cystitis Hematuria presence: without hematuria Qualified Code(s): N30.00 - Acute cystitis without hematuria (6) Anemia, normocytic normochromic Code(s): D64.9 - ANEMIA, UNSPECIFIED Status: Chronic (7) Anxiety and depression Code(s): F41.9 - ANXIETY DISORDER, UNSPECIFIED; F32.9 - MAJOR DEPRESSIVE DISORDER, SINGLE EPISODE, UNSPECIFIED Status: Chronic (8) CAD (coronary artery disease) Code(s): I25.10 - ATHSCL HEART DISEASE OF [place] CORONARY ARTERY W/O ANG PCTRS Status: Chronic Qualifiers: Coronary Disease-Associated Artery/Lesion type: [place] artery [place] vs. transplanted heart: [place] heart Associated angina: without angina Qualified Code(s): I25.10 - Atherosclerotic heart disease of [place] coronary artery without angina pectoris (9) Chronic low back pain Code(s): M54.5 - LOW BACK PAIN; G89.29 - OTHER CHRONIC PAIN Status: Chronic (10) Chronic stage c diastolic heart failure Code(s): I50.32 - CHRONIC DIASTOLIC (CONGESTIVE) HEART FAILURE Status: Chronic (11) DJD (degenerative joint disease), cervical Code(s): M47.812 - SPONDYLOSIS W/O MYELOPATHY OR RADICULOPATHY, CERVICAL REGION Status: Chronic (12) Diabetes type 2, controlled Code(s): E11.9 - TYPE 2 DIABETES MELLITUS WITHOUT COMPLICATIONS Status: Chronic Qualifiers: Diabetes mellitus halfway insulin use: without halfway use (13) Dyslipidemia Code(s): E78.5 - HYPERLIPIDEMIA, UNSPECIFIED Status: Chronic (14) GERD (gastroesophageal reflux disease) Code(s): K21.9 - GASTRO-ESOPHAGEAL REFLUX DISEASE WITHOUT ESOPHAGITIS Status: Chronic Qualifiers: Esophagitis presence: esophagitis presence not specified Qualified Code(s): K21.9 - Gastro-esophageal reflux disease without esophagitis (15) Hypertension Code(s): I10 - ESSENTIAL (PRIMARY) HYPERTENSION Status: Chronic Qualifiers: Hypertension type: essential hypertension Qualified Code(s): I10 - Essential (primary) hypertension (16) Hypothyroidism Code(s): E03.9 - HYPOTHYROIDISM, UNSPECIFIED Status: Chronic Qualifiers: Hypothyroidism type: unspecified Qualified Code(s): E03.9 - Hypothyroidism, unspecified Plan - Discharge Medications Prescriptions: Diltiazem HCl [Cardizem CD] 240 mg PO DAILY #30 cap Dexamethasone 6 mg PO DAILY #5 tablet Nitrofurantoin Monohyd/M-Cryst [Macrobid] 100 mg PO BID #10 cap Home Medications: Medication Instructions Recorded Confirmed Type Levothyroxine Sodium 125 mcg PO DAILY 04/10/17 01/27/20 History Cholecalciferol (Vitamin D3) 5,000 unit PO DAILY 02/01/18 01/27/20 History [Vitamin D3] Ipratropium/Albuterol Sulfate 1 puff NEB BID 02/01/18 01/27/20 History [DuoNeb] Lactulose 10 GM/15ML Oral Jaymie 20 ml PO Q8H PRN 02/01/18 01/27/20 History [Lactulose] Multivitamin With Minerals 1 tablet PO DAILY 02/01/18 01/27/20 History [Multivitamins with Minerals] cloNIDine [Catapres] 0.1 mg PO Q6H PRN 02/01/18 01/27/20 History tiZANidine HCl [Tizanidine HCl] 2 mg PO Q6H PRN 02/01/18 01/27/20 History metFORMIN [Glucophage] 500 mg PO BID-WM #0 02/04/18 01/27/20 Rx Polyethylene Glycol 3350 [Miralax] 17 gm PO DAILY pk 04/09/18 01/27/20 Rx Ferrous Sulfate 325 mg PO DAILY 08/17/18 01/27/20 History Montelukast Sodium [Singulair] 10 mg PO DAILY 08/17/18 01/27/20 History Pantoprazole [Protonix] 40 mg PO DAILY 08/17/18 01/27/20 History Sennosides [Senna] 8.6 mg PO ASDIR 08/17/18 01/27/20 History traMADol HCl [Ultram] 50 mg PO Q6H 08/17/18 01/27/20 History Aspirin [Ecotrin Low Strength] 81 mg PO DAILY tab 08/20/18 01/27/20 Rx Alendronate Sodium [Fosamax] 1 tab PO ASDIR 04/29/19 01/27/20 History Amlodipine [Norvasc] 10 mg PO DAILY 04/29/19 01/27/20 History Apixaban [Eliquis] 1 tab PO BID 04/29/19 01/27/20 History Atorvastatin Calcium [Lipitor] 10 mg PO DAILY 04/29/19 01/27/20 History Calcium Carbonate [Tums] 500 - 1,000 mg PO Q4H PRN 04/29/19 01/27/20 History DULoxetine HCl [Duloxetine HCl] 60 mg PO HS 04/29/19 01/27/20 History Flecainide Acetate 1 tab PO BID 04/29/19 01/27/20 History Gabapentin 1 tab PO BID 04/29/19 01/27/20 History Ibuprofen 400 mg PO Q6H PRN 04/29/19 01/27/20 History Melatonin 10 mg PO HS 04/29/19 01/27/20 History Menthol [Biofreeze 4% Gel] 1 applic TOP BID PRN 04/29/19 01/27/20 History traZODone HCl [Trazodone HCl] 0.5 tab PO HS 04/29/19 01/27/20 History Ascorbic Acid [Vitamin C] 2 tab PO DAILY 01/27/20 01/27/20 History Cholecalciferol (Vitamin D3) 10,000 unit PO DAILY 01/27/20 01/27/20 History [Vitamin D3] Ipratropium/Albuterol Sulfate 1 puff NEB Q4HR PRN 01/27/20 01/27/20 History [DuoNeb] Mag Hydrox/Aluminum Hyd/Simeth 10 ml PO Q4HR PRN 01/27/20 01/27/20 History [Mylanta Maximum Strength Liq] Zinc Amino Acid Chelate [Zinc] 50 mg PO DAILY 01/27/20 01/27/20 History guaiFENesin [Guaifenesin] 2 tab PO Q8HR PRN 01/27/20 01/27/20 History Dexamethasone 6 mg PO DAILY #5 tablet 02/02/20 Rx Diltiazem HCl [Cardizem CD] 240 mg PO DAILY #30 cap 02/02/20 Rx Nitrofurantoin Monohyd/M-Cryst 100 mg PO BID #10 cap 02/02/20 Rx [Macrobid] Allergies: acetaminophen [From Tylenol] Allergy (Verified 01/28/20 04:41) codeine Allergy (Verified 01/27/20 21:42) Hives - Discharge Instructions Activity:: Activity as Tolerated Nourishment:: Heart Healthy Diet Therapies:: Occupational Therapy, Physical Therapy Equipment/Supplies:: Oxygen (2-3 lit nasal canula) IV Therapy:: Not Applicable - Follow up Plan Referrals: Scott Sidhu MD [Primary Care Provider] - [facility] Quality - Care Measures CORE MEASURES:: N/A
--- NOTE | 2020-02-02 10:59 | PDOC.HOSPP ---
- Subjective Encounter Date: 02/02/20 Encounter Time: 07:15 Subjective: Patient seen and examined. No new complaints. No overnight events - Objective Vital Signs & Weight: Vital Signs (12 hours) Temp Pulse Resp BP Pulse Ox 02/02/20 10:00 98.8 F 101 H 20 131/83 99 02/02/20 05:10 98.9 F 87 22 H 151/75 H 100 Weight Admit Weight 151 lb 4 oz Weight 151 lb 4 oz I&O: 02/01/20 02/02/20 02/03/20 06:59 06:59 06:59 Intake Total 900 730 Output Total 1700 900 Balance -800 -170 Result Diagrams: 01/28/20 06:11 02/02/20 04:16 Additional Labs: Accuchecks 02/02/20 02/01/20 02/01/20 05:09 20:50 17:19 POC Glucose 225 H 208 H 251 H 02/01/20 11:00 POC Glucose 167 H EKG Reviewed by me: Yes Hospitalist ROS - Review of Systems ENT: denies: ear pain, ear discharge, nose pain, nose discharge, nose congestion, mouth pain, mouth swelling, throat pain, throat swelling, other Respiratory: denies: cough, dry, shortness of breath, hemoptysis, SOB with excertion, pleuritic pain, sputum, wheezing, other Cardiovascular: denies: chest pain, palpitations, orthopnea, paroxysmal noc. dyspnea, edema, light headedness, other Gastrointestinal: denies: nausea, vomiting, abdominal pain, diarrhea, constipation, melena, hematochezia, other Genitourinary: denies: dysuria, frequency, incontinence, hematuria, retention, other Musculoskeletal: denies: neck pain, shoulder pain, arm pain, back pain, hand pain, leg pain, foot pain, other - Medication Medications: Active Medications Generic Name Dose Route Start Last Admin Trade Name Freq PRN Reason Stop Dose Admin Alprazolam 0.5 mg 01/30/20 13:00 01/30/20 15:57 Alprazolam 0.5 Mg Tab PO 0.5 mg QIDPRN PRN Administration Anxiety Apixaban 2.5 mg 01/28/20 09:00 02/02/20 10:09 Apixaban 2.5 Mg Tab PO 2.5 mg BID RADHA Administration Ascorbic Acid 2,000 mg 01/28/20 09:00 02/02/20 10:01 Ascorbic Acid 500 Mg Chewable Tablet PO 2,000 mg DAILY RADHA Administration Aspirin 81 mg 01/28/20 09:00 02/02/20 10:01 Aspirin 81 Mg Enteric Coated Tablet PO 81 mg DAILY RADHA Administration Atorvastatin Calcium 10 mg 01/28/20 09:00 02/02/20 10:01 Atorvastatin Calcium 10 Mg Tab PO 10 mg DAILY RADHA Administration Calcium Carbonate 1,000 mg 02/01/20 08:05 02/01/20 18:47 Calcium Carbonate 500 Mg Chewtab PO 1,000 mg Q4H PRN Administration Heartburn or Indigestion Cefpodoxime Proxetil 200 mg 01/31/20 21:00 02/02/20 10:42 Cefpodoxime Proxetil 200 Mg Tab PO 200 mg Q12HR RADHA Administration Cholecalciferol 5,000 units 01/28/20 09:00 02/02/20 10:02 Cholecalciferol 1,000 Units (25 Mcg) Tab PO 5,000 units DAILY RADHA Administration Dexamethasone 6 mg 02/02/20 09:00 02/02/20 10:10 Dexamethasone 4 Mg/Ml Vial SLOW IVP 6 mg DAILY RADHA Administration Diltiazem HCl 240 mg 02/01/20 09:00 02/02/20 10:02 Diltiazem Hcl Cd 240 Mg Capsule PO 240 mg DAILY RADHA Administration Duloxetine HCl 60 mg 01/28/20 21:00 02/01/20 23:26 Duloxetine 60 Mg Cap PO 60 mg HS RADHA Administration Ferrous Sulfate 325 mg 01/28/20 09:00 02/02/20 10:02 Ferrous Sulfate 325 Mg Tab PO 325 mg DAILY RADHA Administration Flecainide Acetate 50 mg 01/28/20 09:00 02/02/20 10:02 Flecainide 50 Mg Tab PO 50 mg BID RADHA Administration Gabapentin 400 mg 01/28/20 09:00 02/02/20 10:00 Gabapentin 400 Mg Cap PO 400 mg BID RADHA Administration Ibuprofen 400 mg 01/31/20 12:10 02/01/20 02:46 Ibuprofen 200 Mg Tab PO 400 mg Q8H PRN Administration Pain Insulin Human Lispro 0 units 01/27/20 19:37 02/02/20 06:36 Humalog 300 Units/3 Ml Vial SC 3 unit .MILD SLIDING SCALE PRN Administration Mild Correctional Scale Levothyroxine Sodium 125 mcg 01/28/20 09:00 02/02/20 10:03 Levothyroxine Sodium 125 Mcg Tab PO 125 mcg DAILY RADHA Administration Lidocaine 1 patch 01/28/20 06:00 02/02/20 06:35 Lidocaine 5% Patch TD 1 patch 0600 RADHA Administration Melatonin 9 mg 01/28/20 21:00 02/01/20 23:26 Melatonin 3 Mg Tab PO 9 mg HS RADHA Administration Metformin HCl 500 mg 01/28/20 08:00 02/02/20 10:01 Metformin 500 Mg Tab PO 500 mg BID-WM RADHA Administration Metoclopramide HCl 5 mg 02/01/20 08:05 02/01/20 18:46 Metoclopramide Hcl 10 Mg/2 Ml Vial IVP 5 mg Q4H PRN Administration Nausea Miscellaneous Medication 1 each 01/28/20 18:00 02/01/20 19:11 Lidocaine Patch Removal 1 Each TOP Not Given 1800 RADHA Montelukast Sodium 10 mg 01/28/20 09:00 02/02/20 10:03 Montelukast Sodium 10 Mg Tablet PO 10 mg DAILY RADHA Administration Multivitamins 1 tab 01/28/20 09:00 02/02/20 10:03 Multivit, Therapeutic 1 Tab PO 1 tab DAILY RADHA Administration Pantoprazole Sodium 40 mg 01/31/20 09:00 02/02/20 10:03 Pantoprazole 40 Mg Tab PO 40 mg DAILY RADHA Administration Polyethylene Glycol 17 gm 01/28/20 09:00 02/02/20 10:03 Polyethylene Glycol 3350 17 Gm Packet PO Not Given DAILY RADHA Sodium Chloride 10 ml 01/28/20 09:00 02/02/20 10:03 Flush - Normal Saline 10 Ml Syringe IVF 10 ml Q12HR RADHA Administration Trazodone HCl 25 mg 01/28/20 21:00 02/01/20 23:25 Trazodone Hcl 50 Mg Tab PO 25 mg HS RADHA Administration - Exam General Appearance: NAD, awake alert Eye: PERRL, anicteric sclera ENT: normocephalic atraumatic, no oropharyngeal lesions Neck: supple, symmetric, no JVD, no thyromegaly Heart: RRR, no murmur, no gallops, no rubs Respiratory: no wheezes, no rales, no ronchi Gastrointestinal: soft, non-tender, non-distended, normal bowel sounds Extremities: no cyanosis, no clubbing Skin: normal turgor, no lesions Neurological: no focal deficits Musculoskeletal: normal tone, normal strength Psychiatric: normal affect, normal behavior Hosp A/P (1) Acute respiratory failure with hypoxia Code(s): J96.01 - ACUTE RESPIRATORY FAILURE WITH HYPOXIA Status: Acute (2) Pneumonia due to COVID-19 virus Code(s): U07.1 - COVID-19; J12.89 - OTHER VIRAL PNEUMONIA Status: Acute (3) Afib Code(s): I48.91 - UNSPECIFIED ATRIAL FIBRILLATION Status: Chronic Qualifiers: Atrial fibrillation type: paroxysmal Qualified Code(s): I48.0 - Paroxysmal atrial fibrillation (4) SUSAN (acute kidney injury) Code(s): N17.9 - ACUTE KIDNEY FAILURE, UNSPECIFIED Status: Resolved (5) UTI (urinary tract infection) Status: Acute Qualifiers: Urinary tract infection type: acute cystitis Hematuria presence: without hematuria Qualified Code(s): N30.00 - Acute cystitis without hematuria (6) Anemia, normocytic normochromic Code(s): D64.9 - ANEMIA, UNSPECIFIED Status: Chronic (7) Anxiety and depression Code(s): F41.9 - ANXIETY DISORDER, UNSPECIFIED; F32.9 - MAJOR DEPRESSIVE DISORDER, SINGLE EPISODE, UNSPECIFIED Status: Chronic (8) CAD (coronary artery disease) Code(s): I25.10 - ATHSCL HEART DISEASE OF [place] CORONARY ARTERY W/O ANG PCTRS Status: Chronic Qualifiers: Coronary Disease-Associated Artery/Lesion type: [place] artery [place] vs. transplanted heart: [place] heart Associated angina: without angina Qualified Code(s): I25.10 - Atherosclerotic heart disease of [place] coronary artery without angina pectoris (9) Chronic low back pain Code(s): M54.5 - LOW BACK PAIN; G89.29 - OTHER CHRONIC PAIN Status: Chronic (10) Chronic stage c diastolic heart failure Code(s): I50.32 - CHRONIC DIASTOLIC (CONGESTIVE) HEART FAILURE Status: Chronic (11) DJD (degenerative joint disease), cervical Code(s): M47.812 - SPONDYLOSIS W/O MYELOPATHY OR RADICULOPATHY, CERVICAL REGION Status: Chronic (12) Diabetes type 2, controlled Code(s): E11.9 - TYPE 2 DIABETES MELLITUS WITHOUT COMPLICATIONS Status: Chronic Qualifiers: Diabetes mellitus correction insulin use: without correction use (13) Dyslipidemia Code(s): E78.5 - HYPERLIPIDEMIA, UNSPECIFIED Status: Chronic (14) GERD (gastroesophageal reflux disease) Code(s): K21.9 - GASTRO-ESOPHAGEAL REFLUX DISEASE WITHOUT ESOPHAGITIS Status: Chronic Qualifiers: Esophagitis presence: esophagitis presence not specified Qualified Code(s): K21.9 - Gastro-esophageal reflux disease without esophagitis (15) Hypertension Code(s): I10 - ESSENTIAL (PRIMARY) HYPERTENSION Status: Chronic Qualifiers: Hypertension type: essential hypertension Qualified Code(s): I10 - Essential (primary) hypertension (16) Hypothyroidism Code(s): E03.9 - HYPOTHYROIDISM, UNSPECIFIED Status: Chronic Qualifiers: Hypothyroidism type: unspecified Qualified Code(s): E03.9 - Hypothyroidism, unspecified - Plan old records reviewed/req, continue antibiotics, family welfare social work professor Plan for discharge today back to custodial Social work to arrange transportation Continue current medication We will change to Macrobid for UTI on discharge Patient has finished remdesivir therapy Overall medically stable for discharge Paperwork for discharge done See my discharge summary for more detail
[2020-02-02] MEDS: Lidocaine Patch Removal 1 EACH TOP SCH (16:30)
[2020-02-02 16:50] VITALS: BP 124/61; TEMP 99.5
--- NOTE | 2020-02-03 15:17 | PQF ---
CLINICAL DOCUMENTATION CLARIFICATION FORM: Dear Dr. Evaristo Painting Date: 02.03.20 Please exercise your independent, professional judgment in responding to the clarification form. Clinical indicators are provided on the bottom of this form for your review. Please check appropriate box(es): [ ] Viral Sepsis due to COVID-19/PNA [ x] Severe Viral Sepsis due to COVID-19/PNA with acute hypoxia Respiratory Failure [ ] COVID-19/PNA with Acute Hypoxia Respiratory Failure No Sepsis [ ] Other diagnosis [ ] Unable to determine For continuity of documentation, please document condition throughout progress notes and discharge summary. Thank You. To be completed by CDI/Coding staff for physician review: CLINICAL INDICATORS - SIGNS / SYMPTOMS / LABS / RESULTS AND LOCATION IN MR 11.16 ED: COVID Pneumonia w/ hypoxia *Sepsis Activation suspected sepsis *P 118-123 *RR 24-28 *O2 Sat 96-97% on 4LNC *T 98.7 Oral Labs: WBC 11.16 12.8 01.26 H&P ([facility]): From Shelter *O2 Sat in 80s placed on 2LNC currently in 90s 11. PN (Nancy): Ceftriaxone for UTI (likely contaminant and is growing mixed organisms but family is worried her confusion is r/t UTI?) . PN Mert : continue Rocephin for UTI RISK FACTORS / RESULTS AND LOCATION IN MR 11.16 ED: Wheelchair bound 01/26 H&P ([facility]): Pneumonia secondary to COVID-19 virus infection *From Shelter *HX A-Fib; DM type 2 w/ hyperglycemia; HTN; CAD; Neuropathy; Spinal Stenosis TREATMENTS / RESULTS AND LOCATION IN MR 11.16 H&P ([facility]): *Oxygen to keep saturation more than 92% *IV dexamethasone *Empiric antibiotics for now CDS Signature: Katia Vasquez RN, CCDS Phone #: [phone] [email or web address] This is a permanent part of the Medical Record [facility]
--- NOTE | 2020-02-04 07:16 | EKG ---
Test Reason : Blood Pressure : / mmHG Vent. Rate : 138 BPM Atrial Rate : 138 BPM P-R Int : 138 ms QRS Dur : 108 ms QT Int : 272 ms P-R-T Axes : 000 045 263 degrees QTc Int : 412 ms Sinus tachycardia Nonspecific ST and T wave abnormality Abnormal ECG When compared with ECG of 27-JAN-2020 16:28, (Unconfirmed) No significant change was found Confirmed by YO RHODES MD ([id number]) on 02/04/2020 7:15:42 AM Referred By: ADELE Confirmed By:YO RHODES MD
== END 2020-02-02 18:55 | DRG 871 ==
LOC: ERS 16:19 → T4-A 19:27 → 2SW 01-30 19:38
PROVIDERS: ADMIT Internal Medicine; ATTEND Internal Medicine
PROC: 8E0ZXY6 Isolation (ICD-10-PCS; 2020-01-27)
PROC: XW033E5 Introduction of Remdesivir Anti-infective into Peripheral Vein, Percutaneous Approach, New Technology Group 5 (ICD-10-PCS; principal; 2020-01-28)
DX: A41.89 Other specified sepsis (principal); U07.1 COVID-19; J12.89 Other viral pneumonia; J96.01 Acute respiratory failure with hypoxia; I50.32 Chronic diastolic (congestive) heart failure; N17.9 Acute kidney failure, unspecified; N30.00 Acute cystitis without hematuria; Z66 Do not resuscitate; R65.20 Severe sepsis without septic shock; I25.10 Atherosclerotic heart disease of native coronary artery without angina pectoris; G89.29 Other chronic pain; E11.40 Type 2 diabetes mellitus with diabetic neuropathy, unspecified; I48.0 Paroxysmal atrial fibrillation; D64.9 Anemia, unspecified; F41.9 Anxiety disorder, unspecified; F32.9 Major depressive disorder, single episode, unspecified; M47.812 Spondylosis without myelopathy or radiculopathy, cervical region; E78.5 Hyperlipidemia, unspecified; K21.9 Gastro-esophageal reflux disease without esophagitis; I11.0 Hypertensive heart disease with heart failure; E03.9 Hypothyroidism, unspecified; E11.65 Type 2 diabetes mellitus with hyperglycemia; M48.061 Spinal stenosis, lumbar region without neurogenic claudication; Z86.718 Personal history of other venous thrombosis and embolism; Z79.01 Long term (current) use of anticoagulants; Z88.6 Allergy status to analgesic agent; Z90.49 Acquired absence of other specified parts of digestive tract; Z90.710 Acquired absence of both cervix and uterus; Z74.01 Bed confinement status; Z87.891 Personal history of nicotine dependence; Z79.890 Hormone replacement therapy; Z79.84 Long term (current) use of oral hypoglycemic drugs; Z79.82 Long term (current) use of aspirin; Z79.52 Long term (current) use of systemic steroids
CPT/HCPCS: 36415; 36416; 51701; 71045; 74177; 80048; 80053; 80076; 82550; 82728; 83605; 83690; 83880; 84484; 85025; 85379; 86140; 87040; 87077; 87086; 87186; 93005; 93010; 96365; 96374; J0696; J1100; J2765; J3480; J3490; J7050; Q9967; S0028

== ENCOUNTER 2020-04-01 13:15 | Inpatient (IN) | payer MEDICARE, MEDICAID ==
[~2020-04-01 13:15] MED LIST changes: +Heparin 1,000 UNITS/ML VIAL ONE; -Iopamidol 370 76% 50 ML VIAL FS ONE
[2020-04-01] MEDS ORDERED: traMADol HCl 50 MG TAB ONE (14:15)
[2020-04-01 14:42] LABS: Hemoglobin 7.7 g/dL (12.0-16.0); Mean Corpuscular Hemoglobin 30.5 pg (27.0-31.0); Mean Corpuscular Volume 98.3 fL (78.0-98.0); Mean Platelet Volume 6.6 fL (7.4-10.4); Platelet Count 590 thou/uL (130-400); RBC Distribution Width 17.2 % (11.5-14.5); Red Blood Cell (RBC) Count 2.54 mill/uL (4.20-5.40); White Blood Cell (WBC) Count 19.4 thou/uL (4.8-10.8)
[2020-04-01 14:50] LABS: ALT (SGPT) 7 U/L (8-55); AST (SGOT) 18 U/L (5-34); Albumin 2.4 g/dL (3.4-4.8); Alkaline Phosphatase 150 U/L (40-110); Anion Gap 13 mmol/L (10-20); BUN (Urea Nitrogen) 30 mg/dL (9.8-20.1); Bilirubin, Total 0.5 mg/dL (0.2-1.2); Calc. Creatinine Clearance 0 mL/min (70-130); Calcium 7.5 mg/dL (7.8-10.44); Carbon Dioxide 24 mmol/L (23-31); Chloride 108 mmol/L (98-107); Globulin 2.7 g/dL (2.4-3.5); Glucose 107 mg/dL (83-110); Potassium 4.4 mmol/L (3.5-5.1); Protein, Total 5.1 g/dL (6.0-8.3); Sodium 141 mmol/L (136-145)
[2020-04-01 15:01] LABS: Band 12 % (5-11); Hypochromia SLIGHT = 6-15 cells (100X) (0-5/hpf); Lymphocytes 3 % (21-51); MDiff Complete? YES; Monocytes 4 % (0-10); Neutrophil 80 % (42-75); Platelet Morphology Comment Appears Increased; Polychromasia SLIGHT = 2-3 cells (100X) (0-2/hpf); Reactive Lymphocytes 1 % (0-10)
[2020-04-01 15:10] LABS: Bilirubin Negative (Negative); Blood, Urine Negative (Negative); Clarity Turbid (Clear); Glucose, Urine (Dipstick) Normal (Negative); Ketone, Urine Negative (Negative); Leukocyte 500 Leu/uL (Negative); Nitrite Negative (Negative); Protein, Urine (Dipstick) 30 mg/dL (Neg-Trace); RBC/HPF 0-3 HPF (0-3); Specific Gravity, Urine 1.015 (1.002-1.036); Squamous Epithelial 0-3 HPF (0-3); Urobilinogen Normal mg/dL (Less than 2)
[2020-04-01 15:11] LABS: Bacteria/HPF 1+ HPF (None Seen)
[2020-04-01 15:24] LABS: Yeast-Budding Rare HPF (None Seen)
[2020-04-01] MEDS ORDERED: cefTRIAXone\\ROCEPHIN 2 GM VIAL ONE (16:28)
[2020-04-01] MEDS ORDERED: Ondansetron ODT 4 MG TAB PO PRN (16:37)
[2020-04-01] MEDS ORDERED: cloNIDine 0.1 MG TAB PO PRN (16:50)
[2020-04-01] MEDS ORDERED: Calcium Carbonate 500 MG ChewTAB PO PRN (16:50)
[2020-04-01] MEDS ORDERED: Furosemide 20 MG/2 ML VIAL SLOW IVP SCH (17:00)
[2020-04-01] MEDS ORDERED: Alendronate Sodium 70 mg Tablet PO SCH (17:00)
[2020-04-01] MEDS ORDERED: Dextrose 5% in Water 1,000 ML IV PRN (17:27)
[2020-04-01] MEDS ORDERED: HumaLOG 300 UNITS/3 ML VIAL SC PRN ×2 (17:27)
[2020-04-01] MEDS ORDERED: Dextrose 50% Abboject 50 ML SYRINGE SLOW IVP PRN (17:27)
[2020-04-01] MEDS ORDERED: Azithromycin 500 MG VIAL ONE (18:22)
[2020-04-01 19:15] LABS: Iron 25 ug/dL (50-170); Iron Binding Capacity, Total 105 mcg/dL (265-497)
[2020-04-01] MEDS: DULoxetine 60 MG CAP PO SCH (21:00)
[2020-04-01] MEDS: Gabapentin 400 MG CAP PO SCH (21:00)
[2020-04-01] MEDS: Melatonin 3 MG TAB PO SCH (21:00)
[2020-04-01] MEDS: Flecainide 50 MG TAB PO SCH (21:01)
[2020-04-01] MEDS: Apixaban 2.5 MG TAB PO SCH (21:01)
[2020-04-01] MEDS: metFORMIN 500 MG TAB PO SCH (21:02)
[2020-04-02] MEDS ORDERED: Furosemide 20 MG/2 ML VIAL SLOW IVP SCH (00:30)
[2020-04-02 04:47] LABS: Anion Gap 13 mmol/L (10-20); BUN (Urea Nitrogen) 27 mg/dL (9.8-20.1); Calc. Creatinine Clearance 59 mL/min (70-130); Calcium 7.5 mg/dL (7.8-10.44); Carbon Dioxide 24 mmol/L (23-31); Chloride 108 mmol/L (98-107); Glucose 71 mg/dL (83-110); Potassium 4.5 mmol/L (3.5-5.1); Sodium 140 mmol/L (136-145)
[2020-04-02] MEDS: Levothyroxine Sodium 125 MCG TAB PO SCH (05:18)
[2020-04-02 05:42] LABS: #Eosinphils 0.1 thou/uL (0.0-0.7); #Lymphocytes 1.2 thou/uL (1.20-3.40); #Neutrophils 13.7 thou/uL (1.40-6.50); %Basophils 0.2 % (0.0-1.0); %Eosinophils 0.5 % (0.0-10.0); %Lymphocytes 7.5 % (21.0-51.0); %Monocytes 6.5 % (0.0-10.0); %Neutrophils 85.4 % (42.0-75.0); Anisocytosis SLIGHT = 6-15 cells (100X) (0-5/hpf); Hemoglobin 9.9 g/dL (12.0-16.0); MDiff Complete? YES; Mean Corpuscular HGB CONC 34.2 g/dL (32.0-36.0); Mean Corpuscular Hemoglobin 33.6 pg (27.0-31.0); Mean Corpuscular Volume 98.2 fL (78.0-98.0); Mean Platelet Volume 6.1 fL (7.4-10.4); Ovalocytes SLIGHT = 2-5 cells (100X) (0-1/hpf); Platelet Count 508 thou/uL (130-400); Platelet Morphology Comment Appears Increased; RBC Distribution Width 21.2 % (11.5-14.5); Red Blood Cell (RBC) Count 2.95 mill/uL (4.20-5.40); White Blood Cell (WBC) Count 16.1 thou/uL (4.8-10.8)
[2020-04-02] MEDS: Ascorbic Acid 500 mg Chewable Tablet PO SCH (08:40)
[2020-04-02] MEDS: metFORMIN 500 MG TAB PO SCH ×2 (08:40→16:24)
[2020-04-02] MEDS: Apixaban 2.5 MG TAB PO SCH ×2 (08:40→20:46)
[2020-04-02] MEDS: Ferrous Sulfate 325 MG TAB PO SCH (08:40)
[2020-04-02] MEDS: Amlodipine 10 MG TAB PO SCH (08:40)
[2020-04-02] MEDS: Flecainide 50 MG TAB PO SCH ×2 (08:41→20:46)
[2020-04-02] MEDS: Aspirin 81 mg Enteric Coated Tablet PO SCH (08:41)
[2020-04-02] MEDS: Montelukast Sodium 10 mg Tablet PO SCH (08:41)
[2020-04-02] MEDS: Folic Acid 1 MG TAB PO SCH (08:41)
[2020-04-02] MEDS: Gabapentin 400 MG CAP PO SCH ×2 (08:41→20:46)
[2020-04-02] MEDS ORDERED: Morphine 2 MG/ML VIAL SLOW IVP PRN (15:34)
[2020-04-02] MEDS ORDERED: diphenhydrAMINE 25 MG in Sodium Chloride 0.9% 50 ML IVPB SCH (15:45)
[2020-04-02] MEDS: cefTRIAXone\\ROCEPHIN 1 GM in Sodium Chloride 0.9% 100 ML IVPB SCH (16:24)
[2020-04-02] MEDS: Melatonin 3 MG TAB PO SCH (20:45)
[2020-04-02] MEDS: DULoxetine 60 MG CAP PO SCH (20:46)
[2020-04-02] MEDS ORDERED: FLU VACC QS2020-21(65YR UP)/PF 240 MCG/0.7 ML SYRINGE IM ONE (21:00)
[2020-04-02 23:47] LABS: SARS-CoV-2 PCR by NAA Indeterminate (NotDetected)
[2020-04-03] MEDS: Levothyroxine Sodium 125 MCG TAB PO SCH (05:32)
[2020-04-03 06:28] LABS: #Eosinphils 0.2 thou/uL (0.0-0.7); #Lymphocytes 1.7 thou/uL (1.20-3.40); #Neutrophils 11.5 thou/uL (1.40-6.50); %Basophils 0.1 % (0.0-1.0); %Eosinophils 1.3 % (0.0-10.0); %Lymphocytes 11.6 % (21.0-51.0); %Monocytes 7.2 % (0.0-10.0); %Neutrophils 79.8 % (42.0-75.0); Mean Corpuscular Hemoglobin 36.2 pg (27.0-31.0); Mean Corpuscular Volume 97.9 fL (78.0-98.0); Mean Platelet Volume 6.2 fL (7.4-10.4); Platelet Count 545 thou/uL (130-400); RBC Distribution Width 20.5 % (11.5-14.5); Red Blood Cell (RBC) Count 2.77 mill/uL (4.20-5.40); White Blood Cell (WBC) Count 14.5 thou/uL (4.8-10.8)
[2020-04-03 06:48] LABS: Anion Gap 10 mmol/L (10-20); BUN (Urea Nitrogen) 29 mg/dL (9.8-20.1); Calc. Creatinine Clearance 64 mL/min (70-130); Calcium 7.7 mg/dL (7.8-10.44); Carbon Dioxide 28 mmol/L (23-31); Chloride 105 mmol/L (98-107); Glucose 68 mg/dL (83-110); Potassium 3.9 mmol/L (3.5-5.1); Sodium 139 mmol/L (136-145)
[2020-04-03] MEDS ORDERED: Furosemide 20 MG/2 ML VIAL SLOW IVP SCH (07:30)
[2020-04-03 08:34] LABS: Magnesium 1.2 mg/dL (1.6-2.6)
[2020-04-03 08:41] LABS: Phosphorus 1.6 mg/dL (2.3-4.7)
[2020-04-03] MEDS: Ferrous Sulfate 325 MG TAB PO SCH (09:05)
[2020-04-03] MEDS: Aspirin 81 mg Enteric Coated Tablet PO SCH (09:06)
[2020-04-03] MEDS: metFORMIN 500 MG TAB PO SCH ×2 (09:06→18:08)
[2020-04-03] MEDS: Ascorbic Acid 500 mg Chewable Tablet PO SCH (09:06)
[2020-04-03] MEDS: Amlodipine 10 MG TAB PO SCH (09:06)
[2020-04-03] MEDS: Flecainide 50 MG TAB PO SCH ×2 (09:07→20:27)
[2020-04-03] MEDS: Folic Acid 1 MG TAB PO SCH (09:07)
[2020-04-03] MEDS: Montelukast Sodium 10 mg Tablet PO SCH (09:07)
[2020-04-03] MEDS: Gabapentin 400 MG CAP PO SCH ×2 (09:07→20:25)
[2020-04-03] MEDS: Apixaban 2.5 MG TAB PO SCH ×2 (09:10→20:24)
[2020-04-03] MEDS ORDERED: Magnesium Sulfate 2 GM in Sodium Chloride 0.9% 100 ML IVPB SCH ×2 (09:45→11:00)
[2020-04-03] MEDS ORDERED: Potassium Phosphate 15 MMOL, Magnesium Sulfate 2 GM in Sodium Chloride 0.9% 250 ML 250 ML IVPB SCH (09:45)
[2020-04-03] MEDS ORDERED: Sodium Phosphate 15 MMOL in Sodium Chloride 0.9% 250 ML 250 ML IVPB SCH (10:00)
[2020-04-03 10:12] LABS: SARS-CoV-2 PCR by NAA Not Detected (NotDetected)
[2020-04-03] MEDS ORDERED: Methyl Salicylate/Menthol 85 GM TUBE TOP PRN (11:13)
[2020-04-03] MEDS ORDERED: Mag-Al Plus 1200 MG/1200 MG/120 MG/30 ML UDCUP PO PRN (11:16)
[2020-04-03] MEDS: Acetaminophen 500 MG TAB PO PRN ×2 (12:18→20:26)
[2020-04-03 16:48] LABS: Magnesium 1.2 mg/dL (1.6-2.6); Phosphorus 2.8 mg/dL (2.3-4.7)
[2020-04-03] MEDS: cefTRIAXone\\ROCEPHIN 1 GM in Sodium Chloride 0.9% 100 ML IVPB SCH (18:08)
[2020-04-03] MEDS ORDERED: Magnesium 2 GM/50 ML 2 GM in Premix Bag 1 BAG IVPB SCH (18:15)
[2020-04-03] MEDS: traZODone HCl 50 MG TAB PO SCH (20:24)
[2020-04-03] MEDS: DULoxetine 60 MG CAP PO SCH (20:24)
[2020-04-03] MEDS ORDERED: Senokot 8.6 MG TAB PO SCH ×2 (21:00→21:45)
[2020-04-03] MEDS: Melatonin 3 MG TAB PO SCH (21:23)
[2020-04-04] MEDS: Acetaminophen 500 MG TAB PO PRN (04:36)
[2020-04-04] MEDS: Levothyroxine Sodium 125 MCG TAB PO SCH (05:41)
[2020-04-04 07:55] LABS: Anion Gap 13 mmol/L (10-20); BUN (Urea Nitrogen) 28 mg/dL (9.8-20.1); Calc. Creatinine Clearance 66 mL/min (70-130); Calcium 7.9 mg/dL (7.8-10.44); Carbon Dioxide 26 mmol/L (23-31); Chloride 107 mmol/L (98-107); Glucose 138 mg/dL (83-110); Magnesium 1.7 mg/dL (1.6-2.6); Phosphorus 1.9 mg/dL (2.3-4.7); Potassium 3.5 mmol/L (3.5-5.1); Sodium 142 mmol/L (136-145)
[2020-04-04 08:07] LABS: #Eosinphils 0.3 thou/uL (0.0-0.7); #Lymphocytes 1.7 thou/uL (1.20-3.40); #Monocytes 0.9 thou/uL (0.11-0.59); #Neutrophils 12.2 thou/uL (1.40-6.50); %Basophils 0.1 % (0.0-1.0); %Eosinophils 1.8 % (0.0-10.0); %Lymphocytes 11.1 % (21.0-51.0); %Monocytes 5.9 % (0.0-10.0); %Neutrophils 81.1 % (42.0-75.0); Hemoglobin 11.2 g/dL (12.0-16.0); Mean Corpuscular HGB CONC 32.8 g/dL (32.0-36.0); Mean Corpuscular Hemoglobin 31.1 pg (27.0-31.0); Mean Corpuscular Volume 94.9 fL (78.0-98.0); Mean Platelet Volume 6.3 fL (7.4-10.4); Platelet Count 524 thou/uL (130-400); RBC Distribution Width 17.3 % (11.5-14.5); Red Blood Cell (RBC) Count 3.59 mill/uL (4.20-5.40)
[2020-04-04] MEDS ORDERED: Potassium Phosphate 9 MMOL in Sodium Chloride 0.9% 100 ML IVPB SCH (08:15)
[2020-04-04] MEDS ORDERED: Magnesium 2 GM/50 ML 2 GM in Premix Bag 1 BAG IVPB SCH (08:20)
[2020-04-04] MEDS: Ascorbic Acid 500 mg Chewable Tablet PO SCH (09:37)
[2020-04-04] MEDS: Cholecalciferol 1,000 UNITS (25 MCG) TAB PO SCH (09:37)
[2020-04-04] MEDS: Aspirin 81 mg Enteric Coated Tablet PO SCH (09:37)
[2020-04-04] MEDS: Gabapentin 400 MG CAP PO SCH ×2 (09:38→21:35)
[2020-04-04] MEDS: Senokot 8.6 MG TAB PO SCH ×2 (09:38→21:40)
[2020-04-04] MEDS: Folic Acid 1 MG TAB PO SCH (09:38)
[2020-04-04] MEDS: Montelukast Sodium 10 mg Tablet PO SCH (09:38)
[2020-04-04] MEDS: Multivitamin W/ Minerals 1 TAB PO SCH (09:38)
[2020-04-04] MEDS: Flecainide 50 MG TAB PO SCH ×2 (09:38→21:34)
[2020-04-04] MEDS: Ferrous Sulfate 325 MG TAB PO SCH (09:39)
[2020-04-04] MEDS: metFORMIN 500 MG TAB PO SCH ×2 (09:39→18:00)
[2020-04-04] MEDS: Amlodipine 10 MG TAB PO SCH (09:39)
[2020-04-04] MEDS: Vancomycin HCl 1.25 GM in Sodium Chloride 0.9% 250 ML 250 ML IVPB SCH (14:57)
[2020-04-04] MEDS: metroNIDAZOLE 500 MG TAB PO SCH ×2 (18:00→21:35)
[2020-04-04] MEDS: cefTRIAXone\\ROCEPHIN 1 GM in Sodium Chloride 0.9% 100 ML IVPB SCH (18:09)
[2020-04-04] MEDS: Apixaban 2.5 MG TAB PO SCH ×2 (18:10→21:34)
[2020-04-04] MEDS ORDERED: Vancomycin HCl 1 GM in Sodium Chloride 0.9% 250 ML 250 ML IVPB SCH (21:00)
[2020-04-04] MEDS: Melatonin 3 MG TAB PO SCH (21:34)
[2020-04-04] MEDS: DULoxetine 60 MG CAP PO SCH (21:35)
[2020-04-04] MEDS: Atorvastatin Calcium 10 MG TAB PO SCH (21:37)
[2020-04-04] MEDS: traZODone HCl 50 MG TAB PO SCH (21:37)
[2020-04-05] MEDS: Levothyroxine Sodium 125 MCG TAB PO SCH (05:09)
[2020-04-05] MEDS: Acetaminophen 500 MG TAB PO PRN (06:09)
[2020-04-05 06:55] LABS: #Basophils 0.1 thou/uL (0.0-0.2); #Eosinphils 0.3 thou/uL (0.0-0.7); #Lymphocytes 1.9 thou/uL (1.20-3.40); #Monocytes 0.7 thou/uL (0.11-0.59); #Neutrophils 13.7 thou/uL (1.40-6.50); %Basophils 0.4 % (0.0-1.0); %Eosinophils 1.8 % (0.0-10.0); %Lymphocytes 11.1 % (21.0-51.0); %Monocytes 4.2 % (0.0-10.0); %Neutrophils 82.5 % (42.0-75.0); Hemoglobin 10.5 g/dL (12.0-16.0); Mean Corpuscular HGB CONC 34.2 g/dL (32.0-36.0); Mean Corpuscular Hemoglobin 32.9 pg (27.0-31.0); Mean Corpuscular Volume 96.1 fL (78.0-98.0); Mean Platelet Volume 6.1 fL (7.4-10.4); Platelet Count 548 thou/uL (130-400); RBC Distribution Width 18.9 % (11.5-14.5); White Blood Cell (WBC) Count 16.6 thou/uL (4.8-10.8)
[2020-04-05 07:15] LABS: Anion Gap 12 mmol/L (10-20); BUN (Urea Nitrogen) 23 mg/dL (9.8-20.1); Calc. Creatinine Clearance 73 mL/min (70-130); Calcium 7.9 mg/dL (7.8-10.44); Carbon Dioxide 25 mmol/L (23-31); Chloride 107 mmol/L (98-107); Glucose 88 mg/dL (83-110); Potassium 3.7 mmol/L (3.5-5.1); Sodium 140 mmol/L (136-145)
[2020-04-05] MEDS: Ferrous Sulfate 325 MG TAB PO SCH (08:41)
[2020-04-05] MEDS: Apixaban 2.5 MG TAB PO SCH ×2 (08:41→21:29)
[2020-04-05] MEDS: Multivitamin W/ Minerals 1 TAB PO SCH ×2 (08:41→15:53)
[2020-04-05] MEDS: Folic Acid 1 MG TAB PO SCH (08:42)
[2020-04-05] MEDS: Cholecalciferol 1,000 UNITS (25 MCG) TAB PO SCH (08:42)
[2020-04-05] MEDS: Senokot 8.6 MG TAB PO SCH ×2 (08:42→21:31)
[2020-04-05] MEDS: Montelukast Sodium 10 mg Tablet PO SCH (08:42)
[2020-04-05] MEDS: metroNIDAZOLE 500 MG TAB PO SCH ×3 (08:43→21:30)
[2020-04-05] MEDS: metFORMIN 500 MG TAB PO SCH ×2 (08:43→17:16)
[2020-04-05] MEDS: Aspirin 81 mg Enteric Coated Tablet PO SCH (08:43)
[2020-04-05] MEDS: Ascorbic Acid 500 mg Chewable Tablet PO SCH ×2 (08:43→15:53)
[2020-04-05] MEDS: Amlodipine 10 MG TAB PO SCH (08:43)
[2020-04-05] MEDS: Flecainide 50 MG TAB PO SCH ×2 (08:43→21:31)
[2020-04-05] MEDS: Gabapentin 400 MG CAP PO SCH ×2 (08:44→21:30)
[2020-04-05 13:01] LABS: Phosphorus 1.8 mg/dL (2.3-4.7)
[2020-04-05] MEDS ORDERED: Potassium Phosphate 12 MMOL in Sodium Chloride 0.9% 100 ML IVPB SCH (13:15)
[2020-04-05] MEDS: Vancomycin HCl 1.25 GM in Sodium Chloride 0.9% 250 ML 250 ML IVPB SCH ×2 (14:42→18:21)
[2020-04-05] MEDS: DULoxetine 60 MG CAP PO SCH (21:29)
[2020-04-05] MEDS: Melatonin 3 MG TAB PO SCH (21:29)
[2020-04-05] MEDS: traZODone HCl 50 MG TAB PO SCH (21:29)
[2020-04-05] MEDS: Atorvastatin Calcium 10 MG TAB PO SCH (21:31)
[2020-04-06] MEDS: Levothyroxine Sodium 125 MCG TAB PO SCH (05:29)
[2020-04-06 06:59] LABS: #Basophils 0.1 thou/uL (0.0-0.2); #Eosinphils 0.3 thou/uL (0.0-0.7); #Lymphocytes 1.8 thou/uL (1.20-3.40); #Monocytes 0.8 thou/uL (0.11-0.59); #Neutrophils 12.4 thou/uL (1.40-6.50); %Basophils 0.4 % (0.0-1.0); %Eosinophils 2.1 % (0.0-10.0); %Lymphocytes 11.7 % (21.0-51.0); %Monocytes 5.2 % (0.0-10.0); %Neutrophils 80.6 % (42.0-75.0); Hemoglobin 10.6 g/dL (12.0-16.0); Mean Corpuscular HGB CONC 33.3 g/dL (32.0-36.0); Mean Corpuscular Hemoglobin 31.8 pg (27.0-31.0); Mean Corpuscular Volume 95.6 fL (78.0-98.0); Mean Platelet Volume 6.3 fL (7.4-10.4); Platelet Count 504 thou/uL (130-400); Red Blood Cell (RBC) Count 3.32 mill/uL (4.20-5.40); White Blood Cell (WBC) Count 15.4 thou/uL (4.8-10.8)
[2020-04-06 07:24] LABS: Anion Gap 13 mmol/L (10-20); BUN (Urea Nitrogen) 24 mg/dL (9.8-20.1); Calc. Creatinine Clearance 65 mL/min (70-130); Calcium 7.6 mg/dL (7.8-10.44); Carbon Dioxide 25 mmol/L (23-31); Chloride 105 mmol/L (98-107); Glucose 136 mg/dL (83-110); Potassium 3.5 mmol/L (3.5-5.1); Sodium 139 mmol/L (136-145)
[2020-04-06] MEDS: Ferrous Sulfate 325 MG TAB PO SCH (07:52)
[2020-04-06] MEDS: Amlodipine 10 MG TAB PO SCH (07:52)
[2020-04-06] MEDS: metFORMIN 500 MG TAB PO SCH ×2 (07:52→16:26)
[2020-04-06] MEDS: Ascorbic Acid 500 mg Chewable Tablet PO SCH (07:53)
[2020-04-06] MEDS: Aspirin 81 mg Enteric Coated Tablet PO SCH (07:53)
[2020-04-06] MEDS: Apixaban 2.5 MG TAB PO SCH ×2 (07:53→19:41)
[2020-04-06] MEDS: Flecainide 50 MG TAB PO SCH ×2 (07:54→19:40)
[2020-04-06] MEDS: Cholecalciferol 1,000 UNITS (25 MCG) TAB PO SCH (07:54)
[2020-04-06] MEDS: Folic Acid 1 MG TAB PO SCH (07:54)
[2020-04-06] MEDS: Gabapentin 400 MG CAP PO SCH ×2 (07:58→19:41)
[2020-04-06] MEDS: metroNIDAZOLE 500 MG TAB PO SCH ×3 (07:58→19:41)
[2020-04-06] MEDS: Montelukast Sodium 10 mg Tablet PO SCH (07:58)
[2020-04-06] MEDS: Senokot 8.6 MG TAB PO SCH ×2 (07:59→19:40)
[2020-04-06] MEDS: Multivitamin W/ Minerals 1 TAB PO SCH (07:59)
[2020-04-06] MEDS: Acetaminophen 500 MG TAB PO PRN ×2 (12:03→19:45)
[2020-04-06 13:33] VITALS: BMI 24.7
[2020-04-06 18:57] LABS: Vancomycin, Trough 15.4 ug/mL
[2020-04-06] MEDS: Vancomycin HCl 1.25 GM in Sodium Chloride 0.9% 250 ML 250 ML IVPB SCH (19:14)
[2020-04-06] MEDS: Melatonin 3 MG TAB PO SCH (19:40)
[2020-04-06] MEDS: Atorvastatin Calcium 10 MG TAB PO SCH (19:41)
[2020-04-06] MEDS: traZODone HCl 50 MG TAB PO SCH (19:41)
[2020-04-06] MEDS: DULoxetine 60 MG CAP PO SCH (19:41)
[2020-04-07] MEDS: Levothyroxine Sodium 125 MCG TAB PO SCH (05:59)
[2020-04-07 06:17] LABS: #Basophils 0.1 thou/uL (0.0-0.2); #Eosinphils 0.3 thou/uL (0.0-0.7); #Lymphocytes 1.9 thou/uL (1.20-3.40); #Monocytes 0.8 thou/uL (0.11-0.59); #Neutrophils 12.1 thou/uL (1.40-6.50); %Basophils 0.5 % (0.0-1.0); %Eosinophils 2.2 % (0.0-10.0); %Lymphocytes 12.6 % (21.0-51.0); %Monocytes 5.4 % (0.0-10.0); %Neutrophils 79.3 % (42.0-75.0); Hemoglobin 11.2 g/dL (12.0-16.0); Mean Corpuscular HGB CONC 35.3 g/dL (32.0-36.0); Mean Corpuscular Hemoglobin 34.1 pg (27.0-31.0); Mean Corpuscular Volume 96.6 fL (78.0-98.0); Mean Platelet Volume 6.3 fL (7.4-10.4); Platelet Count 436 thou/uL (130-400); RBC Distribution Width 18.9 % (11.5-14.5); Red Blood Cell (RBC) Count 3.28 mill/uL (4.20-5.40); White Blood Cell (WBC) Count 15.2 thou/uL (4.8-10.8)
[2020-04-07 06:38] LABS: Anion Gap 13 mmol/L (10-20); BUN (Urea Nitrogen) 25 mg/dL (9.8-20.1); Calc. Creatinine Clearance 72 mL/min (70-130); Calcium 7.5 mg/dL (7.8-10.44); Carbon Dioxide 22 mmol/L (23-31); Chloride 107 mmol/L (98-107); Glucose 103 mg/dL (83-110); Magnesium 1.8 mg/dL (1.6-2.6); Potassium 3.9 mmol/L (3.5-5.1); Sodium 138 mmol/L (136-145)
[2020-04-07 06:41] LABS: Phosphorus 1.7 mg/dL (2.3-4.7)
[2020-04-07] MEDS ORDERED: Magnesium 2 GM/50 ML 2 GM in Premix Bag 1 BAG IVPB SCH (06:45)
[2020-04-07] MEDS ORDERED: PHOS-NAK 1 PKT PACK PO SCH (06:45)
[2020-04-07] MEDS: Ferrous Sulfate 325 MG TAB PO SCH (07:51)
[2020-04-07] MEDS: metFORMIN 500 MG TAB PO SCH (07:51)
[2020-04-07] MEDS: Ascorbic Acid 500 mg Chewable Tablet PO SCH (07:52)
[2020-04-07] MEDS: Aspirin 81 mg Enteric Coated Tablet PO SCH (07:52)
[2020-04-07] MEDS: Flecainide 50 MG TAB PO SCH (07:52)
[2020-04-07] MEDS: Folic Acid 1 MG TAB PO SCH (07:52)
[2020-04-07] MEDS: Cholecalciferol 1,000 UNITS (25 MCG) TAB PO SCH (07:52)
[2020-04-07] MEDS: Multivitamin W/ Minerals 1 TAB PO SCH (07:53)
[2020-04-07] MEDS: Gabapentin 400 MG CAP PO SCH (07:53)
[2020-04-07] MEDS: metroNIDAZOLE 500 MG TAB PO SCH (07:53)
[2020-04-07] MEDS: Senokot 8.6 MG TAB PO SCH (07:53)
[2020-04-07] MEDS: Montelukast Sodium 10 mg Tablet PO SCH (07:53)
[2020-04-07] MEDS: Amlodipine 10 MG TAB PO SCH (07:56)
[2020-04-07] MEDS: Apixaban 2.5 MG TAB PO SCH (09:09)
[2020-04-07 12:01] VITALS: BP 117/70; TEMP 97.8
== END 2020-04-07 13:11 | DRG 981 ==
LOC: ERS 13:15 → T4-B 16:18
PROVIDERS: ADMIT Emergency Medicine; ATTEND Emergency Medicine
PROC: 30233N1 Transfusion of Nonautologous Red Blood Cells into Peripheral Vein, Percutaneous Approach (ICD-10-PCS; principal; 2020-04-01)
PROC: 8E0ZXY6 Isolation (ICD-10-PCS; 2020-04-01)
PROC: 0KBP0ZZ Excision of Left Hip Muscle, Open Approach (ICD-10-PCS; 2020-04-02)
PROC: 02HV33Z Insertion of Infusion Device into Superior Vena Cava, Percutaneous Approach (ICD-10-PCS; 2020-04-06)
PROC: B518ZZA Fluoroscopy of Superior Vena Cava, Guidance (ICD-10-PCS; 2020-04-06)
PROC: B548ZZA Ultrasonography of Superior Vena Cava, Guidance (ICD-10-PCS; 2020-04-06)
DX: I11.0 Hypertensive heart disease with heart failure (principal); L89.154 Pressure ulcer of sacral region, stage 4; J96.01 Acute respiratory failure with hypoxia; J18.9 Pneumonia, unspecified organism; N30.00 Acute cystitis without hematuria; G82.20 Paraplegia, unspecified; E46 Unspecified protein-calorie malnutrition; M46.28 Osteomyelitis of vertebra, sacral and sacrococcygeal region; Z20.822 Contact with and (suspected) exposure to COVID-19; Z66 Do not resuscitate; I50.33 Acute on chronic diastolic (congestive) heart failure; F41.9 Anxiety disorder, unspecified; M32.9 Systemic lupus erythematosus, unspecified; K21.9 Gastro-esophageal reflux disease without esophagitis; M19.90 Unspecified osteoarthritis, unspecified site; F32.9 Major depressive disorder, single episode, unspecified; E03.9 Hypothyroidism, unspecified; I48.0 Paroxysmal atrial fibrillation; M54.5 Low back pain; G89.29 Other chronic pain; L89.111 Pressure ulcer of right upper back, stage 1; L89.612 Pressure ulcer of right heel, stage 2; D64.9 Anemia, unspecified; M48.061 Spinal stenosis, lumbar region without neurogenic claudication; B95.2 Enterococcus as the cause of diseases classified elsewhere; B95.62 Methicillin resistant Staphylococcus aureus infection as the cause of diseases classified elsewhere; Z86.16 Personal history of COVID-19; Z90.710 Acquired absence of both cervix and uterus; Z28.21 Immunization not carried out because of patient refusal; Z90.49 Acquired absence of other specified parts of digestive tract; Z86.718 Personal history of other venous thrombosis and embolism; Z99.3 Dependence on wheelchair; Z88.5 Allergy status to narcotic agent; Z79.890 Hormone replacement therapy; Z79.899 Other long term (current) drug therapy; Z87.891 Personal history of nicotine dependence; Z68.24 Body mass index [BMI] 24.0-24.9, adult; E11.69 Type 2 diabetes mellitus with other specified complication; Z79.01 Long term (current) use of anticoagulants; Z88.6 Allergy status to analgesic agent; Z79.84 Long term (current) use of oral hypoglycemic drugs; Z79.82 Long term (current) use of aspirin; Z79.891 Long term (current) use of opiate analgesic
CPT/HCPCS: 36415; 36416; 36430; 36569; 71045; 80048; 80053; 80202; 81003; 81015; 82607; 82746; 83540; 83550; 83735; 83880; 84100; 84145; 84484; 85025; 85652; 86140; 86850; 86900; 86901; 87070; 87077; 87186; 87205; 87635; 93005; 93306; 96365; 96367; C1751; J0456; J0696; J1200; J1644; J1940; J2270; J3370; J3475; J3490; J7050; P9016; U0003; U0005